=== PATIENT | male | born 1975 | race Caucasian/White ===

== ENCOUNTER 2016-10-23 09:11 | Emergency (ER) | payer MEDICAID, OTHER ==
[~2016-10-23] VITALS: Ht 167.6 cm; Wt 70.0 kg
[2016-10-23 09:14] VITALS: BP 143/85; PULSE 70; RESP 20; TEMP 98.1; O2SAT 100
[2016-10-23] MEDS ORDERED: ALLO300T2 PO (09:21)
[2016-10-23] MEDS ORDERED: SODIUM CHLOR 0.9% 1000 ML INJ 1,000 ML IV SCH (09:28)
[2016-10-23 09:30] VITALS: RESP 18; O2SAT 99
[2016-10-23] MEDS ORDERED: ONDANSETRON HCL 4 MG/2 ML VIAL IVP ONE (09:30)
[2016-10-23] MEDS ORDERED: SODIUM CHLORIDE 0.9% FLUSH 5 ML FLUSH IVF PRN (09:30)
[2016-10-23] MEDS ORDERED: MORPHINE SULFATE 4 MG/ML INJ IV PUSH ONE ×2 (09:30→12:15)
--- NOTE | 2016-10-23 09:36 | PD ---
HPI Chief Complaint: Abdominal Pain Time Seen by Provider: 09:23 Travel History International Travel<30 days: No Contact w/Intl Traveler<30days: No Traveled to known affect area: No History of Present Illness HPI Patient is a 41-year-old male with history of diverticulosis, presents to emergency room with complaints of abdominal pain. Patient reports that he woke up around 5 AM this morning with nausea and vomiting. Reports that he vomited multiple times and had multiple episodes of diarrhea. Patient reports increased lower abdominal pain. Patient reports that he has history of diverticulitis, reports that his symptoms today are very similar to his past episodes of diverticulitis. Patient reports that he last had a colonoscopy "a very long time ago." Reports that he does see a GI doctor, patient doesn't know the name of his GI doctor. Patient reports that he is currently working with his insurance to schedule an outpatient colonoscopy. Patient denies fevers or chills. Denies any recent travels. Denies any sick contacts. Reports nausea vomiting diarrhea with lower abdominal pain. PFSH Past Medical History Diminished Hearing: No Diverticulitis: Yes Gout: Yes Tetanus Vaccination: < 5 Years Influenza Vaccination: Yes Past Surgical History Other Surgery: Yes (CHEST TUBE RIGHT SIDE ) Social History Alcohol Use: Yes (OCASSIONALLY) Tobacco Use: Yes (1 PACK EVERY 3 DAYS) Substance Use: No Allergies-Medications (Allergen,Severity, Reaction): Coded Allergies: No Known Allergies (Unverified , 10/23/16) Reported Meds & Prescriptions Reported Meds & Active Scripts Active Medrol Dosepak (Methylprednisolone) 4 Mg Dspk 4 Mg PO DIRECTED Per Pharmacist direction Flagyl (Metronidazole) 500 Mg Tab 500 Mg PO TID 10 Days Cipro (Ciprofloxacin HCl) 500 Mg Tab 500 Mg PO BID 10 Days Reported Allopurinol 300 Mg Tab 300 Mg PO DAILY Review of Systems General / Constitutional: No: Fever Eyes: No: Visual changes HENT: No: Headaches Cardiovascular: No: Chest Pain or Discomfort Respiratory: No: Shortness of Breath Gastrointestinal: Positive: Nausea, Vomiting, Diarrhea, Abdominal Pain Genitourinary: No: Dysuria Musculoskeletal: No: Pain Skin: No Rash Neurologic: No: Weakness Psychiatric: No: Depression Endocrine: No: Polydipsia Hematologic/Lymphatic: No: Easy Bruising Physical Exam Narrative GENERAL: Patient in moderate distress SKIN: Warm and dry. HEAD: Atraumatic. Normocephalic. EYES: Pupils equal and round. No scleral icterus. No injection or drainage. ENT: No nasal bleeding or discharge. Mucous membranes pink and moist. NECK: Trachea midline. No JVD. CARDIOVASCULAR: Regular rate and rhythm. No murmur appreciated. RESPIRATORY: No accessory muscle use. Clear to auscultation. Breath sounds equal bilaterally. GASTROINTESTINAL: Abdomen soft, patient with lower abdominal pain with guarding on exam. Abdomen is not distended on evaluation. MUSCULOSKELETAL: No obvious deformities. No clubbing. No cyanosis. No edema. NEUROLOGICAL: Awake and alert. No obvious cranial nerve deficits. Motor grossly within normal limits. Normal speech. PSYCHIATRIC: Appropriate mood and affect; insight and judgment normal. Data Data Last Documented VS Vital Signs Date Time Temp Pulse Resp B/P Pulse Ox O2 Delivery O2 Flow Rate FiO2 10/23/16 12:23 17 10/23/16 11:30 68 130/78 99 Room Air 10/23/16 09:14 98.1 Orders Complete Blood Count With Diff (10/23/16 09:28) Comprehensive Metabolic Panel (10/23/16 09:28) Lipase (10/23/16 09:28) Prothrombin Time / Inr (Pt) (10/23/16:28) Act Partial Throm Time (Ptt) (10/23/16 09:28) Urinalysis - C+S If Indicated (10/23/16 09:28) Ct Abd/Pel W Iv Contrast(Rout) (10/23/16 09:28) Iv Access Insert/Monitor (10/23/16:28) Ecg Monitoring (10/23/16:28) Oximetry (10/23/16 09:28) Morphine Inj (Morphine Inj) (10/23/16 09:30) Ondansetron Inj (Zofran Inj) (10/23/16 09:30) Sodium Chlor 0.9% 1000 Ml Inj (Ns 1000 M (10/23/16 09:28) Sodium Chloride 0.9% Flush (Ns Flush) (10/23/16 09:30) Oral Contrast - Adult (10/23/16 09:33) Diatrizoate Liq ( Gastroview Liq) (10/23/16 09:37) Diatrizoate Liq ( Gastrocheko Liq) (10/23/16 09:37) Iohexol 350 Inj (Omnipaque 350 Inj) (10/23/16 11:42) Ciprofloxacin 400 Mg Premix (Cipro 400 M (10/23/16 12:15) Metronidazole 500 Mg Inj (Flagyl 500 Mg (10/23/16 12:15) Morphine Inj (Morphine Inj) (10/23/16 12:15) Labs Laboratory Tests Test 10/23/16 09:35 White Blood Count 18.5 TH/MM3 Red Blood Count 4.87 MIL/MM3 Hemoglobin 15.0 GM/DL Hematocrit 45.1 % Mean Corpuscular Volume 92.6 FL Mean Corpuscular Hemoglobin 30.9 PG Mean Corpuscular Hemoglobin 33.4 % Concent Red Cell Distribution Width 12.7 % Platelet Count 221 TH/MM3 Mean Platelet Volume 10.5 FL Neutrophils (%) (Auto) 84.9 % Lymphocytes (%) (Auto) 9.7 % Monocytes (%) (Auto) 4.7 % Eosinophils (%) (Auto) 0.3 % Basophils (%) (Auto) 0.4 % Neutrophils # (Auto) 15.7 TH/MM3 Lymphocytes # (Auto) 1.8 TH/MM3 Monocytes # (Auto) 0.9 TH/MM3 Eosinophils # (Auto) 0.1 TH/MM3 Basophils # (Auto) 0.1 TH/MM3 CBC Comment DIFF FINAL Differential Comment Prothrombin Time 11.4 SEC Prothromb Time International 1.0 RATIO Ratio Activated Partial 31.4 SEC Thromboplast Time Urine Color YELLOW Urine Turbidity CLEAR Urine pH 5.5 Urine Specific [place] 1.018 Urine Protein NEG mg/dL Urine Glucose (UA) NEG mg/dL Urine Ketones NEG mg/dL Urine Occult Blood TRACE Urine Nitrite NEG Urine Bilirubin NEG Urine Urobilinogen LESS THAN 2.0 MG/DL Urine Leukocyte Esterase NEG Urine RBC 1 /hpf Urine WBC 1 /hpf Urine Mucus FEW /lpf Microscopic Urinalysis Comment CULT NOT INDICATED Sodium Level 138 MEQ/L Potassium Level 4.6 MEQ/L Chloride Level 104 MEQ/L Carbon Dioxide Level 25.8 MEQ/L Anion Gap 8 MEQ/L Blood Urea Nitrogen 21 MG/DL Creatinine 0.94 MG/DL Estimat Glomerular Filtration 89 ML/MIN Rate Random Glucose 97 MG/DL Calcium Level 9.3 MG/DL Total Bilirubin 0.9 MG/DL Aspartate Amino Transf 14 U/L (AST/SGOT) Alanine Aminotransferase 24 U/L (ALT/SGPT) Alkaline Phosphatase 94 U/L Total Protein 8.0 GM/DL Albumin 3.8 GM/DL Lipase 70 U/L MDM Medical Decision Making Medical Screen Exam Complete: Yes Emergency Medical Condition: Yes Interpretation(s) Vital Signs Date Time Temp Pulse Resp B/P Pulse Ox O2 Delivery O2 Flow Rate FiO2 10/23/16 09:24 18 10/23/16 09:14 98.1 70 20 143/85 100 Differential Diagnosis Acute diverticulitis, UTI, abscess, pneumoperitoneum, electrolyte abnormality Narrative Course Patient is a 49-year-old male who presents to emergency room with complaints of abdominal pain. Patient reports history of diverticulitis, reports nausea vomiting diarrhea since 5 AM this morning. Patient with diffuse abdominal tenderness to lower abdomen, patient with guarding on exam. Patient was placed on site monitor, IV fluids as well as IV pain medication and IV antiemetics ordered for patient. CBC, BMP, LFTs and UA ordered for further evaluation symptoms. CAT scan of the abdomen with IV and po contrast ordered for further evaluation of acute diverticulitis Patient with acute diverticulitis, reviewed his patient. Patient comfortable going home and taking antibiotics as outpatient. Signs and symptoms of when to return to the emergency room reviewed with patient in detail. Patient also with "gout" Attack, Patient request script for steroids for tx of his gout - reports that he is having an attack now and usually takes steroids for it but reports that "I won't take it if I dont' need it" Signs and symptoms of when to return to emergency room reviewed with patient in detail. Diagnosis Primary Impression: Diverticulitis Qualified Code: K57.92 - Diverticulitis of intestine without perforation or abscess without bleeding, unspecified part of intestinal tract Additional Impression: Gout attack Patient Instructions: General Instructions, Narcotic given in the ED Departure Forms: Tests/Procedures, Work Release Enter return to work date: Oct 28, 2016 Additional Instructions: Please return to ER as needed Please follow-up with a primary care doctor as well as a GI doctor as soon as possible Please return to emergency room if your abdominal pain returns or persists Med/Other Pt SpecificInfo: Prescription(s) given Scripts Methylprednisolone Dosepak (Medrol Dosepak)4 Mg Dspk4 Mg PO DIRECTED #1 DSPK Ref 0 Per Pharmacist direction Prov:Jacquelin Gilliam DO 10/23/16 Metronidazole (Flagyl)500 Mg [id number] Mg PO TID 10 Days Ref 0 Prov:Jacquelin Gilliam DO 10/23/16 Ciprofloxacin (Cipro)500 Mg [id number] Mg PO BID 10 Days Ref 0 Prov:Jacquelin Gilliam DO 10/23/16 Disposition: 01 DISCHARGE HOME Condition: Stable Jacquelin Gilliam DO Oct 23, 2016 09:36
[2016-10-23] MEDS ORDERED: DIATRIZOATE MEGLUM/DIATRIZOATE SOD 9 ML CUP ONE ×2 (09:37)
[2016-10-23 09:59] LABS: AUTOMATED NEUTROPHIL # 15.7 TH/MM3 (1.8-7.7); BASOPHIL # 0.1 TH/MM3 (0-0.2); BASOPHIL % 0.4 % (0.0-2.0); EOSINOPHIL # 0.1 TH/MM3 (0-0.4); EOSINOPHIL % 0.3 % (0.0-4.0); HEMATOCRIT 45.1 % (39.0-51.0); HEMO FLAGS DIFF FINAL; LYMPH % 9.7 % (9.0-44.0); LYMPHOCYTE # 1.8 TH/MM3 (1.0-4.8); MEAN CELL VOLUME 92.6 FL (80.0-100.0); MEAN CORPUSCULAR HEMOGLOBIN 30.9 PG (27.0-34.0); MEAN CORPUSCULAR HGB CONC 33.4 % (32.0-36.0); MONO % 4.7 % (0.0-8.0); NEUT % 84.9 % (16.0-70.0); PLATELET COUNT 221 TH/MM3 (150-450); RED BLOOD COUNT 4.87 MIL/MM3 (4.50-5.90); RED CELL DISTRIBUTION WIDTH 12.7 % (11.6-17.2); WHITE BLOOD COUNT 18.5 TH/MM3 (4.0-11.0)
[2016-10-23 10:06] LABS: APTT (PATIENT) 31.4 SEC (24.3-30.1); BLOOD, URINE TRACE (NEG); COMMENT (UR) CULT NOT INDICATED; CULTURE IF INDICATED CULT NOT INDICATED; GLUCOSE,URINE NEG (NEG); KETONE, URINE NEG (NEG); MUCUS URINE FEW /lpf (OCC); NITRITE,URINE NEG (NEG); PH, URINE 5.5 (5.0-8.5); PROTHROMBIN TIME - PATIENT 11.4 SEC (9.8-11.6); URINE COLOR YELLOW (YELLW/STRAW)
[2016-10-23 10:18] LABS: ANION GAP 8 MEQ/L (5-15); AST (GOT) 14 U/L (15-37); BICARBONATE 25.8 MEQ/L (21.0-32.0); BLOOD UREA NITROGEN 21 MG/DL (7-18); CHLORIDE 104 MEQ/L (98-107); GLOMERULAR FILTRATION RATE 89 ML/MIN (>89); POTASSIUM 4.6 MEQ/L (3.5-5.1); SODIUM (NA) 138 MEQ/L (136-145)
[2016-10-23 10:21] LABS: ALKALINE PHOSPHATASE 94 U/L (45-117); ALT (GPT) 24 U/L (12-78); TOTAL BILIRUBIN ADULT 0.9 MG/DL (0.2-1.0)
[2016-10-23 11:30] VITALS: BP 130/78; PULSE 68; RESP 16; O2SAT 99
[2016-10-23] MEDS ORDERED: IOHEXOL 350 MG/ML 10 ML VIAL (for RAD DIAG) IV ONE (11:42)
--- NOTE | 2016-10-23 11:53 | RADRPT ---
EXAM DATE/TIME: 10/23/2016 11:38 [facility] COMPARISON: No previous studies available for comparison. INDICATIONS : Lower abdominal pain today with nausea and vomiting. IV CONTRAST: 69 cc Omnipaque 350 (iohexol) IV ORAL CONTRAST: Prescribed oral contrast ingested. RADIATION DOSE: 6.11 CTDIvol (mGy) MEDICAL HISTORY : Diverticulitis. SURGICAL HISTORY : None. ENCOUNTER: Initial ACUITY: 1 day PAIN SCALE: 6/10 LOCATION: lower quadrant TECHNIQUE: Volumetric scanning of the abdomen and pelvis was performed. Using automated exposure control and adjustment of the mA and/or kV according to patient size, radiation dose was kept as low as reasonably achievable to obtain optimal diagnostic quality images. FINDINGS: Minimal bibasilar parenchymal changes are evident. There is no pericardial effusion. The liver, spleen, pancreas and adrenal glands are unremarkable. The cecum and terminal ileum appear normal with patent normal appearing appendix. The pelvic is abnormal with extensive apparent sigmoid diverticulitis without abscess. This involves the long segment of this sigmoid. This is draped over the top of the bladder. CONCLUSION: Significant sigmoid diverticulitis without abscess. Bon Giordano MD FACR on October 23, 2016 at 11:49 Board Certified Radiologist. This report was verified electronically.
[2016-10-23] MEDS ORDERED: CIPROFLOXACIN 400 MG PREMIX 200 ML IV ONE (12:15)
[2016-10-23] MEDS ORDERED: metroNIDAZOLE 500 MG INJ 100 ML IV ONE (12:15)
[2016-10-23 12:23] VITALS: RESP 17
[2016-10-23] MEDS ORDERED: CIPR-9 PO (13:42)
[2016-10-23] MEDS ORDERED: METR-1 PO (13:42)
[2016-10-23] MEDS ORDERED: MEDR4PAK PO (13:44)
[2016-10-23 13:56] VITALS: BP 120/78; TEMP 98.1
== END 2016-10-23 14:05 | disposition home or self-care (01) ==
LOC: NEPC 09:11
DX: K57.92 Diverticulitis of intestine, part unspecified, without perforation or abscess without bleeding (principal); M10.9 Gout, unspecified; R11.2 Nausea with vomiting, unspecified; R19.7 Diarrhea, unspecified; Z72.0 Tobacco use
CPT/HCPCS: 74177; 80053; 81001; 83690; 85025; 85610; 85730; 96361; 96365; 96368; 96375; 96376; 99284; J0744; J2270; J2405; J7030; Q9963; Q9967

== ENCOUNTER 2017-07-21 15:12 | Inpatient (IN) | payer MEDICAID ==
[~2017-07-21] VITALS: Ht 165.1 cm; Wt 70.2 kg
[~2017-07-21 15:12] MED LIST: ALLO300T2 PO; CIPR-9 PO; MEDR4PAK PO; METR-1 PO
[2017-07-21 15:13] VITALS: BP 167/97; PULSE 79; RESP 16; TEMP 99; O2SAT 96
--- NOTE | 2017-07-21 17:46 | PD ---
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 Patient had been hospitalized 4 days and treated with IV Zosyn and vancomycin. Patient was going to be scheduled for surgery, but the patient did not like the surgeon there so he left AMA last evening. He is now here for reevaluation and treatment. Currently he states he is in no significant pain and denies significant fever. He has no dysuria which is the symptom that brought him to the hospital 5 days ago. Patient has a history of gout. Patient also has a history of hospitalization in April for a bowel abscess that was drained percutaneously according to him. He states she's had no trouble since that time until 5 days ago. Patient has no known drug allergies but requests no acetaminophen as it flares up his gout. PFSH Past Medical History Diminished Hearing: No Diverticulitis: Yes Gout: Yes Past Surgical History Other Surgery: Yes (CHEST TUBE RIGHT SIDE ) Social History Alcohol Use: Yes (OCASSIONALLY) Tobacco Use: Yes (1 PACK EVERY 3 DAYS) Substance Use: No Allergies-Medications (Allergen,Severity, Reaction): Coded Allergies: acetaminophen (Verified Allergy, Unknown, 07/21/17) morphine (Verified Allergy, Unknown, 07/21/17) Reported Meds & Prescriptions Reported Meds & Active Scripts Active Reported Allopurinol 300 Mg Tab 300 Mg PO DAILY Review of Systems Except as stated in HPI: all other systems reviewed are Neg General / Constitutional: No: Fever, Chills Eyes: No: Visual changes HENT: No: Headaches Cardiovascular: No: Chest Pain or Discomfort Respiratory: No: Shortness of Breath Gastrointestinal: No: Abdominal Pain Genitourinary: Positive: Dysuria Musculoskeletal: No: Pain Skin: No Rash Neurologic: No: Weakness Psychiatric: No: Depression Endocrine: No: Polydipsia Hematologic/Lymphatic: No: Easy Bruising Physical Exam Narrative GENERAL: Patient appears in no acute distress. SKIN: Warm and dry. Normal color. Normal turgor. HEAD: Atraumatic. Normocephalic. EYES: Pupils equal and round. No scleral icterus. No injection or drainage. ENT: No nasal bleeding or discharge. Mucous membranes pink and moist. Pharynx is clear. Airway is patent. NECK: Trachea midline. Supple nontender. CARDIOVASCULAR: Regular rate and rhythm. No murmurs gallops or rubs. RESPIRATORY: No accessory muscle use. Clear to auscultation. Breath sounds equal bilaterally. GASTROINTESTINAL: Abdomen soft, non-tender, nondistended. Hepatic and splenic margins not palpable. No CVA tenderness at this time. MUSCULOSKELETAL: Extremities without clubbing, cyanosis, or edema. No obvious deformities. NEUROLOGICAL: Awake and alert. No obvious cranial nerve deficits. Motor grossly within normal limits. Five out of 5 muscle strength in the arms and legs. Normal speech. PSYCHIATRIC: Appropriate mood and affect; insight and judgment normal. Data Data Last Documented VS Vital Signs Date Time Temp Pulse Resp B/P (MAP) Pulse Ox O2 Delivery O2 Flow Rate FiO2 07/21/17 15:13 99.0 79 16 167/97 (120) 96 Orders Orders Complete Blood Count With Diff (07/21/17:47) Comprehensive Metabolic Panel (07/21/17:47) Lactic Acid (07/21/17 17:47) Prothrombin Time / Inr (Pt) (07/21/17:47) Act Partial Throm Time (Ptt) (07/21/17:47) Urinalysis - C+S If Indicated (07/21/17 17:47) Ct Abd/Pel W Iv Contrast(Rout) (07/21/17 17:47) Iv Access Insert/Monitor (07/21/17:47) Ecg Monitoring (07/21/17:47) Oximetry (07/21/17:47) NPO (07/21/17:47) Sodium Chlor 0.9% 1000 Ml Inj (Ns 1000 M (07/21/17 17:47) Sodium Chloride 0.9% Flush (Ns Flush) (07/21/17 18:00) Electrocardiogram (07/21/17 17:47) Chest, Single Ap (07/21/17 17:47) Piperacil-Tazo 4.5 Gm Premix (Zosyn 4.5 (07/21/17 18:00) Vancomycin Inj (Vancomycin Inj) (07/21/17 18:00) Oral Contrast - Adult (07/21/17 17:53) Diatrizoate Liq ( Gastrocheko Liq) (07/21/17 19:19) Iohexol 350 Inj (Omnipaque 350 Inj) (07/21/17 22:39) Labs Laboratory Tests Test 07/21/17 18:00 07/21/17 20:35 White Blood Count 13.3 TH/MM3 Red Blood Count 4.77 MIL/MM3 Hemoglobin 14.8 GM/DL Hematocrit 44.4 % Mean Corpuscular Volume 93.1 FL Mean Corpuscular Hemoglobin 31.0 PG Mean Corpuscular Hemoglobin Concent 33.3 % Red Cell Distribution Width 14.4 % Platelet Count 226 TH/MM3 Mean Platelet Volume 10.4 FL Neutrophils (%) (Auto) 66.8 % Lymphocytes (%) (Auto) 25.1 % Monocytes (%) (Auto) 7.2 % Eosinophils (%) (Auto) 0.4 % Basophils (%) (Auto) 0.5 % Neutrophils # (Auto) 8.9 TH/MM3 Lymphocytes # (Auto) 3.3 TH/MM3 Monocytes # (Auto) 1.0 TH/MM3 Eosinophils # (Auto) 0.1 TH/MM3 Basophils # (Auto) 0.1 TH/MM3 CBC Comment DIFF FINAL Differential Comment Prothrombin Time 11.0 SEC Prothromb Time International Ratio 1.0 RATIO Activated Partial Thromboplast Time 29.4 SEC Blood Urea Nitrogen 8 MG/DL Creatinine 1.01 MG/DL Random Glucose 77 MG/DL Total Protein 8.5 GM/DL Albumin 3.8 GM/DL Calcium Level 9.7 MG/DL Alkaline Phosphatase 76 U/L Aspartate Amino Transf (AST/SGOT) 28 U/L Alanine Aminotransferase (ALT/SGPT) 33 U/L Total Bilirubin 0.4 MG/DL Sodium Level 140 MEQ/L Potassium Level 3.7 MEQ/L Chloride Level 103 MEQ/L Carbon Dioxide Level 30.4 MEQ/L Anion Gap 7 MEQ/L Estimat Glomerular Filtration Rate 82 ML/MIN Lactic Acid Level 0.7 mmol/L Urine Color COLORLESS Urine Turbidity CLEAR Urine pH 7.5 Urine Specific [place] 1.005 Urine Protein NEG mg/dL Urine Glucose (UA) NEG mg/dL Urine Ketones NEG mg/dL Urine Occult Blood NEG Urine Nitrite NEG Urine Bilirubin NEG Urine Urobilinogen LESS THAN 2.0 MG/DL Urine Leukocyte Esterase NEG Urine RBC LESS THAN 1 /hpf Urine WBC LESS THAN 1 /hpf Microscopic Urinalysis Comment CULT NOT INDICATED MDM Medical Decision Making Medical Screen Exam Complete: Yes Emergency Medical Condition: Yes Medical Record Reviewed: Yes Differential Diagnosis History of dysuria. History of diverticulitis. History colovesicular fistula/ abscess. Narrative Course Patient is medically stable at time of exam. Records are requested from his recent hospitalization at [facility] in [place]. Labs ordered including CBC, CMP, lactic acid, blood cultures 2, and urinalysis. CT of the abdomen and pelvis is ordered with both IV and oral contrast. IV access is obtained patient is given 1000 mg normal saline bolus as well as Zosyn 4.5 mg IV and vancomycin 1000 mg IV. EKG and chest x-ray is ordered as well. Chest x-ray is unremarkable for acute findings per radiologist. EKG shows sinus bradycardia without ST-T changes. CBC shows mild leukocytosis of 13.3. Coagulation studies are normal. Chemistries are normal except for protein of 8.5. Lactic acid is 0.[address] of the abdomen shows a 15 cm area of diverticulitis with extensive inflammatory changes. Patient discussed with and seen with Dr. Bernard at 2300 hrs. who recommends admitting the patient and have GI consult. Diagnosis Primary Impression: Diverticulitis Qualified Codes: K57.32 - Diverticulitis of large intestine without perforation or abscess without bleeding Admitting Information Admitting Physician Requests: Observation Condition: Stable Ronan Carrera Jul 21, 2017 17:46
[2017-07-21] MEDS ORDERED: SODIUM CHLOR 0.9% 1000 ML INJ 1,000 ML IV SCH (17:47)
[2017-07-21] MEDS ORDERED: PIPERACIL-TAZO 4.5 GM PREMIX 100 ML IV ONE (18:00)
[2017-07-21] MEDS ORDERED: SODIUM CHLORIDE 0.9% FLUSH 10 ML FLUSH IV FLUSH PRN (18:00)
[2017-07-21] MEDS ORDERED: VANCOMYCIN INJ 1,000 MG in SODIUM CHLOR 0.9% 250 ML INJ 250 ML IV ONE (18:00)
--- NOTE | 2017-07-21 18:34 | RADRPT ---
EXAM DATE/TIME: 07/21/2017 17:59 [facility] COMPARISON: No previous studies available for comparison. INDICATIONS : Cough. MEDICAL HISTORY : Diverticulitis. Fistulas. SURGICAL HISTORY : None. ENCOUNTER: Initial ACUITY: 1 day PAIN SCORE: 0/10 LOCATION: Bilateral chest FINDINGS: A single view of the chest demonstrates the lungs to be symmetrically aerated without evidence of mas s, infiltrate or effusion. The cardiomediastinal contours are unremarkable. Osseous structures are intact. CONCLUSION: 1. No acute cardiopulmonary disease. Scooby Schroeder MD on July 21, 2017 at 18:32 Board Certified Radiologist. This report was verified electronically.
[2017-07-21 18:41] LABS: AUTOMATED NEUTROPHIL # 8.9 TH/MM3 (1.8-7.7); BASOPHIL # 0.1 TH/MM3 (0-0.2); BASOPHIL % 0.5 % (0.0-2.0); EOSINOPHIL # 0.1 TH/MM3 (0-0.4); EOSINOPHIL % 0.4 % (0.0-4.0); HEMATOCRIT 44.4 % (39.0-51.0); HEMO FLAGS DIFF FINAL; LYMPH % 25.1 % (9.0-44.0); LYMPHOCYTE # 3.3 TH/MM3 (1.0-4.8); MEAN CELL VOLUME 93.1 FL (80.0-100.0); MEAN CORPUSCULAR HGB CONC 33.3 % (32.0-36.0); MONO % 7.2 % (0.0-8.0); NEUT % 66.8 % (16.0-70.0); PLATELET COUNT 226 TH/MM3 (150-450); RED BLOOD COUNT 4.77 MIL/MM3 (4.50-5.90); RED CELL DISTRIBUTION WIDTH 14.4 % (11.6-17.2); WHITE BLOOD COUNT 13.3 TH/MM3 (4.0-11.0)
[2017-07-21 19:03] LABS: APTT (PATIENT) 29.4 SEC (24.3-30.1)
[2017-07-21 19:10] LABS: ALT (GPT) 33 U/L (12-78)
[2017-07-21 19:12] LABS: ALKALINE PHOSPHATASE 76 U/L (45-117); TOTAL BILIRUBIN ADULT 0.4 MG/DL (0.2-1.0)
[2017-07-21 19:14] LABS: ANION GAP 7 MEQ/L (5-15); AST (GOT) 28 U/L (15-37); BICARBONATE 30.4 MEQ/L (21.0-32.0); BLOOD UREA NITROGEN 8 MG/DL (7-18); CHLORIDE 103 MEQ/L (98-107); GLOMERULAR FILTRATION RATE 82 ML/MIN (>89); POTASSIUM 3.7 MEQ/L (3.5-5.1); SODIUM (NA) 140 MEQ/L (136-145)
[2017-07-21] MEDS ORDERED: DIATRIZOATE MEGLUM/DIATRIZOATE SOD 9 ML CUP ONE (19:19)
[2017-07-21 20:51] LABS: BLOOD, URINE NEG (NEG); GLUCOSE,URINE NEG (NEG); KETONE, URINE NEG (NEG); NITRITE,URINE NEG (NEG); PH, URINE 7.5 (5.0-8.5); URINE COLOR COLORLESS (YELLW/STRAW)
[2017-07-21 21:01] LABS: COMMENT (UR) CULT NOT INDICATED; CULTURE IF INDICATED CULT NOT INDICATED
[2017-07-21] MEDS ORDERED: IOHEXOL 350 MG/ML 10 ML VIAL (for RAD DIAG) IVCONTRAST ONE (22:39)
--- NOTE | 2017-07-21 22:52 | RADRPT ---
EXAM DATE/TIME: 07/21/2017 22:23 [facility] COMPARISON: CT ABDOMEN & PELVIS W CONTRAST, October 23, 2016, 11:38. 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 IV CONTRAST: 90 cc Omnipaque 350 (iohexol) IV ORAL CONTRAST: Prescribed oral contrast ingested. RADIATION DOSE: 6.64 CTDIvol (mGy) MEDICAL HISTORY : Diverticulitis. SURGICAL HISTORY : None. ENCOUNTER: Initial ACUITY: 4 - 6 days PAIN SCALE: 1/10 LOCATION: Bilateral abdomen TECHNIQUE: Volumetric scanning of the abdomen and pelvis was performed. Using automated exposure control and ad justment of the mA and/or kV according to patient size, radiation dose was kept as low as reasonably achievable to obtain optimal diagnostic quality images. DICOM format image data is available electro nically for review and comparison. FINDINGS: There is subsegmental atelectasis in the both bases. There are multiple hypodensities within the daniel er compatible with hepatic cysts the largest measuring 7 mm in segment 7The spleen is normal in size and free of focal defects. The gallbladder and pancreas are unremarkable. No intrahepatic or extrahep atic ductal dilatation is seen. The adrenal glands and kidneys appear normal bilaterally. No hydronep hrosis or mass lesions are identified. There findings of acute diverticulitis involving the sigmoid colon without abscess. No free air is id entified. A retrocecal appendix is present. CONCLUSION: 1. Acute sigmoid diverticulitis extending over a 15 cm segment with extensive inflammatory change but no abscess Scooby Schroeder MD on July 21, 2017 at 22:47 Board Certified Radiologist. This report was verified electronically.
[2017-07-22] VITALS (10 sets, daily range): BP systolic 129–142; BP diastolic 74–92; PULSE 41–74; RESP 16–22; TEMP 96.8–98.2; O2SAT 95–100
[2017-07-22] MEDS ORDERED: SODIUM CHLORIDE 0.9% FLUSH 10 ML FLUSH IV FLUSH PRN (01:00)
[2017-07-22] MEDS ORDERED: NALOXONE HCL 0.4 MG/ML AMP IV PUSH PRN (01:00)
[2017-07-22] MEDS ORDERED: SODIUM CHLORIDE 0.9% FLUSH 10 ML FLUSH IVF PRN (01:00)
[2017-07-22] MEDS: SODIUM CHLOR 0.9% 1000 ML INJ 1,000 ML IV SCH ×3 (01:22→20:35)
[2017-07-22] MEDS: PIPERACIL-TAZO 4.5 GM PREMIX 100 ML IV SCH ×4 (01:56→20:32)
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
[2017-07-22 05:47] LABS: MAGNESIUM 2.3 MG/DL (1.5-2.5)
[2017-07-22] MEDS: SODIUM CHLORIDE 0.9% FLUSH 10 ML FLUSH IV FLUSH SCH ×2 (08:10→20:35)
[2017-07-22] MEDS ORDERED: SODIUM CHLORIDE 0.9% FLUSH 10 ML FLUSH IV FLUSH SCH (09:00)
--- NOTE | 2017-07-22 09:00 | HHI.PR ---
Subjective Remarks This is a pleasant 41 y/o Male with Diverticulitis, he was hospitalized at [facility] he signed against Medical advise when was offered surgery due to probable Diverticulitis and abscess, he came to this facility for second opinion, at this time seen in his bedroom, no pain, no nausea, or diarrhea, at this time on Zosyn and awaiting recommendations by GI specialist. no complaint but wants to start diet. Seen in the room in the presence at all times of Nurse Miss Suresh appreciated. Objective Vital Signs Date Time Temp Pulse Resp B/P (MAP) Pulse Ox O2 Delivery O2 Flow Rate FiO2 07/22/17 08:18 45 07/22/17 08:00 98.2 46 16 136/77 (96) 99 07/22/17 04:00 96.8 45 20 141/80 (100) 96 07/22/17 02:40 47 07/22/17 02:14 97.7 43 22 138/92 (107) 95 07/21/17 15:13 99.0 79 16 167/97 (120) 96 I/O 07/21/17 07/21/17 07/21/17 07/22/17 07/22/17 07/22/17 07:00 15:00 23:00 07:00 15:00 23:00 Intake Total 1350 ml 100 ml Output Total 150 ml Balance 1350 ml -50 ml Intake Oral 0 ml IV Total 1350 ml 100 ml Output Urine Total 150 ml # Bowel Movements 0 Result Diagram: 07/21/17 1800 07/21/17 1800 Imaging Last Impressions Chest X-Ray [id number]/21/[id number] Signed Impressions: Service Date/Time: Friday, July 21, 2017 17:59 - CONCLUSION: 1. No acute cardiopulmonary disease. Scooby Schroeder MD Abdomen/Pelvis CT [id number] Signed Impressions: Service Date/Time: Friday, July 21, 2017 22:23 - CONCLUSION: 1. Acute sigmoid diverticulitis extending over a 15 cm segment with extensive inflammatory change but no abscess Scooby Schroeder MD Other Results Laboratory Tests Test 07/21/17 18:00 07/21/17 20:35 07/22/17 05:14 White Blood Count 13.3 TH/MM3 Red Blood Count 4.77 MIL/MM3 Hemoglobin 14.8 GM/DL Hematocrit 44.4 % Mean Corpuscular Volume 93.1 FL Mean Corpuscular Hemoglobin 31.0 PG Mean Corpuscular Hemoglobin Concent 33.3 % Red Cell Distribution Width 14.4 % Platelet Count 226 TH/MM3 Mean Platelet Volume 10.4 FL Neutrophils (%) (Auto) 66.8 % Lymphocytes (%) (Auto) 25.1 % Monocytes (%) (Auto) 7.2 % Eosinophils (%) (Auto) 0.4 % Basophils (%) (Auto) 0.5 % Neutrophils # (Auto) 8.9 TH/MM3 Lymphocytes # (Auto) 3.3 TH/MM3 Monocytes # (Auto) 1.0 TH/MM3 Eosinophils # (Auto) 0.1 TH/MM3 Basophils # (Auto) 0.1 TH/MM3 CBC Comment DIFF FINAL Differential Comment Prothrombin Time 11.0 SEC Prothromb Time International Ratio 1.0 RATIO Activated Partial Thromboplast Time 29.4 SEC Blood Urea Nitrogen 8 MG/DL Creatinine 1.01 MG/DL Random Glucose 77 MG/DL Total Protein 8.5 GM/DL Albumin 3.8 GM/DL Calcium Level 9.7 MG/DL Alkaline Phosphatase 76 U/L Aspartate Amino Transf (AST/SGOT) 28 U/L Alanine Aminotransferase (ALT/SGPT) 33 U/L Total Bilirubin 0.4 MG/DL Sodium Level 140 MEQ/L Potassium Level 3.7 MEQ/L Chloride Level 103 MEQ/L Carbon Dioxide Level 30.4 MEQ/L Anion Gap 7 MEQ/L Estimat Glomerular Filtration Rate 82 ML/MIN Lactic Acid Level 0.7 mmol/L Urine Color COLORLESS Urine Turbidity CLEAR Urine pH 7.5 Urine Specific [place] 1.005 Urine Protein NEG mg/dL Urine Glucose (UA) NEG mg/dL Urine Ketones NEG mg/dL Urine Occult Blood NEG Urine Nitrite NEG Urine Bilirubin NEG Urine Urobilinogen LESS THAN 2.0 MG/DL Urine Leukocyte Esterase NEG Urine RBC LESS THAN 1 /hpf Urine WBC LESS THAN 1 /hpf Microscopic Urinalysis Comment CULT NOT INDICATED Phosphorus Level 3.4 MG/DL Magnesium Level 2.3 MG/DL Objective Remarks GENERAL: Well-developed patient, in no apparent distress. SKIN: No rashes, ecchymoses or lesions. Cool and dry. HEAD: Atraumatic. Normocephalic. EYES: Pupils equal round and reactive. Extraocular motions intact. ENT: Nose without bleeding, purulent drainage or septal hematoma.Airway patent. NECK: Trachea midline. No JVD or lymphadenopathy. CARDIOVASCULAR: Regular rate and rhythm without murmurs, gallops, or rubs. RESPIRATORY: Clear to auscultation. Breath sounds equal bilaterally. No wheezes , rales, or rhonchi. GASTROINTESTINAL: Abdomen soft, non-tender, nondistended. BS x 4 MUSCULOSKELETAL: Extremities without clubbing, cyanosis, or edema. No joint tenderness, effusion, or edema noted. No calf tenderness. NEUROLOGICAL: Awake and alert. Motor and sensory grossly within normal limits. Normal speech. Medications and IVs Current Medications Medications (Trade) Dose Ordered Sig/Eleazar Route Start Time Stop Time Status Last Admin Sodium Chloride 1,000 ml @ 100 mls/hr Q10H IV 07/22/17 00:46 07/22/17 01:22 (Zofran Inj) 4 mg Q6H PRN IVP 07/22/17 01:00 (Narcan Inj) 0.4 mg UNSCH PRN IV PUSH 07/22/17 01:00 (NS Flush) 2 ml BID IV FLUSH 07/22/17 09:00 (NS Flush) 2 ml UNSCH PRN IVF 07/22/17 01:00 Piperacillin Sod/ Tazobactam Sod 100 ml @ 200 mls/hr Q6H IV 07/22/17 02:00 07/22/17 08:29 A/P Assessment and Plan 1. Diverticulitis as per CT scan, he is been on Vancomycin and Zosyn at [facility] here started on Zosyn and following GI specialist recommendations evidently will need to rule out Inflammatory Bowel Disease. Because GI specialist KNURLING MACHINE OPERATOR in to see the patient will leave further Laboratory studies to her, he will need to complete Rheumatology screen. probable Endoscopy to follow may be recommended. DVT prophylaxis: SCDs Discussed Condition With Patient and nurse Demetrice, All questions answered to the best of my abilities. Discharge Planning Once cleared by specialists. Dao Patterson MD Jul 22, 2017 09:00
--- NOTE | 2017-07-22 09:54 | EKG ---
Date Performed: 07/21/2017 Time Performed: 22:23:47 PTAGE: 41 years EKG: SINUS BRADYCARDIA WITH SINUS ARRHYTHMIA MINIMAL VOLTAGE CRITERIA FOR LVH, CONSIDER NORMAL V ARIANT BORDERLINE ECG NO PREVIOUS TRACING DOCTOR: Scooby Valenzuela Interpretating Date/Time 07/22/2017 09:52:37
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
--- NOTE | 2017-07-22 15:43 | PD.CONS ---
cc: Kenny Singleton MD [facility] Service Consultation NOTE FOR SURGICAL ATTENDING, DR. KENNY SINGLETON General Surgery Consult Requested By Yenny QUINONES Reason for Consult Acute diverticulitis Primary Care Physician No Primary Care Physician History of Present Illness 41-year-old male with a past medical history of gout and diverticulitis. The patient has had a hospitalization for [facility] and [facility] from Friday of last week until this past Friday. The patient went to the hospital complaining of the gout flare in slight bladder pressure when urinating. A CT abdomen abdomen/pelvis was obtained which he reports he was told he had two accesses and two fistulas. The patient was evaluated by Dr. Le (General Surgery) and recommend surgical procedure while inpatient. The patient left that facility Friday against medical advice in search of a second option. The physicians at [facility] called in antibiotics to a local [facility] for the patient to order picker but he has not done so yet. He was tolerated a full liquid diet. Of note, the patient was also admitted for acute diverticulitis in March of this year and had CT guided drainage at that time. A General Surgery evaluation has been requested. Review of Systems Constitutional: DENIES: Fatigue, Fever, Change in appetite Endocrine: DENIES: Polydipsia, Polyuria, Polyphagia Eyes: DENIES: Diplopia Ears, nose, mouth, throat: DENIES: Hearing loss Respiratory: DENIES: Cough Cardiovascular: DENIES: Chest pain Gastrointestinal: DENIES: Abdominal pain, Constipation, Diarrhea, Nausea, Vomiting Genitourinary: DENIES: Urgency Musculoskeletal: DENIES: Joint pain Integumentary: DENIES: Abnormal pigmentation Hematologic/lymphatic: DENIES: Bruising Immunologic/allergic: DENIES: Eczema Neurologic: DENIES: Headache, Localized weakness Psychiatric: DENIES: Mood changes, Depression, Hallucinations Past Family Social History Past Medical History Gout Diverticulitis Past Surgical History CT guided drainage of diverticular abscess Reported Medications No home medications Allergies: Coded Allergies: acetaminophen (Verified Allergy, Unknown, 07/21/17) morphine (Verified Allergy, Unknown, 07/21/17) Active Ordered Medications Current Medications Medications (Trade) Dose Ordered Sig/Eleazar Route Start Time Stop Time Status Last Admin Sodium Chloride 1,000 ml @ 100 mls/hr Q10H IV 07/22/17 00:46 07/22/17 13:04 (Zofran Inj) 4 mg Q6H PRN IVP 07/22/17 01:00 (Narcan Inj) 0.4 mg UNSCH PRN IV PUSH 07/22/17 01:00 (NS Flush) 2 ml BID IV FLUSH 07/22/17 09:00 (NS Flush) 2 ml UNSCH PRN IVF 07/22/17 01:00 Piperacillin Sod/ Tazobactam Sod 100 ml @ 200 mls/hr Q6H IV 07/22/17 02:00 07/22/17 14:52 Family History Mother and Father both with history of hypertension and diabetes mellitus Social History + tobacco use--- 3 cigarettes a day +ETOH use--- daily at dinner + illicit drug--- + marijuana use; occasional Physical Exam Vital Signs Vital Signs Date Time Temp Pulse Resp B/P (MAP) Pulse Ox O2 Delivery O2 Flow Rate FiO2 07/22/17 12:00 97.5 53 16 129/74 (92) 97 07/22/17 08:18 45 07/22/17 08:00 98.2 46 16 136/77 (96) 99 07/22/17 04:00 96.8 45 20 141/80 (100) 96 07/22/17 02:40 47 07/22/17 02:14 97.7 43 22 138/92 (107) 95 07/21/17 15:13 99.0 79 16 167/97 (120) 96 Physical Exam GENERAL: Pleasant 41 year old male resting in bed in no acute distress. SKIN: Warm and dry. HEAD: Atraumatic. Normocephalic. EYES: Pupils equal and round. No scleral icterus. No injection or drainage. ENT: No nasal bleeding or discharge. Mucous membranes pink and moist. NECK: Trachea midline. CARDIOVASCULAR: Regular rate and rhythm. RESPIRATORY: No accessory muscle use. Clear to auscultation. Breath sounds equal bilaterally. GASTROINTESTINAL: Abdomen soft, non-tender, nondistended. No visible scars on abdomen. MUSCULOSKELETAL: Extremities without clubbing, cyanosis, or edema. No obvious deformities. NEUROLOGICAL: Awake and alert. No obvious cranial nerve deficits. Motor grossly within normal limits. Five out of 5 muscle strength in the arms and legs. Normal speech. PSYCHIATRIC: Appropriate mood and affect; insight and judgment normal. Laboratory Laboratory Tests Test 07/21/17 18:00 07/21/17 20:35 07/22/17 05:14 07/22/17 10:40 White Blood Count 13.3 Red Blood Count 4.77 Hemoglobin 14.8 Hematocrit 44.4 Mean Corpuscular Volume 93.1 Mean Corpuscular Hemoglobin 31.0 Mean Corpuscular Hemoglobin Concent 33.3 Red Cell Distribution Width 14.4 Platelet Count 226 Mean Platelet Volume 10.4 Neutrophils (%) (Auto) 66.8 Lymphocytes (%) (Auto) 25.1 Monocytes (%) (Auto) 7.2 Eosinophils (%) (Auto) 0.4 Basophils (%) (Auto) 0.5 Neutrophils # (Auto) 8.9 Lymphocytes # (Auto) 3.3 Monocytes # (Auto) 1.0 Eosinophils # (Auto) 0.1 Basophils # (Auto) 0.1 CBC Comment DIFF FINAL Differential Comment Prothrombin Time 11.0 Prothromb Time International Ratio 1.0 Activated Partial Thromboplast Time 29.4 Blood Urea Nitrogen 8 Creatinine 1.01 Random Glucose 77 Total Protein 8.5 Albumin 3.8 Calcium Level 9.7 Alkaline Phosphatase 76 Aspartate Amino Transf (AST/SGOT) 28 Alanine Aminotransferase (ALT/SGPT) 33 Total Bilirubin 0.4 Sodium Level 140 Potassium Level 3.7 Chloride Level 103 Carbon Dioxide Level 30.4 Anion Gap 7 Estimat Glomerular Filtration Rate 82 Lactic Acid Level 0.7 Urine Color COLORLESS Urine Turbidity CLEAR Urine pH 7.5 Urine Specific [place] 1.005 Urine Protein NEG Urine Glucose (UA) NEG Urine Ketones NEG Urine Occult Blood NEG Urine Nitrite NEG Urine Bilirubin NEG Urine Urobilinogen LESS THAN 2.0 Urine Leukocyte Esterase NEG Urine RBC LESS THAN 1 Urine WBC LESS THAN 1 Microscopic Urinalysis Comment CULT NOT INDICATED Phosphorus Level 3.4 Magnesium Level 2.3 Erythrocyte Sedimentation Rate 18 C-Reactive Protein 1.60 HIV (1&2) Antibody NEGATIVE Result Diagram: 07/21/17 1800 07/21/17 1800 Imaging Last 48 hours Impressions Chest X-Ray 07/21/171746 Signed Impressions: Service Date/Time: Friday, July 21, 2017 17:59 - CONCLUSION: 1. No acute cardiopulmonary disease. Scooby Schroeder MD Abdomen/Pelvis CT [id number]/21/171746 Signed Impressions: Service Date/Time: Friday, July 21, 2017 22:23 - CONCLUSION: 1. Acute sigmoid diverticulitis extending over a 15 cm segment with extensive inflammatory change but no abscess Scooby Schroeder MD Assessment and Plan Problem List: (1) Elevated white blood cell count ICD Codes: D72.829 - Elevated white blood cell count, unspecified Status: Acute (2) Abdominal pain, left lower quadrant ICD Codes: R10.32 - Left lower quadrant pain Status: Chronic (3) Diverticulitis ICD Codes: K57.92 - Diverticulitis of intestine, part unspecified, without perforation or abscess without bleeding Status: Chronic (4) Acute diverticulitis of intestine ICD Codes: K57.92 - Diverticulitis of intestine, part unspecified, without perforation or abscess without bleeding Status: Chronic (5) Abnormal computed tomography of abdomen and pelvis ICD Codes: R93.5 - Abnormal findings on diagnostic imaging of other abdominal regions, including retroperitoneum Status: Chronic Assessment and Plan 41 year old male with acute gout attack; CT abdomen/pelvis with acute sigmoid diverticulitis with extensive inflammatory changes without abscess. -Clear liquid -Continue IV antibiotics -Continue to monitor WBC -Await records including CT scans from [facility] -Thank you for this consult; We will continue to follow Discussed Condition With Dr. Mani QUINONES Mr. Bermeo Attending Statement CONSULTATION NOTE FOR SURGICAL ATTENDING, DR. KENNY SINGLETON I agree with above assessment and plan. The exam, history, and the medical decision-making described in the above note were completed with the assistance of the mid-level provider. I reviewed and agree with the findings presented. pt seen and examined min abd discomfort cont abx change to PO outpt colonoscopy elective resection in 6 to 8 weeks I attest that I had a [id number] encounter with the patient on the same day, and personally performed and documented my assessment and findings in the medical record. The following services were provided during this hospital visit: Chart data review, vital sign assessments/reviewing monitor data Review of consultations notes if present. Medication orders/review and/or management Ordering and/or reviewing lab tests Ordering and/or interpreting/reviewing x-rays and/or diagnostic studies Care of the patient and discussion of the patient with the care team Documentation time To help prompt me to consider important information that might be impacting today's encounter and assessment, information from prior notes written by myself or my colleagues may have been "brought forward/copy and pasted" into today's note. Problem Qualifiers (1) Diverticulitis: Qualified Codes: K57.32 - Diverticulitis of large intestine without perforation or abscess without bleeding Tressa Dacosta Jul 22, 2017 15:43 Kenny Singleton MD Jul 23, 2017 10:56
[2017-07-23] VITALS (8 sets, daily range): BP systolic 109–128; BP diastolic 68–84; PULSE 59–86; RESP 18–20; TEMP 97.3–99.8; O2SAT 94–98
[2017-07-23] MEDS: PIPERACIL-TAZO 4.5 GM PREMIX 100 ML IV SCH ×4 (01:48→20:14)
[2017-07-23] MEDS: HYDROmorphone HCL PF 1 MG/ML VIAL IV PUSH PRN ×4 (03:13→20:15)
[2017-07-23] MEDS: SODIUM CHLOR 0.9% 1000 ML INJ 1,000 ML IV SCH ×2 (06:46→18:00)
--- NOTE | 2017-07-23 08:30 | HHI.PR ---
Subjective Remarks This is a pleasant 41 y/o Male with Diverticulitis, he was hospitalized at [facility] he signed against Medical advise when was offered surgery due to probable Diverticulitis and abscess, he came to this facility for second opinion, at this time seen in his bedroom, no pain, no nausea, or diarrhea, at this time on Zosyn and awaiting recommendations by GI specialist. no complaint but wants to start diet. 07/23: Stable in his bedroom, no complaint, no nausea, vomit or diarrhea, GI and General Surgery awaiting for records from [facility], Objective Vital Signs Date Time Temp Pulse Resp B/P (MAP) Pulse Ox O2 Delivery O2 Flow Rate FiO2 07/23/17 03:43 18 07/23/17 00:48 97.8 62 18 109/68 (82) 94 07/22/17 21:59 99 21 07/22/17 20:00 97.3 72 20 142/86 (104) 99 07/22/17 19:53 74 07/22/17 16:00 97.4 41 16 134/82 (99) 100 07/22/17 12:00 97.5 53 16 129/74 (92) 97 I/O 07/22/17 07/22/17 07/22/17 07/23/17 07/23/17 07/23/17 07:00 15:00 23:00 07:00 15:00 23:00 Intake Total 100 ml 1100 ml 1420 ml 1460 ml Output Total 150 ml 850 ml Balance -50 ml 1100 ml 570 ml 1460 ml Intake Oral 0 ml 320 ml 360 ml IV Total 100 ml 1100 ml 1100 ml 1100 ml Output Urine Total 150 ml 850 ml # Voids 3 # Bowel Movements 0 1 0 Result Diagram: 07/21/17 1800 07/21/17 1800 Imaging Last Impressions Chest X-Ray 07/21/171746 Signed Impressions: Service Date/Time: Friday, July 21, 2017 17:59 - CONCLUSION: 1. No acute cardiopulmonary disease. Scooby Schroeder MD Abdomen/Pelvis CT [id number]/21/171746 Signed Impressions: Service Date/Time: Friday, July 21, 2017 22:23 - CONCLUSION: 1. Acute sigmoid diverticulitis extending over a 15 cm segment with extensive inflammatory change but no abscess Scooby Schroeder MD Procedures None Other Results Laboratory Tests Test 07/21/17 18:00 07/21/17 20:35 07/22/17 05:14 07/22/17 10:40 White Blood Count 13.3 TH/MM3 Red Blood Count 4.77 MIL/MM3 Hemoglobin 14.8 GM/DL Hematocrit 44.4 % Mean Corpuscular Volume 93.1 FL Mean Corpuscular Hemoglobin 31.0 PG Mean Corpuscular Hemoglobin Concent 33.3 % Red Cell Distribution Width 14.4 % Platelet Count 226 TH/MM3 Mean Platelet Volume 10.4 FL Neutrophils (%) (Auto) 66.8 % Lymphocytes (%) (Auto) 25.1 % Monocytes (%) (Auto) 7.2 % Eosinophils (%) (Auto) 0.4 % Basophils (%) (Auto) 0.5 % Neutrophils # (Auto) 8.9 TH/MM3 Lymphocytes # (Auto) 3.3 TH/MM3 Monocytes # (Auto) 1.0 TH/MM3 Eosinophils # (Auto) 0.1 TH/MM3 Basophils # (Auto) 0.1 TH/MM3 CBC Comment DIFF FINAL Differential Comment Prothrombin Time 11.0 SEC Prothromb Time International Ratio 1.0 RATIO Activated Partial Thromboplast Time 29.4 SEC Blood Urea Nitrogen 8 MG/DL Creatinine 1.01 MG/DL Random Glucose 77 MG/DL Total Protein 8.5 GM/DL Albumin 3.8 GM/DL Calcium Level 9.7 MG/DL Alkaline Phosphatase 76 U/L Aspartate Amino Transf (AST/SGOT) 28 U/L Alanine Aminotransferase (ALT/SGPT) 33 U/L Total Bilirubin 0.4 MG/DL Sodium Level 140 MEQ/L Potassium Level 3.7 MEQ/L Chloride Level 103 MEQ/L Carbon Dioxide Level 30.4 MEQ/L Anion Gap 7 MEQ/L Estimat Glomerular Filtration Rate 82 ML/MIN Lactic Acid Level 0.7 mmol/L Urine Color COLORLESS Urine Turbidity CLEAR Urine pH 7.5 Urine Specific [place] 1.005 Urine Protein NEG mg/dL Urine Glucose (UA) NEG mg/dL Urine Ketones NEG mg/dL Urine Occult Blood NEG Urine Nitrite NEG Urine Bilirubin NEG Urine Urobilinogen LESS THAN 2.0 MG/DL Urine Leukocyte Esterase NEG Urine RBC LESS THAN 1 /hpf Urine WBC LESS THAN 1 /hpf Microscopic Urinalysis Comment CULT NOT INDICATED Phosphorus Level 3.4 MG/DL Magnesium Level 2.3 MG/DL Erythrocyte Sedimentation Rate 18 mm/hr C-Reactive Protein 1.60 MG/DL Herpes Simplex Virus I IgG Ab Index Positive Herpes Simplex Virus II IgG Index Negative HIV (1&2) Antibody NEGATIVE Objective Remarks GENERAL: Well-developed patient, in no apparent distress. SKIN: No rashes, ecchymoses or lesions. Cool and dry. HEAD: Atraumatic. Normocephalic. EYES: Pupils equal round and reactive. Extraocular motions intact. ENT: Nose without bleeding, purulent drainage or septal hematoma.Airway patent. NECK: Trachea midline. No JVD or lymphadenopathy. CARDIOVASCULAR: Regular rate and rhythm without murmurs, gallops, or rubs. RESPIRATORY: Clear to auscultation. Breath sounds equal bilaterally. No wheezes , rales, or rhonchi. GASTROINTESTINAL: Abdomen soft, non-tender, nondistended. BS x 4 MUSCULOSKELETAL: Extremities without clubbing, cyanosis, or edema. No joint tenderness, effusion, or edema noted. No calf tenderness. NEUROLOGICAL: Awake and alert. Motor and sensory grossly within normal limits. Normal speech. Medications and IVs Current Medications Medications (Trade) Dose Ordered Sig/Eleazar Route Start Time Stop Time Status Last Admin Sodium Chloride 1,000 ml @ 100 mls/hr Q10H IV 07/22/17 00:46 07/23/17 06:46 (Zofran Inj) 4 mg Q6H PRN IVP 07/22/17 01:00 (Narcan Inj) 0.4 mg UNSCH PRN IV PUSH 07/22/17 01:00 (NS Flush) 2 ml BID IV FLUSH 07/22/17 09:00 (NS Flush) 2 ml UNSCH PRN IVF 07/22/17 01:00 Piperacillin Sod/ Tazobactam Sod 100 ml @ 200 mls/hr Q6H IV 07/22/17 02:00 07/23/17 01:48 (Dilaudid Pf Inj) 0.5 mg Q4H PRN IV PUSH 07/23/17 03:00 07/23/17 03:13 A/P Assessment and Plan 1. Diverticulitis as per CT scan, he is been on Vancomycin and Zosyn at [facility] here started on Zosyn and following GI specialist recommendations and General Surgery recommendations. DVT prophylaxis: SCDs Discussed Condition With Patient, All questions answered to the best of my abilities. Discharge Planning Once cleared by specialists. Dao Patterson MD Jul 23, 2017 08:30
[2017-07-23 08:49] LABS: AUTOMATED NEUTROPHIL # 11.5 TH/MM3 (1.8-7.7); BASOPHIL # 0.1 TH/MM3 (0-0.2); BASOPHIL % 0.3 % (0.0-2.0); EOSINOPHIL # 0.1 TH/MM3 (0-0.4); EOSINOPHIL % 0.4 % (0.0-4.0); HEMATOCRIT 41.8 % (39.0-51.0); HEMO FLAGS DIFF FINAL; LYMPHOCYTE # 2.2 TH/MM3 (1.0-4.8); MEAN CELL VOLUME 92.7 FL (80.0-100.0); MEAN CORPUSCULAR HEMOGLOBIN 30.5 PG (27.0-34.0); MEAN CORPUSCULAR HGB CONC 32.9 % (32.0-36.0); MONO % 7.4 % (0.0-8.0); NEUT % 76.9 % (16.0-70.0); PLATELET COUNT 209 TH/MM3 (150-450); RED BLOOD COUNT 4.51 MIL/MM3 (4.50-5.90); RED CELL DISTRIBUTION WIDTH 14.2 % (11.6-17.2)
[2017-07-23] MEDS: SODIUM CHLORIDE 0.9% FLUSH 10 ML FLUSH IV FLUSH SCH ×2 (08:59→20:15)
[2017-07-23 09:26] LABS: ALKALINE PHOSPHATASE 60 U/L (45-117); ALT (GPT) 23 U/L (12-78); ANION GAP 8 MEQ/L (5-15); AST (GOT) 15 U/L (15-37); BICARBONATE 27.4 MEQ/L (21.0-32.0); BLOOD UREA NITROGEN 8 MG/DL (7-18); CHLORIDE 104 MEQ/L (98-107); GLOMERULAR FILTRATION RATE 79 ML/MIN (>89); POTASSIUM 3.8 MEQ/L (3.5-5.1); SODIUM (NA) 139 MEQ/L (136-145); TOTAL BILIRUBIN ADULT 0.6 MG/DL (0.2-1.0)
[2017-07-23 14:02] LABS: AUTOMATED NEUTROPHIL # 11.2 TH/MM3 (1.8-7.7); BASOPHIL # 0.1 TH/MM3 (0-0.2); BASOPHIL % 0.5 % (0.0-2.0); EOSINOPHIL % 0.3 % (0.0-4.0); HEMATOCRIT 42.8 % (39.0-51.0); HEMO FLAGS DIFF FINAL; LYMPH % 15.4 % (9.0-44.0); LYMPHOCYTE # 2.3 TH/MM3 (1.0-4.8); MEAN CELL VOLUME 92.7 FL (80.0-100.0); MEAN CORPUSCULAR HGB CONC 33.4 % (32.0-36.0); MONO % 7.4 % (0.0-8.0); NEUT % 76.4 % (16.0-70.0); PLATELET COUNT 213 TH/MM3 (150-450); RED BLOOD COUNT 4.61 MIL/MM3 (4.50-5.90); RED CELL DISTRIBUTION WIDTH 14.4 % (11.6-17.2); WHITE BLOOD COUNT 14.7 TH/MM3 (4.0-11.0)
[2017-07-23] MEDS: ONDANSETRON HCL 4 MG/2 ML VIAL IVP PRN (14:35)
--- NOTE | 2017-07-23 14:55 | HHI.PR ---
cc: Michael Dickerson MD Subjective Subjective Notes DAILY PROGRESS NOTE FOR SURGICAL ATTENDING, DR. MICHAEL DICKERSON Wants to try something bland for breakfast No issues overnight +BM Objective Vitals/I&O Vital Signs Date Time Temp Pulse Resp B/P (MAP) Pulse Ox O2 Delivery O2 Flow Rate FiO2 07/23/17 13:51 62 07/23/17 12:00 97.7 19 123/78 (93) 97 07/22/17 21:59 21 Labs Laboratory Tests Test 07/23/17 07:51 07/23/17 13:15 White Blood Count 15.0 14.7 Red Blood Count 4.51 4.61 Hemoglobin 13.8 14.3 Hematocrit 41.8 42.8 Mean Corpuscular Volume 92.7 92.7 Mean Corpuscular Hemoglobin 30.5 31.0 Mean Corpuscular Hemoglobin Concent 32.9 33.4 Red Cell Distribution Width 14.2 14.4 Platelet Count 209 213 Mean Platelet Volume 10.1 10.5 Neutrophils (%) (Auto) 76.9 76.4 Lymphocytes (%) (Auto) 15.0 15.4 Monocytes (%) (Auto) 7.4 7.4 Eosinophils (%) (Auto) 0.4 0.3 Basophils (%) (Auto) 0.3 0.5 Neutrophils # (Auto) 11.5 11.2 Lymphocytes # (Auto) 2.2 2.3 Monocytes # (Auto) 1.1 1.1 Eosinophils # (Auto) 0.1 0.0 Basophils # (Auto) 0.1 0.1 CBC Comment DIFF FINAL DIFF FINAL Differential Comment Blood Urea Nitrogen 8 Creatinine 1.04 Random Glucose 87 Total Protein 6.8 Albumin 3.0 Calcium Level 8.7 Alkaline Phosphatase 60 Aspartate Amino Transf (AST/SGOT) 15 Alanine Aminotransferase (ALT/SGPT) 23 Total Bilirubin 0.6 Sodium Level 139 Potassium Level 3.8 Chloride Level 104 Carbon Dioxide Level 27.4 Anion Gap 8 Estimat Glomerular Filtration Rate 79 Radiology Last 48 hours Impressions Chest X-Ray 07/21/171746 Signed Impressions: Service Date/Time: Friday, July 21, 2017 17:59 - CONCLUSION: 1. No acute cardiopulmonary disease. Scooby Schroeder MD Abdomen/Pelvis CT 07/21/171746 Signed Impressions: Service Date/Time: Friday, July 21, 2017 22:23 - CONCLUSION: 1. Acute sigmoid diverticulitis extending over a 15 cm segment with extensive inflammatory change but no abscess Scooby Schroeder MD Cardiovascular: Regular Lungs: Clear Abdomen: Non-distended, Other (LLQ tenderness with palpation ) Extremities: No edema A/P Problem List: (1) Elevated white blood cell count ICD Codes: D72.829 - Elevated white blood cell count, unspecified Status: Acute (2) Abdominal pain, left lower quadrant ICD Codes: R10.32 - Left lower quadrant pain Status: Chronic (3) Diverticulitis ICD Codes: K57.92 - Diverticulitis of intestine, part unspecified, without perforation or abscess without bleeding Status: Chronic (4) Acute diverticulitis of intestine ICD Codes: K57.92 - Diverticulitis of intestine, part unspecified, without perforation or abscess without bleeding Status: Chronic (5) Abnormal computed tomography of abdomen and pelvis ICD Codes: R93.5 - Abnormal findings on diagnostic imaging of other abdominal regions, including retroperitoneum Status: Chronic Assessment and Plan 41 year old male with acute gout attack; CT abdomen/pelvis with acute sigmoid diverticulitis with extensive inflammatory changes without abscess. -Regular soft diet as tolerated -Slight increase in WBC; Continue antibiotics -Afebrile -+BM -Await records including CT scans from [facility] -Recommend outpatient colonoscopy in about 6-8 weeks Attending Statement NOTE FOR SURGICAL ATTENDING, DR. MICHAEL DICKERSON Feels ok ate to much yesterday had some LLQ pain improved now min llq discomfort I agree with above assessment and plan. The exam, history, and the medical decision-making described in the above note were completed with the assistance of the mid-level provider. I reviewed and agree with the findings presented. I attest that I had a [id number] encounter with the patient on the same day, and personally performed and documented my assessment and findings in the medical record. The following services were provided during this hospital visit: Chart data review, vital sign assessments/reviewing monitor data Review of consultations notes if present. Medication orders/review and/or management Ordering and/or reviewing lab tests Ordering and/or interpreting/reviewing x-rays and/or diagnostic studies Care of the patient and discussion of the patient with the care team Documentation time To help prompt me to consider important information that might be impacting today's encounter and assessment, information from prior notes written by myself or my colleagues may have been "brought forward/copy and pasted" into today's note. Problem Qualifiers (1) Diverticulitis: Qualified Codes: K57.32 - Diverticulitis of large intestine without perforation or abscess without bleeding Tressa Dacosta Jul 23, 2017 14:55 Michael Dickerson MD Jul 23, 2017 15:26
--- NOTE | 2017-07-23 14:58 | HHI.GIFU ---
Subjective Remarks Resting in bed. States he had a chicken sandwich yesterday and has since had more LLQ pain. No n/v. No fever. Awaiting records from [facility]. (Yenny Weems) Objective Vitals I&O Vital Signs Date Time Temp Pulse Resp B/P (MAP) Pulse Ox O2 Delivery O2 Flow Rate FiO2 07/23/17 13:51 62 07/23/17 12:00 97.7 59 19 123/78 (93) 97 07/23/17 09:43 97 07/23/17 08:00 97.3 66 19 122/84 (97) 97 07/23/17 03:43 18 07/23/17 00:48 97.8 62 18 109/68 (82) 94 07/22/17 21:59 99 21 07/22/17 20:00 97.3 72 20 142/86 (104) 99 07/22/17 19:53 74 07/22/17 16:00 97.4 41 16 134/82 (99) 100 I/O 07/22/17 07/22/17 07/22/17 07/23/17 07/23/17 07/23/17 06:59 14:59 22:59 06:59 14:59 22:59 Intake Total 100 ml 1100 ml 1420 ml 1460 ml 120 ml Output Total 150 ml 850 ml Balance -50 ml 1100 ml 570 ml 1460 ml 120 ml Intake Oral 0 ml 320 ml 360 ml 120 ml IV Total 100 ml 1100 ml 1100 ml 1100 ml Output Urine Total 150 ml 850 ml # Voids 3 # Bowel Movements 0 1 0 Laboratory Laboratory Tests Test 07/23/17 07:51 07/23/17 13:15 White Blood Count 15.0 14.7 Red Blood Count 4.51 4.61 Hemoglobin 13.8 14.3 Hematocrit 41.8 42.8 Mean Corpuscular Volume 92.7 92.7 Mean Corpuscular Hemoglobin 30.5 31.0 Mean Corpuscular Hemoglobin Concent 32.9 33.4 Red Cell Distribution Width 14.2 14.4 Platelet Count 209 213 Mean Platelet Volume 10.1 10.5 Neutrophils (%) (Auto) 76.9 76.4 Lymphocytes (%) (Auto) 15.0 15.4 Monocytes (%) (Auto) 7.4 7.4 Eosinophils (%) (Auto) 0.4 0.3 Basophils (%) (Auto) 0.3 0.5 Neutrophils # (Auto) 11.5 11.2 Lymphocytes # (Auto) 2.2 2.3 Monocytes # (Auto) 1.1 1.1 Eosinophils # (Auto) 0.1 0.0 Basophils # (Auto) 0.1 0.1 CBC Comment DIFF FINAL DIFF FINAL Differential Comment Blood Urea Nitrogen 8 Creatinine 1.04 Random Glucose 87 Total Protein 6.8 Albumin 3.0 Calcium Level 8.7 Alkaline Phosphatase 60 Aspartate Amino Transf (AST/SGOT) 15 Alanine Aminotransferase (ALT/SGPT) 23 Total Bilirubin 0.6 Sodium Level 139 Potassium Level 3.8 Chloride Level 104 Carbon Dioxide Level 27.4 Anion Gap 8 Estimat Glomerular Filtration Rate 79 Imaging Last Impressions Chest X-Ray 07/21/171746 Signed Impressions: Service Date/Time: Friday, July 21, 2017 17:59 - CONCLUSION: 1. No acute cardiopulmonary disease. Scooby Schroeder MD Abdomen/Pelvis CT 07/21/171746 Signed Impressions: Service Date/Time: Friday, July 21, 2017 22:23 - CONCLUSION: 1. Acute sigmoid diverticulitis extending over a 15 cm segment with extensive inflammatory change but no abscess Scooby Schroeder MD Physical Exam HEENT: Normocephalic; atraumatic; no jaundice. CHEST: CTA CARDIAC: RRR. ABDOMEN: Soft, nondistended, mild-mod LLQ tenderness; no hepatosplenomegaly; bowel sounds are present in all four quadrants. EXTREMITIES: No clubbing, cyanosis, or edema. SKIN: Normal; no rash; no jaundice. 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 (Yenny Weems [facility]) Assessment and Plan Plan ASSESSMENT: - Recurrent diverticulitis. 4th episode in past 3 years. Last episode April, required drainage of diverticular abscess at that time. He went to [facility] on 07/22 for left foot pain and dysuria. He reports that CT scan at that facility noted acute diverticulitis with 2 fistulas (1 to the urinary bladder and once of the stomach) and 2 abscesses. He was treated with Vanco and Zosyn and was recommended to have surgery per , but patient did not want to have surgery at that facility and therefore left AMA on Friday and came here yesterday. CT scan abdomen and pelvis (07/21/17) revealed acute sigmoid diverticulitis extending over 15 cm segment with extensive inflammatory change but no abscess. UA was negative. Last colonoscopy was 5 years ago. WBC 14.7. GS following. Awaiting records from [facility]. On Zosyn. NPO. Clear liquids. - Leukocytosis, secondary to above. Zosyn - Gout, per attending PLAN: - Clear liquids - Cont. Zosyn - Await records from [facility] - GS following. - CBC in am - Supportive care - Further recommendations to follow based on results of above - Pt seen and examined by Dr. Del Valle and myself and this note is written on his behalf (Yenny Weems) Physician Comments Seen and examined with JONI, some pain after eating soft foods yesterday. GS on case now. Advance diet slowly if tolerates switch to po antibiotics and dc home with gi fu. Colonoscopy in 04 to 06 weeks followed by elective colectomy. Will sign off. Thank you (Sami Del Valle MD) Yenny Weems Jul 23, 2017 14:57 Sami Del Valle MD Jul 23, 2017 16:27
[2017-07-24] VITALS (8 sets, daily range): BP systolic 105–146; BP diastolic 62–88; PULSE 66–86; RESP 18–20; TEMP 99–101; O2SAT 95–97
[2017-07-24] MEDS: HYDROmorphone HCL PF 1 MG/ML VIAL IV PUSH PRN ×6 (00:34→20:35)
[2017-07-24] MEDS: PIPERACIL-TAZO 4.5 GM PREMIX 100 ML IV SCH ×4 (02:30→20:35)
[2017-07-24] MEDS: SODIUM CHLOR 0.9% 1000 ML INJ 1,000 ML IV SCH ×3 (02:32→20:33)
[2017-07-24 07:27] LABS: BASOPHIL % 0.2 % (0.0-2.0); EOSINOPHIL % 0.3 % (0.0-4.0); HEMATOCRIT 40.2 % (39.0-51.0); HEMO FLAGS DIFF FINAL; LYMPH % 9.7 % (9.0-44.0); LYMPHOCYTE # 1.6 TH/MM3 (1.0-4.8); MEAN CORPUSCULAR HGB CONC 33.3 % (32.0-36.0); MONO % 9.3 % (0.0-8.0); NEUT % 80.5 % (16.0-70.0); PLATELET COUNT 190 TH/MM3 (150-450); RED BLOOD COUNT 4.32 MIL/MM3 (4.50-5.90); RED CELL DISTRIBUTION WIDTH 14.4 % (11.6-17.2); WHITE BLOOD COUNT 16.1 TH/MM3 (4.0-11.0)
--- NOTE | 2017-07-24 08:59 | HHI.PR ---
Subjective Remarks This is a pleasant 41 y/o Male with Diverticulitis, he was hospitalized at [facility] [place] he signed against Medical advise when was offered surgery due to probable Diverticulitis and abscess, he came to this facility for second opinion, at this time seen in his bedroom, no pain, no nausea, or diarrhea, at this time on Zosyn and awaiting recommendations by GI specialist. no complaint but wants to start diet. 07/23: Stable in his bedroom, no complaint, no nausea, vomit or diarrhea, GI and General Surgery awaiting for records from [facility], 07/24: Seen in his bedroom, no nausea, vomit or diarrhea, awaiting final recommendations by specialists. Objective Vital Signs Date Time Temp Pulse Resp B/P (MAP) Pulse Ox O2 Delivery O2 Flow Rate FiO2 07/24/17 04:00 100.4 86 18 105/62 (76) 95 07/24/17 00:48 99.8 73 18 113/72 (86) 96 07/24/17 00:28 99.8 73 18 113/72 (86) 96 07/23/17 20:52 99.8 72 20 128/73 (91) 96 07/23/17 20:00 99.8 72 20 128/73 (91) 96 07/23/17 20:00 86 07/23/17 16:00 98.9 69 18 120/83 (95) 98 07/23/17 13:51 62 07/23/17 12:00 97.7 59 19 123/78 (93) 97 07/23/17 09:43 97 I/O 07/23/17 07/23/17 07/23/17 07/24/17 07/24/17 07/24/17 06:59 14:59 22:59 06:59 14:59 22:59 Intake Total 1460 ml 220 ml 2627 ml 480 ml Output Total 900 ml Balance 1460 ml 220 ml 1727 ml 480 ml Intake Oral 360 ml 120 ml 1000 ml 480 ml IV Total 1100 ml 100 ml 1627 ml Output Urine Total 900 ml # Voids 3 3 # Bowel Movements 0 0 0 Result Diagram: 07/24/17 0553 07/23/17 0751 Imaging Last Impressions Chest X-Ray 07/21/17 1741 Signed Impressions: Service Date/Time: Friday, July 21, 2017 17:59 - CONCLUSION: 1. No acute cardiopulmonary disease. Scooby Schroeder MD Abdomen/Pelvis CT 07/21/17 2510 Signed Impressions: Service Date/Time: Friday, July 21, 2017 22:23 - CONCLUSION: 1. Acute sigmoid diverticulitis extending over a 15 cm segment with extensive inflammatory change but no abscess Scooby Schroeder MD Procedures None Other Results Laboratory Tests Test 07/21/17 18:00 07/21/17 20:35 07/22/17 05:14 07/22/17 10:40 Prothrombin Time 11.0 SEC Prothromb Time International Ratio 1.0 RATIO Activated Partial Thromboplast Time 29.4 SEC Lactic Acid Level 0.7 mmol/L Urine Color COLORLESS Urine Turbidity CLEAR Urine pH 7.5 Urine Specific [place] 1.005 Urine Protein NEG mg/dL Urine Glucose (UA) NEG mg/dL Urine Ketones NEG mg/dL Urine Occult Blood NEG Urine Nitrite NEG Urine Bilirubin NEG Urine Urobilinogen LESS THAN 2.0 MG/DL Urine Leukocyte Esterase NEG Urine RBC LESS THAN 1 /hpf Urine WBC LESS THAN 1 /hpf Microscopic Urinalysis Comment CULT NOT INDICATED Phosphorus Level 3.4 MG/DL Magnesium Level 2.3 MG/DL Erythrocyte Sedimentation Rate 18 mm/hr C-Reactive Protein 1.60 MG/DL Anti-Nuclear Antibody Screen NEG Rapid Plasma Reagin NON-REACTIVE Herpes Simplex Virus I IgG Ab Index Positive Herpes Simplex Virus II IgG Index Negative HIV (1&2) Antibody NEGATIVE Test 07/23/17 07:51 07/24/17 05:53 Blood Urea Nitrogen 8 MG/DL Creatinine 1.04 MG/DL Random Glucose 87 MG/DL Total Protein 6.8 GM/DL Albumin 3.0 GM/DL Calcium Level 8.7 MG/DL Alkaline Phosphatase 60 U/L Aspartate Amino Transf (AST/SGOT) 15 U/L Alanine Aminotransferase (ALT/SGPT) 23 U/L Total Bilirubin 0.6 MG/DL Sodium Level 139 MEQ/L Potassium Level 3.8 MEQ/L Chloride Level 104 MEQ/L Carbon Dioxide Level 27.4 MEQ/L Anion Gap 8 MEQ/L Estimat Glomerular Filtration Rate 79 ML/MIN White Blood Count 16.1 TH/MM3 Red Blood Count 4.32 MIL/MM3 Hemoglobin 13.4 GM/DL Hematocrit 40.2 % Mean Corpuscular Volume 93.0 FL Mean Corpuscular Hemoglobin 31.0 PG Mean Corpuscular Hemoglobin Concent 33.3 % Red Cell Distribution Width 14.4 % Platelet Count 190 TH/MM3 Mean Platelet Volume 10.6 FL Neutrophils (%) (Auto) 80.5 % Lymphocytes (%) (Auto) 9.7 % Monocytes (%) (Auto) 9.3 % Eosinophils (%) (Auto) 0.3 % Basophils (%) (Auto) 0.2 % Neutrophils # (Auto) 13.0 TH/MM3 Lymphocytes # (Auto) 1.6 TH/MM3 Monocytes # (Auto) 1.5 TH/MM3 Eosinophils # (Auto) 0.0 TH/MM3 Basophils # (Auto) 0.0 TH/MM3 CBC Comment DIFF FINAL Differential Comment Objective Remarks GENERAL: Well-developed patient, in no apparent distress. SKIN: No rashes, ecchymoses or lesions. Cool and dry. HEAD: Atraumatic. Normocephalic. EYES: Pupils equal round and reactive. Extraocular motions intact. ENT: Nose without bleeding, purulent drainage or septal hematoma.Airway patent. NECK: Trachea midline. No JVD or lymphadenopathy. CARDIOVASCULAR: Regular rate and rhythm without murmurs, gallops, or rubs. RESPIRATORY: Clear to auscultation. Breath sounds equal bilaterally. No wheezes , rales, or rhonchi. GASTROINTESTINAL: Abdomen soft, non-tender, nondistended. BS x 4 MUSCULOSKELETAL: Extremities without clubbing, cyanosis, or edema. No joint tenderness, effusion, or edema noted. No calf tenderness. NEUROLOGICAL: Awake and alert. Motor and sensory grossly within normal limits. Normal speech. Medications and IVs Current Medications Medications (Trade) Dose Ordered Sig/Eleazar Route Start Time Stop Time Status Last Admin Sodium Chloride 1,000 ml @ 100 mls/hr Q10H IV 07/22/17 00:46 07/24/17 02:32 (Zofran Inj) 4 mg Q6H PRN IVP 07/22/17 01:00 07/23/17 14:35 (Narcan Inj) 0.4 mg UNSCH PRN IV PUSH 07/22/17 01:00 (NS Flush) 2 ml BID IV FLUSH 07/22/17 09:00 (NS Flush) 2 ml UNSCH PRN IVF 07/22/17 01:00 Piperacillin Sod/ Tazobactam Sod 100 ml @ 200 mls/hr Q6H IV 07/22/17 02:00 07/24/17 02:30 (Dilaudid Pf Inj) 0.5 mg Q4H PRN IV PUSH 07/23/17 03:00 07/24/17 04:54 A/P Assessment and Plan 1. Diverticulitis as per CT scan, he is been on Vancomycin and Zosyn at [facility] here started on Zosyn and following GI specialist recommendations and General Surgery recommendations. DVT prophylaxis: SCDs Discussed Condition With Patient, All questions answered to the best of my abilities. No changes to anterior assessment Encourage activity and will start DVT prophylaxis the patient tends to stay all the time in bed. Discharge Planning Once cleared by specialists. Dao Patterson MD Jul 24, 2017 08:59
[2017-07-24] MEDS: ONDANSETRON HCL 4 MG/2 ML VIAL IVP PRN ×2 (09:14→16:18)
[2017-07-24] MEDS: SODIUM CHLORIDE 0.9% FLUSH 10 ML FLUSH IV FLUSH SCH ×2 (09:14→20:33)
[2017-07-24] MEDS: HEPARIN SODIUM - SQ 10,000 UNITS/ML VIAL SQ SCH ×2 (13:20→20:32)
--- NOTE | 2017-07-24 14:12 | HHI.PR ---
cc: Michael Dickerson MD Subjective Subjective Notes DAILY PROGRESS NOTE FOR SURGICAL ATTENDING, DR. MICHAEL DICKERSON Resting in bed Having abdominal pain after eating Reports clear liquids do no bother him Objective Vitals/I&O Vital Signs Date Time Temp Pulse Resp B/P (MAP) Pulse Ox O2 Delivery O2 Flow Rate FiO2 07/24/17 12:00 99.0 66 19 114/76 (89) 95 07/22/17 21:59 21 Labs Laboratory Tests Test 07/24/17 05:53 White Blood Count 16.1 Red Blood Count 4.32 Hemoglobin 13.4 Hematocrit 40.2 Mean Corpuscular Volume 93.0 Mean Corpuscular Hemoglobin 31.0 Mean Corpuscular Hemoglobin Concent 33.3 Red Cell Distribution Width 14.4 Platelet Count 190 Mean Platelet Volume 10.6 Neutrophils (%) (Auto) 80.5 Lymphocytes (%) (Auto) 9.7 Monocytes (%) (Auto) 9.3 Eosinophils (%) (Auto) 0.3 Basophils (%) (Auto) 0.2 Neutrophils # (Auto) 13.0 Lymphocytes # (Auto) 1.6 Monocytes # (Auto) 1.5 Eosinophils # (Auto) 0.0 Basophils # (Auto) 0.0 CBC Comment DIFF FINAL Differential Comment Radiology Last 48 hours Impressions Chest X-Ray 07/21/171746 Signed Impressions: Service Date/Time: Friday, July 21, 2017 17:59 - CONCLUSION: 1. No acute cardiopulmonary disease. Scooby Schroeder MD Abdomen/Pelvis CT [id number]/21/171746 Signed Impressions: Service Date/Time: Friday, July 21, 2017 22:23 - CONCLUSION: 1. Acute sigmoid diverticulitis extending over a 15 cm segment with extensive inflammatory change but no abscess Scooby Schroeder MD Cardiovascular: Regular Lungs: Clear Abdomen: Other (LLQ tenderness with palpation ) Extremities: No edema A/P Problem List: (1) Elevated white blood cell count ICD Codes: D72.829 - Elevated white blood cell count, unspecified Status: Acute (2) Abdominal pain, left lower quadrant ICD Codes: R10.32 - Left lower quadrant pain Status: Chronic (3) Diverticulitis ICD Codes: K57.92 - Diverticulitis of intestine, part unspecified, without perforation or abscess without bleeding Status: Chronic (4) Acute diverticulitis of intestine ICD Codes: K57.92 - Diverticulitis of intestine, part unspecified, without perforation or abscess without bleeding Status: Chronic (5) Abnormal computed tomography of abdomen and pelvis ICD Codes: R93.5 - Abnormal findings on diagnostic imaging of other abdominal regions, including retroperitoneum Status: Chronic Assessment and Plan 41 year old male with acute gout attack; CT abdomen/pelvis with acute sigmoid diverticulitis with extensive inflammatory changes without abscess. -Plan repeat CT toady due to LLQ pain, low grade fevers and increased WBC -Continue to monitor labs -Continue antibiotics -Afebrile -+BM -Await records including CT scans from [facility] -Recommend outpatient colonoscopy in about 6-8 weeks Attending Statement NOTE FOR SURGICAL ATTENDING, DR. MICHAEL DICKERSON Patient seen Still mild left lower quadrant abdominal discomfort Tolerating diet Tolerating by mouth intake for contrast study Continue antibiotic therapy I agree with above assessment and plan. The exam, history, and the medical decision-making described in the above note were completed with the assistance of the mid-level provider. I reviewed and agree with the findings presented. I attest that I had a [id number] encounter with the patient on the same day, and personally performed and documented my assessment and findings in the medical record. The following services were provided during this hospital visit: Chart data review, vital sign assessments/reviewing monitor data Review of consultations notes if present. Medication orders/review and/or management Ordering and/or reviewing lab tests Ordering and/or interpreting/reviewing x-rays and/or diagnostic studies Care of the patient and discussion of the patient with the care team Documentation time To help prompt me to consider important information that might be impacting today's encounter and assessment, information from prior notes written by myself or my colleagues may have been "brought forward/copy and pasted" into today's note. Problem Qualifiers (1) Diverticulitis: Qualified Codes: K57.32 - Diverticulitis of large intestine without perforation or abscess without bleeding Tressa Dacosta Jul 24, 2017 14:12 Michael Dickerson MD Jul 24, 2017 16:48
[2017-07-24] MEDS ORDERED: DIATRIZOATE MEGLUM/DIATRIZOATE SOD 9 ML CUP PO ONE (14:15)
[2017-07-24] MEDS ORDERED: IOHEXOL 350 MG/ML 10 ML VIAL (for RAD DIAG) IVCONTRAST ONE (18:46)
--- NOTE | 2017-07-24 19:06 | RADRPT ---
EXAM DATE/TIME: 07/24/2017 18:37 [facility] COMPARISON: No previous studies available for comparison. INDICATIONS : Abdominal pain, acute diverticulitis. IV CONTRAST: 100 cc Omnipaque 350 (iohexol) IV ORAL CONTRAST: Prescribed oral contrast ingested. RADIATION DOSE: 9.96 CTDIvol (mGy) MEDICAL HISTORY : Diverticulitis. SURGICAL HISTORY : None. ENCOUNTER: Initial ACUITY: 1 day PAIN SCALE: 7/10 LOCATION: abdomen TECHNIQUE: Volumetric scanning of the abdomen and pelvis was performed. Using automated exposure control and ad justment of the mA and/or kV according to patient size, radiation dose was kept as low as reasonably achievable to obtain optimal diagnostic quality images. DICOM format image data is available electro nically for review and comparison. FINDINGS: Comparison is July 21. There is a 15 cm length of sigmoid colon demonstrates marked mural thickenin g that could be due to diverticulitis or focal sigmoid colitis. There is an 82.7 cm abscess in the le ft lower quadrant just deep to the abdominal musculature. There is also a bilobed 3.4 cm abscess between the sigmoid colon and left superior wall of the bladde r with associated bladder wall thickening and an impression on the bladder lumen. There is extensive surrounding inflammatory change. There is contrast in the rectum without evidence for obstruction. Subsegmental atelectasis at the lung bases is increased from July 21. Small cyst posterior liver. N o acute findings in the spleen, adrenals, kidneys or pancreas. CONCLUSION: 1. Slight worsening of appearance of sigmoid segmental colitis or diverticulitis with 2.7 cm abscess present in the left lower quadrant and 3.4 cm bilobed abscess between the superior bladder wall and a djacent sigmoid colon. No bowel obstruction or free air. Kenny Faye MD on July 24, 2017 at 18:58 Board Certified Radiologist. This report was verified electronically.
[2017-07-25] VITALS (8 sets, daily range): BP systolic 111–150; BP diastolic 62–90; PULSE 55–87; RESP 18–20; TEMP 96.6–101.7; O2SAT 94–99
[2017-07-25] MEDS: HYDROmorphone HCL PF 1 MG/ML VIAL IV PUSH PRN ×6 (00:29→22:32)
[2017-07-25] MEDS ORDERED: IBUPROFEN 600 MG TAB PO SCH (00:30)
[2017-07-25] MEDS: PIPERACIL-TAZO 4.5 GM PREMIX 100 ML IV SCH ×4 (00:40→21:07)
[2017-07-25] MEDS: HEPARIN SODIUM - SQ 10,000 UNITS/ML VIAL SQ SCH ×3 (06:00→21:08)
[2017-07-25 07:41] LABS: AUTOMATED NEUTROPHIL # 11.3 TH/MM3 (1.8-7.7); BASOPHIL % 0.3 % (0.0-2.0); EOSINOPHIL % 0.3 % (0.0-4.0); HEMATOCRIT 37.6 % (39.0-51.0); HEMO FLAGS DIFF FINAL; LYMPH % 15.1 % (9.0-44.0); LYMPHOCYTE # 2.3 TH/MM3 (1.0-4.8); MEAN CELL VOLUME 92.7 FL (80.0-100.0); MEAN CORPUSCULAR HEMOGLOBIN 30.4 PG (27.0-34.0); MEAN CORPUSCULAR HGB CONC 32.7 % (32.0-36.0); NEUT % 73.3 % (16.0-70.0); PLATELET COUNT 177 TH/MM3 (150-450); RED BLOOD COUNT 4.06 MIL/MM3 (4.50-5.90); RED CELL DISTRIBUTION WIDTH 14.4 % (11.6-17.2); WHITE BLOOD COUNT 15.4 TH/MM3 (4.0-11.0)
--- NOTE | 2017-07-25 08:30 | RADRPT ---
EXAM DATE/TIME: 07/25/2017 08:20 [facility] COMPARISON: CT ABDOMEN & PELVIS W CONTRAST, July 21, 2017, 22:23. CT ABDOMEN & PELVIS W CONTRAST, July 24, 2017, 18:37. INDICATIONS : Evaluate for left lower quadrant abscess drain. IMAGING STUDIES: I reviewed a CT of the abdomen and pelvis dated July 24, 2017 and July 21, 2017. There is a 2.2 cm abscess involving anterior left lower quadrant and a 2.0 cm abscess deeper in the pelvis adjacent urinary bladder. Both contain fluid and a small volume of air. A phlegmon was located in these locati ons on the prior study which has now liquefied into an abscess. DISCUSSION: The 2 abscesses are fairly small in diameter and would not accept the cope of an abscess drain due to their small size. I certainly could aspirate these to obtain sampling for culture if clinically mary anted. I discussed the case with Dr. Del Valle. PLAN: Continued medical management and surveillance. If either abscess increases in size attempts at draina ge catheter placement can be performed at that time. TIME SPENT: <15 minutes>> Matias Jay Jr., MD on July 25, 2017 at 8:24 Board Certified Radiologist. This report was verified electronically.
--- NOTE | 2017-07-25 08:32 | HHI.PR ---
cc: Michael Singleton MD Subjective Subjective Notes DAILY PROGRESS NOTE FOR SURGICAL ATTENDING, DR. MICHAEL SINGLETON Resting in bed Feeling better today Fever overnight Objective Vitals/I&O Vital Signs Date Time Temp Pulse Resp B/P (MAP) Pulse Ox O2 Delivery O2 Flow Rate FiO2 07/25/17 06:00 16 07/25/17 04:00 96.6 58 117/62 (80) 96 07/22/17 21:59 21 Labs Laboratory Tests Test 07/25/17 05:54 White Blood Count 15.4 Red Blood Count 4.06 Hemoglobin 12.3 Hematocrit 37.6 Mean Corpuscular Volume 92.7 Mean Corpuscular Hemoglobin 30.4 Mean Corpuscular Hemoglobin Concent 32.7 Red Cell Distribution Width 14.4 Platelet Count 177 Mean Platelet Volume 10.0 Neutrophils (%) (Auto) 73.3 Lymphocytes (%) (Auto) 15.1 Monocytes (%) (Auto) 11.0 Eosinophils (%) (Auto) 0.3 Basophils (%) (Auto) 0.3 Neutrophils # (Auto) 11.3 Lymphocytes # (Auto) 2.3 Monocytes # (Auto) 1.7 Eosinophils # (Auto) 0.0 Basophils # (Auto) 0.0 CBC Comment DIFF FINAL Differential Comment Radiology Last 72 hours Impressions Abdomen/Pelvis CT 07/24/17 0000 Signed Impressions: Service Date/Time: July 18:37 - CONCLUSION: 1. Slight worsening of appearance of sigmoid segmental colitis or diverticulitis with 2.7 cm abscess present in the left lower quadrant and 3.4 cm bilobed abscess between the superior bladder wall and adjacent sigmoid colon. No bowel obstruction or free air. Michael Faye MD Last 48 hours Impressions Chest X-Ray 07/21/171746 Signed Impressions: Service Date/Time: Friday, July 21, 2017 17:59 - CONCLUSION: 1. No acute cardiopulmonary disease. Scooby Schroeder MD Abdomen/Pelvis CT [id number]/21/171746 Signed Impressions: Service Date/Time: Friday, July 21, 2017 22:23 - CONCLUSION: 1. Acute sigmoid diverticulitis extending over a 15 cm segment with extensive inflammatory change but no abscess Scooby Schroeder MD Cardiovascular: Regular Lungs: Clear Abdomen: Other (LLQ tenderness with palpation ) Extremities: No edema A/P Problem List: (1) Colonic diverticular abscess ICD Codes: K57.20 - Diverticulitis of large intestine with perforation and abscess without bleeding Status: Acute (2) Elevated white blood cell count ICD Codes: D72.829 - Elevated white blood cell count, unspecified Status: Acute (3) Abdominal pain, left lower quadrant ICD Codes: R10.32 - Left lower quadrant pain Status: Chronic (4) Diverticulitis ICD Codes: K57.92 - Diverticulitis of intestine, part unspecified, without perforation or abscess without bleeding Status: Chronic (5) Acute diverticulitis of intestine ICD Codes: K57.92 - Diverticulitis of intestine, part unspecified, without perforation or abscess without bleeding Status: Chronic (6) Abnormal computed tomography of abdomen and pelvis ICD Codes: R93.5 - Abnormal findings on diagnostic imaging of other abdominal regions, including retroperitoneum Status: Chronic Assessment and Plan 41 year old male with acute gout attack; CT abdomen/pelvis with acute sigmoid diverticulitis with extensive inflammatory changes without abscess. -Repeat CT yesterday shows abscess----too small to drain at this time -ID consulted---continue antibiotics -Continue to monitor labs -+BM -Await records including CT scans from [facility] -Hopefully will be able to treat acute infection and plan for elective resection once infection cleared up Attending Statement NOTE FOR SURGICAL ATTENDING, DR. MICHAEL SINGLETON I agree with above assessment and plan. The exam, history, and the medical decision-making described in the above note were completed with the assistance of the mid-level provider. I reviewed and agree with the findings presented. I attest that I had a [id number] encounter with the patient on the same day, and personally performed and documented my assessment and findings in the medical record. The following services were provided during this hospital visit: Chart data review, vital sign assessments/reviewing monitor data Review of consultations notes if present. Medication orders/review and/or management Ordering and/or reviewing lab tests Ordering and/or interpreting/reviewing x-rays and/or diagnostic studies Care of the patient and discussion of the patient with the care team Documentation time To help prompt me to consider important information that might be impacting today's encounter and assessment, information from prior notes written by myself or my colleagues may have been "brought forward/copy and pasted" into today's note. Problem Qualifiers (1) Diverticulitis: Qualified Codes: K57.32 - Diverticulitis of large intestine without perforation or abscess without bleeding Tressa Dacosta Jul 25, 2017 08:32 Michael Singleton MD Jul 25, 2017 14:00
[2017-07-25 08:46] LABS: BICARBONATE 24.4 MEQ/L (21.0-32.0); POTASSIUM 4.1 MEQ/L (3.5-5.1)
[2017-07-25] MEDS: SODIUM CHLOR 0.9% 1000 ML INJ 1,000 ML IV SCH ×2 (08:46→18:46)
--- NOTE | 2017-07-25 08:56 | HHI.PR ---
Subjective Remarks This is a pleasant 41 y/o Male with Diverticulitis, he was hospitalized at [facility] he signed against Medical advise when was offered surgery due to probable Diverticulitis and abscess, he came to this facility for second opinion, at this time seen in his bedroom, no pain, no nausea, or diarrhea, at this time on Zosyn and awaiting recommendations by GI specialist. no complaint but wants to start diet. 07/23: Stable in his bedroom, no complaint, no nausea, vomit or diarrhea, GI and General Surgery awaiting for records from [facility], 07/24: Seen in his bedroom, no nausea, vomit or diarrhea, awaiting final recommendations by specialists. 07/25: discussed with General Surgery HOT STAMP OPERATOR Miss Jenniffer Dacosta due to elevated White blood cell count, increased abdominal pain was recommended for new CT abdomen and Pelvis by General Surgery, new CT scan showed worsening diverticulitis and found two abscess asked for Interventional Radiology management. continue Zosyn, Seen by Interventional Radiology Doctor Matias Jay Jr. recommended to continue Medical Management and surveillance. IF either abscess increases in size attempts at drainage catheter placement can be performed at that time. No nausea, vomit or diarrhea. Objective Vital Signs Date Time Temp Pulse Resp B/P (MAP) Pulse Ox O2 Delivery O2 Flow Rate FiO2 07/25/17 06:00 16 07/25/17 04:00 96.6 58 18 117/62 (80) 96 07/25/17 00:00 100.5 76 20 125/68 (87) 98 07/24/17 20:00 101.0 86 20 146/88 (107) 97 07/24/17 17:51 96 07/24/17 16:00 100.1 74 19 138/83 (101) 96 07/24/17 12:00 99.0 66 19 114/76 (89) 95 I/O 07/24/17 07/24/17 07/24/17 07/25/17 07/25/17 07/25/17 07:00 15:00 23:00 07:00 15:00 23:00 Intake Total 480 ml 320 ml 1100 ml 1000 ml Output Total 800 ml 400 ml Balance 480 ml 320 ml 300 ml 600 ml Intake Oral 480 ml 120 ml 900 ml IV Total 200 ml 200 ml 1000 ml Output Urine Total 800 ml 400 ml # Voids 3 # Bowel Movements 0 0 Result Diagram: 07/25/17 0554 07/23/17 0751 Imaging Last Impressions Abdomen/Pelvis CT 07/24/17 0000 Signed Impressions: Service Date/Time: July 18:37 - CONCLUSION: 1. Slight worsening of appearance of sigmoid segmental colitis or diverticulitis with 2.7 cm abscess present in the left lower quadrant and 3.4 cm bilobed abscess between the superior bladder wall and adjacent sigmoid colon. No bowel obstruction or free air. Kenny Faye MD Chest X-Ray 07/21/17 1747 Signed Impressions: Service Date/Time: Friday, July 21, 2017 17:59 - CONCLUSION: 1. No acute cardiopulmonary disease. Scooby Schroeder MD Procedures None Other Results Laboratory Tests Test 07/21/17 18:00 07/21/17 20:35 07/22/17 05:14 07/22/17 10:40 Prothrombin Time 11.0 SEC Prothromb Time International Ratio 1.0 RATIO Activated Partial Thromboplast Time 29.4 SEC Lactic Acid Level 0.7 mmol/L Urine Color COLORLESS Urine Turbidity CLEAR Urine pH 7.5 Urine Specific [place] 1.005 Urine Protein NEG mg/dL Urine Glucose (UA) NEG mg/dL Urine Ketones NEG mg/dL Urine Occult Blood NEG Urine Nitrite NEG Urine Bilirubin NEG Urine Urobilinogen LESS THAN 2.0 MG/DL Urine Leukocyte Esterase NEG Urine RBC LESS THAN 1 /hpf Urine WBC LESS THAN 1 /hpf Microscopic Urinalysis Comment CULT NOT INDICATED Phosphorus Level 3.4 MG/DL Magnesium Level 2.3 MG/DL Erythrocyte Sedimentation Rate 18 mm/hr C-Reactive Protein 1.60 MG/DL Anti-Nuclear Antibody Screen NEG Rapid Plasma Reagin NON-REACTIVE Herpes Simplex Virus I IgG Ab Index Positive Herpes Simplex Virus II IgG Index Negative HIV (1&2) Antibody NEGATIVE Test 07/23/17 07:51 07/25/17 05:54 Blood Urea Nitrogen 8 MG/DL 5 MG/DL Creatinine 1.04 MG/DL 0.93 MG/DL Random Glucose 87 MG/DL 81 MG/DL Total Protein 6.8 GM/DL Albumin 3.0 GM/DL Calcium Level 8.7 MG/DL 8.3 MG/DL Alkaline Phosphatase 60 U/L Aspartate Amino Transf (AST/SGOT) 15 U/L Alanine Aminotransferase (ALT/SGPT) 23 U/L Total Bilirubin 0.6 MG/DL Sodium Level 139 MEQ/L 137 MEQ/L Potassium Level 3.8 MEQ/L 4.1 MEQ/L Chloride Level 104 MEQ/L 106 MEQ/L Carbon Dioxide Level 27.4 MEQ/L 24.4 MEQ/L White Blood Count 15.4 TH/MM3 Red Blood Count 4.06 MIL/MM3 Hemoglobin 12.3 GM/DL Hematocrit 37.6 % Mean Corpuscular Volume 92.7 FL Mean Corpuscular Hemoglobin 30.4 PG Mean Corpuscular Hemoglobin Concent 32.7 % Red Cell Distribution Width 14.4 % Platelet Count 177 TH/MM3 Mean Platelet Volume 10.0 FL Neutrophils (%) (Auto) 73.3 % Lymphocytes (%) (Auto) 15.1 % Monocytes (%) (Auto) 11.0 % Eosinophils (%) (Auto) 0.3 % Basophils (%) (Auto) 0.3 % Neutrophils # (Auto) 11.3 TH/MM3 Lymphocytes # (Auto) 2.3 TH/MM3 Monocytes # (Auto) 1.7 TH/MM3 Eosinophils # (Auto) 0.0 TH/MM3 Basophils # (Auto) 0.0 TH/MM3 CBC Comment DIFF FINAL Differential Comment Anion Gap 7 MEQ/L Estimat Glomerular Filtration Rate 90 ML/MIN Objective Remarks GENERAL: Well-developed patient, in no apparent distress. SKIN: No rashes, ecchymoses or lesions. Cool and dry. HEAD: Atraumatic. Normocephalic. EYES: Pupils equal round and reactive. Extraocular motions intact. ENT: Nose without bleeding, purulent drainage or septal hematoma.Airway patent. NECK: Trachea midline. No JVD or lymphadenopathy. CARDIOVASCULAR: Regular rate and rhythm without murmurs, gallops, or rubs. RESPIRATORY: Clear to auscultation. Breath sounds equal bilaterally. No wheezes , rales, or rhonchi. GASTROINTESTINAL: Abdomen soft, non-tender, nondistended. BS x 4 MUSCULOSKELETAL: Extremities without clubbing, cyanosis, or edema. No joint tenderness, effusion, or edema noted. No calf tenderness. NEUROLOGICAL: Awake and alert. Motor and sensory grossly within normal limits. Normal speech. Medications and IVs Current Medications Medications (Trade) Dose Ordered Sig/Eleazar Route Start Time Stop Time Status Last Admin Sodium Chloride 1,000 ml @ 100 mls/hr Q10H IV 10/10/17 00:46 07/24/17 20:33 (Zofran Inj) 4 mg Q6H PRN IVP 07/22/17 01:00 07/24/17 16:18 (Narcan Inj) 0.4 mg UNSCH PRN IV PUSH 07/22/17 01:00 (NS Flush) 2 ml BID IV FLUSH 07/22/17 09:00 07/24/17 20:33 (NS Flush) 2 ml UNSCH PRN IVF 07/22/17 01:00 Piperacillin Sod/ Tazobactam Sod 100 ml @ 200 mls/hr Q6H IV 07/22/17 02:00 07/25/17 00:40 (Dilaudid Pf Inj) 0.5 mg Q4H PRN IV PUSH 07/23/17 03:00 07/25/17 05:30 (Heparin Inj) 5,000 units Q8HR SQ 07/24/17 14:00 07/24/17 20:32 A/P Assessment and Plan 1. Diverticulitis as per CT scan, he is been on Vancomycin and Zosyn at [facility] here started on Zosyn discussed with General strategic planning specialist HOT STAMP OPERATOR, recommended a new CT abdomen and Pelvis showed Slight worsening of appearance of sigmoid segmental colitis or diverticulitis with 2.7 cm abscess present in the left lower quadrant and 3.4 cm bilobed abscess between the superior bladder wall and adjacent sigmoid Colon, no bowel obstruction or free air. continue Zosyn, as per Interventional case resolution specialist Doctor Matias Jay Jr. recommended to continue Medical Management and surveillance. IF either abscess increases in size attempts at drainage catheter placement can be performed at that time. DVT prophylaxis: SCDs Discussed Condition With Patient, All questions answered to the best of my abilities. Discussed with General Surgery HOT STAMP OPERATOR, Miss Christin Dacosta. Discharge Planning Once cleared by specialists. Dao Patterson MD Jul 25, 2017 08:56
[2017-07-25] MEDS ORDERED: VANCOMYCIN INJ 1,500 MG in SODIUM CHLORID 0.9% 500 ML INJ 500 ML IV ONE (10:00)
[2017-07-25] MEDS ORDERED: Vancomycin Consult Pharmacy 1 EA OTHER SCH (10:00)
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
[2017-07-25] MEDS: FLUCONAZOLE 400 MG PREMIX BAG 200 ML IV SCH (11:48)
--- NOTE | 2017-07-25 13:01 | HHI.PR ---
cc: Michael Dickerson MD Subjective Subjective Notes DAILY PROGRESS NOTE FOR SURGICAL ATTENDING, DR. MICHAEL DICKERSON Physical little better Still left lower quadrant discomfort Passing flatus and stool Objective Vitals/I&O Vital Signs Date Time Temp Pulse Resp B/P (MAP) Pulse Ox O2 Delivery O2 Flow Rate FiO2 07/25/17 12:00 99.4 71 20 139/79 (99) 99 07/22/17 21:59 21 Labs Laboratory Tests Test 07/25/17 05:54 White Blood Count 15.4 Red Blood Count 4.06 Hemoglobin 12.3 Hematocrit 37.6 Mean Corpuscular Volume 92.7 Mean Corpuscular Hemoglobin 30.4 Mean Corpuscular Hemoglobin Concent 32.7 Red Cell Distribution Width 14.4 Platelet Count 177 Mean Platelet Volume 10.0 Neutrophils (%) (Auto) 73.3 Lymphocytes (%) (Auto) 15.1 Monocytes (%) (Auto) 11.0 Eosinophils (%) (Auto) 0.3 Basophils (%) (Auto) 0.3 Neutrophils # (Auto) 11.3 Lymphocytes # (Auto) 2.3 Monocytes # (Auto) 1.7 Eosinophils # (Auto) 0.0 Basophils # (Auto) 0.0 CBC Comment DIFF FINAL Differential Comment Blood Urea Nitrogen 5 Creatinine 0.93 Random Glucose 81 Calcium Level 8.3 Sodium Level 137 Potassium Level 4.1 Chloride Level 106 Carbon Dioxide Level 24.4 Anion Gap 7 Estimat Glomerular Filtration Rate 90 Date/Time Source Procedure Growth Status 07/25/17 12:40 Blood Peripheral Aerobic Blood Culture Pending Received 07/25/17 12:40 Blood Peripheral Anaerobic Blood Culture Pending Received Radiology Last 48 hours Impressions Chest X-Ray 07/21/[id number] Signed Impressions: Service Date/Time: Friday, July 21, 2017 17:59 - CONCLUSION: 1. No acute cardiopulmonary disease. Scooby Schroeder MD Abdomen/Pelvis CT [id number]/21/[id number] Signed Impressions: Service Date/Time: Friday, July 21, 2017 22:23 - CONCLUSION: 1. Acute sigmoid diverticulitis extending over a 15 cm segment with extensive inflammatory change but no abscess Scooby Schroeder MD Cardiovascular: Regular Lungs: Clear Abdomen: Other (tender left lower quadrant somewhat less than yesterday) Extremities: Perfused A/P Problem List: (1) Colonic diverticular abscess ICD Codes: K57.20 - Diverticulitis of large intestine with perforation and abscess without bleeding Status: Acute (2) Elevated white blood cell count ICD Codes: D72.829 - Elevated white blood cell count, unspecified Status: Acute (3) Abdominal pain, left lower quadrant ICD Codes: R10.32 - Left lower quadrant pain Status: Chronic (4) Diverticulitis ICD Codes: K57.92 - Diverticulitis of intestine, part unspecified, without perforation or abscess without bleeding Status: Chronic (5) Acute diverticulitis of intestine ICD Codes: K57.92 - Diverticulitis of intestine, part unspecified, without perforation or abscess without bleeding Status: Chronic (6) Abnormal computed tomography of abdomen and pelvis ICD Codes: R93.5 - Abnormal findings on diagnostic imaging of other abdominal regions, including retroperitoneum Status: Chronic Assessment and Plan 41-year-old gentleman with complicated diverticular disease and abscess. He has had this chronic condition before. It is been exacerbated. Currently his pain is improved he does have a small abscess in the pelvis. Reviewed the x-rays with radiology. The abscess is too small to place a drain however if he does not improve dramatically by Friday we will have them at least aspirate the abscess for culture and sensitivity Attending Statement NOTE FOR SURGICAL ATTENDING, DR. MICHAEL DICKERSON I attest that I had a [id number] encounter with the patient on the same day, and personally performed and documented my assessment and findings in the medical record. The following services were provided during this hospital visit: Chart data review, vital sign assessments/reviewing monitor data Review of consultations notes if present. Medication orders/review and/or management Ordering and/or reviewing lab tests Ordering and/or interpreting/reviewing x-rays and/or diagnostic studies Care of the patient and discussion of the patient with the care team Documentation time To help prompt me to consider important information that might be impacting today's encounter and assessment, information from prior notes written by myself or my colleagues may have been "brought forward/copy and pasted" into today's note. Problem Qualifiers (1) Diverticulitis: Qualified Codes: K57.32 - Diverticulitis of large intestine without perforation or abscess without bleeding Michael Dickerson MD Jul 25, 2017 13:01
[2017-07-25] MEDS: VANCOMYCIN INJ 1,250 MG in SODIUM CHLOR 0.9% 250 ML INJ 250 ML IV SCH ×2 (14:48→23:57)
[2017-07-25 15:34] LABS: BLOOD, URINE SMALL (NEG); GLUCOSE,URINE NEG (NEG); KETONE, URINE 40 mg/dL (NEG); NITRITE,URINE NEG (NEG); PH, URINE 6.5 (5.0-8.5); URINE COLOR LIGHT-YELLOW (YELLW/STRAW)
[2017-07-25 15:37] LABS: COMMENT (UR) CULT NOT INDICATED; CULTURE IF INDICATED CULT NOT INDICATED
--- NOTE | 2017-07-25 15:39 | HHI.GIFU ---
Subjective Remarks Resting in bed. States he had fevers overnight. Pain in LLQ slightly worse today. (Yenny Weems) Objective Vitals I&O Vital Signs Date Time Temp Pulse Resp B/P (MAP) Pulse Ox O2 Delivery O2 Flow Rate FiO2 07/25/17 14:24 94 21 07/25/17 14:22 55 07/25/17 12:00 99.4 71 20 139/79 (99) 99 07/25/17 08:00 96.9 70 20 111/70 (84) 99 07/25/17 06:00 16 07/25/17 04:00 96.6 58 18 117/62 (80) 96 07/25/17 00:00 100.5 76 20 125/68 (87) 98 07/24/17 20:00 101.0 86 20 146/88 (107) 97 07/24/17 17:51 96 07/24/17 16:00 100.1 74 19 138/83 (101) 96 I/O 07/24/17 07/24/17 07/24/17 07/25/17 07/25/17 07/25/17 06:59 14:59 22:59 06:59 14:59 22:59 Intake Total 480 ml 320 ml 1100 ml 1000 ml 1100 ml Output Total 800 ml 400 ml 900 ml Balance 480 ml 320 ml 300 ml 600 ml 1100 ml -900 ml Intake Oral 480 ml 120 ml 900 ml 0 ml IV Total 200 ml 200 ml 1000 ml 1100 ml Output Urine Total 800 ml 400 ml 900 ml # Voids 3 3 # Bowel Movements 0 0 Laboratory Laboratory Tests Test 07/25/17 05:54 07/25/17 15:05 White Blood Count 15.4 Red Blood Count 4.06 Hemoglobin 12.3 Hematocrit 37.6 Mean Corpuscular Volume 92.7 Mean Corpuscular Hemoglobin 30.4 Mean Corpuscular Hemoglobin Concent 32.7 Red Cell Distribution Width 14.4 Platelet Count 177 Mean Platelet Volume 10.0 Neutrophils (%) (Auto) 73.3 Lymphocytes (%) (Auto) 15.1 Monocytes (%) (Auto) 11.0 Eosinophils (%) (Auto) 0.3 Basophils (%) (Auto) 0.3 Neutrophils # (Auto) 11.3 Lymphocytes # (Auto) 2.3 Monocytes # (Auto) 1.7 Eosinophils # (Auto) 0.0 Basophils # (Auto) 0.0 CBC Comment DIFF FINAL Differential Comment Blood Urea Nitrogen 5 Creatinine 0.93 Random Glucose 81 Calcium Level 8.3 Sodium Level 137 Potassium Level 4.1 Chloride Level 106 Carbon Dioxide Level 24.4 Anion Gap 7 Estimat Glomerular Filtration Rate 90 Date/Time Source Procedure Growth Status 07/25/17 12:40 Blood Peripheral Aerobic Blood Culture Pending Received 07/25/17 12:40 Blood Peripheral Anaerobic Blood Culture Pending Received Imaging Last Impressions Abdomen/Pelvis CT 07/24/17 0000 Signed Impressions: Service Date/Time: July 18:37 - CONCLUSION: 1. Slight worsening of appearance of sigmoid segmental colitis or diverticulitis with 2.7 cm abscess present in the left lower quadrant and 3.4 cm bilobed abscess between the superior bladder wall and adjacent sigmoid colon. No bowel obstruction or free air. Kenny Faye MD Chest X-Ray 07/21/17 1827 Signed Impressions: Service Date/Time: Friday, July 21, 2017 17:59 - CONCLUSION: 1. No acute cardiopulmonary disease. Scooby Schroeder MD Physical Exam HEENT: Normocephalic; atraumatic; no jaundice. CHEST: CTA CARDIAC: RRR. ABDOMEN: Soft, nondistended, mod LLQ tenderness; no hepatosplenomegaly; bowel sounds are present in all four quadrants. EXTREMITIES: No clubbing, cyanosis, or edema. SKIN: Normal; no rash; no jaundice. PHOTO MANAGER: No focal deficits; alert and oriented times three. (Yenny Weems [facility]) Assessment and Plan Plan ASSESSMENT: - Recurrent diverticulitis with abscess formation. 4th episode in past 3 years. Last episode April, required drainage of diverticular abscess at that time. He went to [facility] on 07/22 for left foot pain and dysuria. He reports that CT scan at that facility noted acute diverticulitis with 2 fistulas (1 to the urinary bladder and once of the stomach) and 2 abscesses. He was treated with Vanco and Zosyn, surgery was recommended, but he left AMA on Friday. CT scan abdomen and pelvis (07/21/17) revealed acute sigmoid diverticulitis extending over 15 cm segment with extensive inflammatory change but no abscess. UA was negative. Last colonoscopy was 5 years ago. Pt with worsening LLQ tenderness, persistent leukocytosis, and fevers. Rpt. CT Scan abdomen and pelvis (07/24/17)---> Slight worsening of appearance of sigmoid segmental colitis or diverticulitis with 2.7 cm abscess present in the left lower quadrant and 3.4 cm bilobed abscess between the superior bladder wall and adjacent sigmoid colon. No bowel obstruction or free air. IR was consulted for drainage, but felt that the abscess was too small for drainage. T. Max 101.0 last night. WBC 15.4. GS following. ID consulted, vanco/diflucan added to zosyn. NPO, d/w GS okay for clears from their standpoint.. Awaiting records from [facility]- checked still not here, bias cutting machine operator will call their medical records and try to get today before the weekend. - Leukocytosis/Fevers. BCx pending. ID following, Zosyn/Vanco/Diflucan - Gout, per attending PLAN: - Clear liquids - Abx per ID recommendations- Vanco/Zosyn/Diflucan - CBC in am - GS following. - ID following. - Supportive care - Await records from [facility]- still not arrived, d/w bias cutting machine operator , will call and see if she can obtain these today - Further recommendations to follow based on results of above - Pt seen and examined by Dr. Del Valle and myself and this note is written on his behalf (Yenny Weems) Physician Comments Reconsulted last night for ct showing abscesses. Discussed with Dr. Jay in IR , no drainage possible at this time.ID/Surgery on case. Nothing to add from gi standpoint. FU with gi upon dc. Thank you (Sami Del Valle MD) Yenny Weems Jul 25, 2017 15:39 Sami Del Valle MD Jul 25, 2017 16:00
[2017-07-25 17:54] LABS: MYELOPEROXIDASE LESS THAN 1.0 AI (<1.0); PROTEINASE-3 LESS THAN 1.0 AI (<1.0)
[2017-07-25] MEDS: ALLOPURINOL 300 MG TAB PO SCH (18:07)
[2017-07-25] MEDS: SODIUM CHLORIDE 0.9% FLUSH 10 ML FLUSH IV FLUSH SCH (21:00)
[2017-07-25] MEDS: ONDANSETRON HCL 4 MG/2 ML VIAL IVP PRN (23:57)
[2017-07-26] VITALS (8 sets, daily range): BP systolic 110–182; BP diastolic 72–88; PULSE 52–88; RESP 16–20; TEMP 96–100.5; O2SAT 93–100
[2017-07-26] MEDS: SODIUM CHLOR 0.9% 1000 ML INJ 1,000 ML IV SCH ×3 (02:30→20:17)
[2017-07-26] MEDS: HYDROmorphone HCL PF 1 MG/ML VIAL IV PUSH PRN ×3 (02:30→13:46)
[2017-07-26] MEDS: PIPERACIL-TAZO 4.5 GM PREMIX 100 ML IV SCH ×4 (02:30→20:17)
[2017-07-26] MEDS: HEPARIN SODIUM - SQ 10,000 UNITS/ML VIAL SQ SCH ×3 (06:41→20:17)
[2017-07-26 07:15] LABS: AUTOMATED NEUTROPHIL # 8.5 TH/MM3 (1.8-7.7); BASOPHIL % 0.2 % (0.0-2.0); EOSINOPHIL # 0.1 TH/MM3 (0-0.4); EOSINOPHIL % 0.5 % (0.0-4.0); HEMO FLAGS DIFF FINAL; LYMPH % 13.4 % (9.0-44.0); LYMPHOCYTE # 1.5 TH/MM3 (1.0-4.8); MEAN CELL VOLUME 92.9 FL (80.0-100.0); MEAN CORPUSCULAR HEMOGLOBIN 30.9 PG (27.0-34.0); MEAN CORPUSCULAR HGB CONC 33.3 % (32.0-36.0); MONO % 11.2 % (0.0-8.0); NEUT % 74.7 % (16.0-70.0); PLATELET COUNT 166 TH/MM3 (150-450); RED BLOOD COUNT 3.98 MIL/MM3 (4.50-5.90); RED CELL DISTRIBUTION WIDTH 14.1 % (11.6-17.2); WHITE BLOOD COUNT 11.4 TH/MM3 (4.0-11.0)
[2017-07-26] MEDS: SODIUM CHLORIDE 0.9% FLUSH 10 ML FLUSH IV FLUSH SCH ×2 (09:00→20:17)
--- NOTE | 2017-07-26 09:10 | HHI.PR ---
Subjective Remarks This is a pleasant 41 y/o Male with Diverticulitis, he was hospitalized at [facility] he signed against Medical advise when was offered surgery due to probable Diverticulitis and abscess, he came to this facility for second opinion, at this time seen in his bedroom, no pain, no nausea, or diarrhea, at this time on Zosyn and awaiting recommendations by GI specialist. no complaint but wants to start diet. 07/23: Stable in his bedroom, no complaint, no nausea, vomit or diarrhea, GI and General Surgery awaiting for records from [facility], 07/24: Seen in his bedroom, no nausea, vomit or diarrhea, awaiting final recommendations by specialists. 07/25: discussed with General Surgery REHAB SPECIALIST Miss Jenniffer Dacosta due to elevated White blood cell count, increased abdominal pain was recommended for new CT abdomen and Pelvis by General Surgery, new CT scan showed worsening diverticulitis and found two abscess asked for Interventional Radiology management. continue Zosyn, Seen by Interventional Radiology Doctor Matias Jay Jr. recommended to continue Medical Management and surveillance. IF either abscess increases in size attempts at drainage catheter placement can be performed at that time. 07/26: Discussed with patient and nurse in the room, not recommended to escalate Narcotics IV but he wants Tramadol as his pain medicine yesterday asked for Motrin and was placed due to his allergy to Tylenol and also Aspirin but able to take Motrin and Tramadol. continue Allopurinol for his Gout, he states his Left ankle is feeling pain will get Uric acid level for tomorrow am, his antibiotics were broaden by ID specialist. General Surgery awaiting for next Friday following clinically. Objective Vital Signs Date Time Temp Pulse Resp B/P (MAP) Pulse Ox O2 Delivery O2 Flow Rate FiO2 07/26/17 08:00 98.1 70 16 123/76 (92) 97 07/26/17 04:00 97.2 52 20 130/80 (97) 100 07/26/17 00:00 96.0 57 20 110/72 (85) 97 07/25/17 21:03 100.3 81 20 150/90 (110) 95 07/25/17 16:00 101.7 87 20 138/80 (99) 95 07/25/17 14:24 94 21 07/25/17 14:22 55 07/25/17 12:00 99.4 71 20 139/79 (99) 99 I/O 07/25/17 07/25/17 07/25/17 07/26/17 07/26/17 07/26/17 06:59 14:59 22:59 06:59 14:59 22:59 Intake Total 1000 ml 1100 ml 0 ml 720 ml Output Total 400 ml 1750 ml 700 ml Balance 600 ml 1100 ml -1750 ml 20 ml Intake Oral 0 ml 0 ml 720 ml IV Total 1000 ml 1100 ml Output Urine Total 400 ml 1750 ml 700 ml # Voids 3 Result Diagram: 07/26/17 0611 07/25/17 0554 Imaging Last Impressions Abdomen/Pelvis CT 07/24/17 0000 Signed Impressions: Service Date/Time: July 18:37 - CONCLUSION: 1. Slight worsening of appearance of sigmoid segmental colitis or diverticulitis with 2.7 cm abscess present in the left lower quadrant and 3.4 cm bilobed abscess between the superior bladder wall and adjacent sigmoid colon. No bowel obstruction or free air. Kenny Faye MD Chest X-Ray 07/21/17 2499 Signed Impressions: Service Date/Time: Friday, July 21, 2017 17:59 - CONCLUSION: 1. No acute cardiopulmonary disease. Scooby Schroeder MD Procedures None Other Results Laboratory Tests Test 07/21/17 18:00 07/22/17 05:14 07/22/17 10:40 07/23/17 07:51 Prothrombin Time 11.0 SEC Prothromb Time International Ratio 1.0 RATIO Activated Partial Thromboplast Time 29.4 SEC Lactic Acid Level 0.7 mmol/L Phosphorus Level 3.4 MG/DL Magnesium Level 2.3 MG/DL Erythrocyte Sedimentation Rate 18 mm/hr C-Reactive Protein 1.60 MG/DL Anti-Nuclear Antibody Screen NEG Anti-Proteinase 3 (c-ANCA) LESS THAN 1.0 AI Anti-Myeloperoxidase Ab (p-ANCA) LESS THAN 1.0 AI Rapid Plasma Reagin NON-REACTIVE Herpes Simplex Virus I IgG Ab Index Positive Herpes Simplex Virus II IgG Index Negative HIV (1&2) Antibody NEGATIVE Blood Urea Nitrogen 8 MG/DL Creatinine 1.04 MG/DL Random Glucose 87 MG/DL Total Protein 6.8 GM/DL Albumin 3.0 GM/DL Calcium Level 8.7 MG/DL Alkaline Phosphatase 60 U/L Aspartate Amino Transf (AST/SGOT) 15 U/L Alanine Aminotransferase (ALT/SGPT) 23 U/L Total Bilirubin 0.6 MG/DL Sodium Level 139 MEQ/L Potassium Level 3.8 MEQ/L Chloride Level 104 MEQ/L Carbon Dioxide Level 27.4 MEQ/L Test 07/25/17 05:54 07/25/17 15:05 07/26/17 06:11 Blood Urea Nitrogen 5 MG/DL Creatinine 0.93 MG/DL Random Glucose 81 MG/DL Calcium Level 8.3 MG/DL Sodium Level 137 MEQ/L Potassium Level 4.1 MEQ/L Chloride Level 106 MEQ/L Carbon Dioxide Level 24.4 MEQ/L Anion Gap 7 MEQ/L Estimat Glomerular Filtration Rate 90 ML/MIN Urine Color LIGHT-YELLOW Urine Turbidity CLEAR Urine pH 6.5 Urine Specific [place] 1.013 Urine Protein TRACE mg/dL Urine Glucose (UA) NEG mg/dL Urine Ketones 40 mg/dL Urine Occult Blood SMALL Urine Nitrite NEG Urine Bilirubin NEG Urine Urobilinogen LESS THAN 2.0 MG/DL Urine Leukocyte Esterase NEG Urine RBC 1 /hpf Urine WBC 1 /hpf Microscopic Urinalysis Comment CULT NOT INDICATED White Blood Count 11.4 TH/MM3 Red Blood Count 3.98 MIL/MM3 Hemoglobin 12.3 GM/DL Hematocrit 37.0 % Mean Corpuscular Volume 92.9 FL Mean Corpuscular Hemoglobin 30.9 PG Mean Corpuscular Hemoglobin Concent 33.3 % Red Cell Distribution Width 14.1 % Platelet Count 166 TH/MM3 Mean Platelet Volume 10.5 FL Neutrophils (%) (Auto) 74.7 % Lymphocytes (%) (Auto) 13.4 % Monocytes (%) (Auto) 11.2 % Eosinophils (%) (Auto) 0.5 % Basophils (%) (Auto) 0.2 % Neutrophils # (Auto) 8.5 TH/MM3 Lymphocytes # (Auto) 1.5 TH/MM3 Monocytes # (Auto) 1.3 TH/MM3 Eosinophils # (Auto) 0.1 TH/MM3 Basophils # (Auto) 0.0 TH/MM3 CBC Comment DIFF FINAL Differential Comment Objective Remarks GENERAL: Well-developed patient, in no apparent distress. SKIN: No rashes, ecchymoses or lesions. Cool and dry. HEAD: Atraumatic. Normocephalic. EYES: Pupils equal round and reactive. Extraocular motions intact. ENT: Nose without bleeding, purulent drainage or septal hematoma.Airway patent. NECK: Trachea midline. No JVD or lymphadenopathy. CARDIOVASCULAR: Regular rate and rhythm without murmurs, gallops, or rubs. RESPIRATORY: Clear to auscultation. Breath sounds equal bilaterally. No wheezes , rales, or rhonchi. GASTROINTESTINAL: Abdomen soft, non-tender, nondistended. BS x 4 MUSCULOSKELETAL: Extremities without clubbing, cyanosis, or edema. No joint tenderness, effusion, or edema noted. No calf tenderness. NEUROLOGICAL: Awake and alert. Motor and sensory grossly within normal limits. Normal speech. Medications and IVs Current Medications Medications (Trade) Dose Ordered Sig/Eleazar Route Start Time Stop Time Status Last Admin Sodium Chloride 1,000 ml @ 100 mls/hr Q10H IV 07/22/17 00:46 07/26/17 02:30 (Zofran Inj) 4 mg Q6H PRN IVP 07/22/17 01:00 07/25/17 23:57 (Narcan Inj) 0.4 mg UNSCH PRN IV PUSH 07/22/17 01:00 (NS Flush) 2 ml BID IV FLUSH 07/22/17 09:00 07/24/17 20:33 (NS Flush) 2 ml UNSCH PRN IVF 07/22/17 01:00 Piperacillin Sod/ Tazobactam Sod 100 ml @ 200 mls/hr Q6H IV 07/22/17 02:00 07/26/17 02:30 (Dilaudid Pf Inj) 0.5 mg Q4H PRN IV PUSH 07/23/17 03:00 07/26/17 06:41 (Heparin Inj) 5,000 units Q8HR SQ 07/24/17 14:00 07/26/17 06:41 Pharmacy Profile Note 0 ml @ 0 mls/hr UNSCH OTHER 07/25/17 10:00 Fluconazole/ Sodium Chloride 200 ml @ 100 mls/hr Q24H IV 07/25/17 10:00 07/25/17 11:48 Vancomycin HCl 1250 mg/Sodium Chloride 262.5 ml @ 250 mls/hr Q12H IV 07/25/17 13:00 07/25/17 23:57 Miscellaneous Information SPECIFIC LAB TO BE REY... ONCE ONCE .XX 07/27/17 00:45 07/27/17 00:46 (Advil) 200 mg Q4H PRN PO 07/25/17 17:15 (Zyloprim) 300 mg DAILY PO 07/25/17 18:00 07/25/17 18:07 A/P Assessment and Plan 1. Diverticulitis as per CT scan, he is been on Vancomycin and Zosyn at [facility] here started on Zosyn discussed with General quality systems specialist REHAB SPECIALIST, recommended a new CT abdomen and Pelvis showed Slight worsening of appearance of sigmoid segmental colitis or diverticulitis with 2.7 cm abscess present in the left lower quadrant and 3.4 cm bilobed abscess between the superior bladder wall and adjacent sigmoid Colon, no bowel obstruction or free air. continue Zosyn, as per Interventional computer technical specialist Doctor Matias Jay Jr. recommended to continue Medical Management and surveillance. IF either abscess increases in size attempts at drainage catheter placement can be performed at that time. antibiotic broaden by ID specialist added Vancomycin and Fluconazole, as per General Surgery to wait until next 07/28/17 if no improvement will get Abscess aspiration for culture and sensitivity. patient asked for Tramadol was given, Discussed about the use of Narcotics and the side effect on Bowel pathology, the patient states he understands and will help with activity. DVT prophylaxis: SCDs Discussed Condition With Patient and nurse Miss Childers present in the room. All questions answered to the best of my abilities. Discharge Planning Once cleared by specialists. Dao Patterson MD Jul 26, 2017 09:10
[2017-07-26] MEDS: ALLOPURINOL 300 MG TAB PO SCH (10:43)
[2017-07-26] MEDS: traMADol HCL 50 MG TAB PO PRN ×3 (10:43→20:19)
[2017-07-26] MEDS: FLUCONAZOLE 400 MG PREMIX BAG 200 ML IV SCH (10:44)
[2017-07-26] MEDS: ONDANSETRON HCL 4 MG/2 ML VIAL IVP PRN (13:45)
[2017-07-26] MEDS: VANCOMYCIN INJ 1,250 MG in SODIUM CHLOR 0.9% 250 ML INJ 250 ML IV SCH (13:46)
[2017-07-26] MEDS: IBUPROFEN 200 MG TAB PO PRN (16:22)
[2017-07-26] MEDS: HYDROmorphone HCL PF 2 MG/ML VIAL IV PUSH PRN ×2 (18:54→23:37)
[2017-07-27] VITALS (7 sets, daily range): BP systolic 115–136; BP diastolic 77–88; PULSE 57–80; RESP 16–20; TEMP 97–101.2; O2SAT 94–98
[2017-07-27] MEDS ORDERED: PHARMACY ORDERED LAB ONE (00:45)
--- NOTE | 2017-07-27 01:19 | HHI.PR ---
Subjective Subjective Notes late entry for 07/26/17 patient feels better, still requires IV pain meds Objective Vitals/I&O Vital Signs Date Time Temp Pulse Resp B/P (MAP) Pulse Ox O2 Delivery O2 Flow Rate FiO2 07/27/17 00:00 97.0 57 18 128/82 (97) 98 07/26/17 18:40 21 Labs Laboratory Tests Test 07/26/17 06:11 White Blood Count 11.4 Red Blood Count 3.98 Hemoglobin 12.3 Hematocrit 37.0 Mean Corpuscular Volume 92.9 Mean Corpuscular Hemoglobin 30.9 Mean Corpuscular Hemoglobin Concent 33.3 Red Cell Distribution Width 14.1 Platelet Count 166 Mean Platelet Volume 10.5 Neutrophils (%) (Auto) 74.7 Lymphocytes (%) (Auto) 13.4 Monocytes (%) (Auto) 11.2 Eosinophils (%) (Auto) 0.5 Basophils (%) (Auto) 0.2 Neutrophils # (Auto) 8.5 Lymphocytes # (Auto) 1.5 Monocytes # (Auto) 1.3 Eosinophils # (Auto) 0.1 Basophils # (Auto) 0.0 CBC Comment DIFF FINAL Differential Comment Date/Time Source Procedure Growth Status 07/25/17 12:40 Blood Peripheral Aerobic Blood Culture - Preliminary NO GROWTH IN 1 DAY Resulted 07/25/17 12:40 Blood Peripheral Anaerobic Blood Culture - Preliminary NO GROWTH IN 1 DAY Resulted Radiology Last 72 hours Impressions Abdomen/Pelvis CT 07/24/17 0000 Signed Impressions: Service Date/Time: July 18:37 - CONCLUSION: 1. Slight worsening of appearance of sigmoid segmental colitis or diverticulitis with 2.7 cm abscess present in the left lower quadrant and 3.4 cm bilobed abscess between the superior bladder wall and adjacent sigmoid colon. No bowel obstruction or free air. Kenny Faye MD Last 48 hours Impressions Chest X-Ray 07/21/17 2027 Signed Impressions: Service Date/Time: Friday, July 21, 2017 17:59 - CONCLUSION: 1. No acute cardiopulmonary disease. Scooby Schroeder MD Abdomen/Pelvis CT 07/21/17 1397 Signed Impressions: Service Date/Time: Friday, July 21, 2017 22:23 - CONCLUSION: 1. Acute sigmoid diverticulitis extending over a 15 cm segment with extensive inflammatory change but no abscess Scooby Schroeder MD Abdomen: Non-distended, Other A/P Problem List: (1) Colonic diverticular abscess ICD Codes: K57.20 - Diverticulitis of large intestine with perforation and abscess without bleeding Status: Acute (2) Elevated white blood cell count ICD Codes: D72.829 - Elevated white blood cell count, unspecified Status: Acute (3) Abdominal pain, left lower quadrant ICD Codes: R10.32 - Left lower quadrant pain Status: Chronic (4) Diverticulitis ICD Codes: K57.92 - Diverticulitis of intestine, part unspecified, without perforation or abscess without bleeding Status: Chronic (5) Acute diverticulitis of intestine ICD Codes: K57.92 - Diverticulitis of intestine, part unspecified, without perforation or abscess without bleeding Status: Chronic (6) Abnormal computed tomography of abdomen and pelvis ICD Codes: R93.5 - Abnormal findings on diagnostic imaging of other abdominal regions, including retroperitoneum Status: Chronic Assessment and Plan 41-year-old\ male with complicated diverticular disease with abscess. Currently his pain is improved but needs IV pain meds. Continue ABX/supportive care The abscess is too small to place a drain however if he does not improve dramatically by Friday we will have them at least aspirate the abscess for culture and sensitivity Problem Qualifiers (1) Diverticulitis: Qualified Codes: K57.32 - Diverticulitis of large intestine without perforation or abscess without bleeding Ronan Vasquez MD Jul 27, 2017 01:19
[2017-07-27] MEDS: VANCOMYCIN INJ 1,250 MG in SODIUM CHLOR 0.9% 250 ML INJ 250 ML IV SCH (02:32)
[2017-07-27] MEDS: traMADol HCL 50 MG TAB PO PRN ×5 (02:37→23:08)
[2017-07-27] MEDS: PIPERACIL-TAZO 4.5 GM PREMIX 100 ML IV SCH ×2 (04:48→08:18)
[2017-07-27] MEDS: HYDROmorphone HCL PF 2 MG/ML VIAL IV PUSH PRN ×4 (04:49→19:54)
[2017-07-27] MEDS: HEPARIN SODIUM - SQ 10,000 UNITS/ML VIAL SQ SCH ×3 (04:49→19:37)
[2017-07-27] MEDS: SODIUM CHLORIDE 0.9% FLUSH 10 ML FLUSH IV FLUSH SCH ×2 (08:18→19:37)
[2017-07-27] MEDS: ALLOPURINOL 300 MG TAB PO SCH (08:18)
[2017-07-27] MEDS: SODIUM CHLOR 0.9% 1000 ML INJ 1,000 ML IV SCH ×2 (09:44→19:37)
[2017-07-27] MEDS: FLUCONAZOLE 400 MG PREMIX BAG 200 ML IV SCH (09:44)
--- NOTE | 2017-07-27 10:34 | HHI.PR ---
Subjective Subjective Notes feels much better, wants food, no fevers, Objective Vitals/I&O Vital Signs Date Time Temp Pulse Resp B/P (MAP) Pulse Ox O2 Delivery O2 Flow Rate FiO2 07/27/17 08:00 97.7 70 16 117/79 (92) 96 07/26/17 18:40 21 Labs Laboratory Tests Test 07/27/17 02:26 Vancomycin Level Trough 15.3 Date/Time Source Procedure Growth Status 07/25/17 12:40 Blood Peripheral Aerobic Blood Culture - Preliminary NO GROWTH IN 1 DAY Resulted 07/25/17 12:40 Blood Peripheral Anaerobic Blood Culture - Preliminary NO GROWTH IN 1 DAY Resulted Radiology Last 72 hours Impressions Abdomen/Pelvis CT 07/24/17 0000 Signed Impressions: Service Date/Time: July 18:37 - CONCLUSION: 1. Slight worsening of appearance of sigmoid segmental colitis or diverticulitis with 2.7 cm abscess present in the left lower quadrant and 3.4 cm bilobed abscess between the superior bladder wall and adjacent sigmoid colon. No bowel obstruction or free air. Kenny Faye MD Last 48 hours Impressions Chest X-Ray [id number]/21/[id number] Signed Impressions: Service Date/Time: Friday, July 21, 2017 17:59 - CONCLUSION: 1. No acute cardiopulmonary disease. Scooby Schroeder MD Abdomen/Pelvis CT [id number]/[id number] Signed Impressions: Service Date/Time: Friday, July 21, 2017 22:23 - CONCLUSION: 1. Acute sigmoid diverticulitis extending over a 15 cm segment with extensive inflammatory change but no abscess Scooby Schroeder MD Abdomen: Non-distended, BS normal Narrative Exam minimal tenderness A/P Problem List: (1) Colonic diverticular abscess ICD Codes: K57.20 - Diverticulitis of large intestine with perforation and abscess without bleeding Status: Acute (2) Elevated white blood cell count ICD Codes: D72.829 - Elevated white blood cell count, unspecified Status: Acute (3) Abdominal pain, left lower quadrant ICD Codes: R10.32 - Left lower quadrant pain Status: Chronic (4) Diverticulitis ICD Codes: K57.92 - Diverticulitis of intestine, part unspecified, without perforation or abscess without bleeding Status: Chronic (5) Acute diverticulitis of intestine ICD Codes: K57.92 - Diverticulitis of intestine, part unspecified, without perforation or abscess without bleeding Status: Chronic (6) Abnormal computed tomography of abdomen and pelvis ICD Codes: R93.5 - Abnormal findings on diagnostic imaging of other abdominal regions, including retroperitoneum Status: Chronic Assessment and Plan recurrent diverticulitis clinically improved advance diet change to po abx Problem Qualifiers (1) Diverticulitis: Qualified Codes: K57.32 - Diverticulitis of large intestine without perforation or abscess without bleeding Justin Donato MD Jul 27, 2017 10:34
[2017-07-27] MEDS: ONDANSETRON HCL 4 MG/2 ML VIAL IVP PRN (11:09)
--- NOTE | 2017-07-27 12:20 | HHI.PR ---
Subjective Remarks Patient in nad. Says he has less cramps, still with some abdominal pain in left lower quadrant. Some nausea did not vomit. Had soft BMs. No fever or chills. Feels comfortable to advance diet Objective Vitals Vital Signs Date Time Temp Pulse Resp B/P (MAP) Pulse Ox O2 Delivery O2 Flow Rate FiO2 07/27/17 08:00 97.7 70 16 117/79 (92) 96 07/27/17 04:00 98.7 66 18 123/84 (97) 95 07/27/17 00:00 97.0 57 18 128/82 (97) 98 07/26/17 20:00 98.0 65 18 130/88 (102) 97 07/26/17 19:23 69 07/26/17 18:40 21 07/26/17 16:00 100.5 88 18 182/87 (118) 98 I/O 07/26/17 07/26/17 07/26/17 07/27/17 07/27/17 07/27/17 07:00 15:00 23:00 07:00 15:00 23:00 Intake Total 720 ml 1660 ml 2800 ml 760 ml 300 ml Output Total 700 ml 800 ml 1000 ml Balance 20 ml 1660 ml 2000 ml -240 ml 300 ml Intake Oral 720 ml 1800 ml 500 ml IV Total 1660 ml 1000 ml 260 ml 300 ml Output Urine Total 700 ml 800 ml 1000 ml # Voids 3 # Bowel Movements 1 0 Result Diagram: 07/26/17 0611 07/25/17 0554 Imaging Last Impressions Abdomen/Pelvis CT 07/24/17 0000 Signed Impressions: Service Date/Time: July 18:37 - CONCLUSION: 1. Slight worsening of appearance of sigmoid segmental colitis or diverticulitis with 2.7 cm abscess present in the left lower quadrant and 3.4 cm bilobed abscess between the superior bladder wall and adjacent sigmoid colon. No bowel obstruction or free air. Kenny Faye MD Chest X-Ray 07/21/17 3405 Signed Impressions: Service Date/Time: Friday, July 21, 2017 17:59 - CONCLUSION: 1. No acute cardiopulmonary disease. Scooby Schroeder MD Objective Remarks GENERAL: Well-developed patient, in no apparent distress. CARDIOVASCULAR: Regular rate and rhythm without murmurs, gallops, or rubs. RESPIRATORY: Clear to auscultation. Breath sounds equal bilaterally. No wheezes , rales, or rhonchi. GASTROINTESTINAL: Abdomen soft, non-tender, nondistended. BS x 4 MUSCULOSKELETAL: Extremities without clubbing, cyanosis, or edema. No joint tenderness, effusion, or edema noted. No calf tenderness. NEUROLOGICAL: Awake and alert. Motor and sensory grossly within normal limits. Normal speech. A/P Problem List: (1) Diverticulitis ICD Code: K57.92 - Diverticulitis of intestine, part unspecified, without perforation or abscess without bleeding Status: Chronic Assessment and Plan 1. Diverticulitis as per CT scan, he is been on Vancomycin and Zosyn at [facility] here started on Zosyn CT abdomen and Pelvis showed Slight worsening of appearance of sigmoid segmental colitis or diverticulitis with 2.7 cm abscess present in the left lower quadrant and 3.4 cm bilobed abscess between the superior bladder wall and adjacent sigmoid Colon, no bowel obstruction or free air. continue Zosyn As per Interventional career resource specialist Doctor Matias Jay Jr. recommended to continue Medical Management and surveillance. IF either abscess increases in size attempts at drainage catheter placement can be performed at that time. Antibiotic broaden by ID specialist added Vancomycin and Fluconazole, as per General Surgery to wait until next 07/28/17 If no improvement will get Abscess aspiration for culture and sensitivity. Patient asked for Tramadol was given. Discussed the use of Narcotics and the side effect on Bowel pathology, the patient states he understands and will help with activity. Advance diet per gen surg recommendations DVT prophylaxis: SCDs Discussed Condition With Patient, nurse. Discharge Planning pending improvement. DC once cleared by specialists. Problem Qualifiers (1) Diverticulitis: Qualified Codes: K57.32 - Diverticulitis of large intestine without perforation or abscess without bleeding Kathy Mackay MD Jul 27, 2017 12:20
[2017-07-27] MEDS: IBUPROFEN 200 MG TAB PO PRN (12:31)
[2017-07-28] VITALS (7 sets, daily range): BP systolic 111–151; BP diastolic 60–87; PULSE 66–79; RESP 16–20; TEMP 98.4–100.9; O2SAT 92–98
[2017-07-28] MEDS: IBUPROFEN 200 MG TAB PO PRN ×2 (01:02→20:10)
[2017-07-28] MEDS: HYDROmorphone HCL PF 2 MG/ML VIAL IV PUSH PRN ×4 (01:03→20:11)
[2017-07-28] MEDS: SODIUM CHLOR 0.9% 1000 ML INJ 1,000 ML IV SCH (05:38)
[2017-07-28] MEDS: HEPARIN SODIUM - SQ 10,000 UNITS/ML VIAL SQ SCH ×3 (05:38→20:11)
[2017-07-28 07:47] LABS: AUTOMATED NEUTROPHIL # 9.7 TH/MM3 (1.8-7.7); BASOPHIL % 0.3 % (0.0-2.0); EOSINOPHIL % 0.2 % (0.0-4.0); HEMO FLAGS DIFF FINAL; LYMPHOCYTE # 1.6 TH/MM3 (1.0-4.8); MEAN CELL VOLUME 92.6 FL (80.0-100.0); MEAN CORPUSCULAR HEMOGLOBIN 30.6 PG (27.0-34.0); MONO % 9.2 % (0.0-8.0); NEUT % 77.3 % (16.0-70.0); PLATELET COUNT 202 TH/MM3 (150-450); RED BLOOD COUNT 3.67 MIL/MM3 (4.50-5.90); RED CELL DISTRIBUTION WIDTH 14.5 % (11.6-17.2); WHITE BLOOD COUNT 12.5 TH/MM3 (4.0-11.0)
[2017-07-28 08:08] LABS: BICARBONATE 27.9 MEQ/L (21.0-32.0); POTASSIUM 3.3 MEQ/L (3.5-5.1)
[2017-07-28] MEDS: SODIUM CHLORIDE 0.9% FLUSH 10 ML FLUSH IV FLUSH SCH ×2 (09:00→20:12)
[2017-07-28] MEDS: traMADol HCL 50 MG TAB PO PRN ×3 (09:18→22:27)
[2017-07-28] MEDS: FLUCONAZOLE 200 MG TAB PO SCH (09:18)
[2017-07-28] MEDS: ALLOPURINOL 300 MG TAB PO SCH (09:18)
[2017-07-28] MEDS: LEVOFLOXACIN 500 MG TAB PO SCH (09:18)
[2017-07-28] MEDS ORDERED: ULTR50TA5 PO (09:22)
[2017-07-28] MEDS ORDERED: LEVA500T20 PO (09:22)
[2017-07-28] MEDS ORDERED: PROM25TA10 PO (09:22)
[2017-07-28] MEDS ORDERED: DIFL200T PO (09:22)
--- NOTE | 2017-07-28 09:23 | HHI.DS ---
Discharge Summary Admission Date Jul 22, 2017 at 00:50 Discharge Date: Jul 28, 2017 Admitting Diagnosis acute diverticulitis (1) Diverticulitis ICD Code: K57.92 - Diverticulitis of intestine, part unspecified, without perforation or abscess without bleeding Status: Chronic Procedures CT guided drainage of colonic abscess by IR on 07/28/17 Brief History - From Admission 41 y/o male with a history of diverticula and gout presented to the ED for reevaluation of an abdominal abscess. Patient left [facility] yesterday because he did not agree with the surgeon he had. He went to [facility] on Friday for bladder pressure with urination and was told he had a fistula and an abscess in his abdomen that required surgery. He was treated with vancomycin and Zosyn since Friday. He did not was surgery so he left for a second opinion. He currently denies any abdominal pain, chest pain, sob, nausea, vomiting, fever or chills. He states has had diverticulitis before and has been in severe pain before. CBC/BMP: 07/28/17 0538 07/28/17 0538 Significant Findings Laboratory Tests Test 07/25/17 15:05 07/26/17 06:11 07/27/17 02:26 07/28/17 05:38 Urine Ketones 40 mg/dL (NEG) Urine Occult Blood SMALL (NEG) White Blood Count 11.4 TH/MM3 (4.0-11.0) 12.5 TH/MM3 (4.0-11.0) Red Blood Count 3.98 MIL/MM3 (4.50-5.90) 3.67 MIL/MM3 (4.50-5.90) Hemoglobin 12.3 GM/DL (13.0-17.0) 11.2 GM/DL (13.0-17.0) Hematocrit 37.0 % (39.0-51.0) 34.0 % (39.0-51.0) Neutrophils (%) (Auto) 74.7 % (16.0-70.0) 77.3 % (16.0-70.0) Monocytes (%) (Auto) 11.2 % (0.0-8.0) 9.2 % (0.0-8.0) Neutrophils # (Auto) 8.5 TH/MM3 (1.8-7.7) 9.7 TH/MM3 (1.8-7.7) Monocytes # (Auto) 1.3 TH/MM3 (0-0.9) 1.1 TH/MM3 (0-0.9) Vancomycin Level Trough 15.3 MCG/ML (5.0-10.0) Blood Urea Nitrogen 2 MG/DL (7-18) Potassium Level 3.3 MEQ/L (3.5-5.1) Estimat Glomerular Filtration Rate 85 ML/MIN (>89) Imaging Last Impressions Needle Aspiration CT 07/28/17 0000 Signed Impressions: Service Date/Time: Friday, July 28, 2017 16:47 - CONCLUSION: Uncomplicated aspiration of left lower quadrant diverticular abscess as above. Chico Black MD Abdomen/Pelvis CT 07/24/17 0000 Signed Impressions: Service Date/Time: July 18:37 - CONCLUSION: 1. Slight worsening of appearance of sigmoid segmental colitis or diverticulitis with 2.7 cm abscess present in the left lower quadrant and 3.4 cm bilobed abscess between the superior bladder wall and adjacent sigmoid colon. No bowel obstruction or free air. Kenny Faye MD Chest X-Ray 07/21/17 416 Signed Impressions: Service Date/Time: Friday, July 21, 2017 17:59 - CONCLUSION: 1. No acute cardiopulmonary disease. Scooby Schroeder MD PE at Discharge GENERAL: Well-developed patient, in no apparent distress. CARDIOVASCULAR: Regular rate and rhythm without murmurs, gallops, or rubs. RESPIRATORY: Clear to auscultation. Breath sounds equal bilaterally. No wheezes , rales, or rhonchi. GASTROINTESTINAL: Abdomen soft, non-tender, nondistended. BS x 4 MUSCULOSKELETAL: Extremities without clubbing, cyanosis, or edema. No joint tenderness, effusion, or edema noted. No calf tenderness. NEUROLOGICAL: Awake and alert. Motor and sensory grossly within normal limits. Normal speech. Pt update on day of discharge Feels much better. Able to eat. No much pain after drainage of abscess. nO n/v/d /c. Wants to go home. Hospital Course 1. Diverticulitis with 2.7 cm abscess present in the left lower quadrant and 3.4 cm bilobed abscess between the superior bladder wall and adjacent sigmoid Colon he is been on Vancomycin and Zosyn at [facility] here started on Zosyn CT abdomen and Pelvis showed Slight worsening of appearance of sigmoid segmental colitis or diverticulitis with 2.7 cm abscess present in the left lower quadrant and 3.4 cm bilobed abscess between the superior bladder wall and adjacent sigmoid Colon, no bowel obstruction or free air. continue Zosyn As per Interventional marketing technology specialist Doctor Matias Jay Jr. recommended to continue Medical Management and surveillance. IF either abscess increases in size attempts at drainage catheter placement can be performed at that time. Antibiotic broaden by ID specialist added Vancomycin and Fluconazole, as per General Surgery to wait until next 07/28/17 Patient asked for Tramadol was given. Discussed the use of Narcotics and the side effect on Bowel pathology, the patient states he understands and will help with activity. abd still some tenderness Patient still with abd pain , plan for IR to drain and culture of abscess aspiration Consult IR for drainage and cultures of abscess Advance diet per gen surg recommendations CT guided drainage of colonic abscess by IR on 07/28/17 with significant imprpve ,ent. Cleared by surgeon for DC . Paiten tis ambulating tolerates food. To f/u as OP with gen surg will f/u cultures as OP per surgery and adjust if need abx. Patien timprpved DCd in stable condition home , to f/u as OP with PCP and consultants. DVT prophylaxis: SCDs Discussed Condition With Patient, nurse. Discharge Planning pending improvement. DC once cleared by specialists. Pt Condition on Discharge: Stable Discharge Disposition: Discharge Home Discharge Time: > 30 minutes Discharge Instructions DIET: Follow Instructions for: As Tolerated, No Restrictions Activities you can perform: Regular-No Restrictions Follow up Referrals: Gastroenterology - 2 Weeks PCP Follow-up - 2-3 Days Surgical - 1 Week with Kenny Singleton MD New Medications: Ondansetron (Zofran) 4 Mg Tab 4 MG PO Q8HR PRN for NAUSEA OR VOMITING, #30 TAB 0 Refills Oxycodone (Oxycodone) 5 Mg Cap 5 MG PO Q8H PRN for PAIN, #15 CAP 0 Refills Promethazine (Phenergan) 25 Mg Tablet 25 MG PO Q8HR PRN for NAUSEA OR VOMITING, #30 TAB 0 Refills Allopurinol (Zyloprim) 300 Mg Tab 300 MG PO DAILY for gout, #60 TAB Fluconazole (Diflucan) 200 Mg Tab 200 MG PO DAILY for infection , #7 TAB Levofloxacin (Levaquin) 500 Mg Tablet 500 MG PO DAILY for infection, #7 MG Kathy Mackay MD Jul 28, 2017 09:23
--- NOTE | 2017-07-28 09:24 | HHI.PR ---
Subjective Remarks Still with abd pain left lower quadrant. Still with nausea however no vomiting. No fever or chills, however noted low grade fever last night. Had a BM in the morning. Objective Vitals Vital Signs Date Time Temp Pulse Resp B/P (MAP) Pulse Ox O2 Delivery O2 Flow Rate FiO2 07/28/17 08:00 98.4 66 16 111/75 (87) 96 07/28/17 00:00 100.4 78 20 135/85 (102) 97 07/27/17 20:00 97.4 62 20 136/88 (104) 98 07/27/17 16:00 97.4 68 16 115/79 (91) 95 07/27/17 14:45 97.6 07/27/17 12:00 101.2 80 18 124/77 (93) 94 I/O 07/27/17 07/27/17 07/27/17 07/28/17 07/28/17 07/28/17 06:59 14:59 22:59 06:59 14:59 22:59 Intake Total 760 ml 300 ml 2273 ml 240 ml Output Total 1000 ml 1400 ml 1100 ml Balance -240 ml 300 ml 873 ml -860 ml Intake Oral 500 ml 800 ml 240 ml IV Total 260 ml 300 ml 1473 ml Output Urine Total 1000 ml 1400 ml 1100 ml # Bowel Movements 0 1 0 Result Diagram: 07/28/17 0538 07/28/17 0538 Imaging Last Impressions Abdomen/Pelvis CT 07/24/17 0000 Signed Impressions: Service Date/Time: July 18:37 - CONCLUSION: 1. Slight worsening of appearance of sigmoid segmental colitis or diverticulitis with 2.7 cm abscess present in the left lower quadrant and 3.4 cm bilobed abscess between the superior bladder wall and adjacent sigmoid colon. No bowel obstruction or free air. Kenny Faye MD Chest X-Ray 07/21/17 [id number] Signed Impressions: Service Date/Time: Friday, July 21, 2017 17:59 - CONCLUSION: 1. No acute cardiopulmonary disease. Scooby Schroeder MD Objective Remarks GENERAL: Well-developed patient, in no apparent distress. CARDIOVASCULAR: Regular rate and rhythm without murmurs, gallops, or rubs. RESPIRATORY: Clear to auscultation. Breath sounds equal bilaterally. No wheezes , rales, or rhonchi. GASTROINTESTINAL: Abdomen soft, non-tender, nondistended. BS x 4 MUSCULOSKELETAL: Extremities without clubbing, cyanosis, or edema. No joint tenderness, effusion, or edema noted. No calf tenderness. NEUROLOGICAL: Awake and alert. Motor and sensory grossly within normal limits. Normal speech. A/P Problem List: (1) Diverticulitis ICD Code: K57.92 - Diverticulitis of intestine, part unspecified, without perforation or abscess without bleeding Status: Chronic Assessment and Plan 1. Diverticulitis with 2.7 cm abscess present in the left lower quadrant and 3.4 cm bilobed abscess between the superior bladder wall and adjacent sigmoid Colon he is been on Vancomycin and Zosyn at [facility] here started on Zosyn CT abdomen and Pelvis showed Slight worsening of appearance of sigmoid segmental colitis or diverticulitis with 2.7 cm abscess present in the left lower quadrant and 3.4 cm bilobed abscess between the superior bladder wall and adjacent sigmoid Colon, no bowel obstruction or free air. continue Zosyn As per Interventional information assurance specialist Doctor Matias Jay Jr. recommended to continue Medical Management and surveillance. IF either abscess increases in size attempts at drainage catheter placement can be performed at that time. Antibiotic broaden by ID specialist added Vancomycin and Fluconazole, as per General Surgery to wait until next 07/28/17 Patient asked for Tramadol was given. Discussed the use of Narcotics and the side effect on Bowel pathology, the patient states he understands and will help with activity. abd still some tenderness Patient still with abd pain , plan for IR to drain and culture of abscess aspiration Consult IR for drainage and cultures of abscess Advance diet per gen surg recommendations DVT prophylaxis: SCDs Discussed Condition With Patient, nurse. Discharge Planning pending improvement. DC once cleared by specialists. Problem Qualifiers (1) Diverticulitis: Qualified Codes: K57.32 - Diverticulitis of large intestine without perforation or abscess without bleeding Kathy Mackay MD Jul 28, 2017 09:24
[2017-07-28] MEDS: ONDANSETRON HCL 4 MG/2 ML VIAL IVP PRN (10:36)
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
[2017-07-28] MEDS ORDERED: MIDAZOLAM HCL 2 MG/2 ML VIAL ONE (14:41)
[2017-07-28] MEDS ORDERED: LIDOCAINE HCL 1% 20 ML VIAL ONE ×2 (14:41→16:36)
--- NOTE | 2017-07-28 16:45 | HHI.PR ---
cc: Michael Singleton MD Subjective Subjective Notes PROGRESS NOTE FOR SURGICAL ATTENDING, DR. MICHAEL SINGLETON Still with abdominal pain Objective Vitals/I&O Vital Signs Date Time Temp Pulse Resp B/P (MAP) Pulse Ox O2 Delivery O2 Flow Rate FiO2 07/28/17 12:00 98.9 73 16 138/81 (100) 97 07/26/17 18:40 21 Labs Laboratory Tests Test 07/28/17 05:38 White Blood Count 12.5 Red Blood Count 3.67 Hemoglobin 11.2 Hematocrit 34.0 Mean Corpuscular Volume 92.6 Mean Corpuscular Hemoglobin 30.6 Mean Corpuscular Hemoglobin Concent 33.0 Red Cell Distribution Width 14.5 Platelet Count 202 Mean Platelet Volume 10.4 Neutrophils (%) (Auto) 77.3 Lymphocytes (%) (Auto) 13.0 Monocytes (%) (Auto) 9.2 Eosinophils (%) (Auto) 0.2 Basophils (%) (Auto) 0.3 Neutrophils # (Auto) 9.7 Lymphocytes # (Auto) 1.6 Monocytes # (Auto) 1.1 Eosinophils # (Auto) 0.0 Basophils # (Auto) 0.0 CBC Comment DIFF FINAL Differential Comment Blood Urea Nitrogen 2 Creatinine 0.98 Random Glucose 92 Calcium Level 8.9 Sodium Level 139 Potassium Level 3.3 Chloride Level 102 Carbon Dioxide Level 27.9 Anion Gap 9 Estimat Glomerular Filtration Rate 85 Date/Time Source Procedure Growth Status 07/25/17 12:40 Blood Peripheral Aerobic Blood Culture - Preliminary NO GROWTH IN 3 DAYS Resulted 07/25/17 12:40 Blood Peripheral Anaerobic Blood Culture - Preliminary NO GROWTH IN 3 DAYS Resulted Radiology Last 72 hours Impressions Abdomen/Pelvis CT 07/24/17 0000 Signed Impressions: Service Date/Time: July 18:37 - CONCLUSION: 1. Slight worsening of appearance of sigmoid segmental colitis or diverticulitis with 2.7 cm abscess present in the left lower quadrant and 3.4 cm bilobed abscess between the superior bladder wall and adjacent sigmoid colon. No bowel obstruction or free air. Michael Faye MD Last 48 hours Impressions Chest X-Ray [id number] Signed Impressions: Service Date/Time: Friday, July 21, 2017 17:59 - CONCLUSION: 1. No acute cardiopulmonary disease. Scooby Schroeder MD Abdomen/Pelvis CT [id number] Signed Impressions: Service Date/Time: Friday, July 21, 2017 22:23 - CONCLUSION: 1. Acute sigmoid diverticulitis extending over a 15 cm segment with extensive inflammatory change but no abscess Scooby Schroeder MD Cardiovascular: Regular Lungs: Clear Abdomen: Other (LLQ tenderness ) Extremities: No edema Narrative Exam mild soreness A/P Problem List: (1) Colonic diverticular abscess ICD Codes: K57.20 - Diverticulitis of large intestine with perforation and abscess without bleeding Status: Acute (2) Elevated white blood cell count ICD Codes: D72.829 - Elevated white blood cell count, unspecified Status: Acute (3) Abdominal pain, left lower quadrant ICD Codes: R10.32 - Left lower quadrant pain Status: Chronic (4) Diverticulitis ICD Codes: K57.92 - Diverticulitis of intestine, part unspecified, without perforation or abscess without bleeding Status: Chronic (5) Acute diverticulitis of intestine ICD Codes: K57.92 - Diverticulitis of intestine, part unspecified, without perforation or abscess without bleeding Status: Chronic (6) Abnormal computed tomography of abdomen and pelvis ICD Codes: R93.5 - Abnormal findings on diagnostic imaging of other abdominal regions, including retroperitoneum Status: Chronic Assessment and Plan 41 year old male with acute gout attack; CT abdomen/pelvis with acute sigmoid diverticulitis with extensive inflammatory changes without abscess. -IR to re-examine today for abscess drainage -Continue antibiotics -Continue to monitor labs -Regular diet as tolerated -Hopefully will be able to treat acute infection and plan for elective resection once infection cleared up Attending Statement PROGRESS NOTE FOR SURGICAL ATTENDING, DR. MICHAEL SINGLETON abd still some tenderness I spoke to Radiology Dr Black about drainage and cults of abscess I agree with above assessment and plan. The exam, history, and the medical decision-making described in the above note were completed with the assistance of the mid-level provider. I reviewed and agree with the findings presented. I attest that I had a [id number] encounter with the patient on the same day, and personally performed and documented my assessment and findings in the medical record. The following services were provided during this hospital visit: Chart data review, vital sign assessments/reviewing monitor data Review of consultations notes if present. Medication orders/review and/or management Ordering and/or reviewing lab tests Ordering and/or interpreting/reviewing x-rays and/or diagnostic studies Care of the patient and discussion of the patient with the care team Documentation time To help prompt me to consider important information that might be impacting today's encounter and assessment, information from prior notes written by myself or my colleagues may have been "brought forward/copy and pasted" into today's note. Problem Qualifiers (1) Diverticulitis: Qualified Codes: K57.32 - Diverticulitis of large intestine without perforation or abscess without bleeding Tressa Dacosta Jul 28, 2017 16:45 Michael Singleton MD Jul 28, 2017 17:32
--- NOTE | 2017-07-28 17:02 | PD.RAD ---
Post CT Procedure Prog Note Pre Procedure Diagnosis: (1) Colonic diverticular abscess Post Procedure Diagnosis: (1) Colonic diverticular abscess Procedure Date: Jul 28, 2017 Supervising Radiologist: Chico Black Proceduralist/Assist: rk conrad Estimated blood loss: none Anesthesia: Conscious Sedation Plan of Activity Patient to Unit: ROPU Patient Condition: Good See PACS Report for procedural detail/treatment Chico Black MD Jul 28, 2017 17:02
--- NOTE | 2017-07-28 17:09 | RADRPT ---
EXAM DATE/TIME: 07/28/2017 16:47 [facility] COMPARISON: No previous studies available for comparison. INDICATIONS : Abscess. SEDATION TIME: MEDICATION(S): 1.) 2 mg midazolam (Versed) IV 2.) 100 mcg midazolam (Versed) IV Vancomycin within 2 hrs of procedure, Ancef (or alternative) within 1 hr of procedure start. DEVICE(S): 1.) 18 gauge Aragon blunt needle Total volume of 10 cc of cloudy, green fluid was removed. MEDICAL HISTORY : None. SURGICAL HISTORY : None. ENCOUNTER: Initial ACUITY: 1 day PAIN SCORE: 0/10 LOCATION: Left abdomen PROCEDURE: PROCEDURE : CT guided aspiration of left lower quadrant abscess The risks, benefits and alternatives to the procedure were explained and verbal and written consent w as obtained. Using automated exposure control and adjustment of the mA and/or kV according to patien t size, radiation dose was kept as low as reasonably achievable to obtain optimal diagnostic quality images. The site was prepped in sterile fashion. Full sterile technique was used, including cap, ma sk, sterile gloves and gown and a large sterile sheet. Hand hygiene and 2% chlorhexidine and/or beta dine/alcohol prep was utilized per protocol for cutaneous antisepsis. The skin and subcutaneous tiss ues were infiltrated with local anesthetic solution. DICOM format image data is available electronic ally for review and comparison. Aragon needle placed within the left lower quadrant diverticular abscess CONCLUSION: Uncomplicated aspiration of left lower quadrant diverticular abscess as above. Chico Black MD on July 28, 2017 at 17:06 Board Certified Radiologist. This report was verified electronically.
[2017-07-29] VITALS: BP 120/73; PULSE 80; RESP 18; TEMP 100.1; O2SAT 94
[2017-07-29] MEDS: HYDROmorphone HCL PF 2 MG/ML VIAL IV PUSH PRN (00:56)
[2017-07-29] MEDS: HEPARIN SODIUM - SQ 10,000 UNITS/ML VIAL SQ SCH (04:21)
[2017-07-29] MEDS: traMADol HCL 50 MG TAB PO PRN (04:21)
[2017-07-29 04:44] VITALS: TEMP 98.9
[2017-07-29 08:00] VITALS: BP 126/84; PULSE 68; RESP 17; TEMP 98; O2SAT 94
[2017-07-29] MEDS: ALLOPURINOL 300 MG TAB PO SCH (08:55)
[2017-07-29] MEDS: ONDANSETRON HCL 4 MG/2 ML VIAL IVP PRN (08:58)
[2017-07-29] MEDS ORDERED: ALLO300 PO (09:06)
[2017-07-29] MEDS ORDERED: OXYC1CAP PO (09:07)
[2017-07-29] MEDS ORDERED: ZOFR4TAB PO (09:12)
[2017-07-29] MEDS: SODIUM CHLORIDE 0.9% FLUSH 10 ML FLUSH IV FLUSH SCH (10:47)
[2017-07-29] MEDS: FLUCONAZOLE 200 MG TAB PO SCH (10:48)
[2017-07-29] MEDS: LEVOFLOXACIN 500 MG TAB PO SCH (10:48)
--- NOTE | 2017-07-29 11:08 | HHI.PR ---
cc: Kenny Singleton MD Subjective Subjective Notes PROGRESS NOTE FOR SURGICAL ATTENDING, DR. KENNY SINGLETON Feels much better after aspiration of fluid Tolerating regular diet Objective Vitals/I&O Vital Signs Date Time Temp Pulse Resp B/P (MAP) Pulse Ox O2 Delivery O2 Flow Rate FiO2 07/29/17 08:00 98.0 68 17 126/84 (98 94 07/26/17 18:40 21 Labs Date/Time Source Procedure Growth Status 07/25/17 12:40 Blood Peripheral Aerobic Blood Culture - Preliminary NO GROWTH IN 4 DAYS Resulted 07/25/17 12:40 Blood Peripheral Anaerobic Blood Culture - Preliminary NO GROWTH IN 4 DAYS Resulted 07/28/17 17:00 Fluid Peritoneal Fluid Gram Stain - Final Resulted 07/28/17 17:00 Fluid Peritoneal Fluid Body Fluid Culture Pending Resulted Radiology Last 72 hours Impressions Needle Aspiration CT 07/28/17 0000 Signed Impressions: Service Date/Time: Friday, July 28, 2017 16:47 - CONCLUSION: Uncomplicated aspiration of left lower quadrant diverticular abscess as above. Chico Black MD Last 72 hours Impressions Abdomen/Pelvis CT 07/24/17 0000 Signed Impressions: Service Date/Time: July 18:37 - CONCLUSION: 1. Slight worsening of appearance of sigmoid segmental colitis or diverticulitis with 2.7 cm abscess present in the left lower quadrant and 3.4 cm bilobed abscess between the superior bladder wall and adjacent sigmoid colon. No bowel obstruction or free air. Kenny Faye MD Last 48 hours Impressions Chest X-Ray [id number]/21/[id number] Signed Impressions: Service Date/Time: Friday, July 21, 2017 17:59 - CONCLUSION: 1. No acute cardiopulmonary disease. Scooby Schroeder MD Abdomen/Pelvis CT [id number]/[id number] Signed Impressions: Service Date/Time: Friday, July 21, 2017 22:23 - CONCLUSION: 1. Acute sigmoid diverticulitis extending over a 15 cm segment with extensive inflammatory change but no abscess Scooby Schroeder MD Cardiovascular: Regular Lungs: Clear Abdomen: Non-distended, Non-tender Extremities: No edema A/P Problem List: (1) Gram-negative infection ICD Codes: A49.9 - Bacterial infection, unspecified Status: Acute (2) Colonic diverticular abscess ICD Codes: K57.20 - Diverticulitis of large intestine with perforation and abscess without bleeding Status: Acute (3) Elevated white blood cell count ICD Codes: D72.829 - Elevated white blood cell count, unspecified Status: Acute (4) Abdominal pain, left lower quadrant ICD Codes: R10.32 - Left lower quadrant pain Status: Chronic (5) Diverticulitis ICD Codes: K57.92 - Diverticulitis of intestine, part unspecified, without perforation or abscess without bleeding Status: Chronic (6) Acute diverticulitis of intestine ICD Codes: K57.92 - Diverticulitis of intestine, part unspecified, without perforation or abscess without bleeding Status: Chronic (7) Abnormal computed tomography of abdomen and pelvis ICD Codes: R93.5 - Abnormal findings on diagnostic imaging of other abdominal regions, including retroperitoneum Status: Chronic Assessment and Plan 41 year old male with acute gout attack; CT abdomen/pelvis with acute sigmoid diverticulitis with extensive inflammatory changes without abscess. -CT guided drainage of abscess yesterday -Cultures pending -Continue PO antibiotics -Regular diet -Will need GI to do colonoscopy in about 6-8 weeks -GS clear for DC -Follow up with Dr. Singleton in about 7-10 days Attending Statement PROGRESS NOTE FOR SURGICAL ATTENDING, DR. KENNY SNIGLETON much better after aspiration much less pain will need outpt colonoscopy in 4 to 6 weeks I agree with above assessment and plan. The exam, history, and the medical decision-making described in the above note were completed with the assistance of the mid-level provider. I reviewed and agree with the findings presented. I attest that I had a [id number] encounter with the patient on the same day, and personally performed and documented my assessment and findings in the medical record. The following services were provided during this hospital visit: Chart data review, vital sign assessments/reviewing monitor data Review of consultations notes if present. Medication orders/review and/or management Ordering and/or reviewing lab tests Ordering and/or interpreting/reviewing x-rays and/or diagnostic studies Care of the patient and discussion of the patient with the care team Documentation time To help prompt me to consider important information that might be impacting today's encounter and assessment, information from prior notes written by myself or my colleagues may have been "brought forward/copy and pasted" into today's note. Problem Qualifiers (1) Diverticulitis: Qualified Codes: K57.32 - Diverticulitis of large intestine without perforation or abscess without bleeding Tressa Dacosta Jul 29, 2017 11:08 Kenny Singleton MD Jul 30, 2017 07:56
== END 2017-07-29 11:38 | disposition home or self-care (01) | DRG 372 ==
LOC: NEPC 15:12 → NEDA 07-22 00:50 → N07B 07-22 01:45
PROVIDERS: ADMIT Hospitalist; ATTEND Hospitalist
PROC: 0JB83ZX Excision of Abdomen Subcutaneous Tissue and Fascia, Percutaneous Approach, Diagnostic (ICD-10-PCS; principal; 2017-07-22)
DX: K65.1 Peritoneal abscess (principal); K57.20 Diverticulitis of large intestine with perforation and abscess without bleeding; M10.9 Gout, unspecified; K52.9 Noninfective gastroenteritis and colitis, unspecified; F12.90 Cannabis use, unspecified, uncomplicated; Z88.6 Allergy status to analgesic agent
CPT/HCPCS: 10022; 71010; 74177; 77012; 80048; 80053; 80202; 81001; 83605; 83735; 84100; 85025; 85610; 85652; 85730; 86021; 86038; 86140; 86592; 86695; 86696; 86703; 87040; 87070; 87077; 87186; 87205; 93005; 96365; 96366; 96368; J1170; J1450; J1644; J2250; J2405; J2543; J3010; J3370; J7030; J7050; Q9963; Q9967

== ENCOUNTER 2017-08-04 12:01 | Inpatient (IN) | payer MEDICAID, OTHER ==
[~2017-08-04] VITALS: Ht 165.1 cm; Wt 62.3 kg
[~2017-08-04 12:01] MED LIST changes: +ALLO300 PO; -ALLO300T2 PO; -CIPR-9 PO; +DIFL200T PO; +LEVA500T33 PO; -MEDR4PAK PO; -METR-1 PO; +OXYC1CAP PO; +PROM25TA10 PO; +ZOFR4TAB PO
[2017-08-04] MEDS ORDERED: IOHEXOL 350 MG/ML 10 ML VIAL (for RAD DIAG) IVCONTRAST ONE (12:02)
[2017-08-04 12:03] VITALS: BP 122/89; PULSE 87; RESP 16; TEMP 98.6; O2SAT 97
--- NOTE | 2017-08-04 14:17 | PD ---
HPI Chief Complaint: Abdominal Pain Time Seen by Provider: 14:04 Travel History International Travel<30 days: No Contact w/Intl Traveler<30days: No Traveled to known affect area: No History of Present Illness HPI 41-year-old male presents emergency department with concern of nausea, vomiting , chills, blurry vision after having his first bowel movement this morning after being discharged from the hospital 6 days ago. 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 His symptoms started after having a bowel movement this morning. Denies fever, dysuria, hematochezia. Reports left lower quadrant abdominal "irritation." Rates pain 5/10. Pain is worse with dry heaving and trying to have a bowel movement. Has been taking tramadol for pain with good relief. 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 Does not have a primary care provider. Allergies to acetaminophen and morphine. History of diverticulitis and gout. Has no other medical complaints. No other modifying factors or associated signs and symptoms. PFSH Past Medical History Cancer: No Cardiovascular Problems: No Diminished Hearing: No Diverticulitis: Yes Endocrine: No Gout: Yes Genitourinary: No Immune Disorder: No Musculoskeletal: No Neurologic: No Psychiatric: No Reproductive: No Respiratory: No Past Surgical History Abdominal Surgery: No Cardiac Surgery: No Ear Surgery: No Endocrine Surgery: No Eye Surgery: No Genitourinary Surgery: No Gynecologic Surgery: No Oral Surgery: No Thoracic Surgery: Yes Other Surgery: Yes (CHEST TUBE RIGHT SIDE ) Social History Alcohol Use: Yes (OCASSIONALLY) Tobacco Use: Yes (1 PACK EVERY 3 DAYS) Substance Use: Yes (marijuana) Allergies-Medications (Allergen,Severity, Reaction): Coded Allergies: acetaminophen (Verified Allergy, Unknown, 08/04/17) morphine (Verified Adverse Reaction, Unknown, 08/04/17) Reported Meds & Prescriptions Reported Meds & Active Scripts Active Zofran (Ondansetron HCl) 4 Mg Tab 4 Mg PO Q8HR PRN Oxycodone (Oxycodone HCl) 5 Mg Cap 5 Mg PO Q8H PRN Zyloprim (Allopurinol) 300 Mg Tab 300 Mg PO DAILY Phenergan (Promethazine HCl) 25 Mg Tablet 25 Mg PO Q8HR PRN Diflucan (Fluconazole) 200 Mg Tab 200 Mg PO DAILY Levaquin (Levofloxacin) 500 Mg Tablet 500 Mg PO DAILY Review of Systems Except as stated in HPI: all other systems reviewed are Neg Physical Exam Narrative GENERAL: Well-nourished, well-developed male patient, in no acute distress; afebrile, nontoxic-appearing SKIN: Warm and dry. HEAD: Atraumatic. Normocephalic. EYES: Pupils equal and round. No scleral icterus. No injection or drainage. ENT: Mucosa pink and moist. Airway patent. NECK: Trachea midline. CARDIOVASCULAR: Regular rate and rhythm. No murmur appreciated. RESPIRATORY: No accessory muscle use. Clear to auscultation. Breath sounds equal bilaterally. GASTROINTESTINAL: Abdomen soft, tenderness on palpation to left lower quadrant, nondistended. Hepatic and splenic margins not palpable. Nonrigid. No guarding. MUSCULOSKELETAL: No obvious deformities. No clubbing. No cyanosis. No edema. NEUROLOGICAL: Awake and alert. Oriented 3. No obvious cranial nerve deficits. Motor grossly within normal limits. Normal speech. PSYCHIATRIC: Appropriate mood and affect; insight and judgment normal. Data Data Last Documented VS Vital Signs Date Time Temp Pulse Resp B/P (MAP) Pulse Ox O2 Delivery O2 Flow Rate FiO2 08/04/17 14:32 68 16 132/89 (103) 98 08/04/17 12:03 98.6 Orders Orders Complete Blood Count With Diff (08/04/17 14:19) Comprehensive Metabolic Panel (08/04/17 14:19) Prothrombin Time / Inr (Pt) (08/04/17 14:19) Act Partial Throm Time (Ptt) (08/04/17 14:19) Urinalysis - C+S If Indicated (08/04/17 14:19) Ct Abd/Pel W Iv Contrast(Rout) (08/04/17 14:19) Iv Access Insert/Monitor (08/04/17 14:19) Ecg Monitoring (08/04/17 14:19) Oximetry (08/04/17 14:19) Sodium Chlor 0.9% 1000 Ml Inj (Ns 1000 M (08/04/17 14:19) Sodium Chloride 0.9% Flush (Ns Flush) (08/04/17 14:30) Lipase (08/04/17 14:19) Ondansetron Inj (Zofran Inj) (08/04/17 14:30) Oral Contrast - Adult (08/04/17 14:30) Diatrizoate Liq (Md Pedraza Liq) (08/04/17 14:34) Sodium Chlor 0.9% 1000 Ml Inj (Ns 1000 M (08/04/17 16:09) Iohexol 350 Inj (Omnipaque 350 Inj) (08/04/17 12:02) Lactic Acid (08/04/17 17:04) Hydromorphone Pf Inj (Dilaudid Pf Inj) (08/04/17 17:15) Piperacil-Tazo 3.375 Gm Premix (Zosyn 3. (08/04/17 17:15) Vancomycin Inj (Vancomycin Inj) (08/04/17 17:15) Invasive Rad Dept Consult (08/04/17 ) Admit Order (Ed Use Only) (08/04/17 17:42) Labs Laboratory Tests Test 08/04/17 14:40 08/04/17 17:00 White Blood Count 18.4 TH/MM3 Red Blood Count 4.00 MIL/MM3 Hemoglobin 12.1 GM/DL Hematocrit 36.1 % Mean Corpuscular Volume 90.3 FL Mean Corpuscular Hemoglobin 30.4 PG Mean Corpuscular Hemoglobin Concent 33.7 % Red Cell Distribution Width 15.0 % Platelet Count 414 TH/MM3 Mean Platelet Volume 9.1 FL Neutrophils (%) (Auto) 81.2 % Lymphocytes (%) (Auto) 8.9 % Monocytes (%) (Auto) 9.2 % Eosinophils (%) (Auto) 0.3 % Basophils (%) (Auto) 0.4 % Neutrophils # (Auto) 14.9 TH/MM3 Lymphocytes # (Auto) 1.6 TH/MM3 Monocytes # (Auto) 1.7 TH/MM3 Eosinophils # (Auto) 0.1 TH/MM3 Basophils # (Auto) 0.1 TH/MM3 CBC Comment DIFF FINAL Differential Comment Prothrombin Time 13.3 SEC Prothromb Time International Ratio 1.2 RATIO Activated Partial Thromboplast Time 38.3 SEC Blood Urea Nitrogen 15 MG/DL Creatinine 1.43 MG/DL Random Glucose 90 MG/DL Total Protein 7.8 GM/DL Albumin 2.2 GM/DL Calcium Level 9.4 MG/DL Alkaline Phosphatase 108 U/L Aspartate Amino Transf (AST/SGOT) 17 U/L Alanine Aminotransferase (ALT/SGPT) 11 U/L Total Bilirubin 0.6 MG/DL Sodium Level 135 MEQ/L Potassium Level 3.8 MEQ/L Chloride Level 97 MEQ/L Carbon Dioxide Level 29.8 MEQ/L Anion Gap 8 MEQ/L Estimat Glomerular Filtration Rate 55 ML/MIN Lipase 40 U/L Urine Color LIGHT-YELLOW Urine Turbidity CLEAR Urine pH 6.5 Urine Specific Pooler 1.006 Urine Protein NEG mg/dL Urine Glucose (UA) NEG mg/dL Urine Ketones 10 mg/dL Urine Occult Blood TRACE Urine Nitrite NEG Urine Bilirubin NEG Urine Urobilinogen LESS THAN 2.0 MG/DL Urine Leukocyte Esterase NEG Urine RBC 1 /hpf Urine WBC 4 /hpf Urine Squamous Epithelial Cells <1 /hpf Urine Mucus FEW /lpf Microscopic Urinalysis Comment CULT NOT INDICATED MDM Medical Decision Making Medical Screen Exam Complete: Yes Emergency Medical Condition: Yes Medical Record Reviewed: Yes Differential Diagnosis Diverticulosis, abscess, colovesicular fistula, constipation, medical clearance Narrative Course 41-year-old male with history of diverticulitis and was just discharged 6 days ago from [facility]. He is afebrile and nontoxic-appearing. Denies fever. Reports nausea, vomiting, chills. I discussed the patient with Dr. Gilliam and she agrees with my plan of care. IV site established. CBC, CMP, lipase, urinalysis, CT abdomen/pelvis ordered. Zofran and normal saline bolus ordered. 1605: Leukocytosis 18.4. 1705: CT abdomen/pelvis concludes: Abdomen/Pelvis CT 08/04/17 1419 Signed Impressions: Service Date/Time: Friday, August 04, 2017 16:15 - CONCLUSION: 1. Worsening sigmoid colitis/diverticulitis with associated enlarging perisigmoid abscesses in the left lower quadrant. These include a 4.6 x 3.3 cm abscesses anterolaterally, 4.2 x 3.8 cm abscess medially abutting the left lateral wall of the bladder and new 2.7 x 1.6 cm developing abscess posteriorly near the junction of the descending and sigmoid colon. Reuben Barrios MD Lactic acid ordered. Zosyn and vancomycin ordered. Patient is complaining of increase in pain. Dilaudid and Zofran ordered. Consult entered for interventional radiology. Call placed for patient admission. 1743: I spoke with GORDO Cabrera and report was given for patient admission. Physician Communication Physician Communication GORDO Cabrera Diagnosis Primary Impression: Diverticulitis of intestine with abscess Qualified Codes: K57.80 - Diverticulitis of intestine, part unspecified, with perforation and abscess without bleeding Admitting Information Admitting Physician Requests: Admit Saritha Joe PANEL RAISER OPERATOR Aug 04, 2017 14:17
[2017-08-04] MEDS ORDERED: SODIUM CHLOR 0.9% 1000 ML INJ 1,000 ML IV SCH ×2 (14:19→16:09)
[2017-08-04] MEDS ORDERED: ONDANSETRON HCL 4 MG/2 ML VIAL IV PUSH ONE ×2 (14:30→18:00)
[2017-08-04] MEDS ORDERED: SODIUM CHLORIDE 0.9% FLUSH 10 ML FLUSH IV FLUSH PRN (14:30)
[2017-08-04 14:32] VITALS: BP 132/89; PULSE 68; RESP 16; O2SAT 98
[2017-08-04] MEDS ORDERED: DIATRIZOATE MEGLUM/DIATRIZOATE SOD 9 ML CUP ONE (14:34)
[2017-08-04 14:53] LABS: AUTOMATED NEUTROPHIL # 14.9 TH/MM3 (1.8-7.7); BASOPHIL # 0.1 TH/MM3 (0-0.2); BASOPHIL % 0.4 % (0.0-2.0); EOSINOPHIL # 0.1 TH/MM3 (0-0.4); EOSINOPHIL % 0.3 % (0.0-4.0); HEMATOCRIT 36.1 % (39.0-51.0); HEMO FLAGS DIFF FINAL; LYMPH % 8.9 % (9.0-44.0); LYMPHOCYTE # 1.6 TH/MM3 (1.0-4.8); MEAN CELL VOLUME 90.3 FL (80.0-100.0); MEAN CORPUSCULAR HEMOGLOBIN 30.4 PG (27.0-34.0); MEAN CORPUSCULAR HGB CONC 33.7 % (32.0-36.0); MONO % 9.2 % (0.0-8.0); NEUT % 81.2 % (16.0-70.0); PLATELET COUNT 414 TH/MM3 (150-450); WHITE BLOOD COUNT 18.4 TH/MM3 (4.0-11.0)
[2017-08-04 15:04] LABS: APTT (PATIENT) 38.3 SEC (24.3-30.1); INTERNATIONAL NORMALIZED RATIO 1.2 RATIO; PROTHROMBIN TIME - PATIENT 13.3 SEC (9.8-11.6)
[2017-08-04 15:06] LABS: ANION GAP 8 MEQ/L (5-15); AST (GOT) 17 U/L (15-37); BICARBONATE 29.8 MEQ/L (21.0-32.0); BLOOD UREA NITROGEN 15 MG/DL (7-18); CHLORIDE 97 MEQ/L (98-107); GLOMERULAR FILTRATION RATE 55 ML/MIN (>89); POTASSIUM 3.8 MEQ/L (3.5-5.1); SODIUM (NA) 135 MEQ/L (136-145)
[2017-08-04 15:08] LABS: ALT (GPT) 11 U/L (12-78)
[2017-08-04 15:10] LABS: ALKALINE PHOSPHATASE 108 U/L (45-117); TOTAL BILIRUBIN ADULT 0.6 MG/DL (0.2-1.0)
--- NOTE | 2017-08-04 16:36 | RADRPT ---
EXAM DATE/TIME: 08/04/2017 16:15 [place] COMPARISON: CT GUIDED ASPIRATION, July 28, 2017, 16:47. CT ABDOMEN & PELVIS W MARGOTHAS T, July 24, 2017, 18:37. INDICATIONS : Patient complains of abdominal pain. IV CONTRAST: 70 cc Omnipaque 350 (iohexol) IV ORAL CONTRAST: Partial prescribed oral contrast ingested. RADIATION DOSE: 6.67 CTDIvol (mGy) MEDICAL HISTORY : Diverticulitis. SURGICAL HISTORY : None. ENCOUNTER: Initial ACUITY: 1 day PAIN SCALE: 8/10 LOCATION: abdomen TECHNIQUE: Volumetric scanning of the abdomen and pelvis was performed. Using automated exposure control and adjustment of the mA and/or kV according to patient size, radiation dose was kept as low as reasonably achievable to obtain optimal diagnostic quality images. DICOM format image data is av ailable electronically for review and comparison. FINDINGS: LOWER LUNGS: Mild bibasilar consolidation and groundglass opacities consistent with atelectasis. LIVER: Homogeneous density without lesion. There is no dilation of the biliary tree. No calcifi ed gallstones. SPLEEN: Normal size without lesion. PANCREAS: Within normal limits. KIDNEYS: Normal in size and shape. There is no mass, stone or hydronephrosis. ADRENAL GLANDS: Within normal limits. VASCULAR: There is no aortic aneurysm. BOWEL/MESENTERY: Marked bowel wall thickening and pericolonic stranding involving the sigmoid col on. Ill-defined anterior abscess currently measuring 4.6 x 3.3 cm in comparison to 2.7 x 1.9 cm on pr ior exam. There is a second abscess or inferiorly and medially extending to the left lateral wall of the bladder which currently measures 4.2 x 3.8 cm in comparison to 2.3 x 2.5 centers on prior exam. B oth collections were previously aspirated on 07/28/2017. There is a third new ill-defined collection containing focus of air posteriorly at the junction of the descending colon and sigmoid measuring 2.7 x 1.6 cm. Remainder of the bowel appears unremarkable without evidence for obstruction. ABDOMINAL WALL: Within normal limits. RETROPERITONEUM: There is no lymphadenopathy. BLADDER: No wall thickening or mass. REPRODUCTIVE: Within normal limits. INGUINAL: There is no lymphadenopathy or hernia. MUSCULOSKELETAL: Within normal limits for patient age. CONCLUSION: 1. Worsening sigmoid colitis/diverticulitis with associated enlarging perisigmoid abscesses in the l eft lower quadrant. These include a 4.6 x 3.3 cm abscesses anterolaterally, 4.2 x 3.8 cm abscess medi ally abutting the left lateral wall of the bladder and new 2.7 x 1.6 cm developing abscess posteriorl y near the junction of the descending and sigmoid colon. Reuben Barrios MD on August 04, 2017 at 16:26 Board Certified Radiologist. This report was verified electronically.
[2017-08-04] MEDS ORDERED: PIPERACIL-TAZO 3.375 GM PREMIX 50 ML IV ONE (17:15)
[2017-08-04] MEDS ORDERED: VANCOMYCIN INJ 1,000 MG in SODIUM CHLOR 0.9% 250 ML INJ 250 ML IV ONE (17:15)
[2017-08-04] MEDS ORDERED: HYDROmorphone HCL PF 2 MG/ML VIAL IV PUSH ONE (17:15)
[2017-08-04 17:19] LABS: BLOOD, URINE TRACE (NEG); COMMENT (UR) CULT NOT INDICATED; CULTURE IF INDICATED CULT NOT INDICATED; GLUCOSE,URINE NEG (NEG); KETONE, URINE 10 mg/dL (NEG); MUCUS URINE FEW /lpf (OCC); NITRITE,URINE NEG (NEG); PH, URINE 6.5 (5.0-8.5); SQUAMOUS EPITHELIAL CELL URINE <1 /hpf (0-5); URINE COLOR LIGHT-YELLOW (YELLW/STRAW)
[2017-08-04] MEDS ORDERED: NALOXONE HCL 0.4 MG/ML AMP IV PUSH PRN (18:45)
[2017-08-04] MEDS ORDERED: BISACODYL 10 MG SUPP RECTAL PRN (18:45)
[2017-08-04] MEDS ORDERED: SENNOSIDES 8.6 MG TAB PO PRN (18:45)
[2017-08-04] MEDS ORDERED: MAGNESIUM HYDROXIDE SUSP 30 ML CUP PO PRN (18:45)
[2017-08-04] MEDS ORDERED: LACTULOSE SYRUP 20 GM/30 ML CUP PO PRN (18:45)
--- NOTE | 2017-08-04 19:53 | HHI.HP ---
HPI Service [facility] Primary Care Physician No Primary Care Physician Admission Diagnosis diverticulitis with abscesses Diagnoses: Chief Complaint: Abdominal pain, nausea and vomiting Travel History International Travel<30 Days: No Contact w/Intl Traveler <30 Da: No Traveled to Known Affected Are: No History of Present Illness 41-year-old male with a history of diverticula and gout presented to the ED with nausea, vomiting, abdominal pain, fever, and chills. Patient was just discharged on July [address]-guided drainage of an abdominal abscess. He stated since leaving the hospital he has not felt himself, he has been unable to eat, unable to have a bowel movement since , but was able to have one this morning. He states he's had constant fevers at home with chills in which he was taking ibuprofen for. He states he woke up today and after having the bowel movement he began to have blurry vision, nausea, vomiting , and abdominal pain. He states the abdominal pain is in his lower abdomen, tender to touch, intermittent 10 out of 10. He denies any red or black colored stools, no diarrhea. He states the pain medicine is helping but does not last very long, he is wondering if he can have something in between like tramadol. He does not want strong narcotics. He denies any chest pain or shortness of breath. Review of Systems Except as stated in HPI: all other systems reviewed are Neg Past Family Social History Past Medical History Gout Diverticula Past Surgical History Chest tube s/p stabbing CT guided drainage of abscess Jul 22 Reported Medications Reported Meds & Active Scripts Active No Active Prescriptions or Reported Medications Allergies: Coded Allergies: acetaminophen (Verified Allergy, Unknown, 08/04/17) morphine (Verified Adverse Reaction, Unknown, 08/04/17) Active Ordered Medications Current Medications Medications (Trade) Dose Ordered Sig/Eleazar Route Start Time Stop Time Status Last Admin (NS Flush) 2 ml UNSCH PRN IV FLUSH 08/04/17 14:30 Piperacillin Sod/ Tazobactam Sod 50 ml @ 100 mls/hr Q6H IV 08/04/17 18:45 UNV Sodium Chloride 1,000 ml @ 100 mls/hr Q10H IV 08/04/17 18:42 UNV (NS Flush) 2 ml UNSCH PRN IV FLUSH 08/04/17 18:45 UNV (NS Flush) 2 ml BID IV FLUSH 08/04/17 21:00 UNV (Zofran Inj) 4 mg Q6H PRN IVP 08/04/17 18:45 UNV (Narcan Inj) 0.4 mg UNSCH PRN IV PUSH 08/04/17 18:45 UNV (Milk Of Magnesia Liq) 30 ml Q12H PRN PO 08/04/17 18:45 UNV (Senokot) 17.2 mg Q12H PRN PO 08/04/17 18:45 UNV (Dulcolax Supp) 10 mg DAILY PRN RECTAL 08/04/17 18:45 UNV (Lactulose Liq) 30 ml DAILY PRN PO 08/04/17 18:45 UNV Family History Dad: DM Mom: pacemaker, HTN Social History Tobacco use: 1-2 PP week Alcohol use: Socially on weekends, and a drink daily with dinner Illicit drug use: Denies Physical Exam Vital Signs Vital Signs Date Time Temp Pulse Resp B/P (MAP) Pulse Ox O2 Delivery O2 Flow Rate FiO2 08/04/17 14:32 68 16 132/89 (103) 98 08/04/17 12:03 98.6 87 16 122/89 (100) 97 Physical Exam GENERAL: This is a well-nourished, well-developed patient, who is having chills SKIN: No rashes, ecchymoses or lesions. Cool and dry. HEAD: Atraumatic. Normocephalic. . EYES: Pupils equal round and reactive. ENT: Nose without bleeding, purulent drainage or septal hematoma. Airway patent. NECK: Trachea midline. No JVD CARDIOVASCULAR: Regular rate and rhythm without murmurs, gallops, or rubs. RESPIRATORY: Clear to auscultation. Breath sounds equal bilaterally. No wheezes , rales, or rhonchi. GASTROINTESTINAL: Abdomen soft, Lower abdominal tenderness, nondistended. Hypoactive BS MUSCULOSKELETAL: Extremities without clubbing, cyanosis, or edema. No joint tenderness, effusion, or edema noted. No calf tenderness. NEUROLOGICAL: Awake and alert. Motor and sensory grossly within normal limits. Normal speech. Laboratory Laboratory Tests Test 08/04/17 14:40 08/04/17 17:00 08/04/17 17:45 White Blood Count 18.4 Red Blood Count 4.00 Hemoglobin 12.1 Hematocrit 36.1 Mean Corpuscular Volume 90.3 Mean Corpuscular Hemoglobin 30.4 Mean Corpuscular Hemoglobin Concent 33.7 Red Cell Distribution Width 15.0 Platelet Count 414 Mean Platelet Volume 9.1 Neutrophils (%) (Auto) 81.2 Lymphocytes (%) (Auto) 8.9 Monocytes (%) (Auto) 9.2 Eosinophils (%) (Auto) 0.3 Basophils (%) (Auto) 0.4 Neutrophils # (Auto) 14.9 Lymphocytes # (Auto) 1.6 Monocytes # (Auto) 1.7 Eosinophils # (Auto) 0.1 Basophils # (Auto) 0.1 CBC Comment DIFF FINAL Differential Comment Prothrombin Time 13.3 Prothromb Time International Ratio 1.2 Activated Partial Thromboplast Time 38.3 Blood Urea Nitrogen 15 Creatinine 1.43 Random Glucose 90 Total Protein 7.8 Albumin 2.2 Calcium Level 9.4 Alkaline Phosphatase 108 Aspartate Amino Transf (AST/SGOT) 17 Alanine Aminotransferase (ALT/SGPT) 11 Total Bilirubin 0.6 Sodium Level 135 Potassium Level 3.8 Chloride Level 97 Carbon Dioxide Level 29.8 Anion Gap 8 Estimat Glomerular Filtration Rate 55 Lipase 40 Urine Color LIGHT-YELLOW Urine Turbidity CLEAR Urine pH 6.5 Urine Specific [place] 1.006 Urine Protein NEG Urine Glucose (UA) NEG Urine Ketones 10 Urine Occult Blood TRACE Urine Nitrite NEG Urine Bilirubin NEG Urine Urobilinogen LESS THAN 2.0 Urine Leukocyte Esterase NEG Urine RBC 1 Urine WBC 4 Urine Squamous Epithelial Cells <1 Urine Mucus FEW Microscopic Urinalysis Comment CULT NOT INDICATED Lactic Acid Level 1.0 Result Diagram: 08/04/17 1440 08/04/17 1440 Imaging Last Impressions Abdomen/Pelvis CT 08/04/17 1419 Signed Impressions: Service Date/Time: Friday, August 04, 2017 16:15 - CONCLUSION: 1. Worsening sigmoid colitis/diverticulitis with associated enlarging perisigmoid abscesses in the left lower quadrant. These include a 4.6 x 3.3 cm abscesses anterolaterally, 4.2 x 3.8 cm abscess medially abutting the left lateral wall of the bladder and new 2.7 x 1.6 cm developing abscess posteriorly near the junction of the descending and sigmoid colon. Reuben Barrios MD Caprinmanuela VTE Risk Assessment Caprini VTE Risk Assessment: No/Low Risk (score <= 1) Caprini Risk Assessment Model Point Value = 1 Point Value = 2 Point Value = 3 Point Value = 5 Age 41-60 Minor surgery BMI > 25 kg/m2 Swollen legs Varicose veins or History of unexplained or recurrent spontaneous Oral contraceptives or hormone replacement Sepsis (< 1 month) Serious lung disease, including pneumonia (< 1 month) Abnormal pulmonary function Acute myocardial infarction Congestive heart failure (< 1 month) History of inflammatory bowel disease Medical patient at bed rest Age 61-74 Arthroscopic surgery Major open surgery (> 45 min) Laparoscopic surgery (> 45 min) Malignancy Confined to bed (> 72 hours) Immobilizing plaster cast Central venous access Age >= 75 History of VTE Family history of VTE Factor V Leiden Prothrombin [id number] Lupus anticoagulant Anticardiolipin antibodies Elevated serum homocysteine Heparin-induced thrombocytopenia Other congenital or acquired thrombophilia Stroke (< 1 month) Elective arthroplasty Hip, pelvis, or leg fracture Acute spinal cord injury (< 1 month) Prophylaxis Regimen Total Risk Factor Score Risk Level Prophylaxis Regimen 0-1 Low Early ambulation 2 Moderate Order ONE of the following: *Sequential Compression Device (SCD) *Heparin 5000 units SQ BID 3-4 Higher Order ONE of the following medications: *Heparin 5000 units SQ TID *Enoxaparin/Lovenox 40 mg SQ daily (WT < 150 kg, CrCl > 30 mL/min) *Enoxaparin/Lovenox 30 mg SQ daily (WT < 150 kg, CrCl > 10-29 mL/min) *Enoxaparin/Lovenox 30 mg SQ BID (WT < 150 kg, CrCl > 30 mL/min) AND/OR *Sequential Compression Device (SCD) 5 or more Highest Order ONE of the following medications: *Heparin 5000 units SQ TID (Preferred with Epidurals) *Enoxaparin/Lovenox 40 mg SQ daily (WT < 150 kg, CrCl > 30 mL/min) *Enoxaparin/Lovenox 30 mg SQ daily (WT < 150 kg, CrCl > 10-29 mL/min) *Enoxaparin/Lovenox 30 mg SQ BID (WT < 150 kg, CrCl > 30 mL/min) AND *Sequential Compression Device (SCD) Assessment and Plan Problem List: (1) Diverticulitis of intestine with abscess ICD Code: K57.80 - Diverticulitis of intestine, part unspecified, with perforation and abscess without bleeding Status: Acute (2) Leukocytosis ICD Code: D72.829 - Elevated white blood cell count, unspecified Status: Acute (3) Acute kidney injury ICD Code: N17.9 - Acute kidney failure, unspecified Status: Acute Assessment and Plan 41-year-old male with a history of diverticula and gout presented to the ED with nausea, vomiting, abdominal pain, fever, and chills. Diverticulitis of intestinal with abscess Abdominal/pelvis CT reviewed and shows worsening sigmoid colitis/diverticulitis with associated enlarging perisigmoid abscess in the left lower quadrant. 4.6 x 3.3 centimeter abscess tha-Refugio laterally, 4.2 x 3.8 cm abscess medially abutting the left lateral wall of the bladder and new 2.7 x 1.6 cm developing abscess posteriorly near the junction of the descending and sigmoid colon. -Consult general surgery for recommendations -IV antibiotics Zosyn -Pain management with IV Dilaudid and by mouth tramadol -Nothing by mouth after midnight Leukocytosis, WBC 18.4, source abdominal abscess, lactic acid 1.0 -Continue antibiotics as above -Labs in a.m. Acute kidney injury, creatinine 1.4 baseline 0.9, suspected due to dehydration -IVF for hydration -Trend labs in a.m. DVT prophylaxis SCDs Discussed Condition With Patient Physician Certification 2 Midnight Certification Type: Admission for Inpatient Services Order for Inpatient Services The services are ordered in accordance with Medicare regulations or non- Medicare payer requirements, as applicable. In the case of services not specified as inpatient-only, they are appropriately provided as inpatient services in accordance with the 2-midnight benchmark. Estimated LOS (days): 4 days is the estimated time the patient will need to remain in the hospital, assuming treatment plan goals are met and no additional complications. Post-Hospital Plan: Home Problem Qualifiers (1) Diverticulitis of intestine with abscess: Qualified Codes: K57.80 - Diverticulitis of intestine, part unspecified, with perforation and abscess without bleeding Mariya Pathak Aug 04, 2017 19:53
[2017-08-04 20:28] VITALS: BP 168/92
[2017-08-04] MEDS ORDERED: Vancomycin Consult Pharmacy 1 EA OTHER SCH (20:30)
[2017-08-04] MEDS: SODIUM CHLORIDE 0.9% FLUSH 10 ML FLUSH IV FLUSH SCH (20:51)
[2017-08-04] MEDS: SODIUM CHLOR 0.9% 1000 ML INJ 1,000 ML IV SCH (20:51)
[2017-08-04] MEDS: HYDROmorphone HCL PF 2 MG/ML VIAL IV PRN (20:56)
[2017-08-04] MEDS: ONDANSETRON HCL 4 MG/2 ML VIAL IVP PRN (20:56)
[2017-08-04 22:17] VITALS: BP 167/85; PULSE 64; RESP 20; TEMP 98.8; O2SAT 100
[2017-08-04] MEDS: traMADol HCL 50 MG TAB PO PRN (23:03)
[2017-08-04] MEDS ORDERED: METOCLOPRAMIDE HCL 10 MG/2 ML VIAL IV PUSH ONE (23:30)
[2017-08-04] MEDS: PIPERACIL-TAZO 3.375 GM PREMIX 50 ML IV SCH (23:54)
[2017-08-05] VITALS (10 sets, daily range): BP systolic 124–162; BP diastolic 75–98; PULSE 80–97; RESP 14–20; TEMP 98–100.3; O2SAT 95–100
[2017-08-05] MEDS: HYDROmorphone HCL PF 2 MG/ML VIAL IV PRN ×6 (00:25→23:27)
[2017-08-05] MEDS: PIPERACIL-TAZO 3.375 GM PREMIX 50 ML IV SCH ×2 (05:38→11:47)
[2017-08-05] MEDS: SODIUM CHLOR 0.9% 1000 ML INJ 1,000 ML IV SCH ×2 (06:25→18:22)
[2017-08-05 08:16] LABS: AUTOMATED NEUTROPHIL # 15.1 TH/MM3 (1.8-7.7); BASOPHIL % 0.2 % (0.0-2.0); EOSINOPHIL # 0.1 TH/MM3 (0-0.4); EOSINOPHIL % 0.3 % (0.0-4.0); HEMATOCRIT 33.5 % (39.0-51.0); HEMO FLAGS DIFF FINAL; LYMPH % 9.9 % (9.0-44.0); LYMPHOCYTE # 1.9 TH/MM3 (1.0-4.8); MEAN CELL VOLUME 90.7 FL (80.0-100.0); MEAN CORPUSCULAR HEMOGLOBIN 29.8 PG (27.0-34.0); MEAN CORPUSCULAR HGB CONC 32.8 % (32.0-36.0); MONO % 9.1 % (0.0-8.0); NEUT % 80.5 % (16.0-70.0); PLATELET COUNT 416 TH/MM3 (150-450); RED BLOOD COUNT 3.69 MIL/MM3 (4.50-5.90); RED CELL DISTRIBUTION WIDTH 15.1 % (11.6-17.2); WHITE BLOOD COUNT 18.8 TH/MM3 (4.0-11.0)
[2017-08-05] MEDS: ONDANSETRON HCL 4 MG/2 ML VIAL IVP PRN (08:44)
[2017-08-05] MEDS: traMADol HCL 50 MG TAB PO PRN ×3 (08:45→20:38)
[2017-08-05] MEDS: SODIUM CHLORIDE 0.9% FLUSH 10 ML FLUSH IV FLUSH SCH ×2 (08:47→20:23)
[2017-08-05] MEDS: SODIUM CHLORIDE 0.9% FLUSH 10 ML FLUSH IV FLUSH PRN (08:47)
[2017-08-05] MEDS: DOCUSATE SODIUM 100 MG CAP PO SCH (08:47)
[2017-08-05 08:51] LABS: ANION GAP 13 MEQ/L (5-15); BICARBONATE 24.9 MEQ/L (21.0-32.0); BLOOD UREA NITROGEN 9 MG/DL (7-18); CHLORIDE 102 MEQ/L (98-107); GLOMERULAR FILTRATION RATE 72 ML/MIN (>89); POTASSIUM 4.1 MEQ/L (3.5-5.1); SODIUM (NA) 140 MEQ/L (136-145)
[2017-08-05 09:00] LABS: ALKALINE PHOSPHATASE 101 U/L (45-117); ALT (GPT) 11 U/L (12-78); AST (GOT) 12 U/L (15-37); TOTAL BILIRUBIN ADULT 0.8 MG/DL (0.2-1.0)
--- NOTE | 2017-08-05 10:40 | MB ---
cc: MICHAEL DICKERSON M.D. DATE OF CONSULTATION 08/05/2017 REASON FOR CONSULTATION Recurrent abdominal abscess. HISTORY This is a 41-year-old gentleman who was admitted to the hospital last night. He had previously been in the hospital and treated for an intra-abdominal abscess that was thought to be coming from a diverticular abscess. He had done fairly well, went home for a week and then started having more fever, chills and abdominal discomfort. Originally, he was treated in [place] for the same thing and apparently was admitted to the hospital for a severe gout problem. He was then treated here and was sent home on p.o. antibiotics, but then over the week declined. His major complaint is of some fevers and abdominal discomfort mostly in the left lower quadrant. REVIEW OF SYSTEMS She has a little bit of a change of appetite and no endocrine problems. No HEENT problems. No cardiovascular problems. Abdominal pain as above. No urinary symptoms and no air in his urine to suggest a colovesical fistula. He has some mild joint pain. He has some bruising and had some eczema on his skin. No neurologic or psychiatric problems. PAST HISTORY Significant for: 1. Diverticulosis 2. Diverticulitis in the past with gout. 3. He had a previously had a CT-guided drainage very early this year, but most recently just had an aspiration because the abscess was so small. ALLERGIES Include of MORPHINE AND TYLENOL. PHYSICAL EXAM On physical exam, he is a pleasant gentleman who is sitting in the room. He looks comfortable in no acute distress. He is somewhat frustrated with his medical condition. NECK: Supple. CHEST: Clear. HEART: Regular rate. ABDOMEN: Thin and soft with tenderness without rebound or guarding to the left lower quadrant. He has a fullness. He has decreased bowel sounds. EXTREMITIES: Moves all extremities without cyanosis or edema. LABORATORY DATA He had a white count 18.8 today. Chemistry showed a little dehydration that has been corrected overnight. Coags shows PT 13.3 and INR 1.2. Urinalysis was clear. LFTs are normal, his albumin is 1.8. IMAGING STUDIES CT abdomen shows three fluid collections, abscesses that are slightly larger than previous from a week ago. This was discussed with the radiologist who interpreted the film and feels that these can be drained percutaneously. OTHER IMPORTANT CLINICAL INFORMATION The culture from the abscess done on the on his last admission showed resistant organisms of E-coli resistance specifically to piperacillin, Levaquin, and Bactrim. ASSESSMENT/PLAN 1. A 41-year-old gentleman with recurrent abdominal abscess most likely from diverticular disease. He does not want a colostomy. I think at this point he needs percutaneous drainage. I have already discussed with the radiologist who feels that he can aspirate and drain all three of these areas. We are going to try to do that today in the morning as he is n.p.o. 2. I will get infectious disease back on board because of his culture results to manipulate the best antibiotic coverage from the aspiration that was done on the . I told him if he fails, then he may require surgery with a colostomy which he and I are trying to avoid at this point. MD HARIS Christine/JAMESON /9:30 AM /10:20 AM MTDD
--- NOTE | 2017-08-05 11:05 | HHI.PR ---
Subjective Remarks appears comfortable, with left lower wuadrant pain + nausea- states zoan does not work - has been on it + flatus states had a BM recurrent episodes 4th episode first episode was about 3 years ago latest episode prior to this was a week ago Objective Vitals Vital Signs Date Time Temp Pulse Resp B/P (MAP) Pulse Ox O2 Delivery O2 Flow Rate FiO2 08/05/17 08:47 99.6 81 18 131/75 (93) 95 08/05/17 05:54 100.3 82 20 145/85 (105) 97 08/05/17 01:28 100.3 97 18 138/78 (98) 96 08/04/17 22:17 98.8 64 20 167/85 (112) 100 08/04/17 20:28 68 18 168/92 (117) 99 08/04/17 14:32 68 16 132/89 (103) 98 08/04/17 12:03 98.6 87 16 122/89 (100) 97 I/O 08/04/17 08/04/17 08/04/17 08/05/17 08/05/17 08/05/17 07:00 15:00 23:00 07:00 15:00 23:00 Intake Total 2100 ml 50 ml Output Total 900 ml Balance 1200 ml 50 ml Intake IV Total 2100 ml 50 ml Output Urine Total 900 ml # Voids 1 # Bowel Movements 1 Result Diagram: 08/05/17 0741 08/05/17 0741 Imaging Last Impressions Abdomen/Pelvis CT 08/04/17 1419 Signed Impressions: Service Date/Time: Friday, August 04, 2017 16:15 - CONCLUSION: 1. Worsening sigmoid colitis/diverticulitis with associated enlarging perisigmoid abscesses in the left lower quadrant. These include a 4.6 x 3.3 cm abscesses anterolaterally, 4.2 x 3.8 cm abscess medially abutting the left lateral wall of the bladder and new 2.7 x 1.6 cm developing abscess posteriorly near the junction of the descending and sigmoid colon. Reuben Barrios MD Objective Remarks awake and alert, no acute distress anicteric lungs clear regular rhythm abdomen- soft, + bowel sounds, + tenderness left lower quadrant area extremities no edema neuro exam- non focal A/P Problem List: (1) Diverticulitis of intestine with abscess ICD Code: K57.80 - Diverticulitis of intestine, part unspecified, with perforation and abscess without bleeding Status: Acute (2) Leukocytosis ICD Code: D72.829 - Elevated white blood cell count, unspecified Status: Acute (3) Acute kidney injury ICD Code: N17.9 - Acute kidney failure, unspecified Status: Acute Assessment and Plan 41-year-old male with a history of diverticula and gout presented to the ED with nausea, vomiting, abdominal pain, fever, and chills. Sepsis secondary to Diverticular abscess- recurrent episode of diverticulitis Leukocytosis, WBC 18.4, source abdominal abscess, lactic acid 1.0 IR consulted for drain -IV antibiotics Zosyn -will likely need eventual surgery - -patient agreeable- timing per GS- ff along with us -Continue antibiotics as above ID service consulted Acute kidney injury, creatinine 1.4 baseline 0.9, suspected due to dehydration -IVF for hydration -Trend labs in a.m. DVT prophylaxis SCDs Discussed Condition With Patient Problem Qualifiers (1) Diverticulitis of intestine with abscess: Qualified Codes: K57.80 - Diverticulitis of intestine, part unspecified, with perforation and abscess without bleeding Juan J Navarro MD Aug 05, 2017 11:05
[2017-08-05] MEDS: METOCLOPRAMIDE HCL 10 MG/2 ML VIAL IV PUSH PRN ×2 (11:47→23:37)
[2017-08-05] MEDS ORDERED: MIDAZOLAM HCL 2 MG/2 ML VIAL ONE ×3 (13:39→15:03)
[2017-08-05] MEDS ORDERED: LIDOCAINE HCL 1% 20 ML VIAL ONE ×2 (13:51→14:55)
--- NOTE | 2017-08-05 14:36 | HHI.PR ---
Addendum to Inpatient Note Addendum Reason: Additional Documentation Additional Information Patient in IR getting IR guided drainage of abscess. RN called IR to let them know cultures needed. Culture orders entered by me. Cultures from prior admission reviewed. Noted resistance pattern. Given worsening on prior regimen and concern for ESBL will start Meropenem and Micafungin pending cultures from today. Will attempt to see pt again today or early in am. If any change in clinical condition overnight please call me through the call center. Attempted to see pt twice while on floor for other pt at 4:30 pm and again at 5 pm. Nanci Newman MD Aug 05, 2017 14:36
[2017-08-05] MEDS ORDERED: MISCELLANEOUS PHARMACY INFORMATION XX PRN (14:45)
[2017-08-05] MEDS ORDERED: ASP: Other exception documentation: ( ) PRN (14:45)
[2017-08-05] MEDS ORDERED: ASP: Path resistant to other antimicrobials, culture proven PRN (14:45)
--- NOTE | 2017-08-05 16:33 | PD.RAD ---
Post CT Procedure Prog Note Pre Procedure Diagnosis: (1) Colonic diverticular abscess Post Procedure Diagnosis: (1) Colonic diverticular abscess Procedure Date: Aug 05, 2017 Supervising Radiologist: Reuben Barrios Anesthesia: Conscious Sedation Plan of Activity Patient to Unit: [facility] Patient Condition: Good See PACS Report for procedural detail/treatment Reuben Barrios MD Aug 05, 2017 16:33
--- NOTE | 2017-08-05 16:36 | RADRPT ---
EXAM DATE/TIME: 08/05/2017 14:14 [facility] COMPARISON: No previous studies available for comparison. INDICATIONS : History of sigmoid diverticulitis/colitis with chronic abscess status post prior drainages and aspira tions. Patient presents with recurrent enlarging abscesses. Image guided drainage catheter placement has been requested. SEDATION TIME: 60 minutes MEDICATION(S): 1.) 6.5 mg midazolam (Versed) IV 2.) 325 mcg fentanyl (Sublimaze) IV DEVICE(S): 1.) ? catheter Riidr Total volume of 20 cc of cloudy, yellow fluid was removed. Fluid was sent for laboratory ordered studies. MEDICAL HISTORY : None. SURGICAL HISTORY : None. ENCOUNTER: Initial ACUITY: 1 day PAIN SCORE: 4/10 LOCATION: Abdomen PROCEDURE: 1.) Conscious sedation with continuous EKG and oximetry monitoring. PROCEDURE : 1. CT guided drainage of 3 separate left lower quadrant abscesses 2. Conscious sedation with continuous EKG and oximetry monitoring. The risks, benefits and alternatives to the procedure were explained and verbal and written consent w as obtained. Using automated exposure control and adjustment of the mA and/or kV according to patient size, radiation dose was kept as low as reasonably achievable to obtain optimal diagnostic quality i mages. The site was prepped in sterile fashion. Full sterile technique was used, including cap, ma sk, sterile gloves and gown and a large sterile sheet. Hand hygiene and 2% chlorhexidine and/or beta dine/alcohol prep was utilized per protocol for cutaneous antisepsis. The skin and subcutaneous tiss ues were infiltrated with local anesthetic solution. DICOM format image data is available electronic ally for review and comparison. CT examination was performed through the left lower quadrant. 3 separate abscess cavities were locali zed and targeted for drainage. First, the largest collection in the anterior left lower quadrant bubba cent to the abdominal wall was targeted and prescribed drain placed. Approximately 15 mL of purulent fluid was removed immediately following catheter placement and submitted for Gram stain and C&S. Next , the deeper collection adjacent to the lateral wall the bladder was targeted. Prescribed drain was p laced and approximately 22 mL of purulent fluid removed immediately following catheter placement. Fin ally, the phlegmonous collection posterior to the distal descending/sigmoid colon was targeted. Presc ribed drain was placed and approximately 3 mL of purulent fluid was removed immediately following cat heter placement. Final post procedural CT examination demonstrated excellent catheter positioning without evidence for significant residual collection. The patient tolerated the procedure well and there were no complications. Conscious sedation was per formed with the prescribed dosages and duration as above in the presence of an independent trained ra diology nurse to assist in the monitoring of the patient. EKG and oximetry remained stable throughou t the procedure. The patient tolerated the procedure well and there were no complications. The patient was sent to pos t anesthesia recovery in stable condition. CONCLUSION: 1. Uncomplicated CT-guided placement of drainage catheter in 3 separate perisigmoid abscess collectio ns, as above. Approximately 15 mL of purulent fluid was submitted for Gram stain and CS per request. Reuben Barrios MD on August 05, 2017 at 16:24 Board Certified Radiologist. This report was verified electronically.
--- NOTE | 2017-08-05 17:21 | PD.ID.CON ---
History of Present Illness Service ID Consult Requested By Dr. Singleton Reason for Consult Evaluation and Mment of Sepsis, Intra-abd abscesses secondary to diverticulitis. Primary Care Physician No Primary Care Physician Diagnoses: History of Present Illness is a 41 y/o CM with a history of diverticula with diverticulitis, Intra abdominal abscess. Patient was just discharged on July [address]-guided drainage of an abdominal abscess. He stated since leaving the hospital he has not felt himself, he has been unable to eat, unable to have a bowel movement since . He states he's had constant fevers at home with chills he was taking ibuprofen for. He states he woke up on day of admission and after having the bowel movement he began to have blurry vision, nausea, vomiting, and abdominal pain. He states the abdominal pain is in his lower abdomen, tender to touch, intermittent 10 out of 10. He denies any red or black colored stools, no diarrhea. He states the pain medicine is helping but does not last very long, he is wondering if he can have something in between like tramadol. He does not want strong narcotics. He denies any chest pain or shortness of breath. In ED patient had a CT A/P which showed 3 new abscesses. was consulted and pt underwent IR guided drainage of abscess. Call was placed to IR and cultures added by me. ID was consulted by for recurrent intra- abdominal abscesses. Pt was empirically started on Zosyn IV. Prior cultures from 07/28/17 were reviewed and E.coli is resistant to Zosyn (current med in hospital) and Levaquin (home med). Pt reports fevers, chills post discharge while on oral antibiotics at home. Pt denies night sweats Reports constipation. reports light headedness. Review of Systems ROS Limitations: Altered Mental Status (just returned from IR procedure and was drowsy.) Past Family Social History Allergies: Coded Allergies: acetaminophen (Verified Allergy, Unknown, 08/04/17) morphine (Verified Adverse Reaction, Unknown, 08/04/17) Past Medical History Gout Diverticuli with diverticulitis Diverticular abscesses. Past Surgical History Chest tube s/p stabbing CT guided drainage of abscess Jul 22 Reported Medications I attest that I reviewed, obtained or updated pts home meds and current meds for name, freq, dose and route of administration. Reported Meds & Active Scripts Active Patient reports he was on: Levaquin 500 mg po daily Flagyl 500 mg po tid on discharge after last admission this Jul 2017. Active Ordered Medications Current Medications Medications (Trade) Dose Ordered Sig/Eleazar Route Start Time Stop Time Status Last Admin Sodium Chloride 1,000 ml @ 100 mls/hr Q10H IV 08/04/17 20:00 08/05/17 06:25 (NS Flush) 2 ml UNSCH PRN IV FLUSH 08/04/17 18:45 08/05/17 08:47 (NS Flush) 2 ml BID IV FLUSH 08/04/17 21:00 08/04/17 20:51 (Narcan Inj) 0.4 mg UNSCH PRN IV PUSH 08/04/17 18:45 (Milk Of Magnesia Liq) 30 ml Q12H PRN PO 08/04/17 18:45 (Senokot) 17.2 mg Q12H PRN PO 08/04/17 18:45 (Dulcolax Supp) 10 mg DAILY PRN RECTAL 08/04/17 18:45 (Lactulose Liq) 30 ml DAILY PRN PO 08/04/17 18:45 (Ultram) 50 mg Q4H PRN PO 08/04/17 20:45 08/05/17 13:34 (Dilaudid Pf Inj) 1 mg Q3H PRN IV 08/04/17 20:45 08/05/17 10:09 (Colace) 100 mg DAILY PO 08/05/17 09:00 (Reglan Inj) 5 mg Q8H PRN IV PUSH 08/05/17 11:15 08/05/17 11:47 (ASP Crit: Path resist to other, cult proven) 1 UNSCH X1 PRN .XX 08/05/17 14:45 08/06/17 14:44 (ASP Crit: Other exception documentation) 1 UNSCH X1 PRN .XX 08/05/17 14:45 08/06/17 14:44 ([facility] [place] [facility] Information) 1 UNSCH X1 PRN XX 08/05/17 14:45 08/06/17 14:44 Meropenem 500 mg/ Sodium Chloride 100 ml @ 200 mls/hr Q8H IV 08/05/17 15:00 Micafungin Sodium 150 mg/Sodium Chloride 100 ml @ 100 mls/hr Q24H IV 08/05/17 15:00 (NS Flush) 15 ml BID .XX 08/05/17 21:00 Family History Dad: DM Mom: pacemaker, HTN Social History Tobacco use: 1-2 PP week Alcohol use: Socially on weekends, and a drink daily with dinner Illicit drug use: Ifeanyi 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 Physical Exam Vital Signs Vital Signs Date Time Temp Pulse Resp B/P (MAP) Pulse Ox O2 Delivery O2 Flow Rate FiO2 08/05/17 16:30 95 16 150/91 (110) 99 08/05/17 16:15 90 14 142/87 (105) 100 08/05/17 16:00 96 16 148/93 (111) 95 08/05/17 15:45 99.6 93 20 153/98 (116) 97 08/05/17 12:34 98.7 80 18 130/78 (95) 95 08/05/17 08:47 99.6 81 18 131/75 (93) 95 08/05/17 05:54 100.3 82 20 145/85 (105) 97 08/05/17 01:28 100.3 97 18 138/78 (98) 96 08/04/17 22:17 98.8 64 20 167/85 (112) 100 08/04/17 20:28 68 18 168/92 (117) 99 Physical Exam GENERAL: This is a well-nourished, well-developed patient, in no apparent distress. SKIN: No rashes, ecchymoses or lesions. Cool and dry. HEAD: Atraumatic. Normocephalic. No temporal or scalp tenderness. EYES: Pupils equal round and reactive. Extraocular motions intact. No scleral icterus. No injection or drainage. ENT: Nose without bleeding, purulent drainage or septal hematoma. Throat without erythema, tonsillar hypertrophy or exudate. Uvula midline. Airway patent. NECK: Trachea midline. Supple, nontender, no meningeal signs. CARDIOVASCULAR: Regular rate and rhythm without murmurs, gallops, or rubs. RESPIRATORY: Clear to auscultation. Breath sounds equal bilaterally. No wheezes , rales, or rhonchi. GASTROINTESTINAL: Abdomen soft, diffuse tenderness most in LQs. 3 drains placed by IR. MUSCULOSKELETAL: Extremities without clubbing, cyanosis, or edema. No joint tenderness, effusion, or edema noted. No calf tenderness. Negative Homans sign bilaterally. NEUROLOGICAL: Awake and alert. no obvious focal neuro deficit. Psych cooperative. IV line sites with no e.o infection. Laboratory Laboratory Tests Test 08/04/17 17:45 08/05/17 07:41 Lactic Acid Level 1.0 White Blood Count 18.8 Red Blood Count 3.69 Hemoglobin 11.0 Hematocrit 33.5 Mean Corpuscular Volume 90.7 Mean Corpuscular Hemoglobin 29.8 Mean Corpuscular Hemoglobin Concent 32.8 Red Cell Distribution Width 15.1 Platelet Count 416 Mean Platelet Volume 8.9 Neutrophils (%) (Auto) 80.5 Lymphocytes (%) (Auto) 9.9 Monocytes (%) (Auto) 9.1 Eosinophils (%) (Auto) 0.3 Basophils (%) (Auto) 0.2 Neutrophils # (Auto) 15.1 Lymphocytes # (Auto) 1.9 Monocytes # (Auto) 1.7 Eosinophils # (Auto) 0.1 Basophils # (Auto) 0.0 CBC Comment DIFF FINAL Differential Comment Blood Urea Nitrogen 9 Creatinine 1.13 Random Glucose 66 Total Protein 6.8 Albumin 1.8 Calcium Level 8.2 Alkaline Phosphatase 101 Aspartate Amino Transf (AST/SGOT) 12 Alanine Aminotransferase (ALT/SGPT) 11 Total Bilirubin 0.8 Sodium Level 140 Potassium Level 4.1 Chloride Level 102 Carbon Dioxide Level 24.9 Anion Gap 13 Estimat Glomerular Filtration Rate 72 Date/Time Source Procedure Growth Status 08/05/17 14:30 Abscess Abdomen Fungal Smear Pending Received 08/05/17 14:30 Abscess Abdomen Fungal Culture Pending Received Result Diagram: 08/05/17 0741 08/05/17 0741 Imaging Last Impressions Abscess Drainage CT 08/05/17 1329 Signed Impressions: Service Date/Time: Saturday, August 05, 2017 14:14 - CONCLUSION: 1. Uncomplicated CT-guided placement of drainage catheter in 3 separate perisigmoid abscess collections, as above. Approximately 15 mL of purulent fluid was submitted for Gram stain and C&S per request. Reuben Barrios MD Abdomen/Pelvis CT 08/04/17 1419 Signed Impressions: Service Date/Time: Friday, August 04, 2017 16:15 - CONCLUSION: 1. Worsening sigmoid colitis/diverticulitis with associated enlarging perisigmoid abscesses in the left lower quadrant. These include a 4.6 x 3.3 cm abscesses anterolaterally, 4.2 x 3.8 cm abscess medially abutting the left lateral wall of the bladder and new 2.7 x 1.6 cm developing abscess posteriorly near the junction of the descending and sigmoid colon. Reuben Barrios MD Assessment and Plan Assessment and Plan Sepsis present on admission (fever, WBC elevation, source: Intra abd abscess) Intra abdominal abscess secondary to diverticulitis. Concern for ESBL given last cultures. Acute metabolic encephalopathy: sepsis, meds. Hypoalbuminemia: ? nutritional given chronic GI issues. Acute renal failure on admission ? prerenal now resolved. recs Blood cultures x 2 stat Check CRP Reviewed CT and IR procedure. Orders for cultures entered by me. DC Zosyn IV Start Meropenem IV (ASP criteria: fevers despite IV antibiotics, based on prior cultures and delay in appropriate antibiotic concern for ESBL) Start Micafungin IV (ASP criteria: concern for fungal infection with GI source abscess) Follow cultures Follow clinically. d/w RN, Girl friend and Mother in law in room : ID plan for the day and findings so far. Nanci Newman MD Aug 05, 2017 17:21
[2017-08-05] MEDS: MICAFUNGIN INJ 150 MG in SODIUM CHLORIDE 0.9% INJ 100 ML IV SCH (17:39)
[2017-08-05] MEDS: MEROPENEM INJ 500 MG in SODIUM CHLORIDE 0.9% INJ 100 ML IV SCH ×2 (18:22→23:27)
[2017-08-05] MEDS: SODIUM CHLORIDE 0.9% FLUSH 10 ML FLUSH SCH (21:00)
[2017-08-06] VITALS: BP 143/90; PULSE 83; RESP 18; TEMP 97; O2SAT 97
[2017-08-06] MEDS: traMADol HCL 50 MG TAB PO PRN ×4 (02:37→17:31)
[2017-08-06 04:00] VITALS: BP 166/91; PULSE 84; RESP 20; TEMP 97.5; O2SAT 95
[2017-08-06] MEDS: HYDROmorphone HCL PF 2 MG/ML VIAL IV PRN ×5 (05:08→21:54)
[2017-08-06] MEDS: SODIUM CHLOR 0.9% 1000 ML INJ 1,000 ML IV SCH ×3 (05:08→22:48)
[2017-08-06] MEDS: MEROPENEM INJ 500 MG in SODIUM CHLORIDE 0.9% INJ 100 ML IV SCH ×2 (06:27→17:31)
--- NOTE | 2017-08-06 07:38 | RADRPT ---
EXAM DATE/TIME: 08/05/2017 14:14 [facility] COMPARISON: No previous studies available for comparison. INDICATIONS : History of sigmoid diverticulitis/colitis with chronic abscess status post prior drainages and aspirations. Patient presents with recurrent enlarging abscesses. Image guided drainage catheter placement has been requested. SEDATION TIME: 60 minutes MEDICATION(S): 1.) 6.5 mg midazolam (Versed) IV 2.) 325 mcg fentanyl (Sublimaze) IV DEVICE(S): 1.) Eventpig cath expel cath Total volume of 20 cc of cloudy, yellow fluid was removed. Fluid was sent for laboratory ordered studies. MEDICAL HISTORY : None. SURGICAL HISTORY : None. ENCOUNTER: Initial ACUITY: 1 day PAIN SCORE: 4/10 LOCATION: Abdomen PROCEDURE: 1.) Conscious sedation with continuous EKG and oximetry monitoring. PROCEDURE : 1. CT guided drainage of the 3 separate left lower quadrant abscesses 2. Conscious sedation with continuous EKG and oximetry monitoring. The risks, benefits and alternatives to the procedure were explained and verbal and written consent w as obtained. Using automated exposure control and adjustment of the mA and/or kV according to patient size, radiation dose was kept as low as reasonably achievable to obtain optimal diagnostic quality i mages. The site was prepped in sterile fashion. Full sterile technique was used, including cap, ma sk, sterile gloves and gown and a large sterile sheet. Hand hygiene and 2% chlorhexidine and/or beta dine/alcohol prep was utilized per protocol for cutaneous antisepsis. The skin and subcutaneous tiss ues were infiltrated with local anesthetic solution. DICOM format image data is available electronic ally for review and comparison. CT examination was performed through the left lower quadrant. 3 separate abscess cavities were locali zed and targeted for drainage. First, the largest collection in the anterior left lower quadrant adjacent to the abdominal wall was targeted and prescribed drain placed. Approximately 15 mL of purulent fluid was removed immediate ly following catheter placement and submitted for Gram stain and C&S. Next, the deeper collection adjace nt to the lateral wall the bladder was targeted. Prescribed drain was placed and approximately 22 mL of purulen t fluid removed immediately following catheter placement. Finally, the phlegmonous collection posterior to th e distal descending/sigmoid colon was targeted. Prescribed drain was placed and approximately 3 mL of purulent fluid was removed immediately following catheter placement. Final post procedural CT examination demonstrated excellent catheter positioning without evidence for significant residual collection. The patient tolerated the procedure well and there were no complications. Conscious sedation was perf ormed with the prescribed dosages and duration as above in the presence of an independent trained radiology nurse to assist in the monitoring of the patient. EKG and oximetry remained stable throughout the procedure. The patient tolerated the procedure well and there were no complications. The patient was sent to pos t anesthesia recovery in stable condition. CONCLUSION: 1. Uncomplicated CT-guided placement of drainage catheter in 3 separate perisigmoid abscess collectio ns, as above. Approximately 15 mL of purulent fluid was submitted for Gram stain and C&S per request. Reuben Barrios MD on August 06, 2017 at 7:35 Board Certified Radiologist. This report was verified electronically.
--- NOTE | 2017-08-06 07:40 | RADRPT ---
EXAM DATE/TIME: 08/05/2017 14:14 [facility] COMPARISON: CT ASSISTED ABSCESS DRAIN, August 05, 2017, 14:14. CT ASSISTED ABSCESS DRAI N, August 05, 2017, 14:14. INDICATIONS : History of sigmoid diverticulitis/colitis with chronic abscess status post prior drainages and aspirations. Patient presents with recurrent enlarging abscesses. Image guided drainage catheter placement has been requested. SEDATION TIME: 60 minutes MEDICATION(S): 1.) 6.5 mg midazolam (Versed) IV 2.) 325 mcg fentanyl (Sublimaze) IV DEVICE(S): 1.) MyBuys cath Expel Total volume of 20 cc of cloudy, yellow fluid was removed. Fluid was sent for laboratory ordered studies. MEDICAL HISTORY : None. SURGICAL HISTORY : None. ENCOUNTER: Initial ACUITY: 1 day PAIN SCORE: 4/10 LOCATION: Abdomen PROCEDURE: 1.) Conscious sedation with continuous EKG and oximetry monitoring. PROCEDURE : 1. CT guided drainage of the 3 separate left lower quadrant abscesses 2. Conscious sedation with continuous EKG and oximetry monitoring. The risks, benefits and alternatives to the procedure were explained and verbal and written consent w as obtained. Using automated exposure control and adjustment of the mA and/or kV according to patient size, radiation dose was kept as low as reasonably achievable to obtain optimal diagnostic quality i mages. The site was prepped in sterile fashion. Full sterile technique was used, including cap, ma sk, sterile gloves and gown and a large sterile sheet. Hand hygiene and 2% chlorhexidine and/or beta dine/alcohol prep was utilized per protocol for cutaneous antisepsis. The skin and subcutaneous tiss ues were infiltrated with local anesthetic solution. DICOM format image data is available electronic ally for review and comparison. CT examination was performed through the left lower quadrant. 3 separate abscess cavities were locali zed and targeted for drainage. First, the largest collection in the anterior left lower quadrant adjacent to the abdominal wall was targeted and prescribed drain placed. Approximately 15 mL of purulent fluid was removed immediate ly following catheter placement and submitted for Gram stain and C&S. Next, the deeper collection adjace nt to the lateral wall the bladder was targeted. Prescribed drain was placed and approximately 22 mL of purulen t fluid removed immediately following catheter placement. Finally, the phlegmonous collection posterior to th e distal descending/sigmoid colon was targeted. Prescribed drain was placed and approximately 3 mL of purulent fluid was removed immediately following catheter placement. Final post procedural CT examination demonstrated excellent catheter positioning without evidence for significant residual collection. The patient tolerated the procedure well and there were no complications. Conscious sedation was perf ormed with the prescribed dosages and duration as above in the presence of an independent trained radiology nurse to assist in the monitoring of the patient. EKG and oximetry remained stable throughout the procedure. The patient tolerated the procedure well and there were no complications. The patient was sent to pos t anesthesia recovery in stable condition. CONCLUSION: 1. Uncomplicated CT-guided placement of drainage catheter in 3 separate perisigmoid abscess collectio ns, as above. Approximately 15 mL of purulent fluid was submitted for Gram stain and C&S per request. Reuben Barrios MD on August 06, 2017 at 7:37 Board Certified Radiologist. This report was verified electronically.
[2017-08-06 08:41] VITALS: BP 152/93; PULSE 77; RESP 20; TEMP 99.2; O2SAT 95
--- NOTE | 2017-08-06 09:03 | HHI.PR ---
Subjective Remarks complains of localized pain on abdominal drain sites- + flatus, no nausea or vomiting Objective Vitals Vital Signs Date Time Temp Pulse Resp B/P (MAP) Pulse Ox O2 Delivery O2 Flow Rate FiO2 08/06/17 08:41 99.2 77 20 152/93 (112) 95 08/06/17 04:00 97.5 84 20 166/91 (116) 95 08/06/17 00:00 97.0 83 18 143/90 (107) 97 08/05/17 20:00 99.0 83 18 162/96 (118) 96 08/05/17 17:53 98.0 87 18 124/82 (96) 97 08/05/17 16:30 95 16 150/91 (110) 99 08/05/17 16:15 90 14 142/87 (105) 100 08/05/17 16:00 96 16 148/93 (111) 95 08/05/17 15:45 99.6 93 20 153/98 (116) 97 08/05/17 12:34 98.7 80 18 130/78 (95) 95 I/O 08/05/17 08/05/17 08/05/17 08/06/17 08/06/17 08/06/17 07:00 15:00 23:00 07:00 15:00 23:00 Intake Total 50 ml 50 ml 1100 ml 1100 ml Output Total 200 ml 48 ml 4995 ml Balance 50 ml -150 ml 1052 ml -3895 ml Intake IV Total 50 ml 50 ml 1100 ml 1100 ml Output Urine Total 200 ml 4950 ml Drainage Total 48 ml 45 ml # Voids 1 # Bowel Movements 1 Result Diagram: 08/05/17 0741 08/05/17 0741 Imaging Last Impressions Abscess Drainage CT 08/05/17 1516 Signed Impressions: Service Date/Time: Saturday, August 05, 2017 14:14 - CONCLUSION: 1. Uncomplicated CT-guided placement of drainage catheter in 3 separate perisigmoid abscess collections, as above. Approximately 15 mL of purulent fluid was submitted for Gram stain and C&S per request. Reuben Barrios MD Abdomen/Pelvis CT 08/04/17 1419 Signed Impressions: Service Date/Time: Friday, August 04, 2017 16:15 - CONCLUSION: 1. Worsening sigmoid colitis/diverticulitis with associated enlarging perisigmoid abscesses in the left lower quadrant. These include a 4.6 x 3.3 cm abscesses anterolaterally, 4.2 x 3.8 cm abscess medially abutting the left lateral wall of the bladder and new 2.7 x 1.6 cm developing abscess posteriorly near the junction of the descending and sigmoid colon. Reuben Barrios MD Objective Remarks awake and alert, no acute distress anicteric lungs clear regular rhythm abdomen- soft + BS, + [address]- lower abdominal area, no guarding, mild tenderness on drain sites extremities no edema Procedures 08/06- CT guided aspiration of abdoinal abscess with placement of 3 separate drains A/P Problem List: (1) Diverticulitis of intestine with abscess ICD Code: K57.80 - Diverticulitis of intestine, part unspecified, with perforation and abscess without bleeding Status: Acute (2) Leukocytosis ICD Code: D72.829 - Elevated white blood cell count, unspecified Status: Acute (3) Acute kidney injury ICD Code: N17.9 - Acute kidney failure, unspecified Status: Acute Assessment and Plan 41-year-old male with a history of diverticula and gout presented to the ED with nausea, vomiting, abdominal pain, fever, and chills. Sepsis secondary to Diverticular abscesses- recurrent episode of diverticulitis S/P CT guided drainage with [address]- 08/05 Leukocytosis, WBC 18.4, source abdominal abscess, lactic acid 1.0 ff cultures- negative for fungal elements - ID ff along with us - on Zosyn and Micafungin -will likely need eventual surgery - -patient agreeable- timing per GS- ff along with us repeat CBC Acute kidney injury, improving creatinine, non oliguric -IVF for hydration -repeat BMP states history of gout- c/o left knee pain- on exam- no redness or swelling, right knee no swelling on allopurinol- as OP- will restart DVT prophylaxis SCDs- early ambulation Discussed Condition With Patient Problem Qualifiers (1) Diverticulitis of intestine with abscess: Qualified Codes: K57.80 - Diverticulitis of intestine, part unspecified, with perforation and abscess without bleeding Juan J Navarro MD Aug 06, 2017 09:03
[2017-08-06] MEDS: METOCLOPRAMIDE HCL 10 MG/2 ML VIAL IV PUSH PRN ×2 (09:38→21:56)
[2017-08-06] MEDS: SODIUM CHLORIDE 0.9% FLUSH 10 ML FLUSH SCH ×2 (09:39→22:48)
[2017-08-06] MEDS: SODIUM CHLORIDE 0.9% FLUSH 10 ML FLUSH IV FLUSH SCH ×2 (09:39→21:00)
[2017-08-06] MEDS: DOCUSATE SODIUM 100 MG CAP PO SCH (09:39)
[2017-08-06 10:27] LABS: AUTOMATED NEUTROPHIL # 11.3 TH/MM3 (1.8-7.7); BASOPHIL % 0.2 % (0.0-2.0); EOSINOPHIL # 0.1 TH/MM3 (0-0.4); EOSINOPHIL % 0.5 % (0.0-4.0); HEMATOCRIT 32.5 % (39.0-51.0); HEMO FLAGS DIFF FINAL; LYMPHOCYTE # 1.9 TH/MM3 (1.0-4.8); MEAN CORPUSCULAR HEMOGLOBIN 30.4 PG (27.0-34.0); MEAN CORPUSCULAR HGB CONC 33.7 % (32.0-36.0); MONO % 9.9 % (0.0-8.0); NEUT % 76.4 % (16.0-70.0); PLATELET COUNT 373 TH/MM3 (150-450); RED BLOOD COUNT 3.61 MIL/MM3 (4.50-5.90); RED CELL DISTRIBUTION WIDTH 15.1 % (11.6-17.2); WHITE BLOOD COUNT 14.8 TH/MM3 (4.0-11.0)
[2017-08-06 10:38] LABS: BICARBONATE 30.3 MEQ/L (21.0-32.0); POTASSIUM 3.7 MEQ/L (3.5-5.1)
[2017-08-06 13:07] VITALS: BP 171/94; PULSE 76; RESP 18; TEMP 99; O2SAT 95
[2017-08-06] MEDS ORDERED: ALLO300 PO (14:13)
[2017-08-06] MEDS: ALLOPURINOL 300 MG TAB PO SCH (16:01)
[2017-08-06] MEDS: MICAFUNGIN INJ 150 MG in SODIUM CHLORIDE 0.9% INJ 100 ML IV SCH (16:02)
[2017-08-06 17:00] VITALS: BP 150/85; PULSE 77; RESP 18; TEMP 98.8; O2SAT 94
--- NOTE | 2017-08-06 19:02 | HHI.IDPN ---
Subjective Subjective Remarks is a 41 y/o CM with a history of diverticula with diverticulitis, Intra abdominal abscess. Patient was just discharged on July [address]-guided drainage of an abdominal abscess. He stated since leaving the hospital he has not felt himself, he has been unable to eat, unable to have a bowel movement since . He states he's had constant fevers at home with chills he was taking ibuprofen for. He states he woke up on day of admission and after having the bowel movement he began to have blurry vision, nausea, vomiting, and abdominal pain. He states the abdominal pain is in his lower abdomen, tender to touch, intermittent 10 out of 10. He denies any red or black colored stools, no diarrhea. He states the pain medicine is helping but does not last very long, he is wondering if he can have something in between like tramadol. He does not want strong narcotics. He denies any chest pain or shortness of breath. In ED patient had a CT A/P which showed 3 new abscesses. was consulted and pt underwent IR guided drainage of abscess. Call was placed to IR and cultures added by me. ID was consulted by for recurrent intra- abdominal abscesses. Pt was empirically started on Zosyn IV. Prior cultures from 07/28/17 were reviewed and E.coli is resistant to Zosyn (current med in hospital) and Levaquin (home med). Pt reports fevers, chills post discharge while on oral antibiotics at home. Pt denies night sweats Reports constipation. reports light headedness. Overnight events reviewed. No rash No diarrhea Complains of abd pain. IR drain was unclogged? blood clot. Antibiotics I attest I reviewed, obtained, or updated pts home meds and current meds. Meropenem IV Micafungin IV Reported Meds & Active Scripts Active Reported Zyloprim (Allopurinol) 300 Mg Tab 300 Mg PO DAILY Current Medications Medications (Trade) Dose Ordered Sig/Eleazar Route Start Time Stop Time Status Last Admin Sodium Chloride 1,000 ml @ 100 mls/hr Q10H IV 08/04/17 20:00 08/06/17 05:08 (NS Flush) 2 ml UNSCH PRN IV FLUSH 08/04/17 18:45 08/05/17 08:47 (NS Flush) 2 ml BID IV FLUSH 08/04/17 21:00 08/06/17 09:39 (Narcan Inj) 0.4 mg UNSCH PRN IV PUSH 08/04/17 18:45 (Milk Of Magnesia Liq) 30 ml Q12H PRN PO 08/04/17 18:45 (Senokot) 17.2 mg Q12H PRN PO 08/04/17 18:45 (Dulcolax Supp) 10 mg DAILY PRN RECTAL 08/04/17 18:45 (Lactulose Liq) 30 ml DAILY PRN PO 08/04/17 18:45 (Ultram) 50 mg Q4H PRN PO 08/04/17 20:45 08/06/17 17:31 (Dilaudid Pf Inj) 1 mg Q3H PRN IV 08/04/17 20:45 08/06/17 18:40 (Colace) 100 mg DAILY PO 08/05/17 09:00 08/06/17 09:39 (Reglan Inj) 5 mg Q8H PRN IV PUSH 08/05/17 11:15 08/06/17 09:38 Meropenem 500 mg/ Sodium Chloride 100 ml @ 200 mls/hr Q8H IV 08/05/17 15:00 08/06/17 17:31 Micafungin Sodium 150 mg/Sodium Chloride 100 ml @ 100 mls/hr Q24H IV 08/05/17 15:00 08/06/17 16:02 (NS Flush) 15 ml BID .XX 08/05/17 21:00 08/06/17 09:39 (Zyloprim) 300 mg DAILY PO 08/06/17 15:00 08/06/17 16:01 Lines Line sites with no e.o infection Past Medical History reviewed Allergies: Coded Allergies: acetaminophen (Verified Allergy, Unknown, 08/04/17) morphine (Verified Adverse Reaction, Unknown, 08/04/17) Objective . Vital Signs Date Time Temp Pulse Resp B/P (MAP) Pulse Ox O2 Delivery O2 Flow Rate FiO2 08/06/17 17:00 98.8 77 18 150/85 (106) 94 08/06/17 13:07 99.0 76 18 171/94 (119) 95 08/06/17 08:41 99.2 77 20 152/93 (112) 95 08/06/17 04:00 97.5 84 20 166/91 (116) 95 08/06/17 00:00 97.0 83 18 143/90 (107) 97 08/05/17 20:00 99.0 83 18 162/96 (118) 96 08/06/17 08/06/17 08/07/17 15:00 23:00 07:00 Intake Total 480 ml Output Total 200 ml 611 ml Balance -200 ml -131 ml Intake Oral 480 ml Output Urine Total 200 ml 600 ml Drainage Total 11 ml . Laboratory Tests Test 08/05/17 07:41 08/06/17 09:34 White Blood Count 18.8 TH/MM3 14.8 TH/MM3 Red Blood Count 3.69 MIL/MM3 3.61 MIL/MM3 Hemoglobin 11.0 GM/DL 11.0 GM/DL Hematocrit 33.5 % 32.5 % Mean Corpuscular Volume 90.7 FL 90.0 FL Mean Corpuscular Hemoglobin 29.8 PG 30.4 PG Mean Corpuscular Hemoglobin Concent 32.8 % 33.7 % Red Cell Distribution Width 15.1 % 15.1 % Platelet Count 416 TH/MM3 373 TH/MM3 Mean Platelet Volume 8.9 FL 9.0 FL Neutrophils (%) (Auto) 80.5 % 76.4 % Lymphocytes (%) (Auto) 9.9 % 13.0 % Monocytes (%) (Auto) 9.1 % 9.9 % Eosinophils (%) (Auto) 0.3 % 0.5 % Basophils (%) (Auto) 0.2 % 0.2 % Neutrophils # (Auto) 15.1 TH/MM3 11.3 TH/MM3 Lymphocytes # (Auto) 1.9 TH/MM3 1.9 TH/MM3 Monocytes # (Auto) 1.7 TH/MM3 1.5 TH/MM3 Eosinophils # (Auto) 0.1 TH/MM3 0.1 TH/MM3 Basophils # (Auto) 0.0 TH/MM3 0.0 TH/MM3 CBC Comment DIFF FINAL DIFF FINAL Differential Comment Laboratory Tests Test 08/05/17 07:41 08/06/17 09:34 Blood Urea Nitrogen 9 MG/DL 4 MG/DL Creatinine 1.13 MG/DL 0.77 MG/DL Random Glucose 66 MG/DL 89 MG/DL Total Protein 6.8 GM/DL Albumin 1.8 GM/DL Calcium Level 8.2 MG/DL 8.3 MG/DL Alkaline Phosphatase 101 U/L Aspartate Amino Transf (AST/SGOT) 12 U/L Alanine Aminotransferase (ALT/SGPT) 11 U/L Total Bilirubin 0.8 MG/DL Sodium Level 140 MEQ/L 135 MEQ/L Potassium Level 4.1 MEQ/L 3.7 MEQ/L Chloride Level 102 MEQ/L 98 MEQ/L Carbon Dioxide Level 24.9 MEQ/L 30.3 MEQ/L Anion Gap 13 MEQ/L 7 MEQ/L Estimat Glomerular Filtration Rate 72 ML/MIN 111 ML/MIN C-Reactive Protein 24.70 MG/DL Microbiology Date/Time Source Procedure Growth Status 08/05/17 17:30 Blood Other Aerobic Blood Culture - Preliminary NO GROWTH IN 1 DAY Resulted 08/05/17 17:30 Blood Other Anaerobic Blood Culture - Preliminary NO GROWTH IN 1 DAY Resulted 08/05/17 17:24 Blood Other Aerobic Blood Culture - Preliminary NO GROWTH IN 1 DAY Resulted 08/05/17 17:24 Blood Other Anaerobic Blood Culture - Preliminary NO GROWTH IN 1 DAY Resulted 08/05/17 14:30 Abscess Abdomen Fungal Smear - Final NO FUNGAL ELEMENTS SEEN. Resulted 08/05/17 14:30 Abscess Abdomen Fungal Culture Pending Resulted 08/05/17 14:30 Abscess Abdomen Acid Fast Stain Pending Received 08/05/17 14:30 Abscess Abdomen Mycobacterial Culture Pending Received 08/05/17 14:30 Abscess Abdomen Gram Stain - Final Resulted 08/05/17 14:30 Wound Culture - Preliminary Gram Negative Devin Resulted Imaging Last Impressions Abscess Drainage CT 08/05/17 1516 Signed Impressions: Service Date/Time: Saturday, August 05, 2017 14:14 - CONCLUSION: 1. Uncomplicated CT-guided placement of drainage catheter in 3 separate perisigmoid abscess collections, as above. Approximately 15 mL of purulent fluid was submitted for Gram stain and C&S per request. Reuben Barrios MD Abdomen/Pelvis CT 08/04/17 1419 Signed Impressions: Service Date/Time: Friday, August 04, 2017 16:15 - CONCLUSION: 1. Worsening sigmoid colitis/diverticulitis with associated enlarging perisigmoid abscesses in the left lower quadrant. These include a 4.6 x 3.3 cm abscesses anterolaterally, 4.2 x 3.8 cm abscess medially abutting the left lateral wall of the bladder and new 2.7 x 1.6 cm developing abscess posteriorly near the junction of the descending and sigmoid colon. Reuben Barrios MD Physical Exam GENERAL: This is a well-nourished, well-developed patient, in no apparent distress. SKIN: No rashes, ecchymoses or lesions. Cool and dry. HEAD: Atraumatic. Normocephalic. No temporal or scalp tenderness. EYES: Pupils equal round and reactive. Extraocular motions intact. No scleral icterus. No injection or drainage. ENT: Nose without bleeding, purulent drainage or septal hematoma. Throat without erythema, tonsillar hypertrophy or exudate. Uvula midline. Airway patent. NECK: Trachea midline. Supple, nontender, no meningeal signs. CARDIOVASCULAR: Regular rate and rhythm without murmurs, gallops, or rubs. RESPIRATORY: Clear to auscultation. Breath sounds equal bilaterally. No wheezes , rales, or rhonchi. GASTROINTESTINAL: Abdomen soft, diffuse tenderness most in LQs. 3 drains placed by IR. MUSCULOSKELETAL: Extremities without clubbing, cyanosis, or edema. No joint tenderness, effusion, or edema noted. No calf tenderness. Negative Homans sign bilaterally. NEUROLOGICAL: Awake and alert. no obvious focal neuro deficit. Psych cooperative. IV line sites with no e.o infection. Assessment & Plan Remarks Sepsis present on admission (fever, WBC elevation, source: Intra abd abscess) Intra abdominal abscess secondary to diverticulitis. Concern for ESBL given last cultures. Acute metabolic encephalopathy: sepsis, meds. Hypoalbuminemia: ? nutritional given chronic GI issues. Acute renal failure on admission ? prerenal now resolved. recs Continue Meropenem IV (ASP criteria: fevers despite IV antibiotics, based on prior cultures and delay in appropriate antibiotic concern for ESBL) Continue Micafungin IV (ASP criteria: concern for fungal infection with GI source abscess) Follow cultures Follow clinically. d/w pt compliance with antibiotics and surgical follow up is essential. He promises to be compliant. Nanci Newman MD Aug 06, 2017 19:02
--- NOTE | 2017-08-06 19:25 | HHI.PR ---
cc: Michael Dickerson MD Subjective Subjective Notes DAILY PROGRESS NOTE FOR SURGICAL ATTENDING, DR. MICHAEL DICKERSON Patient feels a little better Left lower quadrant sore from 3 drains Tolerating some by mouth Passing flatus No more fevers Objective Vitals/I&O 08/06/17 08/06/17 08/07/17 15:00 23:00 07:00 Intake Total 480 ml Output Total 200 ml 611 ml Balance -200 ml -131 ml Intake Oral 480 ml Output Urine Total 200 ml 600 ml Drainage Total 11 ml Vital Signs Date Time Temp Pulse Resp B/P (MAP) Pulse Ox O2 Delivery O2 Flow Rate FiO2 08/06/17 17:00 98.8 77 18 150/85 (106) 94 Labs Laboratory Tests Test 08/06/17 09:34 White Blood Count 14.8 Red Blood Count 3.61 Hemoglobin 11.0 Hematocrit 32.5 Mean Corpuscular Volume 90.0 Mean Corpuscular Hemoglobin 30.4 Mean Corpuscular Hemoglobin Concent 33.7 Red Cell Distribution Width 15.1 Platelet Count 373 Mean Platelet Volume 9.0 Neutrophils (%) (Auto) 76.4 Lymphocytes (%) (Auto) 13.0 Monocytes (%) (Auto) 9.9 Eosinophils (%) (Auto) 0.5 Basophils (%) (Auto) 0.2 Neutrophils # (Auto) 11.3 Lymphocytes # (Auto) 1.9 Monocytes # (Auto) 1.5 Eosinophils # (Auto) 0.1 Basophils # (Auto) 0.0 CBC Comment DIFF FINAL Differential Comment Blood Urea Nitrogen 4 Creatinine 0.77 Random Glucose 89 Calcium Level 8.3 Sodium Level 135 Potassium Level 3.7 Chloride Level 98 Carbon Dioxide Level 30.3 Anion Gap 7 Estimat Glomerular Filtration Rate 111 Date/Time Source Procedure Growth Status 08/05/17 17:30 Blood Other Aerobic Blood Culture - Preliminary NO GROWTH IN 1 DAY Resulted 08/05/17 17:30 Blood Other Anaerobic Blood Culture - Preliminary NO GROWTH IN 1 DAY Resulted 08/05/17 14:30 Abscess Abdomen Fungal Smear - Final NO FUNGAL ELEMENTS SEEN. Resulted 08/05/17 14:30 Abscess Abdomen Fungal Culture Pending Resulted Radiology Last 72 hours Impressions Abscess Drainage CT 08/05/17 1516 Signed Impressions: Service Date/Time: Saturday, August 05, 2017 14:14 - CONCLUSION: 1. Uncomplicated CT-guided placement of drainage catheter in 3 separate perisigmoid abscess collections, as above. Approximately 15 mL of purulent fluid was submitted for Gram stain and C&S per request. Reuben Barrios MD Abscess Drainage CT 08/05/17 1514 Signed Impressions: Service Date/Time: Saturday, August 05, 2017 14:14 - CONCLUSION: 1. Uncomplicated CT-guided placement of drainage catheter in 3 separate perisigmoid abscess collections, as above. Approximately 15 mL of purulent fluid was submitted for Gram stain and C&S per request. Reuben Barrios MD Abscess Drainage CT 08/05/17 1329 Signed Impressions: Service Date/Time: Saturday, August 05, 2017 14:14 - CONCLUSION: 1. Uncomplicated CT-guided placement of drainage catheter in 3 separate perisigmoid abscess collections, as above. Approximately 15 mL of purulent fluid was submitted for Gram stain and C&S per request. Reuben Barrios MD Abdomen/Pelvis CT 08/04/17 1419 Signed Impressions: Service Date/Time: Friday, August 04, 2017 16:15 - CONCLUSION: 1. Worsening sigmoid colitis/diverticulitis with associated enlarging perisigmoid abscesses in the left lower quadrant. These include a 4.6 x 3.3 cm abscesses anterolaterally, 4.2 x 3.8 cm abscess medially abutting the left lateral wall of the bladder and new 2.7 x 1.6 cm developing abscess posteriorly near the junction of the descending and sigmoid colon. Reuben Barrios MD Cardiovascular: Regular Lungs: Clear Abdomen: Other Extremities: Perfused Wound Wound : Wound Location: Abdomen Drainage: Cloudy ([address]) A/P Problem List: (1) Intra-abdominal abscess ICD Codes: K65.1 - Peritoneal abscess Status: Acute (2) Gram-negative infection ICD Codes: A49.9 - Bacterial infection, unspecified Status: Acute (3) Diverticulitis of intestine with abscess ICD Codes: K57.80 - Diverticulitis of intestine, part unspecified, with perforation and abscess without bleeding Status: Acute (4) Leukocytosis ICD Codes: D72.829 - Elevated white blood cell count, unspecified Status: Acute (5) Colonic diverticular abscess ICD Codes: K57.20 - Diverticulitis of large intestine with perforation and abscess without bleeding Status: Acute (6) Diverticulitis ICD Codes: K57.92 - Diverticulitis of intestine, part unspecified, without perforation or abscess without bleeding Status: Chronic (7) Elevated white blood cell count ICD Codes: D72.829 - Elevated white blood cell count, unspecified Status: Acute Assessment and Plan 42-year-old gentleman with 3 intra-abdominal abscesses from diverticular disease. Previous cultures noted Appreciate infectious disease input Continue IV antibiotic therapy Await cultures Hopefully we can get these abscesses to resolve and then plan sigmoid colon Resection in the future after he has a colonoscopy Attending Statement NOTE FOR SURGICAL ATTENDING, DR. MICHAEL DICKERSON I attest that I had a [id number] encounter with the patient on the same day, and personally performed and documented my assessment and findings in the medical record. The following services were provided during this hospital visit: Chart data review, vital sign assessments/reviewing monitor data Review of consultations notes if present. Medication orders/review and/or management Ordering and/or reviewing lab tests Ordering and/or interpreting/reviewing x-rays and/or diagnostic studies Care of the patient and discussion of the patient with the care team Documentation time To help prompt me to consider important information that might be impacting today's encounter and assessment, information from prior notes written by myself or my colleagues may have been "brought forward/copy and pasted" into today's note. Problem Qualifiers (1) Diverticulitis of intestine with abscess: Qualified Codes: K57.80 - Diverticulitis of intestine, part unspecified, with perforation and abscess without bleeding Michael Dickerson MD Aug 06, 2017 19:25
[2017-08-06 20:22] VITALS: BP 161/99; PULSE 74; RESP 17; TEMP 98.7; O2SAT 97
[2017-08-07] MEDS: MEROPENEM INJ 500 MG in SODIUM CHLORIDE 0.9% INJ 100 ML IV SCH ×4 (00:06→23:29)
[2017-08-07] MEDS: traMADol HCL 50 MG TAB PO PRN ×5 (00:10→19:56)
[2017-08-07 00:54] VITALS: BP 159/87; PULSE 67; RESP 17; TEMP 99.5; O2SAT 94
[2017-08-07] MEDS: HYDROmorphone HCL PF 2 MG/ML VIAL IV PRN ×8 (01:11→23:29)
[2017-08-07 05:32] VITALS: BP 127/76; PULSE 74; RESP 17; TEMP 98.4; O2SAT 96
[2017-08-07] MEDS: METOCLOPRAMIDE HCL 10 MG/2 ML VIAL IV PUSH PRN ×2 (06:16→14:22)
[2017-08-07 08:00] VITALS: BP 159/94; PULSE 71; RESP 18; TEMP 99.6; O2SAT 94
[2017-08-07] MEDS: ALLOPURINOL 300 MG TAB PO SCH (08:17)
[2017-08-07] MEDS: DOCUSATE SODIUM 100 MG CAP PO SCH (08:18)
[2017-08-07] MEDS: SODIUM CHLORIDE 0.9% FLUSH 10 ML FLUSH IV FLUSH SCH ×2 (08:18→21:00)
[2017-08-07] MEDS: SODIUM CHLORIDE 0.9% FLUSH 10 ML FLUSH SCH ×2 (08:18→21:00)
--- NOTE | 2017-08-07 08:51 | HHI.PR ---
Subjective Remarks no nausea or vomiting now complains of right knee pain with movement left knee pain complains from yesterday- resolved still "some pain" left lower quadrant- drain sites + lots of flatus states history of gout- ussually involves big toe, and knee, "moves around" Objective Vitals Vital Signs Date Time Temp Pulse Resp B/P (MAP) Pulse Ox O2 Delivery O2 Flow Rate FiO2 08/07/17 05:32 98.4 74 17 127/76 (93) 96 08/07/17 00:54 99.5 67 17 159/87 (111) 94 08/06/17 20:22 98.7 74 17 161/99 (119) 97 08/06/17 17:00 98.8 77 18 150/85 (106) 94 08/06/17 13:07 99.0 76 18 171/94 (119) 95 I/O 08/06/17 08/06/17 08/06/17 08/07/17 08/07/17 08/07/17 07:00 15:00 23:00 07:00 15:00 23:00 Intake Total 1100 ml 1480 ml 1280 ml Output Total 4995 ml 200 ml 611 ml 1570 ml 500 ml Balance -3895 ml -200 ml 869 ml -290 ml -500 ml Intake Oral 480 ml 480 ml IV Total 1100 ml 1000 ml 800 ml Output Urine Total 4950 ml 200 ml 600 ml 1550 ml 500 ml Drainage Total 45 ml 11 ml 20 ml Result Diagram: 08/06/17 0934 08/06/17 0934 Imaging Last Impressions Abscess Drainage CT 08/05/17 1516 Signed Impressions: Service Date/Time: Saturday, August 05, 2017 14:14 - CONCLUSION: 1. Uncomplicated CT-guided placement of drainage catheter in 3 separate perisigmoid abscess collections, as above. Approximately 15 mL of purulent fluid was submitted for Gram stain and C&S per request. Reuben Barrios MD Abdomen/Pelvis CT 08/04/17 1419 Signed Impressions: Service Date/Time: Friday, August 04, 2017 16:15 - CONCLUSION: 1. Worsening sigmoid colitis/diverticulitis with associated enlarging perisigmoid abscesses in the left lower quadrant. These include a 4.6 x 3.3 cm abscesses anterolaterally, 4.2 x 3.8 cm abscess medially abutting the left lateral wall of the bladder and new 2.7 x 1.6 cm developing abscess posteriorly near the junction of the descending and sigmoid colon. Reuben Barrios MD Objective Remarks awake and alert, no acute distress anicteric lungs clear regular rhythm abdomen- soft + BS, + [address]- lower abdominal area, no guarding, mild tenderness on drain sites on palpation left knee- no swelling, no erythema right knee- with large effusion, more on the lateral side of the knee, very limited range of motion, no erythema, not hot no toes involvement, no swelling no redness no calf tenderness or swelling Procedures 08/06- CT guided aspiration of abdoinal abscess with placement of 3 separate drains A/P Problem List: (1) Diverticulitis of intestine with abscess ICD Code: K57.80 - Diverticulitis of intestine, part unspecified, with perforation and abscess without bleeding Status: Acute (2) Leukocytosis ICD Code: D72.829 - Elevated white blood cell count, unspecified Status: Acute (3) Acute kidney injury ICD Code: N17.9 - Acute kidney failure, unspecified Status: Acute Assessment and Plan 41-year-old male with a history of diverticula and gout presented to the ED with nausea, vomiting, abdominal pain, fever, and chills. Sepsis secondary to Diverticular abscesses- recurrent episode of diverticulitis S/P CT guided drainage with [address]- 08/05 Leukocytosis, WBC 18.4, source abdominal abscess, lactic acid 1.0 ff cultures- negative for fungal elements - ID ff along with us - on Meropenem and Micafungin -will likely need eventual surgery - -patient agreeable- timing per GS- ff along with us repeat CBC Acute kidney injury, improving creatinine, non oliguric -IVF for hydration -repeat BMP Acute Right knee pain pain with effusion on exam - ? septic knee History of gout - pain- states history of gout- left knee pain resolved now with right knee pain get an MRI of the knee if significant- - consider arthrocentesis with fluid studies Get ESR, CRP trial of colchicine 1.2 mg po x 1 now then 0.6 mg po after 1 hour PT consult DVT prophylaxis SCDs- early ambulation Discussed Condition With Patient Problem Qualifiers (1) Diverticulitis of intestine with abscess: Qualified Codes: K57.80 - Diverticulitis of intestine, part unspecified, with perforation and abscess without bleeding Juan J Navarro MD Aug 07, 2017 08:51
[2017-08-07] MEDS ORDERED: COLCHICINE 0.6 MG TAB PO STA (08:55)
[2017-08-07] MEDS: SODIUM CHLOR 0.9% 1000 ML INJ 1,000 ML IV SCH ×3 (09:30→23:30)
[2017-08-07] MEDS ORDERED: COLCHICINE 0.6 MG TAB PO ONE (11:00)
[2017-08-07 12:00] VITALS: BP 173/97; PULSE 69; RESP 18; TEMP 99.4; O2SAT 93
[2017-08-07 14:09] LABS: AUTOMATED NEUTROPHIL # 11.9 TH/MM3 (1.8-7.7); BASOPHIL % 0.3 % (0.0-2.0); EOSINOPHIL # 0.1 TH/MM3 (0-0.4); EOSINOPHIL % 0.4 % (0.0-4.0); HEMATOCRIT 34.2 % (39.0-51.0); HEMO FLAGS DIFF FINAL; LYMPH % 10.5 % (9.0-44.0); LYMPHOCYTE # 1.5 TH/MM3 (1.0-4.8); MEAN CELL VOLUME 90.5 FL (80.0-100.0); MEAN CORPUSCULAR HEMOGLOBIN 30.2 PG (27.0-34.0); MEAN CORPUSCULAR HGB CONC 33.4 % (32.0-36.0); MONO % 7.6 % (0.0-8.0); NEUT % 81.2 % (16.0-70.0); PLATELET COUNT 403 TH/MM3 (150-450); RED BLOOD COUNT 3.79 MIL/MM3 (4.50-5.90); RED CELL DISTRIBUTION WIDTH 15.3 % (11.6-17.2); WHITE BLOOD COUNT 14.7 TH/MM3 (4.0-11.0)
[2017-08-07 14:27] LABS: BICARBONATE 29.6 MEQ/L (21.0-32.0); MAGNESIUM 1.9 MG/DL (1.5-2.5); POTASSIUM 3.7 MEQ/L (3.5-5.1); URIC ACID 3.8 MG/DL (2.6-7.2)
[2017-08-07 16:00] VITALS: BP 156/97; PULSE 78; RESP 18; TEMP 99.1; O2SAT 96
[2017-08-07] MEDS: MICAFUNGIN INJ 150 MG in SODIUM CHLORIDE 0.9% INJ 100 ML IV SCH (16:20)
--- NOTE | 2017-08-07 17:21 | HHI.PR ---
cc: Michael Dickerson MD Subjective Subjective Notes DAILY PROGRESS NOTE FOR SURGICAL ATTENDING, DR. MICHAEL DICKERSON Complaining of right knee pain from his gout Feels better they pulled one of the drains out as it was not putting out much Tolerating diet Difficult to move around because of the pain in the knee Awaiting results from MRI done earlier Objective Vitals/I&O Vital Signs Date Time Temp Pulse Resp B/P (MAP) Pulse Ox O2 Delivery O2 Flow Rate FiO2 08/07/17 16:00 99.1 78 18 156/97 (116) 96 Labs Laboratory Tests Test 08/07/17 12:45 08/07/17 12:57 White Blood Count 14.7 Red Blood Count 3.79 Hemoglobin 11.4 Hematocrit 34.2 Mean Corpuscular Volume 90.5 Mean Corpuscular Hemoglobin 30.2 Mean Corpuscular Hemoglobin Concent 33.4 Red Cell Distribution Width 15.3 Platelet Count 403 Mean Platelet Volume 9.1 Neutrophils (%) (Auto) 81.2 Lymphocytes (%) (Auto) 10.5 Monocytes (%) (Auto) 7.6 Eosinophils (%) (Auto) 0.4 Basophils (%) (Auto) 0.3 Neutrophils # (Auto) 11.9 Lymphocytes # (Auto) 1.5 Monocytes # (Auto) 1.1 Eosinophils # (Auto) 0.1 Basophils # (Auto) 0.0 CBC Comment DIFF FINAL Differential Comment Erythrocyte Sedimentation Rate 78 Blood Urea Nitrogen 4 Creatinine 0.69 Random Glucose 95 Calcium Level 8.7 Magnesium Level 1.9 Uric Acid 3.8 Sodium Level 135 Potassium Level 3.7 Chloride Level 97 Carbon Dioxide Level 29.6 Anion Gap 8 Estimat Glomerular Filtration Rate 126 C-Reactive Protein 22.00 Date/Time Source Procedure Growth Status 08/05/17 17:30 Blood Other Aerobic Blood Culture - Preliminary NO GROWTH IN 2 DAYS Resulted 08/05/17 17:30 Blood Other Anaerobic Blood Culture - Preliminary NO GROWTH IN 2 DAYS Resulted 08/05/17 14:30 Abscess Abdomen Fungal Smear - Final NO FUNGAL ELEMENTS SEEN. Resulted 08/05/17 14:30 Abscess Abdomen Fungal Culture Pending Resulted Radiology Last 72 hours Impressions Abscess Drainage CT 08/05/17 1516 Signed Impressions: Service Date/Time: Saturday, August 05, 2017 14:14 - CONCLUSION: 1. Uncomplicated CT-guided placement of drainage catheter in 3 separate perisigmoid abscess collections, as above. Approximately 15 mL of purulent fluid was submitted for Gram stain and C&S per request. Reuben Barrios MD Abscess Drainage CT 08/05/17 1514 Signed Impressions: Service Date/Time: Saturday, August 05, 2017 14:14 - CONCLUSION: 1. Uncomplicated CT-guided placement of drainage catheter in 3 separate perisigmoid abscess collections, as above. Approximately 15 mL of purulent fluid was submitted for Gram stain and C&S per request. Reuben Barrios MD Abscess Drainage CT 08/05/17 1329 Signed Impressions: Service Date/Time: Saturday, August 05, 2017 14:14 - CONCLUSION: 1. Uncomplicated CT-guided placement of drainage catheter in 3 separate perisigmoid abscess collections, as above. Approximately 15 mL of purulent fluid was submitted for Gram stain and C&S per request. Reuben Barrios MD Cardiovascular: Regular Abdomen: Non-distended, Other ([address] soft) Extremities: Perfused, Other (swollen tender right knee) A/P Problem List: (1) Intra-abdominal abscess ICD Codes: K65.1 - Peritoneal abscess Status: Acute (2) Gram-negative infection ICD Codes: A49.9 - Bacterial infection, unspecified Status: Acute (3) Diverticulitis of intestine with abscess ICD Codes: K57.80 - Diverticulitis of intestine, part unspecified, with perforation and abscess without bleeding Status: Acute (4) Leukocytosis ICD Codes: D72.829 - Elevated white blood cell count, unspecified Status: Acute (5) Colonic diverticular abscess ICD Codes: K57.20 - Diverticulitis of large intestine with perforation and abscess without bleeding Status: Acute (6) Diverticulitis ICD Codes: K57.92 - Diverticulitis of intestine, part unspecified, without perforation or abscess without bleeding Status: Chronic (7) Elevated white blood cell count ICD Codes: D72.829 - Elevated white blood cell count, unspecified Status: Acute (8) Right knee pain ICD Codes: M25.561 - Pain in right knee Assessment and Plan 42-year-old gentleman with 3 intra-abdominal abscesses from diverticular disease. Previous cultures noted Appreciate infectious disease input Continue IV antibiotic therapy Await cultures Appears to be progressive nicely unfortunately now is having problems with gout to his right knee MRI is pending Continue IV antibiotics per infectious disease Continued drainage of abscesses Attending Statement NOTE FOR SURGICAL ATTENDING, DR. MICHAEL D. JAYLA I attest that I had a [id number] encounter with the patient on the same day, and personally performed and documented my assessment and findings in the medical record. The following services were provided during this hospital visit: Chart data review, vital sign assessments/reviewing monitor data Review of consultations notes if present. Medication orders/review and/or management Ordering and/or reviewing lab tests Ordering and/or interpreting/reviewing x-rays and/or diagnostic studies Care of the patient and discussion of the patient with the care team Documentation time To help prompt me to consider important information that might be impacting today's encounter and assessment, information from prior notes written by myself or my colleagues may have been "brought forward/copy and pasted" into today's note. Problem Qualifiers (1) Diverticulitis of intestine with abscess: Qualified Codes: K57.80 - Diverticulitis of intestine, part unspecified, with perforation and abscess without bleeding Michael Dickerson MD Aug 07, 2017 17:20
--- NOTE | 2017-08-07 17:38 | RADRPT ---
EXAM DATE/TIME: 08/07/2017 14:46 [facility] COMPARISON: No previous studies available for comparison. INDICATIONS : Meniscus tear. Right knee pain. No injury. MEDICAL HISTORY : Hypertension. SURGICAL HISTORY : Two drains in abdomen for abcess drainage. ENCOUNTER: Subsequent ACUITY: 3 day PAIN SCORE: 5/10 LOCATION: Right knee. TECHNIQUE: Multiplanar, multisequence MRI examination was performed without contrast. FINDINGS: CRUCIATE LIGAMENTS: ACL and PCL are intact. MENISCI: Medial and lateral menisci are intact. COLLATERAL LIGAMENTS: MCL and LCL complexes are intact. BONE/CARTILAGE: Bone marrow signal is homogeneous. Patellar cartilage signal is within normal limits. MISCELLANEOUS: There is a large knee effusion distending the suprapatellar bursa. There is also a large Warren's cys t which measures in excess of 4.7 cm in superior/inferior extent. There is prominent fluid about the muscles of the posterior proximal calf suggesting rupture of the cyst. CONCLUSION: 1. Large knee effusion and large Warren's cyst with probable rupture of the Warren's cyst. 2. No meniscal tear seen. Matias Ohara MD on August 07, 2017 at 17:33 Board Certified Radiologist. This report was verified electronically.
[2017-08-07 20:00] VITALS: BP 166/88; PULSE 76; RESP 18; TEMP 98.4; O2SAT 96
[2017-08-08] VITALS: BP 141/93; PULSE 72; RESP 18; TEMP 99.4; O2SAT 95
[2017-08-08] MEDS: traMADol HCL 50 MG TAB PO PRN ×2 (01:03→05:40)
[2017-08-08] MEDS: HYDROmorphone HCL PF 2 MG/ML VIAL IV PRN ×2 (02:31→05:40)
[2017-08-08 04:00] VITALS: BP 146/83; PULSE 66; RESP 18; TEMP 98.1; O2SAT 94
[2017-08-08] MEDS: MEROPENEM INJ 500 MG in SODIUM CHLORIDE 0.9% INJ 100 ML IV SCH ×3 (06:32→22:18)
[2017-08-08] MEDS: DOCUSATE SODIUM 100 MG CAP PO SCH (07:53)
[2017-08-08] MEDS: ALLOPURINOL 300 MG TAB PO SCH (07:53)
[2017-08-08] MEDS: SODIUM CHLORIDE 0.9% FLUSH 10 ML FLUSH SCH ×2 (07:54→21:00)
[2017-08-08] MEDS: SODIUM CHLORIDE 0.9% FLUSH 10 ML FLUSH IV FLUSH SCH ×2 (07:54→20:26)
[2017-08-08 08:02] VITALS: BP 137/85; PULSE 73; RESP 18; TEMP 98.2; O2SAT 94
--- NOTE | 2017-08-08 08:17 | HHI.PR ---
Subjective Remarks abdominal pain much better right knee pain - improved with colchicine no relief with Tramadol but improved Oxycodone still with pain with movement I think effusion is less compared with yesterday- states improved with Colchicine Objective Vitals Vital Signs Date Time Temp Pulse Resp B/P (MAP) Pulse Ox O2 Delivery O2 Flow Rate FiO2 08/08/17 08:02 98.2 73 18 137/85 (102) 94 08/08/17 04:00 98.1 66 18 146/83 (104) 94 08/08/17 00:00 99.4 72 18 141/93 (109) 95 08/07/17 20:00 98.4 76 18 166/88 (114) 96 08/07/17 16:00 99.1 78 18 156/97 (116) 96 08/07/17 12:00 99.4 69 18 173/97 (122) 93 I/O 08/07/17 08/07/17 08/07/17 08/08/17 08/08/17 08/08/17 07:00 15:00 23:00 07:00 15:00 23:00 Intake Total 1280 ml 1000 ml 440 ml 0.5 ml Output Total 1570 ml 800 ml 8 ml Balance -290 ml 200 ml 432 ml 0.5 ml Intake Oral 480 ml 240 ml IV Total 800 ml 1000 ml 200 ml 0.5 ml Output Urine Total 1550 ml 800 ml Drainage Total 20 ml 8 ml # Voids 4 2 2 # Bowel Movements 2 Result Diagram: 08/07/17 1245 08/07/17 1257 Imaging Last Impressions Knee MRI 08/07/17 0000 Signed Impressions: Service Date/Time: July 14:46 - CONCLUSION: 1. Large knee effusion and large Warren's cyst with probable rupture of the Warren's cyst. 2. No meniscal tear seen. Matias Ohara MD Abscess Drainage CT 08/05/17 1516 Signed Impressions: Service Date/Time: Saturday, August 05, 2017 14:14 - CONCLUSION: 1. Uncomplicated CT-guided placement of drainage catheter in 3 separate perisigmoid abscess collections, as above. Approximately 15 mL of purulent fluid was submitted for Gram stain and C&S per request. Reuben Barrios MD Abdomen/Pelvis CT 08/04/17 1419 Signed Impressions: Service Date/Time: Friday, August 04, 2017 16:15 - CONCLUSION: 1. Worsening sigmoid colitis/diverticulitis with associated enlarging perisigmoid abscesses in the left lower quadrant. These include a 4.6 x 3.3 cm abscesses anterolaterally, 4.2 x 3.8 cm abscess medially abutting the left lateral wall of the bladder and new 2.7 x 1.6 cm developing abscess posteriorly near the junction of the descending and sigmoid colon. Reuben Barrios MD Objective Remarks awake and alert, no acute distress anicteric lungs clear regular rhythm abdomen- soft + BS, + [address]- lower abdominal area, no guarding,non tender on exam today left knee- no swelling, no erythema right knee- decrease effusion c/w yesterday's exam , not hot, no erythema, no toes involvement, no swelling no redness no calf tenderness or swelling Procedures 08/06- CT guided aspiration of abdoinal abscess with placement of 3 separate drains A/P Problem List: (1) Diverticulitis of intestine with abscess ICD Code: K57.80 - Diverticulitis of intestine, part unspecified, with perforation and abscess without bleeding Status: Acute (2) Leukocytosis ICD Code: D72.829 - Elevated white blood cell count, unspecified Status: Acute (3) Acute kidney injury ICD Code: N17.9 - Acute kidney failure, unspecified Status: Acute Assessment and Plan 41-year-old male with a history of diverticula and gout presented to the ED with nausea, vomiting, abdominal pain, fever, and chills. Sepsis secondary to Diverticular abscesses- recurrent episode of diverticulitis S/P CT guided drainage with [address]- 08/05 Leukocytosis, WBC 18.4, source abdominal abscess, lactic acid 1.0 ff cultures- negative for fungal elements - ID ff along with us - on Meropenem and Micafungin -will likely need eventual surgery - -patient agreeable- timing per GS- ff along with us repeat CBC Acute right knee effusion with pain - Ruptured Warren's cyst with effusion r/o ? septic knee- not hot on exam History of gout - per patient some relief with colchicine- ESR, CRP elevated Orthopedic consult for evaluation ? arthrocentesis r/o septic knee PT consult Acute kidney injury, improving creatinine, non oliguric -IVF for hydration - ff BMP DVT prophylaxis SCDs- early ambulation Discussed Condition With Patient Problem Qualifiers (1) Diverticulitis of intestine with abscess: Qualified Codes: K57.20 - Diverticulitis of large intestine with perforation and abscess without bleeding (2) Leukocytosis: Qualified Codes: D72.828 - Other elevated white blood cell count Juan J Navarro MD Aug 08, 2017 08:17
[2017-08-08] MEDS: COLCHICINE 0.6 MG TAB PO SCH ×2 (09:11→22:17)
[2017-08-08] MEDS: HYDROmorphone HCL PF 0.5 MG/0.5 ML SYRINGE IV PRN ×4 (10:44→20:14)
--- NOTE | 2017-08-08 11:48 | HHI.PR ---
cc: Michael Singleton MD Subjective Subjective Notes DAILY PROGRESS NOTE FOR SURGICAL ATTENDING, DR. MICHAEL SINGLETON Abdominal discomfort much improved Tolerating diet having bowel movements still has drains in place His major complaint now is his right knee pain that is being worked up and orthopedic is seeing later Objective Vitals/I&O Vital Signs Date Time Temp Pulse Resp B/P (MAP) Pulse Ox O2 Delivery O2 Flow Rate FiO2 08/08/17 09:54 16 08/08/17 08:02 98.2 73 137/85 (102) 94 Labs Laboratory Tests Test d Count 14.7 Red Blood Count 3.79 Hemoglobin 11.4 Hematocrit 34.2 Mean Corpuscular Volume 90.5 Mean Corpuscular Hemoglobin 30.2 Mean Corpuscular Hemoglobin Concent 33.4 Red Cell Distribution Width 15.3 Platelet Count 403 Mean Platelet Volume 9.1 Neutrophils (%) (Auto) 81.2 Lymphocytes (%) (Auto) 10.5 Monocytes (%) (Auto) 7.6 Eosinophils (%) (Auto) 0.4 Basophils (%) (Auto) 0.3 Neutrophils # (Auto) 11.9 Lymphocytes # (Auto) 1.5 Monocytes # (Auto) 1.1 Eosinophils # (Auto) 0.1 Basophils # (Auto) 0.0 CBC Comment DIFF FINAL Differential Comment Erythrocyte Sedimentation Rate 78 Blood Urea Nitrogen 4 Creatinine 0.69 Random Glucose 95 Calcium Level 8.7 Magnesium Level 1.9 Uric Acid 3.8 Sodium Level 135 Potassium Level 3.7 Chloride Level 97 Carbon Dioxide Level 29.6 Anion Gap 8 Estimat Glomerular Filtration Rate 126 C-Reactive Protein 22.00 Date/Time Source Procedure Growth Status 08/05/17 17:30 Blood Other Aerobic Blood Culture - Preliminary NO GROWTH IN 3 DAYS Resulted 08/05/17 17:30 Blood Other Anaerobic Blood Culture - Preliminary NO GROWTH IN 3 DAYS Resulted 08/05/17 14:30 Abscess Abdomen Fungal Smear - Final NO FUNGAL ELEMENTS SEEN. Resulted 08/05/17 14:30 Abscess Abdomen Fungal Culture Pending Resulted Radiology Last Impressions Knee MRI 08/07/17 0000 Signed Impressions: Service Date/Time: July 14:46 - CONCLUSION: 1. Large knee effusion and large Warren's cyst with probable rupture of the Warren's cyst. 2. No meniscal tear seen. Matias Ohara MD Abscess Drainage CT 08/05/17 1516 Signed Impressions: Service Date/Time: Saturday, August 05, 2017 14:14 - CONCLUSION: 1. Uncomplicated CT-guided placement of drainage catheter in 3 separate perisigmoid abscess collections, as above. Approximately 15 mL of purulent fluid was submitted for Gram stain and C&S per request. Reuben Barrios MD Abdomen/Pelvis CT 08/04/17 1419 Signed Impressions: Service Date/Time: Friday, August 04, 2017 16:15 - CONCLUSION: 1. Worsening sigmoid colitis/diverticulitis with associated enlarging perisigmoid abscesses in the left lower quadrant. These include a 4.6 x 3.3 cm abscesses anterolaterally, 4.2 x 3.8 cm abscess medially abutting the left lateral wall of the bladder and new 2.7 x 1.6 cm developing abscess posteriorly near the junction of the descending and sigmoid colon. Reuben Barrios MD Last 72 hours Impressions Abscess Drainage CT 08/05/17 1516 Signed Impressions: Service Date/Time: Saturday, August 05, 2017 14:14 - CONCLUSION: 1. Uncomplicated CT-guided placement of drainage catheter in 3 separate perisigmoid abscess collections, as above. Approximately 15 mL of purulent fluid was submitted for Gram stain and C&S per request. Reuben Barrios MD Abscess Drainage CT 08/05/17 1514 Signed Impressions: Service Date/Time: Saturday, August 05, 2017 14:14 - CONCLUSION: 1. Uncomplicated CT-guided placement of drainage catheter in 3 separate perisigmoid abscess collections, as above. Approximately 15 mL of purulent fluid was submitted for Gram stain and C&S per request. Reuben Barrios MD Abscess Drainage CT 08/05/17 1329 Signed Impressions: Service Date/Time: Saturday, August 05, 2017 14:14 - CONCLUSION: 1. Uncomplicated CT-guided placement of drainage catheter in 3 separate perisigmoid abscess collections, as above. Approximately 15 mL of purulent fluid was submitted for Gram stain and C&S per request. Reuben Barrios MD Cardiovascular: Regular Lungs: Clear Abdomen: Other ([address] output noted), BS normal Extremities: Other (right knee swollen tender.) Narrative Exam Patient awake alert oriented feels more comfortable except for his right knee A/P Problem List: (1) Colonic diverticular abscess ICD Codes: K57.20 - Diverticulitis of large intestine with perforation and abscess without bleeding Status: Acute (2) Intra-abdominal abscess ICD Codes: K65.1 - Peritoneal abscess Status: Acute (3) Gram-negative infection ICD Codes: A49.9 - Bacterial infection, unspecified Status: Acute (4) Diverticulitis of intestine with abscess ICD Codes: K57.80 - Diverticulitis of intestine, part unspecified, with perforation and abscess without bleeding Status: Acute (5) Leukocytosis ICD Codes: D72.829 - Elevated white blood cell count, unspecified Status: Acute (6) Diverticulitis ICD Codes: K57.92 - Diverticulitis of intestine, part unspecified, without perforation or abscess without bleeding Status: Chronic (7) Elevated white blood cell count ICD Codes: D72.829 - Elevated white blood cell count, unspecified Status: Acute (8) Right knee pain ICD Codes: M25.561 - Pain in right knee Status: Acute (9) Warren's cyst, ruptured ICD Codes: M66.0 - Rupture of popliteal cyst Status: Acute Assessment and Plan 42-year-old gentleman with 3 intra-abdominal abscesses from diverticular disease. Previous cultures noted Appreciate infectious disease input Continue IV antibiotic therapy Await cultures Appears to be progressive nicely unfortunately now is having problems with gout to his right knee MRI shows a Warren cyst on the right knee that appears to be a ruptured Continue IV antibiotics per infectious disease Continued drainage of abscesses Patient getting CT today to evaluate treatment of drainage of abscesses clinically he is much improved Attending Statement NOTE FOR SURGICAL ATTENDING, DR. MICHAEL SINGLETON I attest that I had a [id number] encounter with the patient on the same day, and personally performed and documented my assessment and findings in the medical record. The following services were provided during this hospital visit: Chart data review, vital sign assessments/reviewing monitor data Review of consultations notes if present. Medication orders/review and/or management Ordering and/or reviewing lab tests Ordering and/or interpreting/reviewing x-rays and/or diagnostic studies Care of the patient and discussion of the patient with the care team Documentation time To help prompt me to consider important information that might be impacting today's encounter and assessment, information from prior notes written by myself or my colleagues may have been "brought forward/copy and pasted" into today's note. Problem Qualifiers (1) Diverticulitis of intestine with abscess: Qualified Codes: K57.20 - Diverticulitis of large intestine with perforation and abscess without bleeding (2) Leukocytosis: Qualified Codes: D72.828 - Other elevated white blood cell count (3) Diverticulitis: Qualified Codes: K57.20 - Diverticulitis of large intestine with perforation and abscess without bleeding (4) Right knee pain: Qualified Codes: M25.561 - Pain in right knee Michael Singleton MD Aug 08, 2017 11:48
[2017-08-08 12:21] VITALS: BP 171/98; PULSE 74; RESP 18; TEMP 98; O2SAT 94
[2017-08-08] MEDS: SODIUM CHLOR 0.9% 1000 ML INJ 1,000 ML IV SCH (12:21)
--- NOTE | 2017-08-08 13:29 | RADRPT ---
EXAM DATE/TIME: 08/08/2017 11:44 [facility] COMPARISON: CT ABDOMEN & PELVIS W CONTRAST, August 04, 2017, 16:15. CT ASSISTED ABSCESS DRAIN, August 05, 2017 , 14:14. INDICATIONS : Follow up for abcess drainage. ORAL CONTRAST: No oral contrast ingested. RADIATION DOSE: 10.60 CTDIvol (mGy) MEDICAL HISTORY : Diverticulitis. Gout SURGICAL HISTORY : Abcess drainages. ENCOUNTER: Subsequent ACUITY: 3 days PAIN SCALE: 6/10 LOCATION: Bilateral pelvis TECHNIQUE: Volumetric scanning of the pelvis was performed. Using automated exposure control and adjustment of the mA and/or kV according to patient size, radiation dose was kept as low as reasonably achievable t o obtain optimal diagnostic quality images. DICOM format image data is available electronically for review and comparison. FINDINGS: BOWEL/MESENTERY: Neural thickening in the sigmoid. Pericolonic stranding. Pericolonic abscess collections, one at the junction of the descending and sigmoid colon and the other juxtaposed between the sigmoid and urinary bladder have both resolved with drainage catheters in place. There is some persistent regional peric olonic stranding. BLADDER: There is no wall thickening or mass. RETROPERITONEUM: There is no aneurysm or lymphadenopathy. REPRODUCTIVE: Within normal limits. INGUINAL: There is no lymphadenopathy. Small right inguinal hernia measures 1.8 cm in diameter and only contain s fat. MUSCULOSKELETAL: Within normal limits for patient age. CONCLUSION: 1. 2 separate pericolonic abscess collections in the region of the sigmoid have resolved the percutan eous drainage. There is still some regional stranding in the pericolonic fatty tissues, however. 2. A 1.8 cm right inguinal hernia only contains fat. Jay Delacruz MD on August 08, 2017 at 13:23 Board Certified Radiologist. This report was verified electronically.
[2017-08-08 15:05] LABS: AUTOMATED NEUTROPHIL # 10.9 TH/MM3 (1.8-7.7); BASOPHIL % 0.4 % (0.0-2.0); EOSINOPHIL % 0.3 % (0.0-4.0); HEMATOCRIT 33.6 % (39.0-51.0); HEMO FLAGS DIFF FINAL; LYMPH % 9.9 % (9.0-44.0); LYMPHOCYTE # 1.3 TH/MM3 (1.0-4.8); MEAN CELL VOLUME 89.7 FL (80.0-100.0); MEAN CORPUSCULAR HEMOGLOBIN 29.3 PG (27.0-34.0); MEAN CORPUSCULAR HGB CONC 32.7 % (32.0-36.0); NEUT % 81.4 % (16.0-70.0); PLATELET COUNT 393 TH/MM3 (150-450); RED BLOOD COUNT 3.75 MIL/MM3 (4.50-5.90); WHITE BLOOD COUNT 13.4 TH/MM3 (4.0-11.0)
[2017-08-08 15:17] LABS: POTASSIUM 4.2 MEQ/L (3.5-5.1)
--- NOTE | 2017-08-08 15:18 | HHI.IDPN ---
Subjective Subjective Remarks is a 41 y/o CM with a history of diverticula with diverticulitis, Intra abdominal abscess. Patient was just discharged on July [address]-guided drainage of an abdominal abscess. He stated since leaving the hospital he has not felt himself, he has been unable to eat, unable to have a bowel movement since . He states he's had constant fevers at home with chills he was taking ibuprofen for. He states he woke up on day of admission and after having the bowel movement he began to have blurry vision, nausea, vomiting, and abdominal pain. He states the abdominal pain is in his lower abdomen, tender to touch, intermittent 10 out of 10. He denies any red or black colored stools, no diarrhea. He states the pain medicine is helping but does not last very long, he is wondering if he can have something in between like tramadol. He does not want strong narcotics. He denies any chest pain or shortness of breath. In ED patient had a CT A/P which showed 3 new abscesses. was consulted and pt underwent IR guided drainage of abscess. Call was placed to IR and cultures added by me. ID was consulted by for recurrent intra- abdominal abscesses. Pt was empirically started on Zosyn IV. Prior cultures from 07/28/17 were reviewed and E.coli is resistant to Zosyn (current med in hospital) and Levaquin (home med). Pt reports fevers, chills post discharge while on oral antibiotics at home. Pt denies night sweats Reports constipation. reports light headedness. Overnight events reviewed. No rash No diarrhea Complains of right knee pain. MRI right knee: ruptured Bakers cyst with large effusion. Antibiotics I attest I reviewed, obtained, or updated pts home meds and current meds. Meropenem IV Micafungin IV Reported Meds & Active Scripts Active Reported Zyloprim (Allopurinol) 300 Mg Tab 300 Mg PO DAILY Current Medications Medications (Trade) Dose Ordered Sig/Eleazar Route Start Time Stop Time Status Last Admin Sodium Chloride 1,000 ml @ 100 mls/hr Q10H IV 08/04/17 20:00 08/06/17 05:08 (NS Flush) 2 ml UNSCH PRN IV FLUSH 08/04/17 18:45 08/05/17 08:47 (NS Flush) 2 ml BID IV FLUSH 08/04/17 21:00 08/06/17 09:39 (Narcan Inj) 0.4 mg UNSCH PRN IV PUSH 08/04/17 18:45 (Milk Of Magnesia Liq) 30 ml Q12H PRN PO 08/04/17 18:45 (Senokot) 17.2 mg Q12H PRN PO 08/04/17 18:45 (Dulcolax Supp) 10 mg DAILY PRN RECTAL 08/04/17 18:45 (Lactulose Liq) 30 ml DAILY PRN PO 08/04/17 18:45 (Ultram) 50 mg Q4H PRN PO 08/04/17 20:45 08/06/17 17:31 (Dilaudid Pf Inj) 1 mg Q3H PRN IV 08/04/17 20:45 08/06/17 18:40 (Colace) 100 mg DAILY PO 08/05/17 09:00 08/06/17 09:39 (Reglan Inj) 5 mg Q8H PRN IV PUSH 08/05/17 11:15 08/06/17 09:38 Meropenem 500 mg/ Sodium Chloride 100 ml @ 200 mls/hr Q8H IV 08/05/17 15:00 08/06/17 17:31 Micafungin Sodium 150 mg/Sodium Chloride 100 ml @ 100 mls/hr Q24H IV 08/05/17 15:00 08/06/17 16:02 (NS Flush) 15 ml BID .XX 08/05/17 21:00 08/06/17 09:39 (Zyloprim) 300 mg DAILY PO 08/06/17 15:00 08/06/17 16:01 Lines Line sites with no e.o infection Past Medical History reviewed Allergies: Coded Allergies: acetaminophen (Verified Allergy, Unknown, 08/04/17) morphine (Verified Adverse Reaction, Unknown, 08/04/17) Objective . Vital Signs Date Time Temp Pulse Resp B/P (MAP) Pulse Ox O2 Delivery O2 Flow Rate FiO2 08/08/17 12:49 16 08/08/17 12:21 98.0 74 18 171/98 (122) 94 08/08/17 09:54 16 08/08/17 08:02 98.2 73 18 137/85 (102) 94 08/08/17 04:00 98.1 66 18 146/83 (104) 94 08/08/17 00:00 99.4 72 18 141/93 (109) 95 08/07/17 20:00 98.4 76 18 166/88 (114) 96 08/07/17 16:00 99.1 78 18 156/97 (116) 96 08/08/17 08/08/17 08/09/17 15:00 23:00 07:00 Intake Total 360 ml Output Total 650 ml Balance -290 ml Intake Oral 360 ml Output Urine Total 650 ml . Laboratory Tests Test 08/07/17 12:45 08/08/17 13:55 White Blood Count 14.7 TH/MM3 13.4 TH/MM3 Red Blood Count 3.79 MIL/MM3 3.75 MIL/MM3 Hemoglobin 11.4 GM/DL 11.0 GM/DL Hematocrit 34.2 % 33.6 % Mean Corpuscular Volume 90.5 FL 89.7 FL Mean Corpuscular Hemoglobin 30.2 PG 29.3 PG Mean Corpuscular Hemoglobin Concent 33.4 % 32.7 % Red Cell Distribution Width 15.3 % 15.0 % Platelet Count 403 TH/MM3 393 TH/MM3 Mean Platelet Volume 9.1 FL 8.9 FL Neutrophils (%) (Auto) 81.2 % 81.4 % Lymphocytes (%) (Auto) 10.5 % 9.9 % Monocytes (%) (Auto) 7.6 % 8.0 % Eosinophils (%) (Auto) 0.4 % 0.3 % Basophils (%) (Auto) 0.3 % 0.4 % Neutrophils # (Auto) 11.9 TH/MM3 10.9 TH/MM3 Lymphocytes # (Auto) 1.5 TH/MM3 1.3 TH/MM3 Monocytes # (Auto) 1.1 TH/MM3 1.1 TH/MM3 Eosinophils # (Auto) 0.1 TH/MM3 0.0 TH/MM3 Basophils # (Auto) 0.0 TH/MM3 0.0 TH/MM3 CBC Comment DIFF FINAL DIFF FINAL Differential Comment Erythrocyte Sedimentation Rate 78 mm/hr Laboratory Tests Test 08/07/17 12:57 08/08/17 13:55 Blood Urea Nitrogen 4 MG/DL Creatinine 0.69 MG/DL Random Glucose 95 MG/DL Calcium Level 8.7 MG/DL Magnesium Level 1.9 MG/DL Uric Acid 3.8 MG/DL Sodium Level 135 MEQ/L Potassium Level 3.7 MEQ/L Chloride Level 97 MEQ/L Carbon Dioxide Level 29.6 MEQ/L Anion Gap 8 MEQ/L Estimat Glomerular Filtration Rate 126 ML/MIN C-Reactive Protein 22.00 MG/DL Microbiology Date/Time Source Procedure Growth Status 08/05/17 17:30 Blood Other Aerobic Blood Culture - Preliminary NO GROWTH IN 3 DAYS Resulted 08/05/17 17:30 Blood Other Anaerobic Blood Culture - Preliminary NO GROWTH IN 3 DAYS Resulted 08/05/17 17:24 Blood Other Aerobic Blood Culture - Preliminary NO GROWTH IN 3 DAYS Resulted 08/05/17 17:24 Blood Other Anaerobic Blood Culture - Preliminary NO GROWTH IN 3 DAYS Resulted Imaging Last Impressions Abscess Drainage CT 08/05/17 1516 Signed Impressions: Service Date/Time: Saturday, August 05, 2017 14:14 - CONCLUSION: 1. Uncomplicated CT-guided placement of drainage catheter in 3 separate perisigmoid abscess collections, as above. Approximately 15 mL of purulent fluid was submitted for Gram stain and C&S per request. Reuben Barrios MD Abdomen/Pelvis CT 08/04/17 1419 Signed Impressions: Service Date/Time: Friday, August 04, 2017 16:15 - CONCLUSION: 1. Worsening sigmoid colitis/diverticulitis with associated enlarging perisigmoid abscesses in the left lower quadrant. These include a 4.6 x 3.3 cm abscesses anterolaterally, 4.2 x 3.8 cm abscess medially abutting the left lateral wall of the bladder and new 2.7 x 1.6 cm developing abscess posteriorly near the junction of the descending and sigmoid colon. Reuben Barrios MD Physical Exam GENERAL: This is a well-nourished, well-developed patient, in no apparent distress. SKIN: No rashes, ecchymoses or lesions. Cool and dry. HEAD: Atraumatic. Normocephalic. No temporal or scalp tenderness. EYES: Pupils equal round and reactive. Extraocular motions intact. No scleral icterus. No injection or drainage. ENT: Nose without bleeding, purulent drainage or septal hematoma. Throat without erythema, tonsillar hypertrophy or exudate. Uvula midline. Airway patent. NECK: Trachea midline. Supple, nontender, no meningeal signs. CARDIOVASCULAR: Regular rate and rhythm without murmurs, gallops, or rubs. RESPIRATORY: Clear to auscultation. Breath sounds equal bilaterally. No wheezes , rales, or rhonchi. GASTROINTESTINAL: Abdomen soft, diffuse tenderness most in LQs. Drains placed by IR. MUSCULOSKELETAL: Extremities without clubbing, cyanosis, or edema. No joint tenderness, effusion, or edema noted. No calf tenderness. Negative Homans sign bilaterally. NEUROLOGICAL: Awake and alert. no obvious focal neuro deficit. Psych cooperative. IV line sites with no e.o infection. Assessment & Plan Remarks Sepsis present on admission (fever, WBC elevation, source: Intra abd abscess) Intra abdominal abscess secondary to diverticulitis. Concern for ESBL given last cultures. Acute metabolic encephalopathy: sepsis, meds. Hypoalbuminemia: ? nutritional given chronic GI issues. Acute renal failure on admission ? prerenal now resolved. recs Continue Meropenem IV (ASP criteria: fevers despite IV antibiotics, based on prior cultures and delay in appropriate antibiotic concern for ESBL) Await susceptibility of the Enterococcus to deescalate regimen. Right knee effusion from Ruptured Warren's cyst less likely to be infectious etiology. Await Ortho input. If pt goes to OR or arthrocentesis please send following Gram stain and Culture AFB stain and culture Fungal stain and culture. If goes for arthrocentesis send fluid cell studies, crystals. DC Micafungin IV (no fungal growth) Follow cultures Follow clinically. to cover for me this weekend. Nanci Newman MD Aug 08, 2017 15:18
[2017-08-08 16:26] VITALS: BP 152/90; PULSE 68; RESP 18; TEMP 99; O2SAT 93
[2017-08-08 20:42] VITALS: BP 157/92; PULSE 76; RESP 20; TEMP 99.4; O2SAT 96
[2017-08-09] VITALS (7 sets, daily range): BP systolic 92–164; BP diastolic 53–98; PULSE 72–85; RESP 16–20; TEMP 97.2–99.8; O2SAT 92–97
[2017-08-09] MEDS: HYDROmorphone HCL PF 0.5 MG/0.5 ML SYRINGE IV PRN ×5 (00:11→19:04)
[2017-08-09] MEDS: METOCLOPRAMIDE HCL 10 MG/2 ML VIAL IV PUSH PRN ×2 (00:17→13:07)
[2017-08-09] MEDS: SODIUM CHLOR 0.9% 1000 ML INJ 1,000 ML IV SCH ×3 (00:17→20:00)
[2017-08-09] MEDS: MEROPENEM INJ 500 MG in SODIUM CHLORIDE 0.9% INJ 100 ML IV SCH ×3 (06:34→22:21)
[2017-08-09] MEDS ORDERED: LIDOCAINE HCL 1% 50 ML VIAL ONE (08:06)
[2017-08-09] MEDS: SODIUM CHLORIDE 0.9% FLUSH 10 ML FLUSH SCH ×2 (08:34→22:24)
[2017-08-09] MEDS: DOCUSATE SODIUM 100 MG CAP PO SCH (08:34)
[2017-08-09] MEDS: ALLOPURINOL 300 MG TAB PO SCH (08:34)
[2017-08-09] MEDS: SODIUM CHLORIDE 0.9% FLUSH 10 ML FLUSH IV FLUSH SCH ×2 (08:34→21:00)
[2017-08-09] MEDS: COLCHICINE 0.6 MG TAB PO SCH ×2 (08:34→22:21)
--- NOTE | 2017-08-09 08:42 | PD.ORT.PN ---
Subjective Subjective Remarks Patient is admitted due to recurrent abdominal abscess. He also is a history of gout. He is continuing to improve with abdominal complaints but is now concerned about swelling and pain to right knee and some tenderness to the left ankle. He has no history of injury or trauma to the knee. No new injuries Objective Vitals Vital Signs Date Time Temp Pulse Resp B/P (MAP) Pulse Ox O2 Delivery O2 Flow Rate FiO2 08/09/17 08:23 99.8 72 20 163/93 (116) 95 08/09/17 04:31 99.5 75 20 164/95 (118) 96 08/09/17 00:17 99.5 75 20 152/98 (116) 96 08/08/17 20:42 99.4 76 20 157/92 (113) 96 08/08/17 16:42 15 08/08/17 16:26 99.0 68 18 152/90 (110) 93 08/08/17 15:55 16 08/08/17 12:21 98.0 74 18 171/98 (122) 94 I/O 08/08/17 08/08/17 08/08/17 08/09/17 08/09/17 08/09/17 07:00 15:00 23:00 07:00 15:00 23:00 Intake Total 0.5 ml 360 ml 1695 ml Output Total 650 ml 300 ml 650 ml Balance 0.5 ml -290 ml -300 ml 1045 ml Intake Oral 360 ml IV Total 0.5 ml 1695 ml Output Urine Total 650 ml 300 ml 650 ml # Voids 2 # Bowel Movements 0 1 Result Diagram: 08/08/17 1355 08/08/17 1355 Imaging Last [address] 08/08/17 0000 Signed Impressions: Service Date/Time: Tuesday, August 08, 2017 11:44 - CONCLUSION: 1. 2 separate pericolonic abscess collections in the region of the sigmoid have resolved the percutaneous drainage. There is still some regional stranding in the pericolonic fatty tissues, however. 2. A 1.8 cm right inguinal hernia only contains fat. Jay Delacruz MD Knee MRI 08/07/17 0000 Signed Impressions: Service Date/Time: July 14:46 - CONCLUSION: 1. Large knee effusion and large Warren's cyst with probable rupture of the Warren's cyst. 2. No meniscal tear seen. Matias Ohara MD Procedures Aspiration right knee: After informed consent his right knee is sterilely prepped with alcohol and ChloraPrep. 1 cc of 1% lidocaine is injected creating a wheel at the aspiration site. Using a 20-gauge spinal needle and sterile technique his right knee is aspirated initially visualizing clear fluid. Aspiration is continued and 8 cc of semi-clear fluid that is red tinged is aspirated. Patient tolerates procedure well. Bandages placed upon it and we'll continue to ice Objective Remarks Examination of the right lower extremity reveals no pain with hip range of motion. Examination of the knee reveals swelling of +2. He has tenderness to palpation surrounding the knee. He is unable to fully extend the knee. He is 5 short of full extension and is only able to flex to approximately 40. He has significant tenderness with range of motion of the knee. Distally he has intact sensation with good capillary refills active dorsiflexion plantar flexion of foot Assessment & Plan Assessment and Plan Right knee effusion with probable gout With history alone of gout conservative measures would be continued to be followed. But with accompanying abdominal abscess aspiration of the knee is necessary to rule out any infection of the knee that may be seeded through bloodstream. After informed consent 8 cc of semi-clear blood-tinged fluid is aspirated from the right knee. We will send to laboratory for by blood cell count, culture and sensitivity, and crystal studies. Aspiration does appear to be a gouty inflammation. We will follow cultures and plan accordingly. Patient was also seen and examined by Dr. Conde. Aspiration was done by myself Ice and elevate Physical therapy for passive and active range of motion of knee. Full weightbearing David Beatty Jr. Aug 09, 2017 08:42
--- NOTE | 2017-08-09 09:55 | MB ---
cc: RANJEET ZAVALA MD, TODD DATE OF CONSULTATION: 08/09/2017 REASON FOR CONSULTATION: Right knee pain and swelling. CONSULTING PHYSICIAN Dr. Zavala. HISTORY Power is a 41 year-old male who presented to the emergency room with abdominal pain and fevers and chills. He has a recent history of abdominal abscess secondary to diverticulitis. He also has history of right knee pain. Over the past few days pain is progressively worsened. He has noticed have significant swelling, previous had a history of gout. He states that the pain currently is more intense then his normal gout pain. He is having some difficulty walking. He is currently being treated for gout. He states that pain has slightly improved over the past day. He has had significant right knee pain and swelling. Pain is worse with movement. PAST MEDICAL HISTORY Gout Diverticulitis. PAST SURGICAL HISTORY: Chest tube placement. Abdominal abscess drainage. CURRENT MEDICATIONS Please see EMR completes MEDICATIONS ON ADMISSION This was for complete list of his medication were reviewed. ALLERGIES TYLENOL MORPHINE FAMILY HISTORY: Positive for diabetes in father. Cardiac arrhythmia and hypertension in his mother. SOCIAL HISTORY The patient smokes a proximally one to two packs of cigarettes a day. He drinks alcohol socially. He denies drug use. REVIEW OF SYSTEMS The patient denies headache, visual changes, neck pain, chest pain and recent weight loss. Chills and numbness and extremities. He has had recent nausea, vomiting, as well as abdominal pain. He also had significant right knee pain. He has noticed some mild left ankle pain and swelling. PHYSICAL EXAMINATION IN GENERAL: The patient is a pleasant 42-year-old male in no acute distress. He is awake and alert. He is alert and x3. Appears well-developed, well-nourished. VITAL SIGNS: Temperature 99.5, pulse 75, respirations 20, blood pressure 164/95, O2 sat 96% on room air. HEAD, EYES, EARS, NOSE, AND THROAT: Head: The patient is normocephalic. Pupils are equal. NECK: Soft, nontender. Trachea is midline. ABDOMEN: The abdomen is soft, nondistended. He does have a drain tube in place. EXTREMITIES: Examination of bilateral upper extremities shows no pain with shoulder, elbow or wrist motion. He has intact sensation in all fingers. Has good cap refill fingers. Skin is intact. Radial pulses are palpable. Examination of left leg reveals no pain with hip or knee motion. He has mild swelling around the ankle. He has mild discomfort with ankle motion. Skin is intact. Dorsalis pedis pulses palpable. Examination of right leg reveals no tenderness on his hip or ankle. Skin is intact in right foot. Dorsalis pedis pulses palpable. Examination of his knee reveals a moderate-sized knee effusion. There is mild knee warmth. Knee range of motion is from 2 to 30 degrees with mild discomfort. His knee is <<2:40>> with varus stresses. X-rays MRI of right knee reveals a large knee effusion with a Warren cyst present. IMPRESSION 1. Gout. 2. Recent abdominal abscess status post drainage. 3. Right knee pain and swelling. PLAN The treatment options were discussed with the patient at this point the patients pain in his right knee may be coming from gout. However, given his recent abdominal infection. There is a possibility that he has a secondary infection of the right knee. The options were discussed with the patient. At this point I would recommend right knee aspiration. Risk of aspiration discussed with the patient. The patient given consent for procedure. Myself or my physician bakery assistant will aspirate his right knee today and send the fluid to be evaluated for cultures, gram stain, cell count, and crystal studies. All questions were answered. A mid-level provider in my office (nurse practitioner or physician bakery assistant) may see this patient on follow-up visits and continue to implement the objectives of this plan including: Starting or adjusting medications, injections , cast application, orthotics, brace application, physical therapy, radiological studies (including x-ray, MRI, CT, ultrasound, bone scan), vascular studies, neurologic studies, specialist consultation, and proceeding with surgical management, as appropriate. MD DEVANTE Bills/chapincito /8:20 AM /9:43 AM TITUS
--- NOTE | 2017-08-09 11:12 | HHI.PR ---
Subjective Remarks still with pain right knee- limited range of motion Objective Vitals Vital Signs Date Time Temp Pulse Resp B/P (MAP) Pulse Ox O2 Delivery O2 Flow Rate FiO2 08/09/17 10:18 16 08/09/17 09:12 16 08/09/17 08:23 99.8 72 20 163/93 (116) 95 08/09/17 04:31 99.5 75 20 164/95 (118) 96 08/09/17 00:17 99.5 75 20 152/98 (116) 96 08/08/17 20:42 99.4 76 20 157/92 (113) 96 08/08/17 16:26 99.0 68 18 152/90 (110) 93 08/08/17 12:21 98.0 74 18 171/98 (122) 94 I/O 08/08/17 08/08/17 08/08/17 08/09/17 08/09/17 08/09/17 07:00 15:00 23:00 07:00 15:00 23:00 Intake Total 0.5 ml 360 ml 1695 ml Output Total 650 ml 300 ml 650 ml Balance 0.5 ml -290 ml -300 ml 1045 ml Intake Oral 360 ml IV Total 0.5 ml 1695 ml Output Urine Total 650 ml 300 ml 650 ml # Voids 2 # Bowel Movements 0 1 1 Result Diagram: 08/09/17 0858 08/08/17 1355 Imaging Last Impressions Pelvis CT 08/08/17 0000 Signed Impressions: Service Date/Time: Tuesday, August 08, 2017 11:44 - CONCLUSION: 1. 2 separate pericolonic abscess collections in the region of the sigmoid have resolved the percutaneous drainage. There is still some regional stranding in the pericolonic fatty tissues, however. 2. A 1.8 cm right inguinal hernia only contains fat. Jay Delacruz MD Knee MRI 08/07/17 0000 Signed Impressions: Service Date/Time: July 14:46 - CONCLUSION: 1. Large knee effusion and large Warren's cyst with probable rupture of the Warren's cyst. 2. No meniscal tear seen. Matias Ohara MD Abscess Drainage CT 08/05/17 1516 Signed Impressions: Service Date/Time: Saturday, August 05, 2017 14:14 - CONCLUSION: 1. Uncomplicated CT-guided placement of drainage catheter in 3 separate perisigmoid abscess collections, as above. Approximately 15 mL of purulent fluid was submitted for Gram stain and C&S per request. Reuben Barrios MD Abdomen/Pelvis CT 08/04/17 1419 Signed Impressions: Service Date/Time: Friday, August 04, 2017 16:15 - CONCLUSION: 1. Worsening sigmoid colitis/diverticulitis with associated enlarging perisigmoid abscesses in the left lower quadrant. These include a 4.6 x 3.3 cm abscesses anterolaterally, 4.2 x 3.8 cm abscess medially abutting the left lateral wall of the bladder and new 2.7 x 1.6 cm developing abscess posteriorly near the junction of the descending and sigmoid colon. Reuben Barrios MD Objective Remarks awake and alert, no acute distress anicteric lungs clear regular rhythm abdomen- soft + BS, + drain in place- lower abdominal area, no guarding,non tender left knee- no swelling, no erythema right knee- - still effusion- decrease c/w yesterday, wtill with limited range of motion, pain on weightbearing no toes involvement, no swelling no redness right calf slightly tender Procedures 08/06- CT guided aspiration of abdoinal abscess with placement of 3 separate drains 1027- aspiration right knee A/P Problem List: (1) Diverticulitis of intestine with abscess ICD Code: K57.80 - Diverticulitis of intestine, part unspecified, with perforation and abscess without bleeding Status: Acute (2) Leukocytosis ICD Code: D72.829 - Elevated white blood cell count, unspecified Status: Acute (3) Acute kidney injury ICD Code: N17.9 - Acute kidney failure, unspecified Status: Acute Assessment and Plan 41-year-old male with a history of diverticula and gout presented to the ED with nausea, vomiting, abdominal pain, fever, and chills. Sepsis secondary to Diverticular abscesses- recurrent episode of diverticulitis S/P CT guided drainage with [address]- 08/05 Leukocytosis, WBC 18.4, source abdominal abscess, lactic acid 1.0 ff cultures- negative for fungal elements. ff cultures - ID ff along with us - on Meropenem -will likely need eventual surgery - -patient agreeable- timing per GS- ff along with us repeat CBC persistent nausea- get abdominal film XRay Acute gouty attack- - fluid + crystals S/P arthrocentesis 08/08 History of gout - continue on colchicine bid. give s4 hours NSAIds dose - monitor renal functions ESR, CRP elevated ff synovial fluid studies- culture PT consult- gait Acute kidney injury, improving creatinine, non oliguric -IVF for hydration - ff BMP DVT prophylaxis SCDs- early ambulation Discussed Condition With Patient Problem Qualifiers (1) Diverticulitis of intestine with abscess: Qualified Codes: K57.20 - Diverticulitis of large intestine with perforation and abscess without bleeding (2) Leukocytosis: Qualified Codes: D72.828 - Other elevated white blood cell count Juan J Navarro MD Aug 09, 2017 11:12
[2017-08-09] MEDS ORDERED: PANTOPRAZOLE SOD 40 MG DELAYED RELEASE TAB PO SCH (11:15)
[2017-08-09] MEDS: IBUPROFEN 600 MG TAB PO SCH ×2 (11:38→20:00)
--- NOTE | 2017-08-09 13:53 | HHI.PR ---
Subjective Subjective Notes CT pelvis shows resolution of IAA pt with some NV today Objective Vitals/I&O Vital Signs Date Time Temp Pulse Resp B/P (MAP) Pulse Ox O2 Delivery O2 Flow Rate FiO2 08/09/17 13:37 85 16 92/53 (66) 92 08/09/17 12:41 98.8 Labs Laboratory Tests Test 08/08/17 13:55 08/09/17 08:31 08/09/17 08:58 White Blood Count 13.4 12.2 Red Blood Count 3.75 Hemoglobin 11.0 Hematocrit 33.6 Mean Corpuscular Volume 89.7 Mean Corpuscular Hemoglobin 29.3 Mean Corpuscular Hemoglobin Concent 32.7 Red Cell Distribution Width 15.0 Platelet Count 393 Mean Platelet Volume 8.9 Neutrophils (%) (Auto) 81.4 Lymphocytes (%) (Auto) 9.9 Monocytes (%) (Auto) 8.0 Eosinophils (%) (Auto) 0.3 Basophils (%) (Auto) 0.4 Neutrophils # (Auto) 10.9 Lymphocytes # (Auto) 1.3 Monocytes # (Auto) 1.1 Eosinophils # (Auto) 0.0 Basophils # (Auto) 0.0 CBC Comment DIFF FINAL Differential Comment Blood Urea Nitrogen 6 Creatinine 0.63 Random Glucose 83 Calcium Level 8.5 Sodium Level 134 Potassium Level 4.2 Chloride Level 97 Carbon Dioxide Level 31.0 Anion Gap 6 Estimat Glomerular Filtration Rate 140 Synovial Fluid Crystals POS - URIC ACID Date/Time Source Procedure Growth Status 08/05/17 17:30 Blood Other Aerobic Blood Culture - Preliminary NO GROWTH IN 4 DAYS Resulted 08/05/17 17:30 Blood Other Anaerobic Blood Culture - Preliminary NO GROWTH IN 4 DAYS Resulted 08/09/17 08:31 Fluid Synovial Fluid Gram Stain Pending Received 08/09/17 08:31 Fluid Synovial Fluid Body Fluid Culture Pending Received 08/05/17 14:30 Abscess Abdomen Fungal Smear - Final NO FUNGAL ELEMENTS SEEN. Resulted 08/05/17 14:30 Abscess Abdomen Fungal Culture Pending Resulted Radiology Last Impressions Knee MRI 08/07/17 0000 Signed Impressions: Service Date/Time: July 14:46 - CONCLUSION: 1. Large knee effusion and large Warren's cyst with probable rupture of the Warren's cyst. 2. No meniscal tear seen. Matias Ohara MD Abscess Drainage CT 08/05/17 1516 Signed Impressions: Service Date/Time: Saturday, August 05, 2017 14:14 - CONCLUSION: 1. Uncomplicated CT-guided placement of drainage catheter in 3 separate perisigmoid abscess collections, as above. Approximately 15 mL of purulent fluid was submitted for Gram stain and C&S per request. Reuben Barrios MD Abdomen/Pelvis CT 08/04/17 1419 Signed Impressions: Service Date/Time: Friday, August 04, 2017 16:15 - CONCLUSION: 1. Worsening sigmoid colitis/diverticulitis with associated enlarging perisigmoid abscesses in the left lower quadrant. These include a 4.6 x 3.3 cm abscesses anterolaterally, 4.2 x 3.8 cm abscess medially abutting the left lateral wall of the bladder and new 2.7 x 1.6 cm developing abscess posteriorly near the junction of the descending and sigmoid colon. Reuben Barrios MD Last 72 hours Impressions Abscess Drainage CT 08/05/17 1516 Signed Impressions: Service Date/Time: Saturday, August 05, 2017 14:14 - CONCLUSION: 1. Uncomplicated CT-guided placement of drainage catheter in 3 separate perisigmoid abscess collections, as above. Approximately 15 mL of purulent fluid was submitted for Gram stain and C&S per request. Reuben Barrios MD Abscess Drainage CT 08/05/17 1514 Signed Impressions: Service Date/Time: Saturday, August 05, 2017 14:14 - CONCLUSION: 1. Uncomplicated CT-guided placement of drainage catheter in 3 separate perisigmoid abscess collections, as above. Approximately 15 mL of purulent fluid was submitted for Gram stain and C&S per request. Reuben Barrios MD Abscess Drainage CT 08/05/17 1329 Signed Impressions: Service Date/Time: Saturday, August 05, 2017 14:14 - CONCLUSION: 1. Uncomplicated CT-guided placement of drainage catheter in 3 separate perisigmoid abscess collections, as above. Approximately 15 mL of purulent fluid was submitted for Gram stain and C&S per request. Reuben Barrios MD Abdomen: Non-distended, Non-tender Narrative Exam drain inplace A/P Problem List: (1) Colonic diverticular abscess ICD Codes: K57.20 - Diverticulitis of large intestine with perforation and abscess without bleeding Status: Acute (2) Intra-abdominal abscess ICD Codes: K65.1 - Peritoneal abscess Status: Acute (3) Gram-negative infection ICD Codes: A49.9 - Bacterial infection, unspecified Status: Acute (4) Diverticulitis of intestine with abscess ICD Codes: K57.80 - Diverticulitis of intestine, part unspecified, with perforation and abscess without bleeding Status: Acute (5) Leukocytosis ICD Codes: D72.829 - Elevated white blood cell count, unspecified Status: Acute (6) Diverticulitis ICD Codes: K57.92 - Diverticulitis of intestine, part unspecified, without perforation or abscess without bleeding Status: Chronic (7) Elevated white blood cell count ICD Codes: D72.829 - Elevated white blood cell count, unspecified Status: Acute (8) Right knee pain ICD Codes: M25.561 - Pain in right knee Status: Acute (9) Warren's cyst, ruptured ICD Codes: M66.0 - Rupture of popliteal cyst Status: Acute Assessment and Plan 42-year-old male with 3 intra-abdominal abscesses from diverticular disease. CT shows resolution Previous cultures noted Appreciate infectious disease help Continue IV antibiotic therapy NV with clears today, continue clears Appears to be progressive nicely unfortunately now is having problems with gout to his right knee MRI shows a Warren cyst on the right knee that appears to be a ruptured Problem Qualifiers (1) Diverticulitis of intestine with abscess: Qualified Codes: K57.20 - Diverticulitis of large intestine with perforation and abscess without bleeding (2) Leukocytosis: Qualified Codes: D72.828 - Other elevated white blood cell count (3) Diverticulitis: Qualified Codes: K57.20 - Diverticulitis of large intestine with perforation and abscess without bleeding (4) Right knee pain: Qualified Codes: M25.561 - Pain in right knee Ronan Vasquez MD Aug 09, 2017 13:53
--- NOTE | 2017-08-09 14:39 | RADRPT ---
EXAM DATE/TIME: 08/09/2017 14:15 [facility] COMPARISON: No previous studies available for comparison. INDICATIONS : Right leg swelling. MEDICAL HISTORY : Diverticulitis. Dentures. GOUT. Alcohol use. Substance use. Tobacco use. SURGICAL HISTORY : Chest tube. ENCOUNTER: Initial ACUITY: 1 day PAIN SCORE: 4/10 LOCATION: Right leg. TECHNIQUE: Venous ultrasound of the leg was performed from the inguinal ligament to the proximal calf. Real-joan e, color Doppler and spectral tracing, compression and augmentation techniques were used. FINDINGS: There is normal compressibility of the deep venous system from the inguinal region to the proximal ca lf. No echogenic clot is seen in the lumen of the common femoral, femoral, popliteal, and posterior tibial veins. There is a normal response of the venous system to proximal and distal augmentation an d respiration. There is a Warren's cyst in the right popliteal fossa measuring 3.8 x 1.9 x 0.9 cm. CONCLUSION: 1. No evidence of deep venous thrombosis. 2. Small to moderate-sized Warren's cyst in the popliteal fossa. David Lu MD on August 09, 2017 at 14:37 Board Certified Radiologist. This report was verified electronically.
[2017-08-09] MEDS: ONDANSETRON HCL 4 MG/2 ML VIAL IV PUSH PRN (16:07)
--- NOTE | 2017-08-09 17:46 | RADRPT ---
EXAM DATE/TIME: 08/09/2017 17:30 [facility] COMPARISON: No previous studies available for comparison. INDICATIONS : Nausea and abdominal pain. MEDICAL HISTORY : Diverticulitis. SURGICAL HISTORY : Abcess drain, small intestine. ENCOUNTER: Initial ACUITY: 1 day PAIN SCORE: 4/10 LOCATION: Left lower abdomen, site of drain insertion. FINDINGS: Supine and upright views the abdomen were performed. Gas is seen in nondistended loops of small larg e bowel. The visualized lower lungs are clear. There is a small bore drainage catheter in the left lower quadrant. Osseous structures are intact. CONCLUSION: No dilated loops of small or large bowel. The Matias Ohara MD on August 09, 2017 at 17:43 Board Certified Radiologist. This report was verified electronically.
[2017-08-10] VITALS: BP 138/89; PULSE 67; RESP 18; TEMP 98.5; O2SAT 95
[2017-08-10] MEDS: HYDROmorphone HCL PF 0.5 MG/0.5 ML SYRINGE IV PRN ×5 (01:06→22:36)
[2017-08-10] MEDS: IBUPROFEN 600 MG TAB PO SCH (03:52)
[2017-08-10] MEDS: SODIUM CHLOR 0.9% 1000 ML INJ 1,000 ML IV SCH ×2 (05:30→16:00)
[2017-08-10] MEDS: MEROPENEM INJ 500 MG in SODIUM CHLORIDE 0.9% INJ 100 ML IV SCH ×3 (05:30→22:35)
--- NOTE | 2017-08-10 07:02 | PD.ORT.PN ---
Subjective Subjective Remarks States the pain in his knee is continuing to improve. He also has increased range of motion. He has been able to ambulate back and forth to the bathroom Objective Vitals Vital Signs Date Time Temp Pulse Resp B/P (MAP) Pulse Ox O2 Delivery O2 Flow Rate FiO2 08/10/17 00:00 98.5 67 18 138/89 (105) 95 08/09/17 20:00 98.5 72 18 125/86 (99) 95 08/09/17 17:01 97.2 78 20 99/70 (80) 96 08/09/17 16:14 16 08/09/17 13:37 85 16 92/53 (66) 92 08/09/17 12:41 98.8 72 20 131/88 (102) 97 08/09/17 12:20 16 08/09/17 08:23 99.8 72 20 163/93 (116) 95 I/O 08/09/17 08/09/17 08/09/17 08/10/17 08/10/17 08/10/17 07:00 15:00 23:00 07:00 15:00 23:00 Intake Total 1695 ml Output Total 650 ml 250 ml Balance 1045 ml -250 ml IV Total 1695 ml Output Urine Total 650 ml 250 ml # Bowel Movements 1 1 Result Diagram: 08/09/17 0858 08/08/17 1355 Imaging Last [address] 08/08/17 0000 Signed Impressions: Service Date/Time: Tuesday, August 08, 2017 11:44 - CONCLUSION: 1. 2 separate pericolonic abscess collections in the region of the sigmoid have resolved the percutaneous drainage. There is still some regional stranding in the pericolonic fatty tissues, however. 2. A 1.8 cm right inguinal hernia only contains fat. Jay Delacruz MD Knee MRI 08/07/17 0000 Signed Impressions: Service Date/Time: July 14:46 - CONCLUSION: 1. Large knee effusion and large Warren's cyst with probable rupture of the Warren's cyst. 2. No meniscal tear seen. Matias Ohara MD Procedures Aspiration right knee: After informed consent his right knee is sterilely prepped with alcohol and ChloraPrep. 1 cc of 1% lidocaine is injected creating a wheel at the aspiration site. Using a 20-gauge spinal needle and sterile technique his right knee is aspirated initially visualizing clear fluid. Aspiration is continued and 8 cc of semi-clear fluid that is red tinged is aspirated. Patient tolerates procedure well. Bandages placed upon it and we'll continue to ice Objective Remarks Examination of the right lower extremity reveals no pain with hip range of motion. Examination of the knee reveals swelling of +2. He has tenderness to palpation surrounding the knee. He is able to fully extend the knee. He is able to flex to approximately 60. He has moderate tenderness with range of motion of the knee. Distally he has intact sensation with good capillary refills active dorsiflexion plantar flexion of foot Assessment & Plan Assessment and Plan Right knee effusion with gout Aspiration does show gouty arthritis with no signs of infection Ice and elevate Physical therapy for passive and active range of motion of knee. Full weightbearing We will continue to follow cultures but anticipate it to show continued negative results No further orthopedic follow-up needed David Beatty Jr. Aug 10, 2017 07:02
[2017-08-10 07:52] LABS: BICARBONATE 27.6 MEQ/L (21.0-32.0); POTASSIUM 3.9 MEQ/L (3.5-5.1)
[2017-08-10] MEDS: DOCUSATE SODIUM 100 MG CAP PO SCH (08:37)
[2017-08-10] MEDS: ONDANSETRON HCL 4 MG/2 ML VIAL IV PUSH PRN ×2 (08:38→16:32)
[2017-08-10 08:48] VITALS: BP 128/86; PULSE 82; RESP 20; TEMP 99.6; O2SAT 92
[2017-08-10] MEDS: COLCHICINE 0.6 MG TAB PO SCH ×2 (09:30→21:02)
[2017-08-10] MEDS: SODIUM CHLORIDE 0.9% FLUSH 10 ML FLUSH SCH ×2 (09:30→21:04)
[2017-08-10] MEDS: ALLOPURINOL 300 MG TAB PO SCH (09:30)
[2017-08-10] MEDS: SODIUM CHLORIDE 0.9% FLUSH 10 ML FLUSH IV FLUSH SCH ×2 (09:30→21:02)
[2017-08-10] MEDS: PANTOPRAZOLE SODIUM 40 MG VIAL IV PUSH SCH (09:30)
--- NOTE | 2017-08-10 10:26 | HHI.PR ---
Subjective Remarks tolerated po well overnight + flatus and small BM right knee still with some pain, better range of motion, swelling decreased Objective Vitals Vital Signs Date Time Temp Pulse Resp B/P (MAP) Pulse Ox O2 Delivery O2 Flow Rate FiO2 08/10/17 08:48 99.6 82 20 128/86 (100) 92 08/10/17 00:00 98.5 67 18 138/89 (105) 95 08/09/17 20:00 98.5 72 18 125/86 (99) 95 08/09/17 17:01 97.2 78 20 99/70 (80) 96 08/09/17 16:14 16 08/09/17 13:37 85 16 92/53 (66) 92 08/09/17 12:41 98.8 72 20 131/88 (102) 97 08/09/17 12:20 16 I/O 08/09/17 08/09/17 08/09/17 08/10/17 08/10/17 08/10/17 07:00 15:00 23:00 07:00 15:00 23:00 Intake Total 1695 ml 100 ml 1100 ml Output Total 650 ml 250 ml 35 ml Balance 1045 ml -250 ml 100 ml 1065 ml IV Total 1695 ml 100 ml 1100 ml Output Urine Total 650 ml 250 ml Drainage Total 35 ml # Voids 1 # Bowel Movements 1 1 Result Diagram: 08/09/17 0858 08/10/17 0632 Imaging Last Impressions Lower Extremity Ultrasound 08/09/17 0000 Signed Impressions: Service Date/Time: Wednesday, August 09, 2017 14:15 - CONCLUSION: 1. No evidence of deep venous thrombosis. 2. Small to moderate-sized Warren's cyst in the popliteal fossa. David Lu MD Abdomen X-Ray 08/09/17 0000 Signed Impressions: Service Date/Time: Wednesday, August 09, 2017 17:30 - CONCLUSION: No dilated loops of small or large bowel. The Matias Ohara MD Pelvis CT 08/08/17 0000 Signed Impressions: Service Date/Time: Tuesday, August 08, 2017 11:44 - CONCLUSION: 1. 2 separate pericolonic abscess collections in the region of the sigmoid have resolved the percutaneous drainage. There is still some regional stranding in the pericolonic fatty tissues, however. 2. A 1.8 cm right inguinal hernia only contains fat. Jay Delacruz MD Knee MRI 08/07/17 0000 Signed Impressions: Service Date/Time: July 14:46 - CONCLUSION: 1. Large knee effusion and large Warren's cyst with probable rupture of the Warren's cyst. 2. No meniscal tear seen. Matias Ohara MD Abscess Drainage CT 08/05/17 1516 Signed Impressions: Service Date/Time: Saturday, August 05, 2017 14:14 - CONCLUSION: 1. Uncomplicated CT-guided placement of drainage catheter in 3 separate perisigmoid abscess collections, as above. Approximately 15 mL of purulent fluid was submitted for Gram stain and C&S per request. Reuben Barrios MD Abdomen/Pelvis CT 08/04/17 1419 Signed Impressions: Service Date/Time: Friday, August 04, 2017 16:15 - CONCLUSION: 1. Worsening sigmoid colitis/diverticulitis with associated enlarging perisigmoid abscesses in the left lower quadrant. These include a 4.6 x 3.3 cm abscesses anterolaterally, 4.2 x 3.8 cm abscess medially abutting the left lateral wall of the bladder and new 2.7 x 1.6 cm developing abscess posteriorly near the junction of the descending and sigmoid colon. Reuben Barrios MD Objective Remarks awake and alert, no acute distress anicteric lungs clear regular rhythm abdomen- soft + BS, + drain in place- lower abdominal area, no guarding,non tender left knee- no swelling, no erythema right knee- - minimal swelling , not hot, no erythema no toes involvement, no swelling no redness no calf swelling or tenderness Procedures 08/06- CT guided aspiration of abdoinal abscess with placement of 3 separate drains 1027- aspiration right knee A/P Problem List: (1) Diverticulitis of intestine with abscess ICD Code: K57.80 - Diverticulitis of intestine, part unspecified, with perforation and abscess without bleeding Status: Acute (2) Leukocytosis ICD Code: D72.829 - Elevated white blood cell count, unspecified Status: Acute (3) Acute kidney injury ICD Code: N17.9 - Acute kidney failure, unspecified Status: Acute Assessment and Plan 41-year-old male with a history of diverticula and gout presented to the ED with nausea, vomiting, abdominal pain, fever, and chills. Sepsis secondary to Diverticular abscesses- recurrent episode of diverticulitis S/P CT guided drainage with [address]- 08/05 - WBC down, final C and S- E coli and E faecalis - ID ff along with us - on Meropenem - D/w Dr. Herrera- add Zyvox for E faecalis coverage -will likely need eventual surgery - -patient agreeable- timing per GS- ff along with us Acute gouty attack- - fluid + crystals S/P arthrocentesis 08/08 History of gout - ruptured Warren's cyst, right continue on colchicine bid. ESR, CRP elevated synovial fluid cultures negative PT daily may need DME on DC Acute kidney injury, improving creatinine, non oliguric -IVF for hydration - ff BMP Discussed Condition With Patient Problem Qualifiers (1) Diverticulitis of intestine with abscess: Qualified Codes: K57.20 - Diverticulitis of large intestine with perforation and abscess without bleeding (2) Leukocytosis: Qualified Codes: D72.828 - Other elevated white blood cell count Juan J Navarro MD Aug 10, 2017 10:26
[2017-08-10] MEDS: LINEZOLID 600 MG TAB PO SCH ×2 (12:04→21:02)
[2017-08-10 12:12] VITALS: BP 137/86; PULSE 66; RESP 20; TEMP 99.2; O2SAT 95
--- NOTE | 2017-08-10 14:06 | HHI.PR ---
cc: Kenny Singleton MD Subjective Subjective Notes DAILY PROGRESS NOTE FOR SURGICAL ATTENDING, DR. KENNY SINGLETON Patient feels better His right knee feels better after aspiration I Objective Vitals/I&O Vital Signs Date Time Temp Pulse Resp B/P (MAP) Pulse Ox O2 Delivery O2 Flow Rate FiO2 08/10/17 13:56 18 08/10/17 12:12 99.2 66 137/86 (327) 95 Labs Microbiology Date/Time Source Procedure Growth Status 08/05/17 17:30 Blood Other Aerobic Blood Culture - Final NO GROWTH IN 5 DAYS Complete 08/05/17 17:30 Blood Other Anaerobic Blood Culture - Final NO GROWTH IN 5 DAYS Complete 08/09/17 08:31 Fluid Synovial Fluid Gram Stain - Final Resulted 08/09/17 08:31 Fluid Synovial Fluid Body Fluid Culture - Preliminary NO GROWTH IN 24 HOURS. Resulted 08/05/17 14:30 Abscess Abdomen Fungal Smear - Final NO FUNGAL ELEMENTS SEEN. Resulted 08/05/17 14:30 Abscess Abdomen Fungal Culture Pending Resulted Microbiology Date/Time Source Procedure Growth Status 08/09/17 08:31 Fluid Synovial Fluid Gram Stain - Final Resulted 08/09/17 08:31 Fluid Synovial Fluid Body Fluid Culture - Preliminary NO GROWTH IN 24 HOURS. Resulted Laboratory Tests Test 08/10/17 06:32 Blood Urea Nitrogen 8 Creatinine 0.78 Random Glucose 85 Calcium Level 8.3 Sodium Level 139 Potassium Level 3.9 Chloride Level 103 Carbon Dioxide Level 27.6 Anion Gap 8 Estimat Glomerular Filtration Rate 110 Date/Time Source Procedure Growth Status 08/05/17 17:30 Blood Other Aerobic Blood Culture - Final NO GROWTH IN 5 DAYS Complete 08/05/17 17:30 Blood Other Anaerobic Blood Culture - Final NO GROWTH IN 5 DAYS Complete 08/09/17 08:31 Fluid Synovial Fluid Gram Stain - Final Resulted 08/09/17 08:31 Fluid Synovial Fluid Body Fluid Culture - Preliminary NO GROWTH IN 24 HOURS. Resulted 08/05/17 14:30 Abscess Abdomen Fungal Smear - Final NO FUNGAL ELEMENTS SEEN. Resulted 08/05/17 14:30 Abscess Abdomen Fungal Culture Pending Resulted Radiology Last 72 hours Impressions Lower Extremity Ultrasound 08/09/17 0000 Signed Impressions: Service Date/Time: Wednesday, August 09, 2017 14:15 - CONCLUSION: 1. No evidence of deep venous thrombosis. 2. Small to moderate-sized Warren's cyst in the popliteal fossa. David Lu MD Abdomen X-Ray 08/09/17 0000 Signed Impressions: Service Date/Time: Wednesday, August 09, 2017 17:30 - CONCLUSION: No dilated loops of small or large bowel. The Matias Ohara MD Pelvis CT 08/08/17 0000 Signed Impressions: Service Date/Time: Tuesday, August 08, 2017 11:44 - CONCLUSION: 1. 2 separate pericolonic abscess collections in the region of the sigmoid have resolved the percutaneous drainage. There is still some regional stranding in the pericolonic fatty tissues, however. 2. A 1.8 cm right inguinal hernia only contains fat. Jay Delacruz MD Last Impressions Knee MRI 08/07/17 0000 Signed Impressions: Service Date/Time: July 14:46 - CONCLUSION: 1. Large knee effusion and large Warren's cyst with probable rupture of the Warren's cyst. 2. No meniscal tear seen. Matias Ohara MD Abscess Drainage CT 08/05/17 1516 Signed Impressions: Service Date/Time: Saturday, August 05, 2017 14:14 - CONCLUSION: 1. Uncomplicated CT-guided placement of drainage catheter in 3 separate perisigmoid abscess collections, as above. Approximately 15 mL of purulent fluid was submitted for Gram stain and C&S per request. Reuben Barrios MD Abdomen/Pelvis CT 08/04/17 1419 Signed Impressions: Service Date/Time: Friday, August 04, 2017 16:15 - CONCLUSION: 1. Worsening sigmoid colitis/diverticulitis with associated enlarging perisigmoid abscesses in the left lower quadrant. These include a 4.6 x 3.3 cm abscesses anterolaterally, 4.2 x 3.8 cm abscess medially abutting the left lateral wall of the bladder and new 2.7 x 1.6 cm developing abscess posteriorly near the junction of the descending and sigmoid colon. Reuben Barrios MD Last 72 hours Impressions Abscess Drainage CT 08/05/17 1516 Signed Impressions: Service Date/Time: Saturday, August 05, 2017 14:14 - CONCLUSION: 1. Uncomplicated CT-guided placement of drainage catheter in 3 separate perisigmoid abscess collections, as above. Approximately 15 mL of purulent fluid was submitted for Gram stain and C&S per request. Reuben Barrios MD Abscess Drainage CT 08/05/17 1514 Signed Impressions: Service Date/Time: Saturday, August 05, 2017 14:14 - CONCLUSION: 1. Uncomplicated CT-guided placement of drainage catheter in 3 separate perisigmoid abscess collections, as above. Approximately 15 mL of purulent fluid was submitted for Gram stain and C&S per request. Reuben Barrios MD Abscess Drainage CT 08/05/17 1329 Signed Impressions: Service Date/Time: Saturday, August 05, 2017 14:14 - CONCLUSION: 1. Uncomplicated CT-guided placement of drainage catheter in 3 separate perisigmoid abscess collections, as above. Approximately 15 mL of purulent fluid was submitted for Gram stain and C&S per request. Reuben Barrios MD Cardiovascular: Regular Lungs: Clear Abdomen: Other (some discomfort and drain site) Extremities: Perfused Narrative Exam Patient awake alert oriented feels more comfortable except for his right knee A/P Problem List: (1) Colonic diverticular abscess ICD Codes: K57.20 - Diverticulitis of large intestine with perforation and abscess without bleeding Status: Acute (2) Intra-abdominal abscess ICD Codes: K65.1 - Peritoneal abscess Status: Acute (3) Gram-negative infection ICD Codes: A49.9 - Bacterial infection, unspecified Status: Acute (4) Diverticulitis of intestine with abscess ICD Codes: K57.80 - Diverticulitis of intestine, part unspecified, with perforation and abscess without bleeding Status: Acute (5) Leukocytosis ICD Codes: D72.829 - Elevated white blood cell count, unspecified Status: Acute (6) Diverticulitis ICD Codes: K57.92 - Diverticulitis of intestine, part unspecified, without perforation or abscess without bleeding Status: Chronic (7) Elevated white blood cell count ICD Codes: D72.829 - Elevated white blood cell count, unspecified Status: Acute (8) Right knee pain ICD Codes: M25.561 - Pain in right knee Status: Acute (9) Warren's cyst, ruptured ICD Codes: M66.0 - Rupture of popliteal cyst Status: Acute Assessment and Plan 42-year-old gentleman with 3 intra-abdominal abscesses from diverticular disease. now down to one Previous cultures noted Appreciate infectious disease input Continue IV antibiotic therapy Appears to be progressive nicely unfortunately now is having problems with gout to his right knee MRI shows a Warren cyst on the right knee that appears to be a ruptured Was aspirated by orthopedics Continue IV antibiotics per infectious disease Intra-abdominal abscess appeared to be responding to drainage and antibiotic therapy Continued drainage of abscesses Attending Statement NOTE FOR SURGICAL ATTENDING, DR. KENNY SINGLETON I attest that I had a [id number] encounter with the patient on the same day, and personally performed and documented my assessment and findings in the medical record. The following services were provided during this hospital visit: Chart data review, vital sign assessments/reviewing monitor data Review of consultations notes if present. Medication orders/review and/or management Ordering and/or reviewing lab tests Ordering and/or interpreting/reviewing x-rays and/or diagnostic studies Care of the patient and discussion of the patient with the care team Documentation time To help prompt me to consider important information that might be impacting today's encounter and assessment, information from prior notes written by myself or my colleagues may have been "brought forward/copy and pasted" into today's note. Problem Qualifiers (1) Diverticulitis of intestine with abscess: Qualified Codes: K57.20 - Diverticulitis of large intestine with perforation and abscess without bleeding (2) Leukocytosis: Qualified Codes: D72.828 - Other elevated white blood cell count (3) Diverticulitis: Qualified Codes: K57.20 - Diverticulitis of large intestine with perforation and abscess without bleeding (4) Right knee pain: Qualified Codes: M25.561 - Pain in right knee Kenny Singleton MD Aug 10, 2017 14:06
[2017-08-10 16:40] VITALS: BP 157/93; PULSE 58; RESP 20; TEMP 99.1; O2SAT 97
[2017-08-10 20:46] VITALS: BP 168/106; PULSE 62; RESP 20; TEMP 98.7; O2SAT 97
[2017-08-11] VITALS: BP 151/101; PULSE 58; RESP 18; TEMP 98.1; O2SAT 97
[2017-08-11] MEDS: SODIUM CHLOR 0.9% 1000 ML INJ 1,000 ML IV SCH ×3 (01:27→21:59)
[2017-08-11] MEDS: ONDANSETRON HCL 4 MG/2 ML VIAL IV PUSH PRN (03:06)
[2017-08-11 05:56] VITALS: BP 154/89; PULSE 60; RESP 18; TEMP 98.4; O2SAT 95
[2017-08-11] MEDS: MEROPENEM INJ 500 MG in SODIUM CHLORIDE 0.9% INJ 100 ML IV SCH (06:18)
[2017-08-11] MEDS: cefTRIAXone INJ 2,000 MG in SODIUM CHLORIDE 0.9% INJ 100 ML IV SCH (06:55)
[2017-08-11 08:00] VITALS: BP 153/91; PULSE 55; RESP 19; TEMP 98.4; O2SAT 91
[2017-08-11] MEDS: ALLOPURINOL 300 MG TAB PO SCH (08:17)
[2017-08-11] MEDS: LINEZOLID 600 MG TAB PO SCH ×2 (08:17→21:58)
[2017-08-11] MEDS: HYDROmorphone HCL PF 0.5 MG/0.5 ML SYRINGE IV PRN ×3 (08:17→18:15)
[2017-08-11] MEDS: COLCHICINE 0.6 MG TAB PO SCH ×2 (08:17→21:57)
[2017-08-11] MEDS: DOCUSATE SODIUM 100 MG CAP PO SCH (08:17)
[2017-08-11] MEDS: SODIUM CHLORIDE 0.9% FLUSH 10 ML FLUSH IV FLUSH SCH ×2 (08:18→21:57)
[2017-08-11] MEDS: PANTOPRAZOLE SODIUM 40 MG VIAL IV PUSH SCH (08:18)
[2017-08-11] MEDS: SODIUM CHLORIDE 0.9% FLUSH 10 ML FLUSH SCH ×2 (08:18→21:57)
--- NOTE | 2017-08-11 10:02 | HHI.PR ---
Subjective Remarks + nausea, c/o abdominal discomfort + good soft stools overnight right knee mucch better, better range of motion, decreased swelling Objective Vitals Vital Signs Date Time Temp Pulse Resp B/P (MAP) Pulse Ox O2 Delivery O2 Flow Rate FiO2 08/11/17 05:56 98.4 60 18 154/89 (110) 95 08/11/17 00:00 98.1 58 18 151/101 (118) 97 08/10/17 20:46 98.7 62 20 168/106 (126) 97 08/10/17 17:35 18 08/10/17 16:40 99.1 58 20 157/93 (114) 97 08/10/17 13:56 18 08/10/17 12:12 99.2 66 20 137/86 (103) 95 I/O 08/10/17 08/10/17 08/10/17 08/11/17 08/11/17 08/11/17 07:00 15:00 23:00 07:00 15:00 23:00 Intake Total 1100 ml 462.5 ml 281 ml 200 ml Output Total 35 ml 10 ml 5 ml Balance 1065 ml 452.5 ml 281 ml 195 ml IV Total 1100 ml 462.5 ml 281 ml 200 ml Drainage Total 35 ml 10 ml 5 ml # Voids 1 2 # Bowel Movements 2 Result Diagram: 08/09/17 0858 08/10/17 0632 Imaging Last Impressions Lower Extremity Ultrasound 08/09/17 0000 Signed Impressions: Service Date/Time: Wednesday, August 09, 2017 14:15 - CONCLUSION: 1. No evidence of deep venous thrombosis. 2. Small to moderate-sized Warren's cyst in the popliteal fossa. David Lu MD Abdomen X-Ray 08/09/17 0000 Signed Impressions: Service Date/Time: Wednesday, August 09, 2017 17:30 - CONCLUSION: No dilated loops of small or large bowel. The Matias Ohara MD Pelvis CT 08/08/17 0000 Signed Impressions: Service Date/Time: Tuesday, August 08, 2017 11:44 - CONCLUSION: 1. 2 separate pericolonic abscess collections in the region of the sigmoid have resolved the percutaneous drainage. There is still some regional stranding in the pericolonic fatty tissues, however. 2. A 1.8 cm right inguinal hernia only contains fat. Jay Delacruz MD Knee MRI 08/07/17 0000 Signed Impressions: Service Date/Time: July 14:46 - CONCLUSION: 1. Large knee effusion and large Warren's cyst with probable rupture of the Warren's cyst. 2. No meniscal tear seen. Matias Ohara MD Abscess Drainage CT 08/05/17 1516 Signed Impressions: Service Date/Time: Saturday, August 05, 2017 14:14 - CONCLUSION: 1. Uncomplicated CT-guided placement of drainage catheter in 3 separate perisigmoid abscess collections, as above. Approximately 15 mL of purulent fluid was submitted for Gram stain and C&S per request. Reuben Barrios MD Abdomen/Pelvis CT 08/04/17 1419 Signed Impressions: Service Date/Time: Friday, August 04, 2017 16:15 - CONCLUSION: 1. Worsening sigmoid colitis/diverticulitis with associated enlarging perisigmoid abscesses in the left lower quadrant. These include a 4.6 x 3.3 cm abscesses anterolaterally, 4.2 x 3.8 cm abscess medially abutting the left lateral wall of the bladder and new 2.7 x 1.6 cm developing abscess posteriorly near the junction of the descending and sigmoid colon. Reuben Barrios MD Objective Remarks awake and alert, no acute distress anicteric lungs clear regular rhythm abdomen- soft + BS, + drain in place-+ , mildly tender to palpation, drain in place- serosanguinous fluid about 10 cc left knee- no swelling, no erythema right knee- - swelling almost resolved, good range of motion, no toes involvement, no swelling no redness no calf swelling or tenderness Procedures 08/06- CT guided aspiration of abdominal abscess with placement of 3 separate drains 1027- aspiration right knee A/P Problem List: (1) Diverticulitis of intestine with abscess ICD Code: K57.80 - Diverticulitis of intestine, part unspecified, with perforation and abscess without bleeding Status: Acute (2) Leukocytosis ICD Code: D72.829 - Elevated white blood cell count, unspecified Status: Acute (3) Acute kidney injury ICD Code: N17.9 - Acute kidney failure, unspecified Status: Acute Assessment and Plan 41-year-old male with a history of diverticula and gout presented to the ED with nausea, vomiting, abdominal pain, fever, and chills. Sepsis secondary to Diverticular abscesses- recurrent episode of diverticulitis S/P CT guided drainage with [address]- 08/05 - WBC down, final C and S- E coli and E faecalis - ID ff along with us - antibiotic changed from meropenem to Ceftriaxone - on Zyvox for E faecalis coverage - on exam- with definite mass now - get a repeat CT- ff up abscess, -will likely need eventual surgery - -patient agreeable- timing per GS- ff along with us - zofran not helping - change to Reglan prn for nausea Acute gouty attack- - fluid + crystals S/P arthrocentesis 08/08 Warren's cyst, right continue on colchicine bid. ESR, CRP elevated synovial fluid cultures negative PT daily evaluate need for DME on DC Acute kidney injury, improving creatinine, non oliguric -IVF for hydration - ff BMP Discussed Condition With Patient Problem Qualifiers (1) Diverticulitis of intestine with abscess: Qualified Codes: K57.20 - Diverticulitis of large intestine with perforation and abscess without bleeding (2) Leukocytosis: Qualified Codes: D72.828 - Other elevated white blood cell count Juan J Navarro MD Aug 11, 2017 10:02
[2017-08-11] MEDS: METOCLOPRAMIDE HCL 10 MG/2 ML VIAL IV PUSH PRN ×2 (10:34→21:58)
[2017-08-11] MEDS ORDERED: DIATRIZOATE MEGLUM/DIATRIZOATE SOD 9 ML CUP PO ONE (11:00)
[2017-08-11 12:00] VITALS: BP 159/89; PULSE 53; RESP 19; TEMP 98.1; O2SAT 95
--- NOTE | 2017-08-11 13:33 | HHI.PR ---
cc: Kenny Singleton MD Subjective Subjective Notes DAILY PROGRESS NOTE FOR SURGICAL ATTENDING, DR. KENNY SINGLETON Resting in bed Continues to have episodes of nausea Frustrated with his medical condition He's worried all the bills adding up Objective Vitals/I&O Vital Signs Date Time Temp Pulse Resp B/P (MAP) Pulse Ox O2 Delivery O2 Flow Rate FiO2 08/11/17 12:00 98.1 53 19 159/89 (112) 95 Labs Date/Time Source Procedure Growth Status 08/05/17 17:30 Blood Other Aerobic Blood Culture - Final NO GROWTH IN 5 DAYS Complete 08/05/17 17:30 Blood Other Anaerobic Blood Culture - Final NO GROWTH IN 5 DAYS Complete 08/09/17 08:31 Fluid Synovial Fluid Gram Stain - Final Resulted 08/09/17 08:31 Fluid Synovial Fluid Body Fluid Culture - Preliminary NO GROWTH IN 48 HOURS. Resulted 08/05/17 14:30 Abscess Abdomen Fungal Smear - Final NO FUNGAL ELEMENTS SEEN. Resulted 08/05/17 14:30 Abscess Abdomen Fungal Culture Pending Resulted Radiology Last 72 hours Impressions Lower Extremity Ultrasound 08/09/17 0000 Signed Impressions: Service Date/Time: Wednesday, August 09, 2017 14:15 - CONCLUSION: 1. No evidence of deep venous thrombosis. 2. Small to moderate-sized Warren's cyst in the popliteal fossa. David Lu MD Abdomen X-Ray 08/09/17 0000 Signed Impressions: Service Date/Time: Wednesday, August 09, 2017 17:30 - CONCLUSION: No dilated loops of small or large bowel. The Matias Ohara MD Pelvis CT 08/08/17 0000 Signed Impressions: Service Date/Time: Tuesday, August 08, 2017 11:44 - CONCLUSION: 1. 2 separate pericolonic abscess collections in the region of the sigmoid have resolved the percutaneous drainage. There is still some regional stranding in the pericolonic fatty tissues, however. 2. A 1.8 cm right inguinal hernia only contains fat. Jay Delacruz MD Last Impressions Knee MRI 08/07/17 0000 Signed Impressions: Service Date/Time: July 14:46 - CONCLUSION: 1. Large knee effusion and large Warren's cyst with probable rupture of the Warren's cyst. 2. No meniscal tear seen. Matias Ohara MD Abscess Drainage CT 08/05/17 1516 Signed Impressions: Service Date/Time: Saturday, August 05, 2017 14:14 - CONCLUSION: 1. Uncomplicated CT-guided placement of drainage catheter in 3 separate perisigmoid abscess collections, as above. Approximately 15 mL of purulent fluid was submitted for Gram stain and C&S per request. Reuben Barrios MD Abdomen/Pelvis CT 08/04/17 1419 Signed Impressions: Service Date/Time: Friday, August 04, 2017 16:15 - CONCLUSION: 1. Worsening sigmoid colitis/diverticulitis with associated enlarging perisigmoid abscesses in the left lower quadrant. These include a 4.6 x 3.3 cm abscesses anterolaterally, 4.2 x 3.8 cm abscess medially abutting the left lateral wall of the bladder and new 2.7 x 1.6 cm developing abscess posteriorly near the junction of the descending and sigmoid colon. Reuben Barrios MD Last 72 hours Impressions Abscess Drainage CT 08/05/17 1516 Signed Impressions: Service Date/Time: Saturday, August 05, 2017 14:14 - CONCLUSION: 1. Uncomplicated CT-guided placement of drainage catheter in 3 separate perisigmoid abscess collections, as above. Approximately 15 mL of purulent fluid was submitted for Gram stain and C&S per request. Reuben Barrios MD Abscess Drainage CT 08/05/17 1514 Signed Impressions: Service Date/Time: Saturday, August 05, 2017 14:14 - CONCLUSION: 1. Uncomplicated CT-guided placement of drainage catheter in 3 separate perisigmoid abscess collections, as above. Approximately 15 mL of purulent fluid was submitted for Gram stain and C&S per request. Reuben Barrios MD Abscess Drainage CT 08/05/17 1329 Signed Impressions: Service Date/Time: Saturday, August 05, 2017 14:14 - CONCLUSION: 1. Uncomplicated CT-guided placement of drainage catheter in 3 separate perisigmoid abscess collections, as above. Approximately 15 mL of purulent fluid was submitted for Gram stain and C&S per request. Reuben Barrios MD Cardiovascular: Regular Lungs: Clear Abdomen: Other (IR placed drain in LLQ; tender around drain insertion site; abdomen soft non distended ) Extremities: No edema A/P Problem List: (1) Colonic diverticular abscess ICD Codes: K57.20 - Diverticulitis of large intestine with perforation and abscess without bleeding Status: Acute (2) Intra-abdominal abscess ICD Codes: K65.1 - Peritoneal abscess Status: Acute (3) Gram-negative infection ICD Codes: A49.9 - Bacterial infection, unspecified Status: Acute (4) Diverticulitis of intestine with abscess ICD Codes: K57.80 - Diverticulitis of intestine, part unspecified, with perforation and abscess without bleeding Status: Acute (5) Leukocytosis ICD Codes: D72.829 - Elevated white blood cell count, unspecified Status: Acute (6) Diverticulitis ICD Codes: K57.92 - Diverticulitis of intestine, part unspecified, without perforation or abscess without bleeding Status: Chronic (7) Right knee pain ICD Codes: M25.561 - Pain in right knee Status: Acute (8) Warren's cyst, ruptured ICD Codes: M66.0 - Rupture of popliteal cyst Status: Acute Assessment and Plan 42 year old male with recurrent diverticular abscesses; s/p IR drainage -Continue IR placed drain -Regular diet -Continue Zofran -Continue IV antibiotics -s/p aspiration of RIGHT knee (Orthopedics) Attending Statement NOTE FOR SURGICAL ATTENDING, DR. KENNY SINGLETON Comfortable but frustrated with his medical condition Still has a drain in place Knee pain much improved he can actually bend it now I agree with above assessment and plan. The exam, history, and the medical decision-making described in the above note were completed with the assistance of the mid-level provider. I reviewed and agree with the findings presented. I attest that I had a [id number] encounter with the patient on the same day, and personally performed and documented my assessment and findings in the medical record. The following services were provided during this hospital visit: Chart data review, vital sign assessments/reviewing monitor data Review of consultations notes if present. Medication orders/review and/or management Ordering and/or reviewing lab tests Ordering and/or interpreting/reviewing x-rays and/or diagnostic studies Care of the patient and discussion of the patient with the care team Documentation time To help prompt me to consider important information that might be impacting today's encounter and assessment, information from prior notes written by myself or my colleagues may have been "brought forward/copy and pasted" into today's note. Problem Qualifiers (1) Diverticulitis of intestine with abscess: Qualified Codes: K57.20 - Diverticulitis of large intestine with perforation and abscess without bleeding (2) Leukocytosis: Qualified Codes: D72.828 - Other elevated white blood cell count (3) Diverticulitis: Qualified Codes: K57.20 - Diverticulitis of large intestine with perforation and abscess without bleeding (4) Right knee pain: Qualified Codes: M25.561 - Pain in right knee Tressa Dacosta Aug 11, 2017 13:33 Kenny Singleton MD Aug 11, 2017 16:25
[2017-08-11 16:00] VITALS: BP 152/85; PULSE 53; RESP 16; TEMP 98.3; O2SAT 97
--- NOTE | 2017-08-11 19:27 | RADRPT ---
EXAM DATE/TIME: 08/11/2017 19:03 [facility] COMPARISON: CT ASSISTED ABSCESS DRAIN, August 05, 2017, 14:14. CT ASSISTED ABSCESS DRAIN, August 05, 2017, 14: 14. CT ABDOMEN & PELVIS W CONTRAST, August 04, 2017, 16:15. INDICATIONS : <<Patient with multiple diverticular abscesses status post multiple percutaneous drainage procedures. ORAL CONTRAST: No oral contrast ingested. RADIATION DOSE: <<12.48>> CTDIvol (mGy) MEDICAL HISTORY : Diverticulitis. Gout. SURGICAL HISTORY : None. ENCOUNTER: Initial ACUITY: 1 day PAIN SCALE: 0/10 LOCATION: Left lower quadrant TECHNIQUE: Volumetric scanning of the abdomen and pelvis was performed. Using automated exposure control and ad justment of the mA and/or kV according to patient size, radiation dose was kept as low as reasonably achievable to obtain optimal diagnostic quality images. DICOM format image data is available electro nically for review and comparison. FINDINGS: LOWER LUNGS: Atelectasis or mild scarring is noted in the lung bases. LIVER: Homogeneous density without lesion. There is no dilation of the biliary tree. No calcified gallston es. SPLEEN: Normal size without lesion. PANCREAS: Within normal limits. KIDNEYS: Normal in size and shape. There is no mass or hydronephrosis. There are multiple tiny calculi again noted in the left kidney. ADRENAL GLANDS: Within normal limits. VASCULAR: There is no aortic aneurysm. BOWEL/MESENTERY: On the prior study there were 3 separate abscess collections. A percutaneous drain has been placed in to the wire largest anterior lateral collection and there is no residual fluid now identified. The se cond collection which is located along the anterior left upper bladder has decreased in size. On the prior study this measured up to 4.2 x 3.8 cm in diameter. On the current study this measures approxim ately 2.5 x 2.7 cm and it contains a small anterior gas bubble. The third and smallest previously not ed collection was located at the junction of the descending colon and sigmoid colon. This is no longe r visualized. Inflammatory change is again noted in the left side of the pelvis. There is bowel wall thickening involving sigmoid colon with multiple diverticuli. There are no new abscesses or collectio ns. ABDOMINAL WALL: Within normal limits. RETROPERITONEUM: There is no lymphadenopathy. BLADDER: No wall thickening or mass. REPRODUCTIVE: Within normal limits. INGUINAL: There is no lymphadenopathy or hernia. MUSCULOSKELETAL: Within normal limits for patient age. CONCLUSION: 1. Interval placement of drainage catheter into the anterior lateral collection with no residual flui d. 2. The second collection along the anterior upper left side of the bladder has decreased in size with mild residual. 3. The third previously noted small abscess is no longer visualized. 4. The diverticulitis is again noted with wall thickening and inflammatory change. 5. Multiple tiny left renal calculi. David Lu MD on August 11, 2017 at 19:17 Board Certified Radiologist. This report was verified electronically.
[2017-08-11 21:04] VITALS: BP 140/81; PULSE 65; RESP 18; TEMP 98.3; O2SAT 97
[2017-08-12 01:19] VITALS: BP 122/84; PULSE 71; RESP 18; TEMP 98.1; O2SAT 96
[2017-08-12] MEDS: SODIUM CHLOR 0.9% 1000 ML INJ 1,000 ML IV SCH (03:29)
[2017-08-12] MEDS: HYDROmorphone HCL PF 0.5 MG/0.5 ML SYRINGE IV PRN ×2 (03:30→15:41)
[2017-08-12 04:00] VITALS: BP 147/81; PULSE 51; RESP 18; TEMP 98.1; O2SAT 94
[2017-08-12] MEDS: cefTRIAXone INJ 2,000 MG in SODIUM CHLORIDE 0.9% INJ 100 ML IV SCH (06:11)
[2017-08-12 07:46] VITALS: BP 155/100; PULSE 56; RESP 20; TEMP 97.6; O2SAT 97
[2017-08-12] MEDS: SODIUM CHLORIDE 0.9% FLUSH 10 ML FLUSH IV FLUSH SCH ×2 (08:21→21:19)
[2017-08-12] MEDS: METOCLOPRAMIDE HCL 10 MG/2 ML VIAL IV PUSH PRN ×2 (08:45→21:16)
[2017-08-12] MEDS: SODIUM CHLORIDE 0.9% FLUSH 10 ML FLUSH SCH ×2 (09:00→21:00)
[2017-08-12] MEDS: DOCUSATE SODIUM 100 MG CAP PO SCH (09:00)
[2017-08-12] MEDS: COLCHICINE 0.6 MG TAB PO SCH ×2 (09:34→21:18)
[2017-08-12] MEDS: ALLOPURINOL 300 MG TAB PO SCH (09:34)
[2017-08-12] MEDS: PANTOPRAZOLE SODIUM 40 MG VIAL IV PUSH SCH (09:35)
[2017-08-12] MEDS: LINEZOLID 600 MG TAB PO SCH ×2 (09:35→21:18)
--- NOTE | 2017-08-12 10:24 | HHI.PR ---
Subjective Remarks feeling better nausea improved with Reglan + flatus and BM overnight Objective Vitals Vital Signs Date Time Temp Pulse Resp B/P (MAP) Pulse Ox O2 Delivery O2 Flow Rate FiO2 08/12/17 07:46 97.6 56 20 155/100 (118) 97 08/12/17 04:00 98.1 51 18 147/81 (103) 94 08/12/17 01:19 98.1 71 18 122/84 (97) 96 08/11/17 21:04 98.3 65 18 140/81 (100) 97 08/11/17 16:00 98.3 53 16 152/85 (107) 97 08/11/17 12:00 98.1 53 19 159/89 (112) 95 I/O 08/11/17 08/11/17 08/11/17 08/12/17 08/12/17 08/12/17 07:00 15:00 23:00 07:00 15:00 23:00 Intake Total 200 ml 643 ml 773 ml Output Total 5 ml 5 ml 965 ml Balance 195 ml 643 ml -5 ml -192 ml IV Total 200 ml 643 ml 773 ml Output Urine Total 950 ml Drainage Total 5 ml 5 ml 15 ml # Voids 2 4 # Bowel Movements 2 1 Result Diagram: 08/09/17 0858 08/10/17 0632 Imaging Last Impressions Abdomen/Pelvis CT 08/11/17 1009 Signed Impressions: Service Date/Time: Friday, August 11, 2017 19:03 - CONCLUSION: 1. Interval placement of drainage catheter into the anterior lateral collection with no residual fluid. 2. The second collection along the anterior upper left side of the bladder has decreased in size with mild residual. 3. The third previously noted small abscess is no longer visualized. 4. The diverticulitis is again noted with wall thickening and inflammatory change. 5. Multiple tiny left renal calculi. David Lu MD Lower Extremity Ultrasound 08/09/17 0000 Signed Impressions: Service Date/Time: Wednesday, August 09, 2017 14:15 - CONCLUSION: 1. No evidence of deep venous thrombosis. 2. Small to moderate-sized Warren's cyst in the popliteal fossa. David Lu MD Abdomen X-Ray 08/09/17 0000 Signed Impressions: Service Date/Time: Wednesday, August 09, 2017 17:30 - CONCLUSION: No dilated loops of small or large bowel. The Matias Ohara MD Pelvis CT 08/08/17 0000 Signed Impressions: Service Date/Time: Tuesday, August 08, 2017 11:44 - CONCLUSION: 1. 2 separate pericolonic abscess collections in the region of the sigmoid have resolved the percutaneous drainage. There is still some regional stranding in the pericolonic fatty tissues, however. 2. A 1.8 cm right inguinal hernia only contains fat. Jay Delacruz MD Knee MRI 08/07/17 0000 Signed Impressions: Service Date/Time: July 14:46 - CONCLUSION: 1. Large knee effusion and large Warren's cyst with probable rupture of the Warren's cyst. 2. No meniscal tear seen. Matias Ohara MD Abscess Drainage CT 08/05/17 1516 Signed Impressions: Service Date/Time: Saturday, August 05, 2017 14:14 - CONCLUSION: 1. Uncomplicated CT-guided placement of drainage catheter in 3 separate perisigmoid abscess collections, as above. Approximately 15 mL of purulent fluid was submitted for Gram stain and C&S per request. Reuben Barrios MD Objective Remarks awake and alert, no acute distress anicteric lungs clear regular rhythm abdomen- soft + BS, + drain in place-+ , non tender, no guarding, drain in place - serosanguinous fluid - about less than 5 cc overnight left knee- no swelling, no erythema right knee- - swelling resolved, good range of motion, no toes involvement, no swelling no redness no calf swelling or tenderness Procedures 08/06- CT guided aspiration of abdominal abscess with placement of 3 separate drains 1027- aspiration right knee A/P Problem List: (1) Diverticulitis of intestine with abscess ICD Code: K57.80 - Diverticulitis of intestine, part unspecified, with perforation and abscess without bleeding Status: Acute (2) Leukocytosis ICD Code: D72.829 - Elevated white blood cell count, unspecified Status: Acute (3) Acute kidney injury ICD Code: N17.9 - Acute kidney failure, unspecified Status: Acute Assessment and Plan 41-year-old male with a history of diverticula and gout presented to the ED with nausea, vomiting, abdominal pain, fever, and chills. Sepsis secondary to Diverticular abscesses- recurrent episode of diverticulitis S/P CT guided drainage with drain- 08/05 - WBC down, final C and S- E coli and E faecalis - ID ff along with us - antibiotic changed from meropenem to Ceftriaxone -E faecalis coverage-continue on Zyvox 600 mg po bid - repeat CT shows improvement and some resolution - GS ff -will likely need eventual surgery - -patient agreeable- timing per GS- ff along with us- - IV Reglan prn for nausea Acute gouty attack- -Resolved fS/P arthrocentesis 08/08 Warren's cyst, right continue on colchicine bid. ESR, CRP elevated synovial fluid cultures negative PT daily Acute kidney injury, improving creatinine, non oliguric -Iresolved. Heplock. tolerating po well - ff BMP Discussed Condition With Patient wanting to go home- hopefully without drain - GS will repeat CT tomorrow to evaluate if to be home with drain- will ask CM for home health care visits and med assistance Problem Qualifiers (1) Diverticulitis of intestine with abscess: Qualified Codes: K57.20 - Diverticulitis of large intestine with perforation and abscess without bleeding (2) Leukocytosis: Qualified Codes: D72.828 - Other elevated white blood cell count Juan J Navarro MD Aug 12, 2017 10:24
[2017-08-12 11:12] VITALS: BP 140/96; PULSE 57; RESP 20; TEMP 97.7; O2SAT 97
[2017-08-12 12:48] LABS: AUTOMATED NEUTROPHIL # 7.9 TH/MM3 (1.8-7.7); BASOPHIL # 0.1 TH/MM3 (0-0.2); BASOPHIL % 0.7 % (0.0-2.0); EOSINOPHIL # 0.1 TH/MM3 (0-0.4); EOSINOPHIL % 0.9 % (0.0-4.0); HEMATOCRIT 35.5 % (39.0-51.0); HEMO FLAGS DIFF FINAL; MEAN CELL VOLUME 89.4 FL (80.0-100.0); MEAN CORPUSCULAR HEMOGLOBIN 29.7 PG (27.0-34.0); MEAN CORPUSCULAR HGB CONC 33.2 % (32.0-36.0); MONO % 5.8 % (0.0-8.0); NEUT % 73.6 % (16.0-70.0); PLATELET COUNT 430 TH/MM3 (150-450); RED BLOOD COUNT 3.97 MIL/MM3 (4.50-5.90); RED CELL DISTRIBUTION WIDTH 15.4 % (11.6-17.2); WHITE BLOOD COUNT 10.7 TH/MM3 (4.0-11.0)
--- NOTE | 2017-08-12 13:05 | HHI.PR ---
cc: Kenny Singleton MD Subjective Subjective Notes PROGRESS NOTE FOR SURGICAL ATTENDING, DR. KENNY SINGLETON Feeling better today than yesterday Objective Vitals/I&O Vital Signs Date Time Temp Pulse Resp B/P (MAP) Pulse Ox O2 Delivery O2 Flow Rate FiO2 08/12/17 11:12 97.7 57 20 140/96 (111) 97 Labs Laboratory Tests Test 08/12/17 11:39 White Blood Count 10.7 Red Blood Count 3.97 Hemoglobin 11.8 Hematocrit 35.5 Mean Corpuscular Volume 89.4 Mean Corpuscular Hemoglobin 29.7 Mean Corpuscular Hemoglobin Concent 33.2 Red Cell Distribution Width 15.4 Platelet Count 430 Mean Platelet Volume 9.5 Neutrophils (%) (Auto) 73.6 Lymphocytes (%) (Auto) 19.0 Monocytes (%) (Auto) 5.8 Eosinophils (%) (Auto) 0.9 Basophils (%) (Auto) 0.7 Neutrophils # (Auto) 7.9 Lymphocytes # (Auto) 2.0 Monocytes # (Auto) 0.6 Eosinophils # (Auto) 0.1 Basophils # (Auto) 0.1 CBC Comment DIFF FINAL Differential Comment Date/Time Source Procedure Growth Status 08/05/17 17:30 Blood Other Aerobic Blood Culture - Final NO GROWTH IN 5 DAYS Complete 08/05/17 17:30 Blood Other Anaerobic Blood Culture - Final NO GROWTH IN 5 DAYS Complete 08/09/17 08:31 Fluid Synovial Fluid Gram Stain - Final Complete 08/09/17 08:31 Fluid Synovial Fluid Body Fluid Culture - Final NO GROWTH IN 72 HRS.--AEROBICALLY OR ... Complete 08/05/17 14:30 Abscess Abdomen Fungal Smear - Final NO FUNGAL ELEMENTS SEEN. Resulted 08/05/17 14:30 Abscess Abdomen Fungal Culture Pending Resulted Radiology Last Impressions Abdomen/Pelvis CT 08/11/17 1009 Signed Impressions: Service Date/Time: Friday, August 11, 2017 19:03 - CONCLUSION: 1. Interval placement of drainage catheter into the anterior lateral collection with no residual fluid. 2. The second collection along the anterior upper left side of the bladder has decreased in size with mild residual. 3. The third previously noted small abscess is no longer visualized. 4. The diverticulitis is again noted with wall thickening and inflammatory change. 5. Multiple tiny left renal calculi. David Lu MD Lower Extremity Ultrasound 08/09/17 0000 Signed Impressions: Service Date/Time: Wednesday, August 09, 2017 14:15 - CONCLUSION: 1. No evidence of deep venous thrombosis. 2. Small to moderate-sized Warren's cyst in the popliteal fossa. David Lu MD Abdomen X-Ray 08/09/17 0000 Signed Impressions: Service Date/Time: Wednesday, August 09, 2017 17:30 - CONCLUSION: No dilated loops of small or large bowel. The Matias Ohara MD Pelvis CT 08/08/17 0000 Signed Impressions: Service Date/Time: Tuesday, August 08, 2017 11:44 - CONCLUSION: 1. 2 separate pericolonic abscess collections in the region of the sigmoid have resolved the percutaneous drainage. There is still some regional stranding in the pericolonic fatty tissues, however. 2. A 1.8 cm right inguinal hernia only contains fat. Jay Delacruz MD Knee MRI 08/07/17 0000 Signed Impressions: Service Date/Time: July 14:46 - CONCLUSION: 1. Large knee effusion and large Warren's cyst with probable rupture of the Warren's cyst. 2. No meniscal tear seen. Matias Ohara MD Abscess Drainage CT 08/05/17 1516 Signed Impressions: Service Date/Time: Saturday, August 05, 2017 14:14 - CONCLUSION: 1. Uncomplicated CT-guided placement of drainage catheter in 3 separate perisigmoid abscess collections, as above. Approximately 15 mL of purulent fluid was submitted for Gram stain and C&S per request. Reuben Barrios MD Last 72 hours Impressions Lower Extremity Ultrasound 08/09/17 0000 Signed Impressions: Service Date/Time: Wednesday, August 09, 2017 14:15 - CONCLUSION: 1. No evidence of deep venous thrombosis. 2. Small to moderate-sized Warren's cyst in the popliteal fossa. David Lu MD Abdomen X-Ray 08/09/17 0000 Signed Impressions: Service Date/Time: Wednesday, August 09, 2017 17:30 - CONCLUSION: No dilated loops of small or large bowel. The Matias Ohara MD Pelvis CT 08/08/17 0000 Signed Impressions: Service Date/Time: Tuesday, August 08, 2017 11:44 - CONCLUSION: 1. 2 separate pericolonic abscess collections in the region of the sigmoid have resolved the percutaneous drainage. There is still some regional stranding in the pericolonic fatty tissues, however. 2. A 1.8 cm right inguinal hernia only contains fat. Jay Delacruz MD Last Impressions Knee MRI 08/07/17 0000 Signed Impressions: Service Date/Time: July 14:46 - CONCLUSION: 1. Large knee effusion and large Warren's cyst with probable rupture of the Warren's cyst. 2. No meniscal tear seen. Matias Ohara MD Abscess Drainage CT 08/05/17 1516 Signed Impressions: Service Date/Time: Saturday, August 05, 2017 14:14 - CONCLUSION: 1. Uncomplicated CT-guided placement of drainage catheter in 3 separate perisigmoid abscess collections, as above. Approximately 15 mL of purulent fluid was submitted for Gram stain and C&S per request. Reuben Barrios MD Abdomen/Pelvis CT 08/04/17 1419 Signed Impressions: Service Date/Time: Friday, August 04, 2017 16:15 - CONCLUSION: 1. Worsening sigmoid colitis/diverticulitis with associated enlarging perisigmoid abscesses in the left lower quadrant. These include a 4.6 x 3.3 cm abscesses anterolaterally, 4.2 x 3.8 cm abscess medially abutting the left lateral wall of the bladder and new 2.7 x 1.6 cm developing abscess posteriorly near the junction of the descending and sigmoid colon. Reuben Barrios MD Last 72 hours Impressions Abscess Drainage CT 08/05/17 1516 Signed Impressions: Service Date/Time: Saturday, August 05, 2017 14:14 - CONCLUSION: 1. Uncomplicated CT-guided placement of drainage catheter in 3 separate perisigmoid abscess collections, as above. Approximately 15 mL of purulent fluid was submitted for Gram stain and C&S per request. Reuben Barrios MD Abscess Drainage CT 08/05/17 1514 Signed Impressions: Service Date/Time: Saturday, August 05, 2017 14:14 - CONCLUSION: 1. Uncomplicated CT-guided placement of drainage catheter in 3 separate perisigmoid abscess collections, as above. Approximately 15 mL of purulent fluid was submitted for Gram stain and C&S per request. Reuben Barrios MD Abscess Drainage CT 08/05/17 1329 Signed Impressions: Service Date/Time: Saturday, August 05, 2017 14:14 - CONCLUSION: 1. Uncomplicated CT-guided placement of drainage catheter in 3 separate perisigmoid abscess collections, as above. Approximately 15 mL of purulent fluid was submitted for Gram stain and C&S per request. Reuben Barrios MD Cardiovascular: Regular Lungs: Clear Abdomen: Other (soft; minimal tenderness around drain site) Extremities: No edema A/P Problem List: (1) Colonic diverticular abscess ICD Codes: K57.20 - Diverticulitis of large intestine with perforation and abscess without bleeding Status: Acute (2) Intra-abdominal abscess ICD Codes: K65.1 - Peritoneal abscess Status: Acute (3) Gram-negative infection ICD Codes: A49.9 - Bacterial infection, unspecified Status: Acute (4) Diverticulitis of intestine with abscess ICD Codes: K57.80 - Diverticulitis of intestine, part unspecified, with perforation and abscess without bleeding Status: Acute (5) Leukocytosis ICD Codes: D72.829 - Elevated white blood cell count, unspecified Status: Acute (6) Diverticulitis ICD Codes: K57.92 - Diverticulitis of intestine, part unspecified, without perforation or abscess without bleeding Status: Chronic (7) Right knee pain ICD Codes: M25.561 - Pain in right knee Status: Acute (8) Warren's cyst, ruptured ICD Codes: M66.0 - Rupture of popliteal cyst Status: Acute Assessment and Plan 42 year old male with recurrent diverticular abscesses; s/p IR drainage -Continue IR placed drain -WBC continues to trend down -Afebrile -Nausea resolved -Regular diet -Antibiotics per ID -s/p aspiration of RIGHT knee (Orthopedics) Attending Statement PROGRESS NOTE FOR SURGICAL ATTENDING, DR. KENNY SINGLETON Pt improved spoke with ID about abx possible soon on PO ABx therapy fu in office with drain I agree with above assessment and plan. The exam, history, and the medical decision-making described in the above note were completed with the assistance of the mid-level provider. I reviewed and agree with the findings presented. I attest that I had a [id number] encounter with the patient on the same day, and personally performed and documented my assessment and findings in the medical record. The following services were provided during this hospital visit: Chart data review, vital sign assessments/reviewing monitor data Review of consultations notes if present. Medication orders/review and/or management Ordering and/or reviewing lab tests Ordering and/or interpreting/reviewing x-rays and/or diagnostic studies Care of the patient and discussion of the patient with the care team Documentation time To help prompt me to consider important information that might be impacting today's encounter and assessment, information from prior notes written by myself or my colleagues may have been "brought forward/copy and pasted" into today's note. Problem Qualifiers (1) Diverticulitis of intestine with abscess: Qualified Codes: K57.20 - Diverticulitis of large intestine with perforation and abscess without bleeding (2) Leukocytosis: Qualified Codes: D72.828 - Other elevated white blood cell count (3) Diverticulitis: Qualified Codes: K57.20 - Diverticulitis of large intestine with perforation and abscess without bleeding (4) Right knee pain: Qualified Codes: M25.561 - Pain in right knee Tressa Dacosta Aug 12, 2017 13:05 Kenny Singleton MD Aug 12, 2017 17:45
[2017-08-12] MEDS ORDERED: CEFP200T PO ×2 (13:09→17:19)
[2017-08-12] MEDS ORDERED: AMPI500C8 PO (13:11)
[2017-08-12 13:16] LABS: BICARBONATE 29.1 MEQ/L (21.0-32.0); POTASSIUM 4.3 MEQ/L (3.5-5.1)
[2017-08-12] MEDS ORDERED: COLC1TAB15 PO (14:40)
[2017-08-12 16:03] VITALS: BP 151/97; PULSE 63; RESP 20; TEMP 98.3; O2SAT 97
[2017-08-12] MEDS ORDERED: AMOXICILLIN (TRIHYDRATE) 500 MG CAP PO SCH (18:00)
--- NOTE | 2017-08-12 18:40 | HHI.IDPN ---
Subjective Subjective Remarks is a 41 y/o CM with a history of diverticula with diverticulitis, Intra abdominal abscess. Patient was just discharged on July [address]-guided drainage of an abdominal abscess. He stated since leaving the hospital he has not felt himself, he has been unable to eat, unable to have a bowel movement since . He states he's had constant fevers at home with chills he was taking ibuprofen for. He states he woke up on day of admission and after having the bowel movement he began to have blurry vision, nausea, vomiting, and abdominal pain. He states the abdominal pain is in his lower abdomen, tender to touch, intermittent 10 out of 10. He denies any red or black colored stools, no diarrhea. He states the pain medicine is helping but does not last very long, he is wondering if he can have something in between like tramadol. He does not want strong narcotics. He denies any chest pain or shortness of breath. In ED patient had a CT A/P which showed 3 new abscesses. was consulted and pt underwent IR guided drainage of abscess. Call was placed to IR and cultures added by me. ID was consulted by for recurrent intra- abdominal abscesses. Pt was empirically started on Zosyn IV. Prior cultures from 07/28/17 were reviewed and E.coli is resistant to Zosyn (current med in hospital) and Levaquin (home med). Delayed entry pt seen at 3 pm today. Overnight events reviewed. No rash No diarrhea Complains of right knee pain. s/p aspiration no growth. ? gout flare. Right quadrant lower with drain in place, minimal output. Antibiotics I attest I reviewed, obtained, or updated pts home meds and current meds. Meropenem IV Micafungin IV Reported Meds & Active Scripts Active Reported Zyloprim (Allopurinol) 300 Mg Tab 300 Mg PO DAILY Current Medications Medications (Trade) Dose Ordered Sig/Eleazar Route Start Time Stop Time Status Last Admin Sodium Chloride 1,000 ml @ 100 mls/hr Q10H IV 08/04/17 20:00 08/06/17 05:08 (NS Flush) 2 ml UNSCH PRN IV FLUSH 08/04/17 18:45 08/05/17 08:47 (NS Flush) 2 ml BID IV FLUSH 08/04/17 21:00 08/06/17 09:39 (Narcan Inj) 0.4 mg UNSCH PRN IV PUSH 08/04/17 18:45 (Milk Of Magnesia Liq) 30 ml Q12H PRN PO 08/04/17 18:45 (Senokot) 17.2 mg Q12H PRN PO 08/04/17 18:45 (Dulcolax Supp) 10 mg DAILY PRN RECTAL 08/04/17 18:45 (Lactulose Liq) 30 ml DAILY PRN PO 08/04/17 18:45 (Ultram) 50 mg Q4H PRN PO 08/04/17 20:45 08/06/17 17:31 (Dilaudid Pf Inj) 1 mg Q3H PRN IV 08/04/17 20:45 08/06/17 18:40 (Colace) 100 mg DAILY PO 08/05/17 09:00 08/06/17 09:39 (Reglan Inj) 5 mg Q8H PRN IV PUSH 08/05/17 11:15 08/06/17 09:38 Meropenem 500 mg/ Sodium Chloride 100 ml @ 200 mls/hr Q8H IV 08/05/17 15:00 08/06/17 17:31 Micafungin Sodium 150 mg/Sodium Chloride 100 ml @ 100 mls/hr Q24H IV 08/05/17 15:00 08/06/17 16:02 (NS Flush) 15 ml BID .XX 08/05/17 21:00 08/06/17 09:39 (Zyloprim) 300 mg DAILY PO 08/06/17 15:00 08/06/17 16:01 Lines Line sites with no e.o infection Past Medical History reviewed Allergies: Coded Allergies: acetaminophen (Verified Allergy, Unknown, 08/04/17) morphine (Verified Adverse Reaction, Unknown, 08/04/17) Objective . Vital Signs Date Time Temp Pulse Resp B/P (MAP) Pulse Ox O2 Delivery O2 Flow Rate FiO2 08/12/17 16:03 98.3 63 20 151/97 (115) 97 08/12/17 11:12 97.7 57 20 140/96 (111) 97 08/12/17 07:46 97.6 56 20 155/100 (118) 97 08/12/17 04:00 98.1 51 18 147/81 (103) 94 08/12/17 01:19 98.1 71 18 122/84 (97) 96 08/11/17 21:04 98.3 65 18 140/81 (100) 97 08/12/17 08/12/17 08/13/17 15:00 23:00 07:00 Intake Total 600 ml 1016 ml Output Total 13 ml Balance 600 ml 1003 ml Intake Oral 600 ml IV Total 1016 ml Drainage Total 13 ml # Voids 4 # Bowel Movements 2 . Laboratory Tests Test 08/12/17 11:39 White Blood Count 10.7 TH/MM3 Red Blood Count 3.97 MIL/MM3 Hemoglobin 11.8 GM/DL Hematocrit 35.5 % Mean Corpuscular Volume 89.4 FL Mean Corpuscular Hemoglobin 29.7 PG Mean Corpuscular Hemoglobin Concent 33.2 % Red Cell Distribution Width 15.4 % Platelet Count 430 TH/MM3 Mean Platelet Volume 9.5 FL Neutrophils (%) (Auto) 73.6 % Lymphocytes (%) (Auto) 19.0 % Monocytes (%) (Auto) 5.8 % Eosinophils (%) (Auto) 0.9 % Basophils (%) (Auto) 0.7 % Neutrophils # (Auto) 7.9 TH/MM3 Lymphocytes # (Auto) 2.0 TH/MM3 Monocytes # (Auto) 0.6 TH/MM3 Eosinophils # (Auto) 0.1 TH/MM3 Basophils # (Auto) 0.1 TH/MM3 CBC Comment DIFF FINAL Differential Comment Laboratory Tests Test 08/12/17 11:39 Blood Urea Nitrogen 6 MG/DL Creatinine 0.85 MG/DL Random Glucose 109 MG/DL Calcium Level 8.9 MG/DL Sodium Level 137 MEQ/L Potassium Level 4.3 MEQ/L Chloride Level 102 MEQ/L Carbon Dioxide Level 29.1 MEQ/L Anion Gap 6 MEQ/L Estimat Glomerular Filtration Rate 99 ML/MIN Imaging Last Impressions Abscess Drainage CT 08/05/17 1516 Signed Impressions: Service Date/Time: Saturday, August 05, 2017 14:14 - CONCLUSION: 1. Uncomplicated CT-guided placement of drainage catheter in 3 separate perisigmoid abscess collections, as above. Approximately 15 mL of purulent fluid was submitted for Gram stain and C&S per request. Reuben Barrios MD Abdomen/Pelvis CT 08/04/17 1419 Signed Impressions: Service Date/Time: Friday, August 04, 2017 16:15 - CONCLUSION: 1. Worsening sigmoid colitis/diverticulitis with associated enlarging perisigmoid abscesses in the left lower quadrant. These include a 4.6 x 3.3 cm abscesses anterolaterally, 4.2 x 3.8 cm abscess medially abutting the left lateral wall of the bladder and new 2.7 x 1.6 cm developing abscess posteriorly near the junction of the descending and sigmoid colon. Reuben Barrios MD Physical Exam GENERAL: This is a well-nourished, well-developed patient, in no apparent distress. SKIN: No rashes, ecchymoses or lesions. Cool and dry. HEAD: Atraumatic. Normocephalic. No temporal or scalp tenderness. EYES: Pupils equal round and reactive. Extraocular motions intact. No scleral icterus. No injection or drainage. ENT: Nose without bleeding, purulent drainage or septal hematoma. Throat without erythema, tonsillar hypertrophy or exudate. Uvula midline. Airway patent. NECK: Trachea midline. Supple, nontender, no meningeal signs. CARDIOVASCULAR: Regular rate and rhythm without murmurs, gallops, or rubs. RESPIRATORY: Clear to auscultation. Breath sounds equal bilaterally. No wheezes , rales, or rhonchi. GASTROINTESTINAL: Abdomen soft, diffuse tenderness most in LQs. Drains placed by IR. MUSCULOSKELETAL: Extremities without clubbing, cyanosis, or edema. No joint tenderness, effusion, or edema noted. No calf tenderness. Negative Homans sign bilaterally. NEUROLOGICAL: Awake and alert. no obvious focal neuro deficit. Psych cooperative. IV line sites with no e.o infection. Assessment & Plan Remarks Sepsis present on admission (fever, WBC elevation, source: Intra abd abscess) Intra abdominal abscess secondary to diverticulitis. Concern for ESBL given last cultures. Acute metabolic encephalopathy: sepsis, meds. Hypoalbuminemia: ? nutritional given chronic GI issues. Acute renal failure on admission ? prerenal now resolved. recs Continue Ceftriaxone IV Continue Zyvox in hospital When ready for discharge: scripts for Vantin(Cefpodoxime) and Ampicillin in chart for 20 days. Follow up with . Case d.w today. Follow cultures Follow clinically. d/w . Will sign off please call back if any change in clinical condition or questions. Nacni Newman MD Aug 12, 2017 18:40
[2017-08-12 20:00] VITALS: BP 146/93; PULSE 58; RESP 18; TEMP 98.4; O2SAT 97
[2017-08-13] VITALS: BP 125/83; PULSE 66; RESP 18; TEMP 98.3; O2SAT 97
[2017-08-13] MEDS: HYDROmorphone HCL PF 0.5 MG/0.5 ML SYRINGE IV PRN ×2 (00:26→16:21)
[2017-08-13 04:00] VITALS: BP 150/91; PULSE 50; RESP 18; TEMP 97.8; O2SAT 94
[2017-08-13] MEDS: cefTRIAXone INJ 2,000 MG in SODIUM CHLORIDE 0.9% INJ 100 ML IV SCH (06:01)
[2017-08-13] MEDS: COLCHICINE 0.6 MG TAB PO SCH ×2 (08:39→21:58)
[2017-08-13] MEDS: ALLOPURINOL 300 MG TAB PO SCH (08:39)
[2017-08-13] MEDS: LINEZOLID 600 MG TAB PO SCH ×2 (08:39→21:58)
[2017-08-13] MEDS: DOCUSATE SODIUM 100 MG CAP PO SCH (08:39)
[2017-08-13] MEDS: SODIUM CHLORIDE 0.9% FLUSH 10 ML FLUSH IV FLUSH SCH ×2 (08:41→21:58)
[2017-08-13] MEDS: METOCLOPRAMIDE HCL 10 MG/2 ML VIAL IV PUSH PRN (08:46)
[2017-08-13 08:50] VITALS: BP 156/97; PULSE 50; RESP 16; TEMP 97; O2SAT 96
[2017-08-13] MEDS: SODIUM CHLORIDE 0.9% FLUSH 10 ML FLUSH SCH ×2 (09:00→21:58)
[2017-08-13 09:57] LABS: BICARBONATE 27.8 MEQ/L (21.0-32.0); POTASSIUM 4.1 MEQ/L (3.5-5.1)
--- NOTE | 2017-08-13 12:35 | RADRPT ---
EXAM DATE/TIME: 08/13/2017 09:54 [facility] COMPARISON: CT ABDOMEN & PELVIS W/O CONTRAST, August 11, 2017, 19:03. INDICATIONS : Re-evaluate drain. ORAL CONTRAST: No oral contrast ingested. RADIATION DOSE: 6.64 CTDIvol (mGy) MEDICAL HISTORY : Diverticulitis. Gout. SURGICAL HISTORY : Absccess drains. ENCOUNTER: Subsequent ACUITY: 3 days PAIN SCALE: 3/10 LOCATION: Left lower quadrant TECHNIQUE: Volumetric scanning of the abdomen and pelvis was performed. Using automated exposure control and ad justment of the mA and/or kV according to patient size, radiation dose was kept as low as reasonably achievable to obtain optimal diagnostic quality images. DICOM format image data is available electro nically for review and comparison. FINDINGS: There is subsegmental atelectasis in the both bases. The liver and spleen are normal in size and no focal defects are identified. The gallbladder and pancreas are unremarkable. No intrahepatic or e xtrahepatic ductal dilatation is seen. The adrenal glands are unremarkable. Tiny nonobstructing bilat eral renal stones are present. There continues to be findings of diverticulitis with inflammatory change involving the sigmoid colon but no evidence of residual abscess. Drain remains in place in the left lower quadrant. It continues to be small amount of gas within the soft tissues adjacent to the bladder on the left similar to the prior study. CONCLUSION: 1. Inflammatory changes of diverticulitis but no evidence of residual abscess. Scooby Schroeder MD on August 13, 2017 at 12:30 Board Certified Radiologist. This report was verified electronically.
--- NOTE | 2017-08-13 13:06 | HHI.PR ---
Subjective Remarks Seen earlier today. In bed with some nausea but no vomiting. Says only Reglan helps with nausea. No diarrhea or constipation. He has no fevers and no chills. Abdominal pain is controlled by medications. Awaiting to go for CT abdomen Objective Vitals Vital Signs Date Time Temp Pulse Resp B/P (MAP) Pulse Ox O2 Delivery O2 Flow Rate FiO2 08/13/17 08:50 97.0 50 16 156/97 (116) 96 08/13/17 06:43 18 08/13/17 04:00 97.8 50 18 150/91 (110) 94 08/13/17 00:59 18 08/13/17 00:00 98.3 66 18 125/83 (97) 97 08/12/17 20:00 98.4 58 18 146/93 (110) 97 08/12/17 16:03 98.3 63 20 151/97 (115) 97 I/O 08/12/17 08/12/17 08/12/17 08/13/17 08/13/17 08/13/17 07:00 15:00 23:00 07:00 15:00 23:00 Intake Total 773 ml 600 ml 1016 ml Output Total 965 ml 13 ml 20 ml Balance -192 ml 600 ml 1003 ml -20 ml Intake Oral 600 ml IV Total 773 ml 1016 ml Output Urine Total 950 ml Drainage Total 15 ml 13 ml 20 ml # Voids 4 4 3 2 # Bowel Movements 1 2 Result Diagram: 08/12/17 1139 08/13/17 0820 Imaging Last Impressions Abdomen/Pelvis CT 08/13/17 0000 Signed Impressions: Service Date/Time: Sunday, August 13, 2017 09:54 - CONCLUSION: 1. Inflammatory changes of diverticulitis but no evidence of residual abscess. Scooby Schroeder MD Lower Extremity Ultrasound 08/09/17 0000 Signed Impressions: Service Date/Time: Wednesday, August 09, 2017 14:15 - CONCLUSION: 1. No evidence of deep venous thrombosis. 2. Small to moderate-sized Warren's cyst in the popliteal fossa. David Lu MD Abdomen X-Ray 08/09/17 0000 Signed Impressions: Service Date/Time: Wednesday, August 09, 2017 17:30 - CONCLUSION: No dilated loops of small or large bowel. The Matias Ohara MD Pelvis CT 08/08/17 0000 Signed Impressions: Service Date/Time: Tuesday, August 08, 2017 11:44 - CONCLUSION: 1. 2 separate pericolonic abscess collections in the region of the sigmoid have resolved the percutaneous drainage. There is still some regional stranding in the pericolonic fatty tissues, however. 2. A 1.8 cm right inguinal hernia only contains fat. Jay Delacruz MD Knee MRI 08/07/17 0000 Signed Impressions: Service Date/Time: July 14:46 - CONCLUSION: 1. Large knee effusion and large Warren's cyst with probable rupture of the Warren's cyst. 2. No meniscal tear seen. Matias Ohara MD Abscess Drainage CT 08/05/17 1516 Signed Impressions: Service Date/Time: Saturday, August 05, 2017 14:14 - CONCLUSION: 1. Uncomplicated CT-guided placement of drainage catheter in 3 separate perisigmoid abscess collections, as above. Approximately 15 mL of purulent fluid was submitted for Gram stain and C&S per request. Reuben Barrios MD Objective Remarks GENERAL: Awake and alert, no acute distress CARDIOVASCULAR: Regular rate and rhythm. RESPIRATORY: No accessory muscle use. Clear to auscultation. Breath sounds equal bilaterally. GASTROINTESTINAL: Abdomen soft, non-tender, nondistended.+ drain in place, minimal serosanguineous fluid MUSCULOSKELETAL: Extremities without clubbing, cyanosis, or edema. No obvious deformities. Right knee swelling resolved, good range of motion, NEUROLOGICAL: Awake and alert. No obvious cranial nerve deficits. Motor grossly within normal limits. Five out of 5 muscle strength in the arms and legs. Normal speech. PSYCHIATRIC: Appropriate mood and affect; insight and judgment normal. Procedures 08/06- CT guided aspiration of abdominal abscess with placement of 3 separate drains 1027- aspiration right knee A/P Problem List: (1) Diverticulitis of intestine with abscess ICD Code: K57.80 - Diverticulitis of intestine, part unspecified, with perforation and abscess without bleeding Status: Acute (2) Leukocytosis ICD Code: D72.829 - Elevated white blood cell count, unspecified Status: Acute (3) Acute kidney injury ICD Code: N17.9 - Acute kidney failure, unspecified Status: Acute Assessment and Plan 41-year-old male with a history of diverticula and gout presented to the ED with nausea, vomiting, abdominal pain, fever, and chills. Sepsis secondary to Diverticular abscesses- recurrent episode of diverticulitis S/P CT guided drainage with drain- 08/05 - WBC down, final C and S- E coli and E faecalis - ID ff along with us - antibiotic changed from meropenem to Ceftriaxone -E faecalis coverage-continue on Zyvox 600 mg po bid - repeat CT shows improvement and some resolution - GS ff -will likely need eventual surgery - -patient agreeable- timing per GS- ff along with us- - IV Reglan prn for nausea Acute gouty attack- -Resolved fS/P arthrocentesis 08/08 Warren's cyst, right continue on colchicine bid. ESR, CRP elevated synovial fluid cultures negative PT daily Acute kidney injury, improving creatinine, non oliguric -Iresolved. Heplock. tolerating po well - ff BMP Discussed Condition With Patient wanting to go home- hopefully without drain - CT reviewed today no evidence of abscess, gen surg will eval patient poss will DC drain today. If to be home with drain- will ask CM for home health care visits and med assistance Discharge Planning Discharge when improved and cleared by surgery Problem Qualifiers (1) Diverticulitis of intestine with abscess: Qualified Codes: K57.20 - Diverticulitis of large intestine with perforation and abscess without bleeding (2) Leukocytosis: Qualified Codes: D72.828 - Other elevated white blood cell count Kathy Mackay MD Aug 13, 2017 13:06
[2017-08-13 13:27] VITALS: BP 127/78; PULSE 79; RESP 18; TEMP 97.6; O2SAT 97
[2017-08-13 17:11] VITALS: BP 141/98; PULSE 62; RESP 18; TEMP 97.9; O2SAT 98
[2017-08-13 20:00] VITALS: BP 144/94; PULSE 52; RESP 18; TEMP 97.5; O2SAT 99
[2017-08-14] VITALS: BP 151/95; PULSE 63; RESP 18; TEMP 97.8; O2SAT 98
[2017-08-14] MEDS: HYDROmorphone HCL PF 0.5 MG/0.5 ML SYRINGE IV PRN ×3 (01:00→21:24)
[2017-08-14 04:30] VITALS: BP 140/91; PULSE 62; RESP 16; TEMP 97.5; O2SAT 97
[2017-08-14] MEDS: METOCLOPRAMIDE HCL 10 MG/2 ML VIAL IV PUSH PRN ×2 (05:24→21:32)
[2017-08-14] MEDS: cefTRIAXone INJ 2,000 MG in SODIUM CHLORIDE 0.9% INJ 100 ML IV SCH (05:39)
[2017-08-14 08:11] VITALS: BP 147/82; PULSE 59; RESP 20; TEMP 97.4; O2SAT 96
[2017-08-14] MEDS: COLCHICINE 0.6 MG TAB PO SCH ×2 (09:03→21:05)
[2017-08-14] MEDS: ALLOPURINOL 300 MG TAB PO SCH (09:03)
[2017-08-14] MEDS: LINEZOLID 600 MG TAB PO SCH ×2 (09:03→21:05)
[2017-08-14] MEDS: SODIUM CHLORIDE 0.9% FLUSH 10 ML FLUSH IV FLUSH SCH ×2 (09:03→21:06)
[2017-08-14] MEDS: DOCUSATE SODIUM 100 MG CAP PO SCH (09:03)
[2017-08-14] MEDS ORDERED: IOHEXOL 350 MG/ML 50 ML BTL (for RAD DIAG) OTHER ONE (10:45)
[2017-08-14 11:40] VITALS: BP 140/106; PULSE 66; RESP 20; TEMP 97.5; O2SAT 99
[2017-08-14] MEDS: SODIUM CHLORIDE 0.9% FLUSH 10 ML FLUSH IV FLUSH PRN (11:45)
[2017-08-14] MEDS: SODIUM CHLORIDE 0.9% FLUSH 10 ML FLUSH SCH ×2 (11:47→21:00)
--- NOTE | 2017-08-14 11:50 | RADRPT ---
EXAM DATE/TIME: 08/14/2017 10:28 [place] COMPARISON: No previous studies available for comparison. INDICATIONS: Patient presents with left side drainage catheter in need of evaulation. MEDICAL HISTORY : Gout Diverticula SURGIAL HISTORY : Chest Tube s/p stabbing CT guided drainage of abcess Oct 10 ENCOUNTER: Initial ACUITY: 2 weeks PAIN SCORE: 0/10 0.9minutes 7 CONTRAST: 5ccOmnipaque (iohexol) 350 PROCEDURE : 1. sinogram through existing catheter The risks, benefits and alternatives to the procedure were explained and verbal and written consent w as obtained. The site was prepped in sterile fashion. Full sterile technique was used, including ca p, mask, sterile gloves and gown and a large sterile sheet. Hand hygiene and 2% chlorhexidine and/or betadine/alcohol prep was utilized per protocol for cutaneous antisepsis. Contrast was injected through the existing catheter in the left pelvis. This demonstrates a very smal l residual abscess cavity with a fistula to the sigmoid colon. CONCLUSION: 1. 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 Plan: Changed drainage from suction to gravity drainage bag and will continue drainage. Reuben Barrios MD on August 14, 2017 at 11:29 Board Certified Radiologist. This report was verified electronically.
--- NOTE | 2017-08-14 15:33 | HHI.PR ---
Subjective Remarks Follow-up visit diverticulitis of intestine with abscesses, acute kidney injury. Patient seen and examined today. Patient is laying in bed. Denies any discomfort. Denies any nausea, vomiting, diarrhea. Patient states that he will keep the drain for now as per IR recommendations but does not know how to take care of the drain. Patient states he has not been explained with her to flush the drain and how to drain the bag. Denies shortness of breath or dyspnea. Denies fevers, chills. Objective Vitals Vital Signs Date Time Temp Pulse Resp B/P (MAP) Pulse Ox O2 Delivery O2 Flow Rate FiO2 08/14/17 11:40 97.5 66 20 140/106 (117) 99 08/14/17 08:11 97.4 59 20 147/82 (103) 96 08/14/17 04:30 97.5 62 16 140/91 (107) 97 08/14/17 00:00 97.8 63 18 151/95 (113) 98 08/13/17 20:00 97.5 52 18 144/94 (111) 99 08/13/17 17:11 97.9 62 18 141/98 (112) 98 I/O 08/13/17 08/13/17 08/13/17 08/14/17 08/14/17 08/14/17 07:00 15:00 23:00 07:00 15:00 23:00 Intake Total 960 ml 675 ml 282 ml Output Total 20 ml 655 ml Balance -20 ml 305 ml 675 ml 282 ml Intake Oral 960 ml 675 ml IV Total 282 ml Output Urine Total 650 ml Drainage Total 20 ml 5 ml # Voids 2 1 # Bowel Movements 0 Result Diagram: 08/12/17 1139 08/13/17 0820 Imaging Last Impressions Catheter Patency X-Ray 08/14/17 0000 Signed Impressions: Service Date/Time: August 10:28 - CONCLUSION: 1. 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 Plan: Changed drainage from suction to gravity drainage bag and will continue drainage. Reuben Barrios MD Abdomen/Pelvis CT 08/13/17 0000 Signed Impressions: Service Date/Time: Sunday, August 13, 2017 09:54 - CONCLUSION: 1. Inflammatory changes of diverticulitis but no evidence of residual abscess. Scooby Schroeder MD Lower Extremity Ultrasound 08/09/17 0000 Signed Impressions: Service Date/Time: Wednesday, August 09, 2017 14:15 - CONCLUSION: 1. No evidence of deep venous thrombosis. 2. Small to moderate-sized Warren's cyst in the popliteal fossa. David Lu MD Abdomen X-Ray 08/09/17 0000 Signed Impressions: Service Date/Time: Wednesday, August 09, 2017 17:30 - CONCLUSION: No dilated loops of small or large bowel. The Matias Ohara MD Pelvis CT 08/08/17 0000 Signed Impressions: Service Date/Time: Tuesday, August 08, 2017 11:44 - CONCLUSION: 1. 2 separate pericolonic abscess collections in the region of the sigmoid have resolved the percutaneous drainage. There is still some regional stranding in the pericolonic fatty tissues, however. 2. A 1.8 cm right inguinal hernia only contains fat. Jay Delacruz MD Knee MRI 08/07/17 0000 Signed Impressions: Service Date/Time: July 14:46 - CONCLUSION: 1. Large knee effusion and large Warren's cyst with probable rupture of the Warren's cyst. 2. No meniscal tear seen. Matias Ohara MD Abscess Drainage CT 08/05/17 1516 Signed Impressions: Service Date/Time: Saturday, August 05, 2017 14:14 - CONCLUSION: 1. Uncomplicated CT-guided placement of drainage catheter in 3 separate perisigmoid abscess collections, as above. Approximately 15 mL of purulent fluid was submitted for Gram stain and C&S per request. Reuben Barrios MD Objective Remarks GENERAL: This is a well-nourished, well-developed patient, in no apparent distress. SKIN: Warm and dry. HEENT: Normocephalic. Pupils equal round and reactive. Nose without bleeding. Airway patent. NECK: Trachea midline. No JVD. Supple. CARDIOVASCULAR: Regular rate and rhythm without murmurs, gallops, or rubs. RESPIRATORY: Clear to auscultation. Breath sounds equal bilaterally. No wheezes , rales, or rhonchi. GASTROINTESTINAL: Abdomen soft, non-tender, nondistended. Bowel Sounds normoactive x4. Pigtail drain left lower quadrant draining small amount clear yellow. MUSCULOSKELETAL: Extremities without clubbing, cyanosis, or edema. NEUROLOGICAL: Awake and alert. Oriented to time, place, person. No focal neuro deficit. Moves all extremities. Normal speech. Procedures 08/06- CT guided aspiration of abdominal abscess with placement of 3 separate drains 1027- aspiration right knee A/P Problem List: (1) Diverticulitis of intestine with abscess ICD Code: K57.80 - Diverticulitis of intestine, part unspecified, with perforation and abscess without bleeding Status: Acute (2) Leukocytosis ICD Code: D72.829 - Elevated white blood cell count, unspecified Status: Acute (3) Acute kidney injury ICD Code: N17.9 - Acute kidney failure, unspecified Status: Acute Assessment and Plan 41-year-old male with a history of diverticula and gout presented to the ED with nausea, vomiting, abdominal pain, fever, and chills. Sepsis secondary to Diverticular abscesses- recurrent episode of diverticulitis S/P CT guided drainage with drain- 08/05 - WBC down, final C and S- E coli and E faecalis - ID ff along with us - antibiotic changed from meropenem to Ceftriaxone - E faecalis coverage-continue on Zyvox 600 mg po bid - repeat CT shows improvement and some resolution - GS ff - will likely need eventual surgery - -patient agreeable- timing per GS- ff along with us- - IV Reglan prn for nausea - IR drainage evaluation, continue with drain for now as they have seen fistula developing. Patient will go home with a drain in no follow-up Dr. Singleton as an outpatient. - Teaching will be done on how to drain the bag as well as how to care for the drain. - Patient will continue with Zyvox and we'll switch over from ceftriaxone to Cefodoxime PO as per ID Acute gouty attack- -Resolved S/P arthrocentesis 08/08 Warren's cyst, right - ESR, CRP elevated - synovial fluid cultures negative - Placed on colchicine twice a day. Will do colchicine when necessary when patient goes home. Restart his allopurinol - PT daily Acute kidney injury, improving creatinine, non oliguric - Tolerating po well - Encourage by mouth fluids - Resolved DVT prop ambulatory Discharge Planning Plan to DC home tomorrow with antibiotics per ID. Patient will follow-up with Dr. Singleton as an outpatient and will be discharged with the drain. Problem Qualifiers (1) Diverticulitis of intestine with abscess: Qualified Codes: K57.20 - Diverticulitis of large intestine with perforation and abscess without bleeding (2) Leukocytosis: Qualified Codes: D72.828 - Other elevated white blood cell count Sherlyn Mcneil [facility] Aug 14, 2017 15:33
[2017-08-14 15:52] VITALS: BP 135/96; PULSE 78; RESP 20; TEMP 97.8; O2SAT 100
--- NOTE | 2017-08-14 16:32 | HHI.PR ---
cc: Kenny Singleton MD Subjective Subjective Notes DAILY PROGRESS NOTE FOR SURGICAL ATTENDING, DR. KENNY SINGLETON Resting in bed Went down to IR and drain studied---no has fistula Objective Vitals/I&O Vital Signs Date Time Temp Pulse Resp B/P (MAP) Pulse Ox O2 Delivery O2 Flow Rate FiO2 08/14/17 15:52 97.8 78 20 135/96 (109) 100 Labs Laboratory Tests Test 08/04/17 14:40 08/04/17 17:00 08/04/17 17:45 08/05/17 07:41 Prothrombin Time 13.3 SEC Prothromb Time International Ratio 1.2 RATIO Activated Partial Thromboplast Time 38.3 SEC Lipase 40 U/L Urine Color LIGHT-YELLOW Urine Turbidity CLEAR Urine pH 6.5 Urine Specific [place] 1.006 Urine Protein NEG mg/dL Urine Glucose (UA) NEG mg/dL Urine Ketones 10 mg/dL Urine Occult Blood TRACE Urine Nitrite NEG Urine Bilirubin NEG Urine Urobilinogen LESS THAN 2.0 MG/DL Urine Leukocyte Esterase NEG Urine RBC 1 /hpf Urine WBC 4 /hpf Urine Squamous Epithelial Cells <1 /hpf Urine Mucus FEW /lpf Microscopic Urinalysis Comment CULT NOT INDICATED Lactic Acid Level 1.0 mmol/L Blood Urea Nitrogen 9 MG/DL Creatinine 1.13 MG/DL Random Glucose 66 MG/DL Total Protein 6.8 GM/DL Albumin 1.8 GM/DL Calcium Level 8.2 MG/DL Alkaline Phosphatase 101 U/L Aspartate Amino Transf (AST/SGOT) 12 U/L Alanine Aminotransferase (ALT/SGPT) 11 U/L Total Bilirubin 0.8 MG/DL Sodium Level 140 MEQ/L Potassium Level 4.1 MEQ/L Chloride Level 102 MEQ/L Carbon Dioxide Level 24.9 MEQ/L Test 08/07/17 12:45 08/07/17 12:57 08/09/17 08:31 08/12/17 11:39 Erythrocyte Sedimentation Rate 78 mm/hr Blood Urea Nitrogen 4 MG/DL Creatinine 0.69 MG/DL Random Glucose 95 MG/DL Calcium Level 8.7 MG/DL Magnesium Level 1.9 MG/DL Uric Acid 3.8 MG/DL Sodium Level 135 MEQ/L Potassium Level 3.7 MEQ/L Chloride Level 97 MEQ/L Carbon Dioxide Level 29.6 MEQ/L C-Reactive Protein 22.00 MG/DL Synovial Fluid Crystals POS - URIC ACID White Blood Count 10.7 TH/MM3 Red Blood Count 3.97 MIL/MM3 Hemoglobin 11.8 GM/DL Hematocrit 35.5 % Mean Corpuscular Volume 89.4 FL Mean Corpuscular Hemoglobin 29.7 PG Mean Corpuscular Hemoglobin Concent 33.2 % Red Cell Distribution Width 15.4 % Platelet Count 430 TH/MM3 Mean Platelet Volume 9.5 FL Neutrophils (%) (Auto) 73.6 % Lymphocytes (%) (Auto) 19.0 % Monocytes (%) (Auto) 5.8 % Eosinophils (%) (Auto) 0.9 % Basophils (%) (Auto) 0.7 % Neutrophils # (Auto) 7.9 TH/MM3 Lymphocytes # (Auto) 2.0 TH/MM3 Monocytes # (Auto) 0.6 TH/MM3 Eosinophils # (Auto) 0.1 TH/MM3 Basophils # (Auto) 0.1 TH/MM3 CBC Comment DIFF FINAL Differential Comment Test 08/13/17 08:20 Blood Urea Nitrogen 7 MG/DL Creatinine 0.90 MG/DL Random Glucose 87 MG/DL Calcium Level 9.1 MG/DL Sodium Level 138 MEQ/L Potassium Level 4.1 MEQ/L Chloride Level 102 MEQ/L Carbon Dioxide Level 27.8 MEQ/L Anion Gap 8 MEQ/L Estimat Glomerular Filtration Rate 93 ML/MIN Radiology Last 72 hours Impressions Catheter Patency X-Ray 08/14/17 0000 Signed Impressions: Service Date/Time: August 10:28 - CONCLUSION: 1. 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 Plan: Changed drainage from suction to gravity drainage bag and will continue drainage. Reuben Barrios MD Abdomen/Pelvis CT 08/13/17 0000 Signed Impressions: Service Date/Time: Sunday, August 13, 2017 09:54 - CONCLUSION: 1. Inflammatory changes of diverticulitis but no evidence of residual abscess. Scooby Schroeder MD Cardiovascular: Regular Lungs: Clear Abdomen: Other (LLQ drain in place; non tender ) Extremities: No edema A/P Problem List: (1) Colonic fistula ICD Codes: K63.2 - Fistula of intestine Status: Acute (2) Colonic diverticular abscess ICD Codes: K57.20 - Diverticulitis of large intestine with perforation and abscess without bleeding Status: Acute (3) Intra-abdominal abscess ICD Codes: K65.1 - Peritoneal abscess Status: Acute (4) Gram-negative infection ICD Codes: A49.9 - Bacterial infection, unspecified Status: Acute (5) Diverticulitis of intestine with abscess ICD Codes: K57.80 - Diverticulitis of intestine, part unspecified, with perforation and abscess without bleeding Status: Acute (6) Leukocytosis ICD Codes: D72.829 - Elevated white blood cell count, unspecified Status: Acute (7) Diverticulitis ICD Codes: K57.92 - Diverticulitis of intestine, part unspecified, without perforation or abscess without bleeding Status: Chronic (8) Right knee pain ICD Codes: M25.561 - Pain in right knee Status: Acute (9) Warren's cyst, ruptured ICD Codes: M66.0 - Rupture of popliteal cyst Status: Acute Assessment and Plan 42 year old male with recurrent diverticular abscesses; s/p IR drainage -Continue IR placed drain ---now with fistula -GI consult--- eval for colonoscopy -WBC normal -Afebrile -Regular diet -Antibiotics per ID -s/p aspiration of RIGHT knee (Orthopedics) Attending Statement Discussed radiologic findings with the radiologist to perform the exam Patient has a fistula between the colon and the abscess cavity This was discussed with the patient At this point I think we need to pursue sigmoid colon Resection during this admission We will keep him on antibiotic therapy We will reconsult GI to perform colonoscopy to make sure there is no other pathology in the rest of the colon NOTE FOR SURGICAL ATTENDING, DR. KENNY SINGLETON I agree with above assessment and plan. The exam, history, and the medical decision-making described in the above note were completed with the assistance of the mid-level provider. I reviewed and agree with the findings presented. I attest that I had a [id number] encounter with the patient on the same day, and personally performed and documented my assessment and findings in the medical record. The following services were provided during this hospital visit: Chart data review, vital sign assessments/reviewing monitor data Review of consultations notes if present. Medication orders/review and/or management Ordering and/or reviewing lab tests Ordering and/or interpreting/reviewing x-rays and/or diagnostic studies Care of the patient and discussion of the patient with the care team Documentation time To help prompt me to consider important information that might be impacting today's encounter and assessment, information from prior notes written by myself or my colleagues may have been "brought forward/copy and pasted" into today's note. Problem Qualifiers (1) Diverticulitis of intestine with abscess: Qualified Codes: K57.20 - Diverticulitis of large intestine with perforation and abscess without bleeding (2) Leukocytosis: Qualified Codes: D72.828 - Other elevated white blood cell count (3) Diverticulitis: Qualified Codes: K57.20 - Diverticulitis of large intestine with perforation and abscess without bleeding (4) Right knee pain: Qualified Codes: M25.561 - Pain in right knee Tressa Dacosta Aug 14, 2017 16:32 Kenny Singleton MD Aug 14, 2017 17:05
--- NOTE | 2017-08-14 16:53 | PD.CONS ---
HPI History of Present Illness This is a 42 year old with recurrent diverticulitis. He reports that he has had 4 episodes of diverticulitis in the past 3 years. His last episode was in April and he had abscess formation which required drainage at that time. He presented to [facility] physician chris Haro on July 22 for evaluation of left foot pain related to gout and dysuria. He states that he had mild abdominal discomfort at that time and a CT scan of the abdomen and pelvis noted acute diverticulitis with 2 fistulas (1 to the urinary bladder and once of the stomach) and 2 abscesses. He was treated with Vanco and Zosyn and evaluated by general surgery (he does not recall the surgeon's name) and reports that he was told he needed emergent surgery. However, he reports that he did not want to have surgery at that facility and therefore left AMA on Friday and came to this facility on 07/22/17. He was evaluated by CT scan and found to have 2.7 cm abscess in the left lower quadrant and a 3.4 bilobed abscess between the superior bladder wall and adjacent sigmoid colon. IR evaluated him and recommended medical management with consideration of drainage catheter if either abscess increased in size. The patient continued to have pain and therefore underwent drainage of colonic abscess by IR on 07/28. He was then discharged on Levaquin/Diflucan on 07/28. The patient reports that he continued to have intermittent fevers and abdominal pain. He returned to the ER on 08/04/17 with persistent symptoms. Currently has drain LLQ pelvis with scant amount of drainage in tubing. General surgery is following and the plan is for possible surgery next week and they are requesting further evaluation with colonoscopy prior to scheduling surgery. Rpt. CT Scan abdomen and pelvis ( 08/13/17)--> inflammatory changes of diverticulitis but no evidence of residual abscess. (Yenny Weems) PFSH Past Medical History Gout Recurrent diverticulitis with abscess formation PTX Past Surgical History Chest tube s/p stabbing CT guided drainage of abscess Jul 22 Colonoscopy (Yenny Weems) Coded Allergies: acetaminophen (Verified Allergy, Unknown, 08/04/17) morphine (Verified Adverse Reaction, Unknown, 08/04/17) Medications Allergies Coded Allergies Type Severity Reaction Last Updated Verified acetaminophen Allergy Unknown 08/04/17 Yes morphine Adverse Reaction Unknown 08/04/17 Yes Active Scripts Medications Dose Route/Sig Max Daily Dose Days Date Category Zyloprim (Allopurinol) 300 Mg Tab 300 Mg PO DAILY 08/06/17 Reported Family History Father had diabetes Mother has hypertension Social History Tobacco use: 1-2 PP week Alcohol use: Socially on weekends, and a drink daily with dinner Illicit drug use: Denies (Yenny Weems) Review of Systems Constitutional: COMPLAINS OF: Diaphoretic episodes, Fatigue, Fever, Chills Respiratory: DENIES: Cough Cardiovascular: DENIES: Chest pain Gastrointestinal: COMPLAINS OF: Abdominal pain, Diarrhea, DENIES: Black stools , Bloody stools, Constipation, Nausea, Vomiting, Swelling of Abdomen Neurologic: DENIES: Headache Psychiatric: DENIES: Confusion (Yenny Weems) GI Exam Vitals I&O Vital Signs Date Time Temp Pulse Resp B/P (MAP) Pulse Ox O2 Delivery O2 Flow Rate FiO2 08/14/17 15:52 97.8 78 20 135/96 (109) 100 08/14/17 11:40 97.5 66 20 140/106 (117) 99 08/14/17 08:11 97.4 59 20 147/82 (103) 96 08/14/17 04:30 97.5 62 16 140/91 (107) 97 08/14/17 00:00 97.8 63 18 151/95 (113) 98 08/13/17 20:00 97.5 52 18 144/94 (111) 99 08/13/17 17:11 97.9 62 18 141/98 (112) 98 I/O 08/13/17 08/13/17 08/13/17 08/14/17 08/14/17 08/14/17 07:00 15:00 23:00 07:00 15:00 23:00 Intake Total 960 ml 675 ml 642 ml Output Total 20 ml 655 ml Balance -20 ml 305 ml 675 ml 642 ml Intake Oral 960 ml 675 ml 360 ml IV Total 282 ml Output Urine Total 650 ml Drainage Total 20 ml 5 ml # Voids 2 1 4 # Bowel Movements 0 1 Imaging Last Impressions Catheter Patency X-Ray 08/14/17 0000 Signed Impressions: Service Date/Time: August 10:28 - CONCLUSION: 1. 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 Plan: Changed drainage from suction to gravity drainage bag and will continue drainage. Reuben Barrios MD Abdomen/Pelvis CT 08/13/17 0000 Signed Impressions: Service Date/Time: Sunday, August 13, 2017 09:54 - CONCLUSION: 1. Inflammatory changes of diverticulitis but no evidence of residual abscess. Scooby Schroeder MD Lower Extremity Ultrasound 08/09/17 0000 Signed Impressions: Service Date/Time: Wednesday, August 09, 2017 14:15 - CONCLUSION: 1. No evidence of deep venous thrombosis. 2. Small to moderate-sized Warren's cyst in the popliteal fossa. David Lu MD Abdomen X-Ray 08/09/17 0000 Signed Impressions: Service Date/Time: Wednesday, August 09, 2017 17:30 - CONCLUSION: No dilated loops of small or large bowel. The Matias Ohara MD Pelvis CT 08/08/17 0000 Signed Impressions: Service Date/Time: Tuesday, August 08, 2017 11:44 - CONCLUSION: 1. 2 separate pericolonic abscess collections in the region of the sigmoid have resolved the percutaneous drainage. There is still some regional stranding in the pericolonic fatty tissues, however. 2. A 1.8 cm right inguinal hernia only contains fat. Jay Delacruz MD Knee MRI 08/07/17 0000 Signed Impressions: Service Date/Time: July 14:46 - CONCLUSION: 1. Large knee effusion and large Warren's cyst with probable rupture of the Warren's cyst. 2. No meniscal tear seen. Matias Ohara MD Abscess Drainage CT 08/05/17 1516 Signed Impressions: Service Date/Time: Saturday, August 05, 2017 14:14 - CONCLUSION: 1. Uncomplicated CT-guided placement of drainage catheter in 3 separate perisigmoid abscess collections, as above. Approximately 15 mL of purulent fluid was submitted for Gram stain and C&S per request. Reuben Barrios MD Laboratory Date/Time Source Procedure Growth Status 08/05/17 17:30 Blood Other Aerobic Blood Culture - Final NO GROWTH IN 5 DAYS Complete 08/05/17 17:30 Blood Other Anaerobic Blood Culture - Final NO GROWTH IN 5 DAYS Complete 08/09/17 08:31 Fluid Synovial Fluid Gram Stain - Final Complete 08/09/17 08:31 Fluid Synovial Fluid Body Fluid Culture - Final NO GROWTH IN 72 HRS.--AEROBICALLY OR ... Complete 08/05/17 14:30 Abscess Abdomen Fungal Smear - Final NO FUNGAL ELEMENTS SEEN. Resulted 08/05/17 14:30 Abscess Abdomen Fungal Culture - Preliminary NO GROWTH IN 1 WEEK Resulted Physical Examination HEENT: Normocephalic; atraumatic; no jaundice. CHEST: CTA CARDIAC: RRR ABDOMEN: Soft, nondistended, mild LLQ tenderness; no hepatosplenomegaly; bowel sounds are present in all four quadrants. Pelvic drain (accordian) left, scant amount yellow drainage in tubing EXTREMITIES: No clubbing, cyanosis, or edema. SKIN: Normal; no rash; no jaundice. MEDICAL WRITER: No focal deficits; alert and oriented times three. (Yenny Weems) Assessment and Plan Plan ASSESSMENT: - Recurrent diverticulitis with abscess/fistula formation. Pt left AMA from [facility] last month. He was hospitalized at this facility from 07/22- . During that time, he had drainage of abscess by IR. His condition improved and he was discharged with Levaquin/Diflucan on 07/28. He reports that he continued to have fevers, abdominal pain and returned to the hospital on 08/04. He has an accordian drain to his LLQ- scant amount of yellow drainage in tubing. Rpt. CT Scan abdomen and pelvis (08/13/17)--> inflammatory changes of diverticulitis but no evidence of residual abscess. Clinically, he only has mild abdominal tenderness in the LLQ- very mild. WBC 10.7 (improved). Ceftriaxone, Zyvox. GS following, plan is for possible surgery next week, GS requesting colonoscopy prior to surgery. Will plan for colonoscopy in am. D/W patient procedure, risks ( including increased risk of perforation), benefits. He would like to proceed. PLAN: - Plan for colonoscopy in am - Obtain consents - Clear liquids - NPO after MN - Golytely prep - Cont. Abx - GS following, plan for surgery early next week - Supportive care - Further recommendations to follow based on results of above - Pt seen and examined by Dr. Guo and myself and this note is written on his behalf (Yenny Weems) Physician Comments Seen and examined, plan for Colonoscopy in AM despite the fair of perforation in a sitting of acute cholecystitis. (Elaine Guo MD) Yenny Weems Aug 14, 2017 16:53 Elaine Guo MD Aug 14, 2017 21:36
[2017-08-14] MEDS ORDERED: PEG (High)/E-LYTE SOLN 4000 ML BTL PO ONE (18:00)
[2017-08-14] MEDS ORDERED: COLC1TAB15 PO (18:01)
[2017-08-14 20:00] VITALS: BP 147/80; PULSE 67; RESP 18; TEMP 97.7; O2SAT 97
[2017-08-15 00:30] VITALS: BP 147/99; PULSE 62; RESP 17; TEMP 98.4; O2SAT 98
[2017-08-15 05:30] VITALS: BP 135/80; PULSE 65; RESP 17; TEMP 97.3; O2SAT 98
[2017-08-15] MEDS: cefTRIAXone INJ 2,000 MG in SODIUM CHLORIDE 0.9% INJ 100 ML IV SCH (05:52)
[2017-08-15] MEDS: HYDROmorphone HCL PF 0.5 MG/0.5 ML SYRINGE IV PRN ×3 (06:02→15:19)
[2017-08-15] MEDS: LINEZOLID 600 MG TAB PO SCH (07:48)
[2017-08-15] MEDS: COLCHICINE 0.6 MG TAB PO SCH ×2 (07:48→22:53)
[2017-08-15] MEDS: ALLOPURINOL 300 MG TAB PO SCH (07:48)
[2017-08-15] MEDS: DOCUSATE SODIUM 100 MG CAP PO SCH (07:48)
[2017-08-15] MEDS: SODIUM CHLORIDE 0.9% FLUSH 10 ML FLUSH SCH ×2 (07:49→21:00)
[2017-08-15] MEDS: SODIUM CHLORIDE 0.9% FLUSH 10 ML FLUSH IV FLUSH SCH ×2 (07:49→22:57)
[2017-08-15 07:56] VITALS: BP 125/79; PULSE 54; RESP 18; TEMP 97.6; O2SAT 95
--- NOTE | 2017-08-15 09:49 | GIPROC ---
[facility] [address] [facility]. [facility], [address] COLONOSCOPY PROCEDURE REPORT EXAM DATE: 08/15/2017 PATIENT NAME: Power Bermeo MR #: [id number] BIRTHDATE: 1975 ENDOSCOPIST: Elaine Guo MD ORDER #: [id number] HIMS MANAGER: Mikael Michaud and Kriss Leos STATUS: inpatient INDICATIONS: The patient is a 42 yr old male here for a colonoscopy due to an abnormal CT PROCEDURE PERFORMED: Colonoscopy, diagnostic MEDICATIONS: None and Per Anesthesia. PREP QUALITY: fair PREP TYPE:GoLytely ESTIMATED BLOOD LOSS: None CONSENT: The patient understands the risks and benefits of the procedure and understands that these risks include, but are not limited to: sedation, allergic reaction, infection, perforation and/or bleeding. Alternative means of evaluation and treatment include, among others: physical exam, x-rays, and/or surgical intervention. The patient elects to proceed with this endoscopic procedure. medical equipment was checked for proper function. Hand hygiene and appropriate measures for infection prevention was taken. After the risks, benefits and alternatives of the procedure were thoroughly explained, Informed consent was verified, confirmed and timeout was successfully executed by the treatment team. A digital exam revealed no abnormalities of the rectum The Pentax [id number] endoscope was introduced through the anus and advanced to the cecum, which was identified by both the appendix and ileocecal valve. The instrument was then slowly withdrawn as the colon was fully examined. COLON FINDINGS: Diverticulum was found in the sigmoid colon. The opening appeared congested. The opening was small. Retroflexed views revealed no abnormalities The scope was then completely withdrawn from the patient and the procedure terminated. PROCEDURE WITHDRAWAL TIME:8minutes ADVERSE EVENTS: There were no complications. IMPRESSIONS: 1. Diverticulum in the sigmoid colon, few small scattered with mild peridiverticular erythema, otherwise normal colon to the cecum. 2. Retroflexed views revealed no abnormalities RECOMMENDATIONS: High fiber diet RECALL: Return 10 years Colonoscopy Elaine Guo MD eSigned: Elaine Guo MD 08/15/2017 9:48 AM cc: PATIENT NAME: Power Bermeo MR#: [id number]
[2017-08-15 09:50] VITALS: BP 117/69; PULSE 69; RESP 16; TEMP 97; O2SAT 97
[2017-08-15] MEDS: METOCLOPRAMIDE HCL 10 MG/2 ML VIAL IV PUSH PRN (10:44)
[2017-08-15 12:00] VITALS: BP 140/90; PULSE 57; RESP 18; TEMP 98; O2SAT 90
[2017-08-15] MEDS ORDERED: PROPOFOL 200 MG/20 ML AMP IV ONE (12:00)
[2017-08-15] MEDS: SODIUM CHLORIDE 0.9% FLUSH 10 ML FLUSH IV FLUSH PRN (15:19)
--- NOTE | 2017-08-15 15:30 | HHI.PR ---
Subjective Remarks Follow-up visit diverticulitis of intestine with abscesses, acute kidney injury. Patient seen and examined today. Patient is laying in bed. Patient states he just had colonoscopy and was told that the results were good. States that they are planning to do surgery on him next week and he is happy that they' re going to proceed with the surgery so he doesn't have to go home with a bag. Denies any discomfort. Denies any nausea, vomiting, diarrhea. Denies shortness of breath or dyspnea. Denies fevers, chills. Objective Vitals Vital Signs Date Time Temp Pulse Resp B/P (MAP) Pulse Ox O2 Delivery O2 Flow Rate FiO2 08/15/17 12:00 98.0 57 18 140/90 (107) 90 08/15/17 09:50 97.0 69 16 117/69 (85) 97 08/15/17 09:50 97.0 69 16 117/69 (85) 97 Room Air 08/15/17 09:50 97.0 69 16 117/69 (85) 97 08/15/17 07:56 97.6 54 18 125/79 (94) 95 08/15/17 05:30 97.3 65 17 135/80 (98) 98 08/15/17 00:30 98.4 62 17 147/99 (115) 98 08/14/17 20:00 97.7 67 18 147/80 (102) 97 08/14/17 15:52 97.8 78 20 135/96 (109) 100 I/O 08/14/17 08/14/17 08/14/17 08/15/17 08/15/17 08/15/17 07:00 15:00 23:00 07:00 15:00 23:00 Intake Total 675 ml 642 ml 1000 ml 1700 ml 200 ml Output Total 425 ml Balance 675 ml 642 ml 575 ml 1700 ml 200 ml Intake Oral 675 ml 360 ml 1000 ml 1600 ml IV Total 282 ml 100 ml Other 200 ml Output Urine Total 425 ml # Voids 1 4 2 10 # Bowel Movements 0 1 0 17 Result Diagram: 08/12/17 1139 08/13/17 0820 Imaging Last Impressions Catheter Patency X-Ray 08/14/17 0000 Signed Impressions: Service Date/Time: August 10:28 - CONCLUSION: 1. 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 Plan: Changed drainage from suction to gravity drainage bag and will continue drainage. Reuben Barrios MD Abdomen/Pelvis CT 08/13/17 0000 Signed Impressions: Service Date/Time: Sunday, August 13, 2017 09:54 - CONCLUSION: 1. Inflammatory changes of diverticulitis but no evidence of residual abscess. Scooby Schroeder MD Lower Extremity Ultrasound 08/09/17 0000 Signed Impressions: Service Date/Time: Wednesday, August 09, 2017 14:15 - CONCLUSION: 1. No evidence of deep venous thrombosis. 2. Small to moderate-sized Warren's cyst in the popliteal fossa. David Lu MD Abdomen X-Ray 08/09/17 0000 Signed Impressions: Service Date/Time: Wednesday, August 09, 2017 17:30 - CONCLUSION: No dilated loops of small or large bowel. The Matias Ohara MD Pelvis CT 08/08/17 0000 Signed Impressions: Service Date/Time: Tuesday, August 08, 2017 11:44 - CONCLUSION: 1. 2 separate pericolonic abscess collections in the region of the sigmoid have resolved the percutaneous drainage. There is still some regional stranding in the pericolonic fatty tissues, however. 2. A 1.8 cm right inguinal hernia only contains fat. Jay Delacruz MD Knee MRI 08/07/17 0000 Signed Impressions: Service Date/Time: July 14:46 - CONCLUSION: 1. Large knee effusion and large Warren's cyst with probable rupture of the Warren's cyst. 2. No meniscal tear seen. Matias Ohara MD Abscess Drainage CT 08/05/17 1516 Signed Impressions: Service Date/Time: Saturday, August 05, 2017 14:14 - CONCLUSION: 1. Uncomplicated CT-guided placement of drainage catheter in 3 separate perisigmoid abscess collections, as above. Approximately 15 mL of purulent fluid was submitted for Gram stain and C&S per request. Reuben Barrios MD Objective Remarks GENERAL: This is a well-nourished, well-developed patient, in no apparent distress. SKIN: Warm and dry. HEENT: Normocephalic. Pupils equal round and reactive. Nose without bleeding. Airway patent. NECK: Trachea midline. No JVD. Supple. CARDIOVASCULAR: Regular rate and rhythm without murmurs, gallops, or rubs. RESPIRATORY: Clear to auscultation. Breath sounds equal bilaterally. No wheezes , rales, or rhonchi. GASTROINTESTINAL: Abdomen soft, non-tender, nondistended. Bowel Sounds normoactive x4. Pigtail drain left lower quadrant draining small amount clear yellow. MUSCULOSKELETAL: Extremities without clubbing, cyanosis, or edema. NEUROLOGICAL: Awake and alert. Oriented to time, place, person. No focal neuro deficit. Moves all extremities. Normal speech. Procedures 08/06- CT guided aspiration of abdominal abscess with placement of 3 separate drains 1027- aspiration right knee A/P Problem List: (1) Diverticulitis of intestine with abscess ICD Code: K57.80 - Diverticulitis of intestine, part unspecified, with perforation and abscess without bleeding Status: Acute (2) Leukocytosis ICD Code: D72.829 - Elevated white blood cell count, unspecified Status: Acute (3) Acute kidney injury ICD Code: N17.9 - Acute kidney failure, unspecified Status: Acute Assessment and Plan 41-year-old male with a history of diverticula and gout presented to the ED with nausea, vomiting, abdominal pain, fever, and chills. Sepsis secondary to Diverticular abscesses- recurrent episode of diverticulitis S/P CT guided drainage with drain- 08/05 - WBC down, final C and S- E coli and E faecalis - ID ff along with us - antibiotic changed from meropenem to Ceftriaxone - E faecalis coverage-continue on Zyvox 600 mg po bid - Repeat CT shows improvement and some resolution - IV Reglan prn for nausea - IR drainage evaluation, continue with drain for now as they have seen fistula developing. - Seen and followed by general surgery were and they have decided that the patient would need sigmoidectomy and we'll proceed with surgery possibly next week. - Patient will continue to be on antibiotics as recommended by surgery until sigmoidectomy is done. Continue ceftriaxone every 24 hours, Zyvox every 12 hours. Acute gouty attack- -Resolved S/P arthrocentesis 08/08 Warren's cyst, right - ESR, CRP elevated - synovial fluid cultures negative - Onn colchicine twice a day. (Colchicine when necessary when patient goes home). On allopurinol - PT daily Acute kidney injury, improving creatinine, non oliguric - Tolerating po well - Encourage by mouth fluids - Resolved DVT prop ambulatory Discussed with patient, family, nursing, Dr. Banuelos Discharge Planning Plan for surgical intervention sigmoidectomy on Friday. Problem Qualifiers (1) Diverticulitis of intestine with abscess: Qualified Codes: K57.20 - Diverticulitis of large intestine with perforation and abscess without bleeding (2) Leukocytosis: Qualified Codes: D72.828 - Other elevated white blood cell count Sherlyn Mcneil [facility] Aug 15, 2017 15:30
--- NOTE | 2017-08-15 16:31 | HHI.PR ---
cc: Kenny Singleton MD Subjective Subjective Notes DAILY PROGRESS NOTE FOR SURGICAL ATTENDING, DR. KENNY SINGLETON Resting in bed Anxious to have surgery Mother at bedside Objective Vitals/I&O Vital Signs Date Time Temp Pulse Resp B/P (MAP) Pulse Ox O2 Delivery O2 Flow Rate FiO2 08/15/17 12:00 98.0 57 18 140/90 (107) 90 08/15/17 09:50 Room Air Labs Date/Time Source Procedure Growth Status 08/05/17 17:30 Blood Other Aerobic Blood Culture - Final NO GROWTH IN 5 DAYS Complete 08/05/17 17:30 Blood Other Anaerobic Blood Culture - Final NO GROWTH IN 5 DAYS Complete 08/09/17 08:31 Fluid Synovial Fluid Gram Stain - Final Complete 08/09/17 08:31 Fluid Synovial Fluid Body Fluid Culture - Final NO GROWTH IN 72 HRS.--AEROBICALLY OR ... Complete 08/05/17 14:30 Abscess Abdomen Fungal Smear - Final NO FUNGAL ELEMENTS SEEN. Resulted 08/05/17 14:30 Abscess Abdomen Fungal Culture - Preliminary NO GROWTH IN 1 WEEK Resulted Radiology Last 72 hours Impressions Catheter Patency X-Ray 08/14/17 0000 Signed Impressions: Service Date/Time: August 10:28 - CONCLUSION: 1. 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 Plan: Changed drainage from suction to gravity drainage bag and will continue drainage. Reuben Barrios MD Abdomen/Pelvis CT 08/13/17 0000 Signed Impressions: Service Date/Time: Sunday, August 13, 2017 09:54 - CONCLUSION: 1. Inflammatory changes of diverticulitis but no evidence of residual abscess. 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 - Fistula of intestine Status: Acute (2) Colonic diverticular abscess ICD Codes: K57.20 - Diverticulitis of large intestine with perforation and abscess without bleeding Status: Acute (3) Intra-abdominal abscess ICD Codes: K65.1 - Peritoneal abscess Status: Acute (4) Gram-negative infection ICD Codes: A49.9 - Bacterial infection, unspecified Status: Acute (5) Diverticulitis of intestine with abscess ICD Codes: K57.80 - Diverticulitis of intestine, part unspecified, with perforation and abscess without bleeding Status: Acute (6) Leukocytosis ICD Codes: D72.829 - Elevated white blood cell count, unspecified Status: Acute (7) Diverticulitis ICD Codes: K57.92 - Diverticulitis of intestine, part unspecified, without perforation or abscess without bleeding Status: Chronic (8) Right knee pain ICD Codes: M25.561 - Pain in right knee Status: Acute (9) Warren's cyst, ruptured ICD Codes: M66.0 - Rupture of popliteal cyst Status: Acute Assessment and Plan 42 year old male with recurrent diverticular abscesses; s/p IR drainage -Continue IR placed drain ---now with fistula -S/p colonoscopy -Will plan for lap assisted sigmoid resection possible open procedure with Dr. Singleton for Friday AM -Regular diet today and Friday -Clear liquids and bowel prep to start Friday -Antibiotics per ID Attending Statement Had colonoscopy IMPRESSIONS: 1. Diverticulum in the sigmoid colon, few small scattered with mild peridiverticular erythema, otherwise normal colon to the cecum. 2. Retroflexed views revealed no abnormalities Since he has his fistula into his abdominal cavity at the abscess cavity will proceed with plan sigmoid resection next week. I told him he may end up with a colostomy depending on the severity of his inflammation NOTE FOR SURGICAL ATTENDING, DR. KENNY SINGLETON I agree with above assessment and plan. The exam, history, and the medical decision-making described in the above note were completed with the assistance of the mid-level provider. I reviewed and agree with the findings presented. I attest that I had a [id number] encounter with the patient on the same day, and personally performed and documented my assessment and findings in the medical record. The following services were provided during this hospital visit: Chart data review, vital sign assessments/reviewing monitor data Review of consultations notes if present. Medication orders/review and/or management Ordering and/or reviewing lab tests Ordering and/or interpreting/reviewing x-rays and/or diagnostic studies Care of the patient and discussion of the patient with the care team Documentation time To help prompt me to consider important information that might be impacting today's encounter and assessment, information from prior notes written by myself or my colleagues may have been "brought forward/copy and pasted" into today's note. Problem Qualifiers (1) Diverticulitis of intestine with abscess: Qualified Codes: K57.20 - Diverticulitis of large intestine with perforation and abscess without bleeding (2) Leukocytosis: Qualified Codes: D72.828 - Other elevated white blood cell count (3) Diverticulitis: Qualified Codes: K57.20 - Diverticulitis of large intestine with perforation and abscess without bleeding (4) Right knee pain: Qualified Codes: M25.561 - Pain in right knee Tressa Dacosta Aug 15, 2017 16:31 Kenny Singleton MD Aug 15, 2017 17:23
[2017-08-15] MEDS: LINEZOLID 600 MG PREMIX 300 ML IV SCH (18:36)
[2017-08-16 00:22] VITALS: BP 125/88; PULSE 78; RESP 20; TEMP 98.6; O2SAT 95
[2017-08-16] MEDS: METOCLOPRAMIDE HCL 10 MG/2 ML VIAL IV PUSH PRN ×2 (02:07→13:57)
[2017-08-16] MEDS: cefTRIAXone INJ 2,000 MG in SODIUM CHLORIDE 0.9% INJ 100 ML IV SCH (07:03)
[2017-08-16 08:00] VITALS: BP 131/91; PULSE 69; RESP 20; TEMP 97.9; O2SAT 96
[2017-08-16] MEDS ORDERED: MAGNESIUM CITRATE SOLN 300 ML BTL PO ONE (08:00)
[2017-08-16] MEDS: LINEZOLID 600 MG PREMIX 300 ML IV SCH ×2 (08:44→17:08)
[2017-08-16] MEDS: ALLOPURINOL 300 MG TAB PO SCH (08:45)
[2017-08-16] MEDS: SODIUM CHLORIDE 0.9% FLUSH 10 ML FLUSH IV FLUSH SCH ×2 (08:45→21:00)
[2017-08-16] MEDS: DOCUSATE SODIUM 100 MG CAP PO SCH (08:45)
[2017-08-16] MEDS: COLCHICINE 0.6 MG TAB PO SCH ×2 (08:45→21:14)
[2017-08-16] MEDS: SODIUM CHLORIDE 0.9% FLUSH 10 ML FLUSH SCH ×2 (09:00→21:00)
--- NOTE | 2017-08-16 09:36 | HHI.PR ---
Subjective Remarks Patient seen and examined this am. Vitals are stable and he is afebrile. Reports some pain at drain site. Denies CP or difficulty breathing. Objective Vital Signs Date Time Temp Pulse Resp B/P (MAP) Pulse Ox O2 Delivery O2 Flow Rate FiO2 08/16/17 00:22 98.6 78 20 125/88 (100) 95 08/15/17 12:00 98.0 57 18 140/90 (107) 90 08/15/17 09:50 97.0 69 16 117/69 (85) 97 08/15/17 09:50 97.0 69 16 117/69 (85) 97 Room Air 08/15/17 09:50 97.0 69 16 117/69 (85) 97 I/O 08/15/17 08/15/17 08/15/17 08/16/17 08/16/17 08/16/17 07:00 15:00 23:00 07:00 15:00 23:00 Intake Total 1700 ml 200 ml Balance 1700 ml 200 ml Intake Oral 1600 ml IV Total 100 ml Other 200 ml # Voids 10 1 # Bowel Movements 17 Result Diagram: 08/12/17 1139 08/13/17 0820 Imaging Last Impressions Catheter Patency X-Ray 08/14/17 0000 Signed Impressions: Service Date/Time: August 10:28 - CONCLUSION: 1. 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 Plan: Changed drainage from suction to gravity drainage bag and will continue drainage. Reuben Barrios MD Abdomen/Pelvis CT 08/13/17 0000 Signed Impressions: Service Date/Time: Sunday, August 13, 2017 09:54 - CONCLUSION: 1. Inflammatory changes of diverticulitis but no evidence of residual abscess. Scooby Schroeder MD Lower Extremity Ultrasound 08/09/17 0000 Signed Impressions: Service Date/Time: Wednesday, August 09, 2017 14:15 - CONCLUSION: 1. No evidence of deep venous thrombosis. 2. Small to moderate-sized Warren's cyst in the popliteal fossa. David Lu MD Abdomen X-Ray 08/09/17 0000 Signed Impressions: Service Date/Time: Wednesday, August 09, 2017 17:30 - CONCLUSION: No dilated loops of small or large bowel. The Matias Ohara MD Pelvis CT 08/08/17 0000 Signed Impressions: Service Date/Time: Tuesday, August 08, 2017 11:44 - CONCLUSION: 1. 2 separate pericolonic abscess collections in the region of the sigmoid have resolved the percutaneous drainage. There is still some regional stranding in the pericolonic fatty tissues, however. 2. A 1.8 cm right inguinal hernia only contains fat. Jay Delacruz MD Knee MRI 08/07/17 0000 Signed Impressions: Service Date/Time: July 14:46 - CONCLUSION: 1. Large knee effusion and large Warren's cyst with probable rupture of the Warren's cyst. 2. No meniscal tear seen. Matias Ohara MD Abscess Drainage CT 08/05/17 1516 Signed Impressions: Service Date/Time: Saturday, August 05, 2017 14:14 - CONCLUSION: 1. Uncomplicated CT-guided placement of drainage catheter in 3 separate perisigmoid abscess collections, as above. Approximately 15 mL of purulent fluid was submitted for Gram stain and C&S per request. Reuben Barrios MD Objective Remarks GENERAL: lay in bed, well appearing SKIN: Warm and dry. HEAD: Normocephalic. EYES: No scleral icterus. No injection or drainage. NECK: Supple, trachea midline. No JVD or lymphadenopathy. CARDIOVASCULAR: Regular rate and rhythm without murmurs, gallops, or rubs. RESPIRATORY: Breath sounds equal bilaterally. No accessory muscle use. GASTROINTESTINAL: Abdomen soft, minimal tenderness LLQ, drain in place. . MUSCULOSKELETAL: No cyanosis, or edema. No calf tenderness. 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 Sepsis secondary to Diverticular abscesses- recurrent episode of diverticulitis S/P CT guided drainage with drain- 08/05. See imaging above - Leukocytosis improving. Blood cultures negative 5 days. Abscess culture on 08/05 significant for Escherichia coli and enterococcus. - Status post colonoscopy on 07/15 which showed diverticulum in the sigmoid colon, a few small scattered with mild. Diet particular erythema, otherwise normal colon to the cecum. - Per general surgery due to fistula into abdominal cavity with abscess plan to proceed with sigmoid resection next week. He is aware that he may end up with a colostomy. - IR drainage evaluation, continue with drain for now as they have seen fistula developing. - Patient will continue to be on antibiotics as recommended by surgery and infectious disease until sigmoidectomy is done. Continue ceftriaxone 2g daily ( 08/11- ), Zyvox 600 mg every 12 hr (08/15- ). ID has signed up a wall be available if there is any change in clinical condition. Plan is that when the patient is ready for discharge he will go home on ampicillin and cefoidixime for 20 days. Scripts are in chart Acute gouty attack- -Resolved S/P arthrocentesis 08/08. Allopurinol 300 mg PO. Warren's cyst, right Acute kidney injury, improving creatinine, non oliguric - Tolerating po well - Encourage by mouth fluids - Resolved DVT prop ambulatory Discharge Planning Plan for surgical intervention sigmoidectomy on Friday. DC plan pending clinical improvement. Problem Qualifiers (1) Diverticulitis: Qualified Codes: K57.20 - Diverticulitis of large intestine with perforation and abscess without bleeding (2) Diverticulitis of intestine with abscess: Qualified Codes: K57.20 - Diverticulitis of large intestine with perforation and abscess without bleeding Miya Pantoja MD Aug 16, 2017 09:36
[2017-08-16 13:05] VITALS: BP 141/84; PULSE 61; RESP 20; TEMP 98; O2SAT 98
--- NOTE | 2017-08-16 18:02 | HHI.PR ---
cc: Michael Singleton MD Subjective Subjective Notes DAILY PROGRESS NOTE FOR SURGICAL ATTENDING, DR. MICHAEL SINGLETON I will be ready for surgery on Friday Objective Vitals/I&O Vital Signs Date Time Temp Pulse Resp B/P (MAP) Pulse Ox O2 Delivery O2 Flow Rate FiO2 08/16/17 13:05 98.0 61 20 141/84 (609) 98 08/15/17 09:50 Room Air Labs Date/Time Source Procedure Growth Status 08/05/17 17:30 Blood Other Aerobic Blood Culture - Final NO GROWTH IN 5 DAYS Complete 08/05/17 17:30 Blood Other Anaerobic Blood Culture - Final NO GROWTH IN 5 DAYS Complete 08/09/17 08:31 Fluid Synovial Fluid Gram Stain - Final Complete 08/09/17 08:31 Fluid Synovial Fluid Body Fluid Culture - Final NO GROWTH IN 72 HRS.--AEROBICALLY OR ... Complete 08/05/17 14:30 Abscess Abdomen Fungal Smear - Final NO FUNGAL ELEMENTS SEEN. Resulted 08/05/17 14:30 Abscess Abdomen Fungal Culture - Preliminary NO GROWTH IN 1 WEEK Resulted Radiology Last 72 hours Impressions Catheter Patency X-Ray 08/14/17 0000 Signed Impressions: Service Date/Time: August 10:28 - CONCLUSION: 1. 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 Plan: Changed drainage from suction to gravity drainage bag and will continue drainage. Reuben Barrios MD Abdomen/Pelvis CT 08/13/17 0000 Signed Impressions: Service Date/Time: Sunday, August 13, 2017 09:54 - CONCLUSION: 1. Inflammatory changes of diverticulitis but no evidence of residual abscess. Scooby Schroeder MD Cardiovascular: Regular Lungs: Clear Abdomen: Other (drain in place), Post-op tenderness, BS normal Extremities: No edema, Perfused A/P Problem List: (1) Colonic fistula ICD Codes: K63.2 - Fistula of intestine Status: Acute (2) Colonic diverticular abscess ICD Codes: K57.20 - Diverticulitis of large intestine with perforation and abscess without bleeding Status: Acute (3) Intra-abdominal abscess ICD Codes: K65.1 - Peritoneal abscess Status: Acute (4) Gram-negative infection ICD Codes: A49.9 - Bacterial infection, unspecified Status: Acute (5) Diverticulitis of intestine with abscess ICD Codes: K57.80 - Diverticulitis of intestine, part unspecified, with perforation and abscess without bleeding Status: Acute (6) Leukocytosis ICD Codes: D72.829 - Elevated white blood cell count, unspecified Status: Acute (7) Diverticulitis ICD Codes: K57.92 - Diverticulitis of intestine, part unspecified, without perforation or abscess without bleeding Status: Chronic (8) Right knee pain ICD Codes: M25.561 - Pain in right knee Status: Acute (9) Warren's cyst, ruptured ICD Codes: M66.0 - Rupture of popliteal cyst Status: Acute Assessment and Plan 42 year old male with recurrent diverticular abscesses; s/p IR drainage -Continue IR placed drain ---now with fistula -S/p colonoscopy -Will plan for lap assisted sigmoid resection possible open procedure with Dr. Singleton for Friday AM - -Clear liquids and bowel prep to start Friday -Antibiotics per ID Attending Statement NOTE FOR SURGICAL ATTENDING, DR. MICHAEL SINGLETON I attest that I had a [id number] encounter with the patient on the same day, and personally performed and documented my assessment and findings in the medical record. The following services were provided during this hospital visit: Chart data review, vital sign assessments/reviewing monitor data Review of consultations notes if present. Medication orders/review and/or management Ordering and/or reviewing lab tests Ordering and/or interpreting/reviewing x-rays and/or diagnostic studies Care of the patient and discussion of the patient with the care team Documentation time To help prompt me to consider important information that might be impacting today's encounter and assessment, information from prior notes written by myself or my colleagues may have been "brought forward/copy and pasted" into today's note. Problem Qualifiers (1) Diverticulitis of intestine with abscess: Qualified Codes: K57.20 - Diverticulitis of large intestine with perforation and abscess without bleeding (2) Leukocytosis: Qualified Codes: D72.828 - Other elevated white blood cell count (3) Diverticulitis: Qualified Codes: K57.20 - Diverticulitis of large intestine with perforation and abscess without bleeding (4) Right knee pain: Qualified Codes: M25.561 - Pain in right knee Michael Singleton MD Aug 16, 2017 18:02
[2017-08-16 18:29] VITALS: BP 132/87; PULSE 67; RESP 20; TEMP 97.6; O2SAT 97
[2017-08-16 20:00] VITALS: BP 113/77; PULSE 71; RESP 18; TEMP 98.5; O2SAT 95
[2017-08-16] MEDS: HYDROmorphone HCL PF 0.5 MG/0.5 ML SYRINGE IV PRN (21:15)
[2017-08-17] VITALS: BP 126/83; PULSE 60; RESP 18; TEMP 97.9; O2SAT 98
[2017-08-17] MEDS: HYDROmorphone HCL PF 0.5 MG/0.5 ML SYRINGE IV PRN ×5 (01:38→20:38)
[2017-08-17] MEDS: METOCLOPRAMIDE HCL 10 MG/2 ML VIAL IV PUSH PRN ×2 (01:39→10:56)
[2017-08-17 04:00] VITALS: BP 129/66; PULSE 52; RESP 18; TEMP 97.5; O2SAT 98
[2017-08-17] MEDS: LINEZOLID 600 MG PREMIX 300 ML IV SCH ×2 (06:00→17:58)
[2017-08-17] MEDS: COLCHICINE 0.6 MG TAB PO SCH ×2 (08:19→21:00)
[2017-08-17] MEDS: cefTRIAXone INJ 2,000 MG in SODIUM CHLORIDE 0.9% INJ 100 ML IV SCH (08:19)
[2017-08-17] MEDS: ALLOPURINOL 300 MG TAB PO SCH (08:19)
[2017-08-17] MEDS: SODIUM CHLORIDE 0.9% FLUSH 10 ML FLUSH SCH ×2 (09:00→21:00)
[2017-08-17] MEDS: DOCUSATE SODIUM 100 MG CAP PO SCH (09:00)
[2017-08-17] MEDS: SODIUM CHLORIDE 0.9% FLUSH 10 ML FLUSH IV FLUSH SCH ×2 (09:00→21:00)
[2017-08-17 09:20] VITALS: BP 127/81; PULSE 55; RESP 20; TEMP 97.6; O2SAT 97
--- NOTE | 2017-08-17 10:03 | HHI.PR ---
Subjective Remarks Patient seen and examined this am. Vitals are stable and he is afebrile. Anxious about surgery tomorrow. Worried he may have to get colostomy. Drinking bowel prep. Objective Vital Signs Date Time Temp Pulse Resp B/P (MAP) Pulse Ox O2 Delivery O2 Flow Rate FiO2 08/17/17 09:20 97.6 55 20 127/81 (96) 97 08/17/17 04:00 97.5 52 18 129/66 (87) 98 08/17/17 00:00 97.9 60 18 126/83 (97) 98 08/16/17 20:00 98.5 71 18 113/77 (89) 95 08/16/17 18:29 97.6 67 20 132/87 (102) 97 08/16/17 13:05 98.0 61 20 141/84 (103) 98 Result Diagram: 08/13/17 0820 Imaging Last Impressions Catheter Patency X-Ray 08/14/17 0000 Signed Impressions: Service Date/Time: August 10:28 - CONCLUSION: 1. 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 Plan: Changed drainage from suction to gravity drainage bag and will continue drainage. Reuben Barrios MD Abdomen/Pelvis CT 08/13/17 0000 Signed Impressions: Service Date/Time: Sunday, August 13, 2017 09:54 - CONCLUSION: 1. Inflammatory changes of diverticulitis but no evidence of residual abscess. Scooby Schroeder MD Lower Extremity Ultrasound 08/09/17 0000 Signed Impressions: Service Date/Time: Wednesday, August 09, 2017 14:15 - CONCLUSION: 1. No evidence of deep venous thrombosis. 2. Small to moderate-sized Warren's cyst in the popliteal fossa. David Lu MD Abdomen X-Ray 08/09/17 0000 Signed Impressions: Service Date/Time: Wednesday, August 09, 2017 17:30 - CONCLUSION: No dilated loops of small or large bowel. The Matias Ohara MD Pelvis CT 08/08/17 0000 Signed Impressions: Service Date/Time: Tuesday, August 08, 2017 11:44 - CONCLUSION: 1. 2 separate pericolonic abscess collections in the region of the sigmoid have resolved the percutaneous drainage. There is still some regional stranding in the pericolonic fatty tissues, however. 2. A 1.8 cm right inguinal hernia only contains fat. Jay Delacruz MD Knee MRI 08/07/17 0000 Signed Impressions: Service Date/Time: July 14:46 - CONCLUSION: 1. Large knee effusion and large Warren's cyst with probable rupture of the Warren's cyst. 2. No meniscal tear seen. Matias Ohara MD Abscess Drainage CT 08/05/17 1516 Signed Impressions: Service Date/Time: Saturday, August 05, 2017 14:14 - CONCLUSION: 1. Uncomplicated CT-guided placement of drainage catheter in 3 separate perisigmoid abscess collections, as above. Approximately 15 mL of purulent fluid was submitted for Gram stain and C&S per request. Reuben Barrios MD Objective Remarks GENERAL: lay in bed, well appearing SKIN: Warm and dry. HEAD: Normocephalic. EYES: No scleral icterus. No injection or drainage. NECK: Supple, trachea midline. No JVD or lymphadenopathy. CARDIOVASCULAR: Regular rate and rhythm without murmurs, gallops, or rubs. RESPIRATORY: Breath sounds equal bilaterally. No accessory muscle use. GASTROINTESTINAL: Abdomen soft, minimal tenderness LLQ, drain in place, drainage noted. MUSCULOSKELETAL: No cyanosis, or edema. No calf tenderness. 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 This is a patient with recurrent diverticular abscesses, he is status post drainage by IR. The patient is status post colonoscopy. The plan is for lap-assisted sigmoid resection and possible open procedure with Dr. Singleton on Friday morning. Sepsis secondary to Diverticular abscesses- recurrent episode of diverticulitis S/P CT guided drainage with drain- 08/05. See imaging above - Leukocytosis improving. Blood cultures negative 5 days. Abscess culture on 08/05 significant for Escherichia coli and enterococcus. - Status post colonoscopy on 07/15 which showed diverticulum in the sigmoid colon, a few small scattered with mild. Diet particular erythema, otherwise normal colon to the cecum. - Per general surgery due to fistula into abdominal cavity with abscess plan to proceed with sigmoid resection next week. He is aware that he may end up with a colostomy. - IR drainage evaluation, continue with drain for now as they have seen fistula developing. - Patient will continue to be on antibiotics as recommended by surgery and infectious disease until sigmoidectomy is done. Continue ceftriaxone 2g daily ( 08/11- ), Zyvox 600 mg every 12 hr (08/15- ). ID has signed up a wall be available if there is any change in clinical condition. Plan is that when the patient is ready for discharge he will go home on ampicillin and cefoidixime for 20 days. Scripts are in chart Acute gouty attack- -Resolved S/P arthrocentesis 08/08. Allopurinol 300 mg PO. Warren's cyst, right Acute kidney injury, improving creatinine, non oliguric - Resolved DVT patient ambulatory Discharge Planning Plan for surgical intervention sigmoidectomy on Friday. DC plan pending clinical improvement. Problem Qualifiers (1) Diverticulitis: Qualified Codes: K57.20 - Diverticulitis of large intestine with perforation and abscess without bleeding (2) Diverticulitis of intestine with abscess: Qualified Codes: K57.20 - Diverticulitis of large intestine with perforation and abscess without bleeding Miya Pantoja MD Aug 17, 2017 10:03
[2017-08-17 12:32] VITALS: BP 116/85; PULSE 75; RESP 20; TEMP 97.3; O2SAT 97
[2017-08-17 16:00] VITALS: BP 116/87; PULSE 87; RESP 20; TEMP 97.5; O2SAT 98
[2017-08-17 20:00] VITALS: BP 132/61; PULSE 65; RESP 18; TEMP 98.2; O2SAT 98
[2017-08-17] MEDS ORDERED: MAGNESIUM CITRATE SOLN 300 ML BTL PO ONE (22:15)
[2017-08-18] VITALS: BP 137/65; PULSE 67; RESP 18; TEMP 98; O2SAT 98
[2017-08-18] MEDS: HYDROmorphone HCL PF 0.5 MG/0.5 ML SYRINGE IV PRN ×3 (00:48→08:49)
[2017-08-18 04:00] VITALS: BP 117/83; PULSE 74; RESP 18; TEMP 97.6; O2SAT 97
[2017-08-18] MEDS: LINEZOLID 600 MG PREMIX 300 ML IV SCH ×2 (05:51→17:32)
[2017-08-18] MEDS: cefTRIAXone INJ 2,000 MG in SODIUM CHLORIDE 0.9% INJ 100 ML IV SCH (06:00)
[2017-08-18] MEDS ORDERED: BUPIVACAINE/EPINEPHRINE 0.25% 50 ML VIAL ONE (07:28)
[2017-08-18] MEDS ORDERED: LACTATED RINGER'S 1000 ML IV PRN (08:15)
[2017-08-18] MEDS ORDERED: SODIUM CHLORID 0.9% 500 ML IV PRN (08:15)
[2017-08-18 08:17] VITALS: BP 116/81; PULSE 64; RESP 17; TEMP 97.3; O2SAT 99
[2017-08-18] MEDS: SODIUM CHLORIDE 0.9% FLUSH 10 ML FLUSH IV FLUSH SCH ×2 (08:49→21:00)
[2017-08-18 08:51] LABS: AUTOMATED NEUTROPHIL # 4.9 TH/MM3 (1.8-7.7); BASOPHIL # 0.1 TH/MM3 (0-0.2); BASOPHIL % 1.1 % (0.0-2.0); EOSINOPHIL # 0.1 TH/MM3 (0-0.4); EOSINOPHIL % 0.7 % (0.0-4.0); HEMATOCRIT 38.6 % (39.0-51.0); HEMO FLAGS DIFF FINAL; LYMPH % 38.5 % (9.0-44.0); LYMPHOCYTE # 3.6 TH/MM3 (1.0-4.8); MEAN CELL VOLUME 88.9 FL (80.0-100.0); MEAN CORPUSCULAR HEMOGLOBIN 29.9 PG (27.0-34.0); MEAN CORPUSCULAR HGB CONC 33.6 % (32.0-36.0); MONO % 7.4 % (0.0-8.0); NEUT % 52.3 % (16.0-70.0); PLATELET COUNT 355 TH/MM3 (150-450); RED BLOOD COUNT 4.34 MIL/MM3 (4.50-5.90); RED CELL DISTRIBUTION WIDTH 15.2 % (11.6-17.2); WHITE BLOOD COUNT 9.4 TH/MM3 (4.0-11.0)
[2017-08-18] MEDS: DOCUSATE SODIUM 100 MG CAP PO SCH (09:00)
[2017-08-18] MEDS: ALLOPURINOL 300 MG TAB PO SCH (09:00)
[2017-08-18] MEDS: COLCHICINE 0.6 MG TAB PO SCH ×2 (09:00→21:00)
[2017-08-18] MEDS: SODIUM CHLORIDE 0.9% FLUSH 10 ML FLUSH SCH ×2 (09:00→21:00)
[2017-08-18] MEDS ORDERED: ACETAMINOPHEN 1000 MG/100 ML 100 ML IV ONE (09:11)
[2017-08-18 09:43] LABS: BICARBONATE 26.4 MEQ/L (21.0-32.0); POTASSIUM 4.3 MEQ/L (3.5-5.1)
[2017-08-18] MEDS ORDERED: MIDAZOLAM HCL 2 MG/2 ML VIAL IV ONE (12:00)
[2017-08-18] MEDS ORDERED: ESMOLOL HCL 100 MG/10 ML VIAL IV ONE (12:00)
[2017-08-18] MEDS ORDERED: LIDOCAINE HCL 1% PF 5 ML AMPULE OTHER ONE (12:00)
[2017-08-18] MEDS ORDERED: PROPOFOL 200 MG/20 ML AMP IV ONE (12:00)
[2017-08-18] MEDS ORDERED: ONDANSETRON HCL 4 MG/2 ML VIAL IV PUSH ONE (12:00)
[2017-08-18] MEDS ORDERED: METOPROLOL TARTRATE 5 MG/5 ML VIAL IV PUSH ONE (12:00)
[2017-08-18] MEDS ORDERED: NEOSTIGMINE 3 MG/3 ML SYR IV ONE (12:00)
[2017-08-18] MEDS ORDERED: GLYCOPYRROLATE 1 MG/5 ML SYRINGE IV PUSH ONE (12:00)
[2017-08-18] MEDS ORDERED: PHENYLEPH/NS 1000 MCG/10 ML SYR IV ONE (12:00)
[2017-08-18] MEDS ORDERED: DEXAMETHASONE SOD PHOS 4 MG/ML VIAL IV ONE (12:00)
[2017-08-18] MEDS ORDERED: ROCURONIUM INJ 50 MG/5 ML SYRINGE IV PUSH ONE (12:00)
[2017-08-18] MEDS ORDERED: POTASSIUM CHLOR 40 MEQ PREMIX 100 ML IV PRN (13:00)
[2017-08-18] MEDS ORDERED: Post-op Orders (for Pharmacy) MISC XX ONE (13:00)
[2017-08-18] MEDS ORDERED: POTASSIUM CHLOR 20 MEQ PREMIX 100 ML IV PRN (13:00)
[2017-08-18] MEDS ORDERED: HYDROmorphone HCL PF 2 MG/ML VIAL ONE (13:16)
[2017-08-18] MEDS ORDERED: DO NOT ADM ANY ANTICOAGULANT DRUGS PRN (13:19)
[2017-08-18] MEDS ORDERED: *HYDROmorphone PF 1 MG VIAL PERIprocedural Use ONLY ONE ×3 (13:29→14:52)
[2017-08-18] MEDS: PCA - TOTAL MG DILAUDID DELIVERED PER SHIFT OTHER SCH ×2 (14:00→21:58)
[2017-08-18] MEDS: HYDROmorphone HCL PCA 6 MG/30 ML IV SCH ×2 (14:49→19:47)
--- NOTE | 2017-08-18 15:23 | HHI.PR ---
Subjective Remarks The pt was seen following surgery. He said the pain was bad. He said the pain pump was helping a little. Family was at the bedside. Their questions were answered. Discussed with case management. Objective Vitals Vital Signs Date Time Temp Pulse Resp B/P (MAP) Pulse Ox O2 Delivery O2 Flow Rate FiO2 08/18/17 14:49 16 08/18/17 08:17 97.3 64 17 116/81 (93) 99 08/18/17 04:00 97.6 74 18 117/83 (94) 97 08/18/17 00:00 98.0 67 18 137/65 (89) 98 08/17/17 20:00 98.2 65 18 132/61 (84) 98 08/17/17 16:00 97.5 87 20 116/87 (97) 98 I/O 08/17/17 08/17/17 08/17/17 08/18/17 08/18/17 08/18/17 07:00 15:00 23:00 07:00 15:00 23:00 Intake Total 2200 ml Output Total 625 ml Balance 1575 ml Other 2200 ml Output Urine Total 425 ml Estimated Blood Loss 200 ml # Voids 3 Result Diagram: 08/18/17 0822 08/18/17 0822 Imaging Last Impressions Catheter Patency X-Ray 08/14/17 0000 Signed Impressions: Service Date/Time: August 10:28 - CONCLUSION: 1. 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 Plan: Changed drainage from suction to gravity drainage bag and will continue drainage. Reuben Barrios MD Abdomen/Pelvis CT 08/13/17 0000 Signed Impressions: Service Date/Time: Sunday, August 13, 2017 09:54 - CONCLUSION: 1. Inflammatory changes of diverticulitis but no evidence of residual abscess. Scooby Schroeder MD Lower Extremity Ultrasound 08/09/17 0000 Signed Impressions: Service Date/Time: Wednesday, August 09, 2017 14:15 - CONCLUSION: 1. No evidence of deep venous thrombosis. 2. Small to moderate-sized Warren's cyst in the popliteal fossa. David Lu MD Abdomen X-Ray 08/09/17 0000 Signed Impressions: Service Date/Time: Wednesday, August 09, 2017 17:30 - CONCLUSION: No dilated loops of small or large bowel. The Matias Ohara MD Pelvis CT 08/08/17 0000 Signed Impressions: Service Date/Time: Tuesday, August 08, 2017 11:44 - CONCLUSION: 1. 2 separate pericolonic abscess collections in the region of the sigmoid have resolved the percutaneous drainage. There is still some regional stranding in the pericolonic fatty tissues, however. 2. A 1.8 cm right inguinal hernia only contains fat. Jay Delacruz MD Knee MRI 08/07/17 0000 Signed Impressions: Service Date/Time: July 14:46 - CONCLUSION: 1. Large knee effusion and large Warren's cyst with probable rupture of the Warren's cyst. 2. No meniscal tear seen. Matias Ohara MD Abscess Drainage CT 08/05/17 1516 Signed Impressions: Service Date/Time: Saturday, August 05, 2017 14:14 - CONCLUSION: 1. Uncomplicated CT-guided placement of drainage catheter in 3 separate perisigmoid abscess collections, as above. Approximately 15 mL of purulent fluid was submitted for Gram stain and C&S per request. Reuben Barrios MD Objective Remarks GENERAL: Resting. SKIN: Warm and dry. Pale. HEAD: Normocephalic. EYES: No scleral icterus. No injection or drainage. NECK: Supple, trachea midline. No JVD or lymphadenopathy. CARDIOVASCULAR: Regular rate and rhythm without murmurs, gallops, or rubs. RESPIRATORY: Breath sounds equal bilaterally. No accessory muscle use. GASTROINTESTINAL: Abdomen bandaged. Tender. MUSCULOSKELETAL: No cyanosis, or edema. NEURO: No gross deficits. PSYCH: Calm. Procedures 08/06- CT guided aspiration of abdominal abscess with placement of 3 separate drains 1027- aspiration right knee Medications and IVs Current Medications Medications (Trade) Dose Ordered Sig/Eleazar Route Start Time Stop Time Status Last Admin (NS Flush) 2 ml UNSCH PRN IV FLUSH 08/04/17 18:45 08/15/17 15:19 (NS Flush) 2 ml BID IV FLUSH 08/04/17 21:00 08/18/17 08:49 (Narcan Inj) 0.4 mg UNSCH PRN IV PUSH 08/04/17 18:45 (NS Flush) 15 ml BID .XX 10/24/17 21:00 08/14/17 11:47 (Zyloprim) 300 mg DAILY PO 08/06/17 15:00 08/17/17 08:19 (Colchicine) 0.6 mg BID PO 08/08/17 09:00 08/17/17 21:00 (Roxicodone) 5 mg Q6H PRN PO 08/08/17 08:30 08/17/17 08:19 (Reglan Inj) 10 mg Q8H PRN IV PUSH 08/11/17 10:15 08/17/17 10:56 Ceftriaxone Sodium 2000 mg/ Sodium Chloride 100 ml @ 200 mls/hr Q24H IV 08/13/17 06:00 08/17/17 08:19 Linezolid 300 ml @ 300 mls/hr Q12H IV 08/15/17 18:00 08/18/17 05:51 Lactated Ringer's 1,000 ml @ 30 mls/hr Q24H PRN IV 08/18/17 08:15 08/21/17 08:14 Sodium Chloride 500 ml @ 30 mls/hr [id number] PRN IV 08/18/17 08:15 08/21/17 08:14 Potassium Chloride 100 ml @ 50 mls/hr UNSCH PRN IV 08/18/17 13:00 Potassium Chloride 100 ml @ 25 mls/hr UNSCH PRN IV 08/18/17 13:00 (Dilaudid FROZEN YOG[employer]T [employer]KER Inj) 6 mg UNSCH IV 08/18/17 13:00 08/18/17 14:49 FROZEN YOGURT MAKER Dosage Infused (Pha) 1 Q8HR OTHER 08/18/17 14:00 Miscellaneous Information ALL NURSING DEPARTME... UNSCH PRN .XX 08/18/17 13:19 08/19/17 13:18 Sodium Chloride 1,000 ml @ 50 mls/hr Q20H IV 08/18/17 16:00 UNV A/P Problem List: (1) Diverticulitis of intestine with abscess ICD Code: K57.80 - Diverticulitis of intestine, part unspecified, with perforation and abscess without bleeding Status: Acute (2) Leukocytosis ICD Code: D72.829 - Elevated white blood cell count, unspecified Status: Acute (3) Acute kidney injury ICD Code: N17.9 - Acute kidney failure, unspecified Status: Acute Assessment and Plan 41-year-old male with a history of diverticula and gout presented to the ED with nausea, vomiting, abdominal pain, fever, and chills. This is a patient with recurrent diverticular abscesses, he is status post drainage by IR. The patient is status post colonoscopy. Sepsis secondary to Diverticular abscesses- recurrent episode of diverticulitis S/P CT guided drainage with drain- 08/05. See imaging above - Leukocytosis improving. Blood cultures negative 5 days. Abscess culture on 08/05 significant for Escherichia coli and enterococcus. - Status post colonoscopy on 08/15 which showed diverticulum in the sigmoid colon, a few small scattered with mild peridiverticular erythema, otherwise normal colon to the cecum. - Per general surgery due to fistula into abdominal cavity with abscess plan to proceed with sigmoid resection. - IR drainage evaluation, continue with drain for now as they have seen fistula developing. - S/p lap-assisted sigmoid resection with Dr. Singleton 08/18. - continue ceftriaxone 2g daily (08/11- ), Zyvox 600 mg every 12 hr (08/15- ) . Plan is that when the patient is ready for discharge he will go home on ampicillin and cefoidixime for 20 days. Scripts are in chart. Acute gouty attack- -Resolved S/P arthrocentesis 08/08. Allopurinol 300 mg PO. Warren's cyst, right Acute kidney injury, improving creatinine, non oliguric - Resolved DVT patient ambulatory Discharge Planning Awaiting surgical clearance Problem Qualifiers (1) Diverticulitis of intestine with abscess: Qualified Codes: K57.20 - Diverticulitis of large intestine with perforation and abscess without bleeding (2) Leukocytosis: Qualified Codes: D72.828 - Other elevated white blood cell count David Fragoso DO Aug 18, 2017 15:23
[2017-08-18 16:30] VITALS: BP 142/86; PULSE 84; RESP 18; TEMP 97.2; O2SAT 100
[2017-08-18] MEDS: SODIUM CHLOR 0.9% 1000 ML INJ 1,000 ML IV SCH (17:33)
[2017-08-18] MEDS: diphenhydrAMINE HCL 50 MG/ML VIAL IV PUSH PRN (18:15)
[2017-08-18 20:30] VITALS: BP 156/105; PULSE 92; RESP 17; TEMP 97.3; O2SAT 97
--- NOTE | 2017-08-18 23:21 | MP ---
cc: DAVID HERNANDEZ M.D. MICHAEL SINGLETON M.D. DATE OF SURGERY: 08/18/2017 PREOPERATIVE DIAGNOSIS: Diverticulitis with small abdominal diverticular abscess with fistula. POSTOPERATIVE DIAGNOSIS 1. Diverticulitis with small abdominal diverticular abscess with fistula. 2. Fairly extensive inflammatory response in the sigmoid colon. 3. Abnormal-appearing appendix. 4. Adhesions. PROCEDURE 1. Laparoscopic lysis of adhesions. 2. Laparoscopic takedown of splenic flexure. 3. Sigmoid resection open. 4. Appendectomy. 5. Rigid sigmoidoscopy performed by Dr. Hernandez. ANESTHESIA General SURGEON Dr. Singleton HOUSECLEANER SURGEON Dr. David Hernandez INDICATIONS A pleasant 42 year-old gentleman who has had problems with diverticular disease for sometime. He had an abscess that was drained at another institution and then it recurred. He came into the hospital here and had multidrug resistant organism in his abscess. This was subsequently drained and attempted to be treated after the abscess was drained, however, it was found that he had a fistula between the abscess and the colon. Once we got the inflammatory response under control cleared his colon, plans were made for sigmoid resection. Intraoperatively he had a dense adhesion and old inflammatory response to the sigmoid colon prevented this from been done laparoscopic. His appendix was abnormal as well and we took that down. It was retrocecal and elongated, and it looked like it had been chronically inflamed. DESCRIPTION OF PROCEDURE The patient was taken to the operating room, placed in supine position, after endotracheal anesthesia his abdomen was prepped with Betadine after he was placed in the stirrups. Time-out was done. He has been given his antibiotics. They were on schedule. We first made an incision above the umbilicus. The camera was introduced. There was a fair amount of inflammatory response, old, chronic in the left lower quadrant. We placed two working ports, one above the port site in the midline and another one in the right lower quadrant. Adhesions were taken down with the harmonic scalpel and down the pelvis. We are able to dissect the splenic flexure down laparoscopically to free the completely normal transverse colon and descending colon up to the sigmoid colon. There was very adherent to the anterior abdominal wall. With the intention to dissect this out laparoscopically, it was difficult to determine the tissue planes and for this reason we converted to open by making a midline incision from the pubis to above the umbilicus. The abdomen was entered. The sigmoid is very attached to the anterior abdominal wall and this is taken down with the harmonic scalpel and the sharp curved Metzenbaum scissors. The small abscess can be seen in the abdominal wall which is drained and opened, just something that looked like a sterile abscess. It was probably about 2 or 3 cm in size. We then get below the inflammatory response in the sigmoid. We are able to take the FREDDY stapling device and separate the colon. The mesentery is taken down with the harmonic scalpel all the way up to normal-appearing colon and the distal descending colon. FREDDY stapler device was then used to amputate this. The left colic vessel was ligated with a silk stitch. The specimen was passed off the field, marking it at the distal end with a silk suture. It is noted that we identified the ureter and its course without injury. We then further mobilized the splenic flexure, allowing the descending colon to lay in the pelvis. We feel that a TA stapling device can be utilized. Dr. Hernandez examined the rectal stump with the rigid sigmoidoscope and got up to about 20 cm, where we can see the staple line. I then placed an anvil for a 29 EEA using the pursestring device to secure it in place. The device was then fired in a typical fashion by Dr. Hernandez placing the EEA from below. We then fill the pelvis up with saline and Dr. Hernandez inflates air into the rectum and there was no leak circumferentially around the stapled anastomosis. There is two good donuts that come out of the EEA stapling device was well. We then irrigate copiously, the mesenteric defect is then obliterated with silk popoff sutures. It is noted that we identified the ureter and its course without injury. We examined the spleen. It appears normal after taking the splenic flexure down. The abscess cavity around the abdominal wall just to the left in the pelvis is opened and irrigated copiously. During the examination, we see the appendix. It is retrocecal and very elongated and appears to be chronically scarred in from previous inflammation For this reason, it is taken down with the harmonic scalpel. The appendiceal artery is ligated with the harmonic scalpel and we tie off the base of the appendix with a silk suture. It is amputated and passed off the field. After this was done we then placed in a MICHEAL drain through one of the port sites in the right lower quadrant and draped this over the anastomosis and the into the abscess cavity in the left lower pelvis to drain this intra-abdominal abscess. We then irrigate copiously. The omentum is then placed over the anastomosis and no other gross abnormalities seen. The sponge and needle counts were correct. We then closed the midline with a #1 PDS looped. Skin is cleaned and the skin is reapproximated with the skin stapler device. The patient tolerated the procedure well. No immediate postop complications. Estimated blood loss is 100 cc. MD HARIS Christine/LLOYD /1:20 PM /11:07 PM MTDTracy
[2017-08-19] VITALS (7 sets, daily range): BP systolic 124–138; BP diastolic 86–103; PULSE 86–102; RESP 17–18; TEMP 97.5–98.2; O2SAT 95–98
[2017-08-19] MEDS: HYDROmorphone HCL PCA 6 MG/30 ML IV SCH ×4 (00:48→18:54)
[2017-08-19] MEDS: LINEZOLID 600 MG PREMIX 300 ML IV SCH ×2 (05:37→17:21)
[2017-08-19] MEDS: cefTRIAXone INJ 2,000 MG in SODIUM CHLORIDE 0.9% INJ 100 ML IV SCH (05:38)
[2017-08-19] MEDS: PCA - TOTAL MG DILAUDID DELIVERED PER SHIFT OTHER SCH ×3 (05:50→21:25)
[2017-08-19] MEDS: diphenhydrAMINE HCL 50 MG/ML VIAL IV PUSH PRN ×3 (07:13→21:40)
[2017-08-19 07:25] LABS: HEMATOCRIT 33.4 % (39.0-51.0); MEAN CELL VOLUME 87.9 FL (80.0-100.0); MEAN CORPUSCULAR HEMOGLOBIN 29.6 PG (27.0-34.0); MEAN CORPUSCULAR HGB CONC 33.7 % (32.0-36.0); PLATELET COUNT 301 TH/MM3 (150-450); RED CELL DISTRIBUTION WIDTH 15.1 % (11.6-17.2); REVIEW FLAG FINAL; WHITE BLOOD COUNT 16.1 TH/MM3 (4.0-11.0)
[2017-08-19 07:59] LABS: BICARBONATE 27.3 MEQ/L (21.0-32.0); MAGNESIUM 2.1 MG/DL (1.5-2.5); POTASSIUM 4.6 MEQ/L (3.5-5.1)
[2017-08-19] MEDS: ALLOPURINOL 300 MG TAB PO SCH (08:05)
[2017-08-19] MEDS: COLCHICINE 0.6 MG TAB PO SCH ×2 (08:05→21:18)
[2017-08-19] MEDS: SODIUM CHLORIDE 0.9% FLUSH 10 ML FLUSH IV FLUSH SCH ×2 (08:08→21:00)
[2017-08-19] MEDS: SODIUM CHLORIDE 0.9% FLUSH 10 ML FLUSH SCH ×2 (08:08→21:00)
[2017-08-19] MEDS: CYCLOBENZAPRINE HCL 10 MG TAB PO PRN ×2 (11:54→21:29)
[2017-08-19] MEDS: SODIUM CHLOR 0.9% 1000 ML INJ 1,000 ML IV SCH (12:12)
--- NOTE | 2017-08-19 12:54 | HHI.PR ---
cc: Kenny Singleton MD Subjective Subjective Notes DAILY PROGRESS NOTE FOR SURGICAL ATTENDING, DR. KENNY SINGLETON Resting in bed Painful Objective Vitals/I&O Vital Signs Date Time Temp Pulse Resp B/P (MAP) Pulse Ox O2 Delivery O2 Flow Rate FiO2 08/19/17 12:12 16 08/19/17 12:03 97.9 98 134/101 (112) 96 08/19/17 03:06 Room Air 08/18/17 15:30 2.00 Labs Laboratory Tests Test 08/19/17 06:34 White Blood Count 16.1 Red Blood Count 3.80 Hemoglobin 11.2 Hematocrit 33.4 Mean Corpuscular Volume 87.9 Mean Corpuscular Hemoglobin 29.6 Mean Corpuscular Hemoglobin Concent 33.7 Red Cell Distribution Width 15.1 Platelet Count 301 Mean Platelet Volume 10.0 Blood Urea Nitrogen 11 Creatinine 0.87 Random Glucose 151 Calcium Level 8.5 Magnesium Level 2.1 Sodium Level 134 Potassium Level 4.6 Chloride Level 99 Carbon Dioxide Level 27.3 Anion Gap 8 Estimat Glomerular Filtration Rate 97 Date/Time Source Procedure Growth Status 08/05/17 17:30 Blood Other Aerobic Blood Culture - Final NO GROWTH IN 5 DAYS Complete 08/05/17 17:30 Blood Other Anaerobic Blood Culture - Final NO GROWTH IN 5 DAYS Complete 08/09/17 08:31 Fluid Synovial Fluid Gram Stain - Final Complete 08/09/17 08:31 Fluid Synovial Fluid Body Fluid Culture - Final NO GROWTH IN 72 HRS.--AEROBICALLY OR ... Complete 08/05/17 14:30 Abscess Abdomen Fungal Smear - Final NO FUNGAL ELEMENTS SEEN. Resulted 08/05/17 14:30 Abscess Abdomen Fungal Culture - Preliminary NO GROWTH IN 1 WEEK Resulted Radiology Last 72 hours Impressions Catheter Patency X-Ray 08/14/17 0000 Signed Impressions: Service Date/Time: August 10:28 - CONCLUSION: 1. 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 Plan: Changed drainage from suction to gravity drainage bag and will continue drainage. Reuben Barrios MD Abdomen/Pelvis CT 08/13/17 0000 Signed Impressions: Service Date/Time: Sunday, August 13, 2017 09:54 - CONCLUSION: 1. Inflammatory changes of diverticulitis but no evidence of residual abscess. Scooby Schroeder MD Cardiovascular: Regular Lungs: Clear Abdomen: Other (midline incision with c/d/i dressing in place; MICHEAL with dark serosanguineous drainage; abdomen soft but tender ) Extremities: No edema A/P Problem List: (1) Postop check ICD Codes: Z09 - Encounter for follow-up examination after completed treatment for conditions other than malignant neoplasm (2) History of open sigmoidectomy ICD Codes: Z98.890 - Other specified postprocedural states; Z90.49 - Acquired absence of other specified parts of digestive tract (3) Colonic diverticular abscess ICD Codes: K57.20 - Diverticulitis of large intestine with perforation and abscess without bleeding Status: Acute (4) Intra-abdominal abscess ICD Codes: K65.1 - Peritoneal abscess Status: Acute (5) Leukocytosis ICD Codes: D72.829 - Elevated white blood cell count, unspecified Status: Acute (6) Right knee pain ICD Codes: M25.561 - Pain in right knee Status: Acute (7) Warren's cyst, ruptured ICD Codes: M66.0 - Rupture of popliteal cyst Status: Acute Assessment and Plan 42 year old male with recurrent diverticular abscesses; s/p IR drainage; POD1 laparoscopic BOOM; laparoscopic takedown of splenic flexure; open sigmoid resection with primary anastomosis; appendectomy -Okay for a few ice chips -MAINTENANCE SHOP TECHNICIAN for pain medication; added Flexeril for muscle spasms -OOB and mobilize -IS -Add Diflucan Attending Statement NOTE FOR SURGICAL ATTENDING, DR. KENNY SINGLETON Patient recovering from surgery Mild discomfort Using MAINTENANCE SHOP TECHNICIAN pump Bandage intact I agree with above assessment and plan. The exam, history, and the medical decision-making described in the above note were completed with the assistance of the mid-level provider. I reviewed and agree with the findings presented. I attest that I had a [id number] encounter with the patient on the same day, and personally performed and documented my assessment and findings in the medical record. The following services were provided during this hospital visit: Chart data review, vital sign assessments/reviewing monitor data Review of consultations notes if present. Medication orders/review and/or management Ordering and/or reviewing lab tests Ordering and/or interpreting/reviewing x-rays and/or diagnostic studies Care of the patient and discussion of the patient with the care team Documentation time To help prompt me to consider important information that might be impacting today's encounter and assessment, information from prior notes written by myself or my colleagues may have been "brought forward/copy and pasted" into today's note. Problem Qualifiers (1) Leukocytosis: Qualified Codes: D72.828 - Other elevated white blood cell count (2) Right knee pain: Qualified Codes: M25.561 - Pain in right knee Tressa Dacosta Aug 19, 2017 12:54 Kenny Singleton MD Aug 20, 2017 10:16
[2017-08-19] MEDS: FLUCONAZOLE 400 MG PREMIX BAG 200 ML IV SCH (13:30)
--- NOTE | 2017-08-19 16:23 | HHI.PR ---
Subjective Remarks The patient said that the pain pump was taking the edge off. He said the muscle relaxer was helping. He said that he is looking forward to having more than ice chips. No other acute complaints. Discussed with nursing. Objective Vitals Vital Signs Date Time Temp Pulse Resp B/P (MAP) Pulse Ox O2 Delivery O2 Flow Rate FiO2 08/19/17 16:04 97.6 86 18 138/103 (115) 95 08/19/17 12:40 16 08/19/17 12:12 16 08/19/17 12:10 16 08/19/17 12:03 97.9 98 17 134/101 (112) 96 08/19/17 08:23 97.5 102 18 137/96 (110) 98 08/19/17 07:13 Nasal Cannula 2.00 08/19/17 06:26 18 08/19/17 05:50 18 08/19/17 03:27 96 08/19/17 03:06 97.5 95 18 133/87 (102) 95 08/19/17 03:06 95 Room Air 08/19/17 01:11 98 Room Air 08/19/17 00:48 18 08/19/17 00:30 97.5 101 17 129/89 (102) 97 08/18/17 21:58 95 Room Air 08/18/17 21:58 18 08/18/17 20:30 97.3 92 17 156/105 (122) 97 08/18/17 16:30 97.2 84 18 142/86 (104) 100 I/O 08/18/17 08/18/17 08/18/17 08/19/17 08/19/17 08/19/17 07:00 15:00 23:00 07:00 15:00 23:00 Intake Total 2200 ml 640 ml 400 ml Output Total 625 ml 30 ml 1450 ml 50 ml Balance 1575 ml 610 ml -1450 ml 350 ml IV Total 640 ml 400 ml Other 2200 ml Output Urine Total 425 ml 1450 ml Drainage Total 30 ml 50 ml Estimated Blood Loss 200 ml # Voids 3 Result Diagram: 08/19/17 0634 08/19/17 0634 Imaging Last Impressions Catheter Patency X-Ray 08/14/17 0000 Signed Impressions: Service Date/Time: August 10:28 - CONCLUSION: 1. 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 Plan: Changed drainage from suction to gravity drainage bag and will continue drainage. Reuben Barrios MD Abdomen/Pelvis CT 08/13/17 0000 Signed Impressions: Service Date/Time: Sunday, August 13, 2017 09:54 - CONCLUSION: 1. Inflammatory changes of diverticulitis but no evidence of residual abscess. Scooby Schroeder MD Lower Extremity Ultrasound 08/09/17 0000 Signed Impressions: Service Date/Time: Wednesday, August 09, 2017 14:15 - CONCLUSION: 1. No evidence of deep venous thrombosis. 2. Small to moderate-sized Warren's cyst in the popliteal fossa. David Lu MD Abdomen X-Ray 08/09/17 0000 Signed Impressions: Service Date/Time: Wednesday, August 09, 2017 17:30 - CONCLUSION: No dilated loops of small or large bowel. The Matias Ohara MD Pelvis CT 08/08/17 0000 Signed Impressions: Service Date/Time: Tuesday, August 08, 2017 11:44 - CONCLUSION: 1. 2 separate pericolonic abscess collections in the region of the sigmoid have resolved the percutaneous drainage. There is still some regional stranding in the pericolonic fatty tissues, however. 2. A 1.8 cm right inguinal hernia only contains fat. Jay Delacruz MD Knee MRI 08/07/17 0000 Signed Impressions: Service Date/Time: July 14:46 - CONCLUSION: 1. Large knee effusion and large Warren's cyst with probable rupture of the Warren's cyst. 2. No meniscal tear seen. Matias Ohara MD Abscess Drainage CT 08/05/17 1516 Signed Impressions: Service Date/Time: Saturday, August 05, 2017 14:14 - CONCLUSION: 1. Uncomplicated CT-guided placement of drainage catheter in 3 separate perisigmoid abscess collections, as above. Approximately 15 mL of purulent fluid was submitted for Gram stain and C&S per request. Reuben Barrios MD Objective Remarks GENERAL: Resting. SKIN: Warm and dry. Pale. HEAD: Normocephalic. EYES: No scleral icterus. No injection or drainage. NECK: Supple, trachea midline. No JVD or lymphadenopathy. CARDIOVASCULAR: Regular rate and rhythm without murmurs, gallops, or rubs. RESPIRATORY: Breath sounds equal bilaterally. No accessory muscle use. GASTROINTESTINAL: Abdomen bandaged. Tender. MUSCULOSKELETAL: No cyanosis, or edema. NEURO: No gross deficits. PSYCH: Mood and affect appropriate. Procedures 08/06- CT guided aspiration of abdominal abscess with placement of 3 separate drains 1027- aspiration right knee Medications and IVs Current Medications Medications (Trade) Dose Ordered Sig/Eleazar Route Start Time Stop Time Status Last Admin (NS Flush) 2 ml UNSCH PRN IV FLUSH 08/04/17 18:45 08/15/17 15:19 (NS Flush) 2 ml BID IV FLUSH 08/04/17 21:00 08/18/17 21:00 (Narcan Inj) 0.4 mg UNSCH PRN IV PUSH 08/04/17 18:45 (NS Flush) 15 ml BID .XX 08/05/17 21:00 08/14/17 11:47 (Zyloprim) 300 mg DAILY PO 08/06/17 15:00 08/19/17 08:05 (Colchicine) 0.6 mg BID PO 08/08/17 09:00 08/19/17 08:05 (Roxicodone) 5 mg Q6H PRN PO 08/08/17 08:30 08/17/17 08:19 (Reglan Inj) 10 mg Q8H PRN IV PUSH 08/11/17 10:15 08/17/17 10:56 Ceftriaxone Sodium 2000 mg/ Sodium Chloride 100 ml @ 200 mls/hr Q24H IV 08/13/17 06:00 08/19/17 05:38 Linezolid 300 ml @ 300 mls/hr Q12H IV 08/15/17 18:00 08/19/17 05:37 Lactated Ringer's 1,000 ml @ 30 mls/hr Q24H PRN IV 08/18/17 08:15 08/21/17 08:14 Sodium Chloride 500 ml @ 30 mls/hr [id number] PRN IV 08/18/17 08:15 08/21/17 08:14 Potassium Chloride 100 ml @ 50 mls/hr UNSCH PRN IV 08/18/17 13:00 Potassium Chloride 100 ml @ 25 mls/hr UNSCH PRN IV 08/18/17 13:00 (Dilaudid BROOM MAN Inj) 6 mg UNSCH IV 08/18/17 13:00 08/19/17 12:10 BROOM MAN Dosage Infused (Pha) 1 Q8HR OTHER 08/18/17 14:00 08/19/17 12:12 Sodium Chloride 1,000 ml @ 50 mls/hr Q20H IV 08/18/17 16:30 08/19/17 12:12 (Benadryl Inj) 25 mg Q6H PRN IV PUSH 08/18/17 17:45 08/19/17 13:39 (Flexeril) 10 mg Q8H PRN PO 08/19/17 11:30 08/19/17 11:54 Fluconazole/ Sodium Chloride 200 ml @ 100 mls/hr Q24H IV 08/19/17 13:00 08/19/17 13:30 (Vasotec Inj) 1.25 mg Q6H PRN IV PUSH 08/19/17 16:15 A/P Problem List: (1) Diverticulitis of intestine with abscess ICD Code: K57.80 - Diverticulitis of intestine, part unspecified, with perforation and abscess without bleeding Status: Acute (2) Leukocytosis ICD Code: D72.829 - Elevated white blood cell count, unspecified Status: Acute (3) Acute kidney injury ICD Code: N17.9 - Acute kidney failure, unspecified Status: Acute Assessment and Plan 41-year-old male with a history of diverticula and gout presented to the ED with nausea, vomiting, abdominal pain, fever, and chills. This is a patient with recurrent diverticular abscesses, he is status post drainage by IR. The patient is status post colonoscopy. Sepsis secondary to Diverticular abscesses- recurrent episode of diverticulitis S/P CT guided drainage with drain- 08/05. See imaging above - Leukocytosis improving. Blood cultures negative 5 days. Abscess culture on 08/05 significant for Escherichia coli and enterococcus. - Status post colonoscopy on 08/15 which showed diverticulum in the sigmoid colon, a few small scattered with mild peridiverticular erythema, otherwise normal colon to the cecum. - Per general surgery due to fistula into abdominal cavity with abscess plan to proceed with sigmoid resection. - IR drainage evaluation, continue with drain for now as they have seen fistula developing. - S/p lap-assisted sigmoid resection with Dr. Singleton 08/18. - continue ceftriaxone 2g daily (08/11- ), Zyvox 600 mg every 12 hr (08/15- ) . Plan is that when the patient is ready for discharge he will go home on ampicillin and cefoidixime for 20 days. ID has been reconsulted for antibiotics after surgery. - continue BROOM MAN with muscle relaxers as needed. Acute gouty attack- -Resolved S/P arthrocentesis 08/08. Allopurinol 300 mg PO. Warren's cyst, right Acute kidney injury, improving creatinine, non oliguric - Resolved DVT patient ambulatory Discharge Planning Awaiting surgical clearance Problem Qualifiers (1) Diverticulitis of intestine with abscess: Qualified Codes: K57.20 - Diverticulitis of large intestine with perforation and abscess without bleeding (2) Leukocytosis: Qualified Codes: D72.828 - Other elevated white blood cell count David Fragoso DO Aug 19, 2017 16:23
[2017-08-19] MEDS: ENALAPRILAT 1.25 MG/ML VIAL IV PUSH PRN (16:37)
[2017-08-19] MEDS: METOCLOPRAMIDE HCL 10 MG/2 ML VIAL IV PUSH PRN (18:46)
[2017-08-19] MEDS ORDERED: RISPERDAL CONSTA IM SCH (21:00)
[2017-08-20 01:26] VITALS: BP 144/97; PULSE 94; RESP 18; TEMP 98.2; O2SAT 95
[2017-08-20] MEDS: METOCLOPRAMIDE HCL 10 MG/2 ML VIAL IV PUSH PRN ×3 (02:52→18:25)
[2017-08-20] MEDS: HYDROmorphone HCL PCA 6 MG/30 ML IV SCH (04:30)
[2017-08-20] MEDS: LINEZOLID 600 MG PREMIX 300 ML IV SCH (04:30)
[2017-08-20] MEDS: cefTRIAXone INJ 2,000 MG in SODIUM CHLORIDE 0.9% INJ 100 ML IV SCH (04:31)
[2017-08-20] MEDS: PCA - TOTAL MG DILAUDID DELIVERED PER SHIFT OTHER SCH ×3 (05:40→22:00)
[2017-08-20 07:19] LABS: AUTOMATED NEUTROPHIL # 9.8 TH/MM3 (1.8-7.7); BASOPHIL # 0.1 TH/MM3 (0-0.2); BASOPHIL % 0.6 % (0.0-2.0); EOSINOPHIL % 0.4 % (0.0-4.0); HEMATOCRIT 29.9 % (39.0-51.0); HEMO FLAGS DIFF FINAL; LYMPHOCYTE # 2.4 TH/MM3 (1.0-4.8); MEAN CELL VOLUME 88.7 FL (80.0-100.0); MEAN CORPUSCULAR HEMOGLOBIN 29.5 PG (27.0-34.0); MEAN CORPUSCULAR HGB CONC 33.3 % (32.0-36.0); PLATELET COUNT 231 TH/MM3 (150-450); RED BLOOD COUNT 3.37 MIL/MM3 (4.50-5.90); RED CELL DISTRIBUTION WIDTH 15.9 % (11.6-17.2); WHITE BLOOD COUNT 13.3 TH/MM3 (4.0-11.0)
[2017-08-20 07:22] VITALS: BP 143/98; PULSE 96; RESP 18; TEMP 98.3; O2SAT 94
[2017-08-20] MEDS: COLCHICINE 0.6 MG TAB PO SCH (08:18)
[2017-08-20] MEDS: ALLOPURINOL 300 MG TAB PO SCH (08:18)
[2017-08-20] MEDS: SODIUM CHLORIDE 0.9% FLUSH 10 ML FLUSH SCH ×2 (08:20→20:48)
[2017-08-20] MEDS: SODIUM CHLORIDE 0.9% FLUSH 10 ML FLUSH IV FLUSH SCH ×2 (08:20→20:48)
[2017-08-20 08:23] VITALS: BP 149/97; PULSE 92; RESP 18; TEMP 97.5; O2SAT 96
[2017-08-20] MEDS ORDERED: ONDANSETRON HCL 4 MG/2 ML VIAL IV PUSH ONE (10:00)
[2017-08-20] MEDS: SODIUM CHLOR 0.9% 1000 ML INJ 1,000 ML IV SCH (10:24)
--- NOTE | 2017-08-20 11:23 | HHI.PR ---
Subjective Subjective Notes DAILY PROGRESS NOTE FOR SURGICAL ATTENDING, DR. KENNY SINGLETON Nausea overnight; 1 episode of emesis this AM May have been gout medicine Objective Vitals/I&O Vital Signs Date Time Temp Pulse Resp B/P (MAP) Pulse Ox O2 Delivery O2 Flow Rate FiO2 08/20/17 08:23 97.5 92 18 149/97 (114) 96 08/19/17 21:56 Room Air 08/19/17 07:13 2.00 Labs Laboratory Tests Test 08/20/17 06:22 White Blood Count 13.3 Red Blood Count 3.37 Hemoglobin 9.9 Hematocrit 29.9 Mean Corpuscular Volume 88.7 Mean Corpuscular Hemoglobin 29.5 Mean Corpuscular Hemoglobin Concent 33.3 Red Cell Distribution Width 15.9 Platelet Count 231 Mean Platelet Volume 9.8 Neutrophils (%) (Auto) 74.0 Lymphocytes (%) (Auto) 18.0 Monocytes (%) (Auto) 7.0 Eosinophils (%) (Auto) 0.4 Basophils (%) (Auto) 0.6 Neutrophils # (Auto) 9.8 Lymphocytes # (Auto) 2.4 Monocytes # (Auto) 0.9 Eosinophils # (Auto) 0.0 Basophils # (Auto) 0.1 CBC Comment DIFF FINAL Differential Comment Date/Time Source Procedure Growth Status 08/05/17 17:30 Blood Other Aerobic Blood Culture - Final NO GROWTH IN 5 DAYS Complete 08/05/17 17:30 Blood Other Anaerobic Blood Culture - Final NO GROWTH IN 5 DAYS Complete 08/09/17 08:31 Fluid Synovial Fluid Gram Stain - Final Complete 08/09/17 08:31 Fluid Synovial Fluid Body Fluid Culture - Final NO GROWTH IN 72 HRS.--AEROBICALLY OR ... Complete 08/05/17 14:30 Abscess Abdomen Fungal Smear - Final NO FUNGAL ELEMENTS SEEN. Resulted 08/05/17 14:30 Abscess Abdomen Fungal Culture - Preliminary NO GROWTH IN 2 WEEKS Resulted Radiology Last 72 hours Impressions Catheter Patency X-Ray 08/14/17 0000 Signed Impressions: Service Date/Time: August 10:28 - CONCLUSION: 1. 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 Plan: Changed drainage from suction to gravity drainage bag and will continue drainage. Reuben Barrios MD Abdomen/Pelvis CT 08/13/17 0000 Signed Impressions: Service Date/Time: Sunday, August 13, 2017 09:54 - CONCLUSION: 1. Inflammatory changes of diverticulitis but no evidence of residual abscess. Scooby Schroeder MD Cardiovascular: Regular Lungs: Clear Abdomen: Other (midline incision with alissa; roberto removed; MICHEAL with serosanguineous fluid; abdomen tender to palpation) Extremities: No edema Wound Wound : Wound Location: Abdomen Appearance: Clean & Dry Drainage: Clear Dressing: Dry A/P Problem List: (1) Postop check ICD Codes: Z09 - Encounter for follow-up examination after completed treatment for conditions other than malignant neoplasm (2) History of open sigmoidectomy ICD Codes: Z98.890 - Other specified postprocedural states; Z90.49 - Acquired absence of other specified parts of digestive tract (3) Colonic diverticular abscess ICD Codes: K57.20 - Diverticulitis of large intestine with perforation and abscess without bleeding Status: Acute (4) Intra-abdominal abscess ICD Codes: K65.1 - Peritoneal abscess Status: Acute (5) Leukocytosis ICD Codes: D72.829 - Elevated white blood cell count, unspecified Status: Acute (6) Right knee pain ICD Codes: M25.561 - Pain in right knee Status: Acute (7) Warren's cyst, ruptured ICD Codes: M66.0 - Rupture of popliteal cyst Status: Acute Assessment and Plan 42 year old male with recurrent diverticular abscesses; s/p IR drainage; POD2 laparoscopic BOOM; laparoscopic takedown of splenic flexure; open sigmoid resection with primary anastomosis; appendectomy -Okay for a few ice chips as tolerated once nausea improves -Hold all nonessential by mouth medications -IT APPLICATIONS DEVELOPER for pain medication; Flexeril for muscle spasms -OOB and mobilize -IS -ID consultation for antibiotic regimen Attending Statement NOTE FOR SURGICAL ATTENDING, DR. KENNY SINGLETON I agree with above assessment and plan. The exam, history, and the medical decision-making described in the above note were completed with the assistance of the mid-level provider. I reviewed and agree with the findings presented. I attest that I had a [id number] encounter with the patient on the same day, and personally performed and documented my assessment and findings in the medical record. The following services were provided during this hospital visit: Chart data review, vital sign assessments/reviewing monitor data Review of consultations notes if present. Medication orders/review and/or management Ordering and/or reviewing lab tests Ordering and/or interpreting/reviewing x-rays and/or diagnostic studies Care of the patient and discussion of the patient with the care team Documentation time To help prompt me to consider important information that might be impacting today's encounter and assessment, information from prior notes written by myself or my colleagues may have been "brought forward/copy and pasted" into today's note. Problem Qualifiers (1) Leukocytosis: Qualified Codes: D72.828 - Other elevated white blood cell count (2) Right knee pain: Qualified Codes: M25.561 - Pain in right knee Tressa Dacosta Aug 20, 2017 11:23 Kenny Singleton MD Aug 20, 2017 11:59
--- NOTE | 2017-08-20 12:03 | HHI.PR ---
Subjective Remarks The patient was nauseous. He said his pain was still severe. He is still only on ice chips. Family was at bedside and their questions were answered. Discussed with nursing. Objective Vitals Vital Signs Date Time Temp Pulse Resp B/P (MAP) Pulse Ox O2 Delivery O2 Flow Rate FiO2 08/20/17 08:23 97.5 92 18 149/97 (114) 96 08/20/17 07:22 98.3 96 18 143/98 (113) 94 08/20/17 05:40 18 08/20/17 04:30 18 08/20/17 01:26 98.2 94 18 144/97 (113) 95 08/19/17 21:56 Room Air 08/19/17 21:25 18 08/19/17 20:00 98.2 94 18 124/86 (99) 95 08/19/17 19:18 16 08/19/17 18:54 16 08/19/17 16:04 97.6 86 18 138/103 (115) 95 08/19/17 12:12 16 08/19/17 12:10 16 08/19/17 12:03 97.9 98 17 134/101 (112) 96 I/O 08/19/17 08/19/17 08/19/17 08/20/17 08/20/17 08/20/17 07:00 15:00 23:00 07:00 15:00 23:00 Intake Total 400 ml 944 ml 556 ml Output Total 1450 ml 50 ml 1140 ml 425 ml Balance -1450 ml 350 ml 944 ml -1140 ml 131 ml IV Total 400 ml 944 ml 556 ml Output Urine Total 1450 ml 1100 ml 425 ml Drainage Total 50 ml 40 ml Result Diagram: 08/20/17 0622 08/19/17 0634 Imaging Last Impressions Catheter Patency X-Ray 08/14/17 0000 Signed Impressions: Service Date/Time: August 10:28 - CONCLUSION: 1. 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 Plan: Changed drainage from suction to gravity drainage bag and will continue drainage. Reuben Barrios MD Abdomen/Pelvis CT 08/13/17 0000 Signed Impressions: Service Date/Time: Sunday, August 13, 2017 09:54 - CONCLUSION: 1. Inflammatory changes of diverticulitis but no evidence of residual abscess. Scooby Schroeder MD Lower Extremity Ultrasound 08/09/17 0000 Signed Impressions: Service Date/Time: Wednesday, August 09, 2017 14:15 - CONCLUSION: 1. No evidence of deep venous thrombosis. 2. Small to moderate-sized Warren's cyst in the popliteal fossa. David Lu MD Abdomen X-Ray 08/09/17 0000 Signed Impressions: Service Date/Time: Wednesday, August 09, 2017 17:30 - CONCLUSION: No dilated loops of small or large bowel. The Matias Ohara MD Pelvis CT 08/08/17 Signed Impressions: Service Date/Time: Tuesday, August 08, 2017 11:44 - CONCLUSION: 1. 2 separate pericolonic abscess collections in the region of the sigmoid have resolved the percutaneous drainage. There is still some regional stranding in the pericolonic fatty tissues, however. 2. A 1.8 cm right inguinal hernia only contains fat. Jay Delacruz MD Knee MRI 08/07/17 Signed Impressions: Service Date/Time: July 14:46 - CONCLUSION: 1. Large knee effusion and large Warren's cyst with probable rupture of the Warren's cyst. 2. No meniscal tear seen. Matias Ohara MD Abscess Drainage CT 08/05/17 1516 Signed Impressions: Service Date/Time: Saturday, August 05, 2017 14:14 - CONCLUSION: 1. Uncomplicated CT-guided placement of drainage catheter in 3 separate perisigmoid abscess collections, as above. Approximately 15 mL of purulent fluid was submitted for Gram stain and C&S per request. Reuben Barrios MD Objective Remarks GENERAL: Resting. SKIN: Warm and dry. Pale. HEAD: Normocephalic. EYES: No scleral icterus. No injection or drainage. NECK: Supple, trachea midline. No JVD or lymphadenopathy. CARDIOVASCULAR: Regular rate and rhythm without murmurs, gallops, or rubs. RESPIRATORY: Breath sounds equal bilaterally. No accessory muscle use. GASTROINTESTINAL: Abdomen bandaged. Tender. MUSCULOSKELETAL: No cyanosis, or edema. NEURO: No gross deficits. PSYCH: Mood and affect appropriate. Procedures 08/06- CT guided aspiration of abdominal abscess with placement of 3 separate drains 1027- aspiration right knee Medications and IVs Current Medications Medications (Trade) Dose Ordered Sig/Eleazar Route Start Time Stop Time Status Last Admin (NS Flush) 2 ml UNSCH PRN IV FLUSH 08/04/17 18:45 08/15/17 15:19 (NS Flush) 2 ml BID IV FLUSH 08/04/17 21:00 08/18/17 21:00 (Narcan Inj) 0.4 mg UNSCH PRN IV PUSH 08/04/17 18:45 (NS Flush) 15 ml BID .XX 08/05/17 21:00 08/14/17 11:47 (Zyloprim) 300 mg DAILY PO 08/06/17 15:00 Future Hold 08/20/17 08:18 (Colchicine) 0.6 mg BID PO 08/08/17 09:00 Future Hold 08/20/17 08:18 (Roxicodone) 5 mg Q6H PRN PO 08/08/17 08:30 Future Hold 08/17/17 08:19 (Reglan Inj) 10 mg Q8H PRN IV PUSH 08/11/17 10:15 08/20/17 10:25 Ceftriaxone Sodium 2000 mg/ Sodium Chloride 100 ml @ 200 mls/hr Q24H IV 08/13/17 06:00 08/20/17 04:31 Linezolid 300 ml @ 300 mls/hr Q12H IV 08/15/17 18:00 08/20/17 04:30 Sodium Chloride 500 ml @ 30 mls/hr [id number] PRN IV 08/18/17 08:15 08/21/17 08:14 Potassium Chloride 100 ml @ 50 mls/hr UNSCH PRN IV 08/18/17 13:00 Potassium Chloride 100 ml @ 25 mls/hr UNSCH PRN IV 08/18/17 13:00 (Dilaudid COMMERCIAL CARPENTER Inj) 6 mg UNSCH IV 08/18/17 13:00 08/20/17 04:30 COMMERCIAL CARPENTER Dosage Infused (Pha) 1 Q8HR OTHER 08/18/17 14:00 08/20/17 05:40 Sodium Chloride 1,000 ml @ 50 mls/hr Q20H IV 08/18/17 16:30 08/20/17 10:24 (Benadryl Inj) 25 mg Q6H PRN IV PUSH 08/18/17 17:45 08/19/17 21:40 (Flexeril) 10 mg Q8H PRN PO 08/19/17 11:30 08/19/17 21:29 Fluconazole/ Sodium Chloride 200 ml @ 100 mls/hr Q24H IV 08/19/17 13:00 08/19/17 13:30 (Vasotec Inj) 1.25 mg Q6H PRN IV PUSH 08/19/17 16:15 08/19/17 16:37 Dextrose/Sodium Chloride 1,000 ml @ 75 mls/hr [id number] IV 08/20/17 11:00 08/21/17 13:39 A/P Problem List: (1) Diverticulitis of intestine with abscess ICD Code: K57.80 - Diverticulitis of intestine, part unspecified, with perforation and abscess without bleeding Status: Acute (2) Leukocytosis ICD Code: D72.829 - Elevated white blood cell count, unspecified Status: Acute (3) Acute kidney injury ICD Code: N17.9 - Acute kidney failure, unspecified Status: Acute Assessment and Plan 41-year-old male with a history of diverticula and gout presented to the ED with nausea, vomiting, abdominal pain, fever, and chills. This is a patient with recurrent diverticular abscesses, he is status post drainage by IR. The patient is status post colonoscopy. Sepsis secondary to Diverticular abscesses- recurrent episode of diverticulitis S/P CT guided drainage with drain- 08/05. See imaging above - Leukocytosis improving. Blood cultures negative 5 days. Abscess culture on 08/05 significant for Escherichia coli and enterococcus. - Status post colonoscopy on 08/15 which showed diverticulum in the sigmoid colon, a few small scattered with mild peridiverticular erythema, otherwise normal colon to the cecum. - Per general surgery due to fistula into abdominal cavity with abscess plan to proceed with sigmoid resection. - IR drainage evaluation, continue with drain for now as they have seen fistula developing. - S/p lap-assisted sigmoid resection with Dr. Singleton 08/18. - continue ceftriaxone 2g daily (08/11- ), Zyvox 600 mg every 12 hr (08/15- ) . Plan is that when the patient is ready for discharge he will go home on ampicillin and cefoidixime for 20 days. ID has been reconsulted for antibiotics after surgery. - continue COMMERCIAL CARPENTER with muscle relaxers as needed. - increase antiemetic regimen as the pt is still quite nauseous. Acute gouty attack- -Resolved S/P arthrocentesis 08/08. Allopurinol 300 mg PO. Warren's cyst, right Acute kidney injury, improving creatinine, non oliguric - Resolved DVT patient ambulatory Discharge Planning Awaiting surgical clearance Problem Qualifiers (1) Diverticulitis of intestine with abscess: Qualified Codes: K57.20 - Diverticulitis of large intestine with perforation and abscess without bleeding (2) Leukocytosis: Qualified Codes: D72.828 - Other elevated white blood cell count David Fragoso DO Aug 20, 2017 12:03
[2017-08-20 12:08] VITALS: BP 140/99; PULSE 93; RESP 18; TEMP 98.6; O2SAT 96
[2017-08-20] MEDS: FLUCONAZOLE 400 MG PREMIX BAG 200 ML IV SCH (12:38)
[2017-08-20] MEDS: DEXT 5%-NACL 0.9% 1000 ML INJ 1,000 ML IV SCH (12:38)
--- NOTE | 2017-08-20 13:23 | HHI.IDPN ---
Subjective Subjective Remarks is a 41 y/o CM with a history of diverticula with diverticulitis, Intra abdominal abscess. Patient was just discharged on July [address]-guided drainage of an abdominal abscess. He stated since leaving the hospital he has not felt himself, he has been unable to eat, unable to have a bowel movement since . He states he's had constant fevers at home with chills he was taking ibuprofen for. He states he woke up on day of admission and after having the bowel movement he began to have blurry vision, nausea, vomiting, and abdominal pain. He states the abdominal pain is in his lower abdomen, tender to touch, intermittent 10 out of 10. He denies any red or black colored stools, no diarrhea. He states the pain medicine is helping but does not last very long, he is wondering if he can have something in between like tramadol. He does not want strong narcotics. He denies any chest pain or shortness of breath. In ED patient had a CT A/P which showed 3 new abscesses. was consulted and pt underwent IR guided drainage of abscess. Call was placed to IR and cultures added by me. ID was consulted by for recurrent intra- abdominal abscesses. Pt was empirically started on Zosyn IV. Prior cultures from 07/28/17 were reviewed and E.coli is resistant to Zosyn (current med in hospital) and Levaquin (home med). Reconsulted by surgery for adjusting antibiotics postoperatively and intraop findings of ongoing inflammation. Cultures pending. Overnight events reviewed. No rash No diarrhea Unable to talk much to me as very nauseous. Appears uncomfortable secondary to retching. Antibiotics Zyvox IV changed to Unasyn IV for E.faecalis. Diflucan IV Ceftriaxone IV Reported Meds & Active Scripts Active Reported Zyloprim (Allopurinol) 300 Mg Tab 300 Mg PO DAILY Current Medications Medications (Trade) Dose Ordered Sig/Eleazar Route Start Time Stop Time Status Last Admin Sodium Chloride 1,000 ml @ 100 mls/hr Q10H IV 08/04/17 20:00 08/06/17 05:08 (NS Flush) 2 ml UNSCH PRN IV FLUSH 08/04/17 18:45 08/05/17 08:47 (NS Flush) 2 ml BID IV FLUSH 08/04/17 21:00 08/06/17 09:39 (Narcan Inj) 0.4 mg UNSCH PRN IV PUSH 08/04/17 18:45 (Milk Of Magnesia Liq) 30 ml Q12H PRN PO 08/04/17 18:45 (Senokot) 17.2 mg Q12H PRN PO 08/04/17 18:45 (Dulcolax Supp) 10 mg DAILY PRN RECTAL 08/04/17 18:45 (Lactulose Liq) 30 ml DAILY PRN PO 08/04/17 18:45 (Ultram) 50 mg Q4H PRN PO 08/04/17 20:45 08/06/17 17:31 (Dilaudid Pf Inj) 1 mg Q3H PRN IV 08/04/17 20:45 08/06/17 18:40 (Colace) 100 mg DAILY PO 08/05/17 09:00 08/06/17 09:39 (Reglan Inj) 5 mg Q8H PRN IV PUSH 08/05/17 11:15 08/06/17 09:38 Meropenem 500 mg/ Sodium Chloride 100 ml @ 200 mls/hr Q8H IV 08/05/17 15:00 08/06/17 17:31 Micafungin Sodium 150 mg/Sodium Chloride 100 ml @ 100 mls/hr Q24H IV 08/05/17 15:00 08/06/17 16:02 (NS Flush) 15 ml BID .XX 08/05/17 21:00 08/06/17 09:39 (Zyloprim) 300 mg DAILY PO 08/06/17 15:00 08/06/17 16:01 Lines Line sites with no e.o infection Past Medical History reviewed Allergies: Coded Allergies: acetaminophen (Verified Allergy, Unknown, 08/04/17) morphine (Verified Adverse Reaction, Unknown, 08/04/17) Objective . Vital Signs Date Time Temp Pulse Resp B/P (MAP) Pulse Ox O2 Delivery O2 Flow Rate FiO2 08/20/17 12:08 98.6 93 18 140/99 (113) 96 08/20/17 08:23 97.5 92 18 149/97 (114) 96 08/20/17 07:22 98.3 96 18 143/98 (113) 94 08/20/17 05:40 18 08/20/17 04:30 18 08/20/17 01:26 98.2 94 18 144/97 (113) 95 08/19/17 21:56 Room Air 08/19/17 21:25 18 08/19/17 20:00 98.2 94 18 124/86 (99) 95 08/19/17 19:18 16 08/19/17 18:54 16 08/19/17 16:04 97.6 86 18 138/103 (115) 95 08/20/17 08/20/17 08/21/17 15:00 23:00 07:00 Intake Total 556 ml Output Total 775 ml Balance -219 ml IV Total 556 ml Output Urine Total 775 ml . Laboratory Tests Test 08/19/17 06:34 08/20/17 06:22 White Blood Count 16.1 TH/MM3 13.3 TH/MM3 Red Blood Count 3.80 MIL/MM3 3.37 MIL/MM3 Hemoglobin 11.2 GM/DL 9.9 GM/DL Hematocrit 33.4 % 29.9 % Mean Corpuscular Volume 87.9 FL 88.7 FL Mean Corpuscular Hemoglobin 29.6 PG 29.5 PG Mean Corpuscular Hemoglobin Concent 33.7 % 33.3 % Red Cell Distribution Width 15.1 % 15.9 % Platelet Count 301 TH/MM3 231 TH/MM3 Mean Platelet Volume 10.0 FL 9.8 FL Neutrophils (%) (Auto) 74.0 % Lymphocytes (%) (Auto) 18.0 % Monocytes (%) (Auto) 7.0 % Eosinophils (%) (Auto) 0.4 % Basophils (%) (Auto) 0.6 % Neutrophils # (Auto) 9.8 TH/MM3 Lymphocytes # (Auto) 2.4 TH/MM3 Monocytes # (Auto) 0.9 TH/MM3 Eosinophils # (Auto) 0.0 TH/MM3 Basophils # (Auto) 0.1 TH/MM3 CBC Comment DIFF FINAL Differential Comment Laboratory Tests Test 08/19/17 06:34 Blood Urea Nitrogen 11 MG/DL Creatinine 0.87 MG/DL Random Glucose 151 MG/DL Calcium Level 8.5 MG/DL Magnesium Level 2.1 MG/DL Sodium Level 134 MEQ/L Potassium Level 4.6 MEQ/L Chloride Level 99 MEQ/L Carbon Dioxide Level 27.3 MEQ/L Anion Gap 8 MEQ/L Estimat Glomerular Filtration Rate 97 ML/MIN Imaging Last Impressions Abscess Drainage CT 08/05/17 1516 Signed Impressions: Service Date/Time: Saturday, August 05, 2017 14:14 - CONCLUSION: 1. Uncomplicated CT-guided placement of drainage catheter in 3 separate perisigmoid abscess collections, as above. Approximately 15 mL of purulent fluid was submitted for Gram stain and C&S per request. Reuben Barrios MD Abdomen/Pelvis CT 08/04/17 1419 Signed Impressions: Service Date/Time: Friday, August 04, 2017 16:15 - CONCLUSION: 1. Worsening sigmoid colitis/diverticulitis with associated enlarging perisigmoid abscesses in the left lower quadrant. These include a 4.6 x 3.3 cm abscesses anterolaterally, 4.2 x 3.8 cm abscess medially abutting the left lateral wall of the bladder and new 2.7 x 1.6 cm developing abscess posteriorly near the junction of the descending and sigmoid colon. Reuben Barrios MD Physical Exam GENERAL: This is a well-nourished, well-developed patient, in no apparent distress. SKIN: No rashes, ecchymoses or lesions. Cool and dry. HEAD: Atraumatic. Normocephalic. No temporal or scalp tenderness. EYES: Pupils equal round and reactive. Extraocular motions intact. No scleral icterus. No injection or drainage. ENT: Nose without bleeding, purulent drainage or septal hematoma. Throat without erythema, tonsillar hypertrophy or exudate. Uvula midline. Airway patent. NECK: Trachea midline. Supple, nontender, no meningeal signs. CARDIOVASCULAR: Regular rate and rhythm without murmurs, gallops, or rubs. RESPIRATORY: Clear to auscultation. Breath sounds equal bilaterally. No wheezes , rales, or rhonchi. GASTROINTESTINAL: Abdomen soft, diffuse tenderness most in LQs. Drain. MUSCULOSKELETAL: Extremities without clubbing, cyanosis, or edema. No joint tenderness, effusion, or edema noted. No calf tenderness. Negative Homans sign bilaterally. NEUROLOGICAL: Awake and alert. no obvious focal neuro deficit. Psych cooperative. IV line sites with no e.o infection. Assessment & Plan Remarks Sepsis present on admission (fever, WBC elevation, source: Intra abd abscess) Intra abdominal abscess secondary to diverticulitis. Concern for ESBL given last cultures. Acute metabolic encephalopathy: sepsis, meds. Hypoalbuminemia: ? nutritional given chronic GI issues. Acute renal failure on admission ? prerenal now resolved. recs Continue Ceftriaxone IV (for E. coli resistant to Unasyn/PCN) Start Unasyn IV (for E.faecalis and anaerobic coverage) Continue Diflucan IV (cannot tolerate oral at this point due to persistent N/V and post op status) Asked RN to notify surgeon of persistent N/V. DC Zyvox Follow cultures Follow clinically. d/w DANDRE Bustillos with surgery. Nanci Newman MD Aug 20, 2017 13:23
[2017-08-20] MEDS: PROCHLORPERAZINE INJ 10 MG/2 ML VIAL IV PUSH PRN ×2 (14:43→23:45)
[2017-08-20 16:26] VITALS: BP 151/108; PULSE 101; RESP 17; TEMP 98.9; O2SAT 97
[2017-08-20] MEDS: ENALAPRILAT 1.25 MG/ML VIAL IV PUSH PRN (16:41)
[2017-08-20] MEDS: AMPICILLIN-SULBACTAM INJ 1,500 MG in SODIUM CHLORIDE 0.9% INJ 100 ML IV SCH ×2 (17:35→20:47)
[2017-08-20 20:37] VITALS: BP 150/94; PULSE 77; RESP 16; TEMP 98.3; O2SAT 94
[2017-08-21] MEDS: DEXT 5%-NACL 0.9% 1000 ML INJ 1,000 ML IV SCH (00:20)
[2017-08-21 00:43] VITALS: BP 137/98; PULSE 70; RESP 18; TEMP 97.9; O2SAT 94
[2017-08-21] MEDS: AMPICILLIN-SULBACTAM INJ 1,500 MG in SODIUM CHLORIDE 0.9% INJ 100 ML IV SCH ×4 (03:53→20:45)
[2017-08-21 04:00] VITALS: BP 157/96; PULSE 70; RESP 16; TEMP 97.9; O2SAT 99
[2017-08-21] MEDS: SODIUM CHLOR 0.9% 1000 ML INJ 1,000 ML IV SCH (04:06)
[2017-08-21] MEDS: METOCLOPRAMIDE HCL 10 MG/2 ML VIAL IV PUSH PRN ×3 (04:06→20:45)
[2017-08-21] MEDS: cefTRIAXone INJ 2,000 MG in SODIUM CHLORIDE 0.9% INJ 100 ML IV SCH (05:42)
[2017-08-21] MEDS: PCA - TOTAL MG DILAUDID DELIVERED PER SHIFT OTHER SCH ×3 (05:42→20:46)
[2017-08-21] MEDS: SODIUM CHLORIDE 0.9% FLUSH 10 ML FLUSH IV FLUSH SCH ×2 (07:51→20:45)
[2017-08-21] MEDS: SODIUM CHLORIDE 0.9% FLUSH 10 ML FLUSH SCH ×2 (07:51→20:45)
[2017-08-21 08:16] VITALS: BP 160/92; PULSE 58; RESP 20; TEMP 97.8; O2SAT 96
[2017-08-21 10:25] LABS: HEMATOCRIT 28.7 % (39.0-51.0); MEAN CELL VOLUME 88.9 FL (80.0-100.0); MEAN CORPUSCULAR HEMOGLOBIN 30.2 PG (27.0-34.0); PLATELET COUNT 220 TH/MM3 (150-450); RED BLOOD COUNT 3.23 MIL/MM3 (4.50-5.90); RED CELL DISTRIBUTION WIDTH 15.5 % (11.6-17.2); REVIEW FLAG FINAL; WHITE BLOOD COUNT 10.2 TH/MM3 (4.0-11.0)
[2017-08-21 10:50] LABS: BICARBONATE 26.1 MEQ/L (21.0-32.0); INDIRECT BILIRUBIN 0.3 MG/DL (0.0-0.8); POTASSIUM 3.5 MEQ/L (3.5-5.1); TOTAL BILIRUBIN ADULT 0.5 MG/DL (0.2-1.0)
[2017-08-21 12:11] VITALS: BP 159/97; PULSE 60; RESP 20; TEMP 98.6; O2SAT 98
[2017-08-21] MEDS: FLUCONAZOLE 400 MG PREMIX BAG 200 ML IV SCH (12:13)
--- NOTE | 2017-08-21 12:39 | HHI.PR ---
Subjective Remarks The patient said he felt much better as of 5 AM. He says he was up in the chair earlier today. He said that surgery said he could advance his diet starting tomorrow. No acute concerns at this time. Discussed with nursing. Objective Vitals Vital Signs Date Time Temp Pulse Resp B/P (MAP) Pulse Ox O2 Delivery O2 Flow Rate FiO2 08/21/17 12:11 98.6 60 20 159/97 (117) 98 08/21/17 08:16 97.8 58 20 160/92 (114) 96 08/21/17 05:42 18 08/21/17 04:00 97.9 70 16 157/96 (116) 99 08/21/17 00:43 97.9 70 18 137/98 (111) 94 08/20/17 22:00 18 08/20/17 20:37 98.3 77 16 150/94 (112) 94 08/20/17 16:26 98.9 101 17 151/108 (122) 97 08/20/17 14:47 16 I/O 08/20/17 08/20/17 08/20/17 08/21/17 08/21/17 08/21/17 07:00 15:00 23:00 07:00 15:00 23:00 Intake Total 400 ml 1102 ml 474 ml 200 ml 100 ml Output Total 1140 ml 1175 ml 595 ml 500 ml 30 ml Balance -740 ml -73 ml -121 ml -300 ml 70 ml IV Total 400 ml 1102 ml 474 ml 200 ml 100 ml Output Urine Total 1100 ml 1175 ml 575 ml 500 ml Drainage Total 40 ml 20 ml 30 ml # Voids 1 # Bowel Movements 0 Result Diagram: 08/21/17 0830 08/21/17 0830 Imaging Last Impressions Catheter Patency X-Ray 08/14/17 0000 Signed Impressions: Service Date/Time: August 10:28 - CONCLUSION: 1. 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 Plan: Changed drainage from suction to gravity drainage bag and will continue drainage. Reuben Barrios MD Abdomen/Pelvis CT 08/13/17 0000 Signed Impressions: Service Date/Time: Sunday, August 13, 2017 09:54 - CONCLUSION: 1. Inflammatory changes of diverticulitis but no evidence of residual abscess. Scooby Schroeder MD Lower Extremity Ultrasound 08/09/17 0000 Signed Impressions: Service Date/Time: Wednesday, August 09, 2017 14:15 - CONCLUSION: 1. No evidence of deep venous thrombosis. 2. Small to moderate-sized Warren's cyst in the popliteal fossa. David Lu MD Abdomen X-Ray 08/09/17 0000 Signed Impressions: Service Date/Time: Wednesday, August 09, 2017 17:30 - CONCLUSION: No dilated loops of small or large bowel. The Matias Ohara MD Pelvis CT 08/08/17 0000 Signed Impressions: Service Date/Time: Tuesday, August 08, 2017 11:44 - CONCLUSION: 1. 2 separate pericolonic abscess collections in the region of the sigmoid have resolved the percutaneous drainage. There is still some regional stranding in the pericolonic fatty tissues, however. 2. A 1.8 cm right inguinal hernia only contains fat. Jay Delacruz MD Knee MRI 08/07/17 0000 Signed Impressions: Service Date/Time: July 14:46 - CONCLUSION: 1. Large knee effusion and large Warren's cyst with probable rupture of the Warren's cyst. 2. No meniscal tear seen. Matias Ohara MD Abscess Drainage CT 08/05/17 1516 Signed Impressions: Service Date/Time: Saturday, August 05, 2017 14:14 - CONCLUSION: 1. Uncomplicated CT-guided placement of drainage catheter in 3 separate perisigmoid abscess collections, as above. Approximately 15 mL of purulent fluid was submitted for Gram stain and C&S per request. Reuben Barrios MD Objective Remarks GENERAL: Resting. SKIN: Warm and dry. Pale. HEAD: Normocephalic. EYES: No scleral icterus. No injection or drainage. NECK: Supple, trachea midline. No JVD or lymphadenopathy. CARDIOVASCULAR: Regular rate and rhythm without murmurs, gallops, or rubs. RESPIRATORY: Breath sounds equal bilaterally. No accessory muscle use. GASTROINTESTINAL: Abdomen bandaged. Tender. MUSCULOSKELETAL: No cyanosis, or edema. NEURO: No gross deficits. PSYCH: Mood and affect appropriate. Procedures 08/06- CT guided aspiration of abdominal abscess with placement of 3 separate drains 1027- aspiration right knee Medications and IVs Current Medications Medications (Trade) Dose Ordered Sig/Eleazar Route Start Time Stop Time Status Last Admin (NS Flush) 2 ml UNSCH PRN IV FLUSH 08/04/17 18:45 08/15/17 15:19 (NS Flush) 2 ml BID IV FLUSH 08/04/17 21:00 08/20/17 20:48 (Narcan Inj) 0.4 mg UNSCH PRN IV PUSH 08/04/17 18:45 (NS Flush) 15 ml BID .XX 08/05/17 21:00 08/14/17 11:47 (Zyloprim) 300 mg DAILY PO 08/06/17 15:00 Future Hold 08/20/17 08:18 (Colchicine) 0.6 mg BID PO 08/08/17 09:00 Future Hold 08/20/17 08:18 (Roxicodone) 5 mg Q6H PRN PO 08/08/17 08:30 Future Hold 08/17/17 08:19 (Reglan Inj) 10 mg Q8H PRN IV PUSH 08/11/17 10:15 08/21/17 12:13 Ceftriaxone Sodium 2000 mg/ Sodium Chloride 100 ml @ 200 mls/hr Q24H IV 08/13/17 06:00 08/21/17 05:42 Potassium Chloride 100 ml @ 50 mls/hr UNSCH PRN IV 08/18/17 13:00 Potassium Chloride 100 ml @ 25 mls/hr UNSCH PRN IV 08/18/17 13:00 (Dilaudid PARENT COACH Inj) 6 mg UNSCH IV 08/18/17 13:00 08/20/17 04:30 PARENT COACH Dosage Infused (Pha) 1 Q8HR OTHER 08/18/17 14:00 08/21/17 05:42 Sodium Chloride 1,000 ml @ 50 mls/hr Q20H IV 08/18/17 16:30 08/20/17 10:24 (Benadryl Inj) 25 mg Q6H PRN IV PUSH 08/18/17 17:45 08/19/17 21:40 (Flexeril) 10 mg Q8H PRN PO 08/19/17 11:30 08/19/17 21:29 Fluconazole/ Sodium Chloride 200 ml @ 100 mls/hr Q24H IV 08/19/17 13:00 08/21/17 12:13 (Vasotec Inj) 1.25 mg Q6H PRN IV PUSH 08/19/17 16:15 08/20/17 16:41 Dextrose/Sodium Chloride 1,000 ml @ 75 mls/hr [id number] IV 08/20/17 11:00 08/21/17 13:39 08/21/17 00:20 Ampicillin Sodium/ Sulbactam Sodium 1500 mg/Sodium Chloride 100 ml @ 200 mls/hr Q6H IV 08/20/17 16:00 08/21/17 09:20 (Compazine Inj) 5 mg Q8H PRN IV PUSH 08/20/17 13:45 08/20/17 23:45 A/P Problem List: (1) Diverticulitis of intestine with abscess ICD Code: K57.80 - Diverticulitis of intestine, part unspecified, with perforation and abscess without bleeding Status: Acute (2) Leukocytosis ICD Code: D72.829 - Elevated white blood cell count, unspecified Status: Acute (3) Acute kidney injury ICD Code: N17.9 - Acute kidney failure, unspecified Status: Acute Assessment and Plan 41-year-old male with a history of diverticula and gout presented to the ED with nausea, vomiting, abdominal pain, fever, and chills. This is a patient with recurrent diverticular abscesses, he is status post drainage by IR. The patient is status post colonoscopy. Sepsis secondary to Diverticular abscesses- recurrent episode of diverticulitis S/P CT guided drainage with drain- 08/05. See imaging above - Leukocytosis improving. Blood cultures negative 5 days. Abscess culture on 08/05 significant for Escherichia coli and enterococcus. - Status post colonoscopy on 08/15 which showed diverticulum in the sigmoid colon, a few small scattered with mild peridiverticular erythema, otherwise normal colon to the cecum. - Per general surgery due to fistula into abdominal cavity with abscess plan to proceed with sigmoid resection. - IR drainage evaluation, continue with drain for now as they have seen fistula developing. - S/p lap-assisted sigmoid resection with Dr. Singleton 08/18. - continue ceftriaxone 2g daily (08/11- ), Zyvox 600 mg every 12 hr (08/15- ) . Plan is that when the patient is ready for discharge he will go home on ampicillin and cefoidixime for 20 days. ID has been reconsulted for antibiotics after surgery. - continue PARENT COACH with muscle relaxers as needed. - increase antiemetic regimen as the pt is still quite nauseous. Improved 08/21. Acute gouty attack- -Resolved S/P arthrocentesis 08/08. Allopurinol 300 mg PO on hold s/t nausea. Warren's cyst, right Acute kidney injury, improving creatinine, non oliguric - Resolved DVT patient ambulatory Discharge Planning Awaiting surgical clearance Problem Qualifiers (1) Diverticulitis of intestine with abscess: Qualified Codes: K57.20 - Diverticulitis of large intestine with perforation and abscess without bleeding (2) Leukocytosis: Qualified Codes: D72.828 - Other elevated white blood cell count David Fragoso DO Aug 21, 2017 12:39
[2017-08-21] MEDS: POTASSIUM CHLORIDE INJ 10 MEQ in DEXT 5%-NACL 0.9% 1000 ML INJ 1,000 ML IV SCH ×2 (13:35→22:48)
--- NOTE | 2017-08-21 16:16 | HHI.PR ---
Subjective Subjective Notes DAILY PROGRESS NOTE FOR SURGICAL ATTENDING, DR. KENNY SINGLETON Feeling much better today Resolution of nausea Objective Vitals/I&O Vital Signs Date Time Temp Pulse Resp B/P (MAP) Pulse Ox O2 Delivery O2 Flow Rate FiO2 08/21/17 13:41 12 08/21/17 12:11 98.6 60 159/97 (117) 98 08/19/17 21:56 Room Air 08/19/17 07:13 2.00 Labs Laboratory Tests Test 08/21/17 08:30 White Blood Count 10.2 Red Blood Count 3.23 Hemoglobin 9.8 Hematocrit 28.7 Mean Corpuscular Volume 88.9 Mean Corpuscular Hemoglobin 30.2 Mean Corpuscular Hemoglobin Concent 34.0 Red Cell Distribution Width 15.5 Platelet Count 220 Mean Platelet Volume 10.0 Blood Urea Nitrogen 6 Creatinine 0.70 Random Glucose 100 Total Protein 6.8 Albumin 2.3 Calcium Level 8.8 Magnesium Level 2.0 Alkaline Phosphatase 94 Aspartate Amino Transf (AST/SGOT) 21 Alanine Aminotransferase (ALT/SGPT) 25 Total Bilirubin 0.5 Direct Bilirubin 0.2 Sodium Level 137 Potassium Level 3.5 Chloride Level 101 Carbon Dioxide Level 26.1 Anion Gap 10 Estimat Glomerular Filtration Rate 124 Indirect Bilirubin 0.3 Lipase 50 Date/Time Source Procedure Growth Status 08/05/17 17:30 Blood Other Aerobic Blood Culture - Final NO GROWTH IN 5 DAYS Complete 08/05/17 17:30 Blood Other Anaerobic Blood Culture - Final NO GROWTH IN 5 DAYS Complete 08/09/17 08:31 Fluid Synovial Fluid Gram Stain - Final Complete 08/09/17 08:31 Fluid Synovial Fluid Body Fluid Culture - Final NO GROWTH IN 72 HRS.--AEROBICALLY OR ... Complete 08/05/17 14:30 Abscess Abdomen Fungal Smear - Final NO FUNGAL ELEMENTS SEEN. Resulted 08/05/17 14:30 Abscess Abdomen Fungal Culture - Preliminary NO GROWTH IN 2 WEEKS Resulted Radiology Last 72 hours Impressions Catheter Patency X-Ray 08/14/17 0000 Signed Impressions: Service Date/Time: August 10:28 - CONCLUSION: 1. 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 Plan: Changed drainage from suction to gravity drainage bag and will continue drainage. Reuben Barrios MD Abdomen/Pelvis CT 08/13/17 0000 Signed Impressions: Service Date/Time: Sunday, August 13, 2017 09:54 - CONCLUSION: 1. Inflammatory changes of diverticulitis but no evidence of residual abscess. Scooby Schroeder MD Cardiovascular: Regular Lungs: Clear Abdomen: Other (midline incision with alissa; MICHEAL with SS drainage; abdomen soft but tender ) Extremities: No edema Wound Wound : Wound Location: Abdomen Appearance: Clean & Dry Drainage: Clear Dressing: Dry A/P Problem List: (1) Postop check ICD Codes: Z09 - Encounter for follow-up examination after completed treatment for conditions other than malignant neoplasm (2) History of open sigmoidectomy ICD Codes: Z98.890 - Other specified postprocedural states; Z90.49 - Acquired absence of other specified parts of digestive tract (3) Colonic diverticular abscess ICD Codes: K57.20 - Diverticulitis of large intestine with perforation and abscess without bleeding Status: Acute (4) Intra-abdominal abscess ICD Codes: K65.1 - Peritoneal abscess Status: Acute (5) Leukocytosis ICD Codes: D72.829 - Elevated white blood cell count, unspecified Status: Acute (6) Right knee pain ICD Codes: M25.561 - Pain in right knee Status: Acute (7) Warren's cyst, ruptured ICD Codes: M66.0 - Rupture of popliteal cyst Status: Acute Assessment and Plan 42 year old male with recurrent diverticular abscesses; s/p IR drainage; POD3 laparoscopic BOOM; laparoscopic takedown of splenic flexure; open sigmoid resection with primary anastomosis; appendectomy -Okay for a few ice chips as tolerated; will advance diet once bowel function resumes -Hold all nonessential by mouth medications -[employer] for pain medication; Flexeril for muscle spasms -OOB and mobilize -IS -ID consultation for antibiotic regimen; WBC 10.8 today Attending Statement Continues to improve on a daily basis from his surgery Better pain control NOTE FOR SURGICAL ATTENDING, DR. KENNY SINGLETON I agree with above assessment and plan. The exam, history, and the medical decision-making described in the above note were completed with the assistance of the mid-level provider. I reviewed and agree with the findings presented. I attest that I had a [id number] encounter with the patient on the same day, and personally performed and documented my assessment and findings in the medical record. The following services were provided during this hospital visit: Chart data review, vital sign assessments/reviewing monitor data Review of consultations notes if present. Medication orders/review and/or management Ordering and/or reviewing lab tests Ordering and/or interpreting/reviewing x-rays and/or diagnostic studies Care of the patient and discussion of the patient with the care team Documentation time To help prompt me to consider important information that might be impacting today's encounter and assessment, information from prior notes written by myself or my colleagues may have been "brought forward/copy and pasted" into today's note. Problem Qualifiers (1) Leukocytosis: Qualified Codes: D72.828 - Other elevated white blood cell count (2) Right knee pain: Qualified Codes: M25.561 - Pain in right knee Tressa Dacosta Aug 21, 2017 16:16 Kenny Singleton MD Aug 21, 2017 17:21
[2017-08-21 16:30] VITALS: BP 143/88; PULSE 53; RESP 20; TEMP 99.1; O2SAT 98
[2017-08-21 20:55] VITALS: BP 173/89; PULSE 53; RESP 16; TEMP 98.9; O2SAT 97
[2017-08-21] MEDS: HYDROmorphone HCL PCA 6 MG/30 ML IV SCH (21:20)
[2017-08-22] MEDS: SODIUM CHLOR 0.9% 1000 ML INJ 1,000 ML IV SCH ×2 (00:30→09:24)
[2017-08-22 01:18] VITALS: BP 158/95; PULSE 107; RESP 16; TEMP 98.5; O2SAT 96
[2017-08-22] MEDS: POTASSIUM CHLORIDE INJ 10 MEQ in DEXT 5%-NACL 0.9% 1000 ML INJ 1,000 ML IV SCH (02:58)
[2017-08-22] MEDS: AMPICILLIN-SULBACTAM INJ 1,500 MG in SODIUM CHLORIDE 0.9% INJ 100 ML IV SCH ×4 (05:03→21:03)
[2017-08-22] MEDS: cefTRIAXone INJ 2,000 MG in SODIUM CHLORIDE 0.9% INJ 100 ML IV SCH (05:09)
[2017-08-22] MEDS: PCA - TOTAL MG DILAUDID DELIVERED PER SHIFT OTHER SCH ×3 (06:00→21:04)
[2017-08-22] MEDS: SODIUM CHLORIDE 0.9% FLUSH 10 ML FLUSH SCH ×2 (07:15→21:00)
[2017-08-22] MEDS: SODIUM CHLORIDE 0.9% FLUSH 10 ML FLUSH IV FLUSH SCH ×2 (07:15→21:00)
--- NOTE | 2017-08-22 07:58 | PD.ORT.PN ---
Subjective Subjective Remarks Minimal pain with knee motion. Objective Vitals Vital Signs Date Time Temp Pulse Resp B/P (MAP) Pulse Ox O2 Delivery O2 Flow Rate FiO2 08/22/17 06:00 18 08/22/17 01:18 98.5 107 16 158/95 (116) 96 08/21/17 21:20 18 08/21/17 20:55 98.9 53 16 173/89 (117) 97 08/21/17 20:46 18 08/21/17 16:30 99.1 53 20 143/88 (106) 98 08/21/17 13:41 12 08/21/17 12:11 98.6 60 20 159/97 (117) 98 08/21/17 08:16 97.8 58 20 160/92 (114) 96 I/O 08/21/17 08/21/17 08/21/17 08/22/17 08/22/17 08/22/17 07:00 15:00 23:00 07:00 15:00 23:00 Intake Total 200 ml 800 ml 391 ml Output Total 500 ml 280 ml 250 ml 1000 ml Balance -300 ml 520 ml 141 ml -1000 ml IV Total 200 ml 800 ml 391 ml Output Urine Total 500 ml 250 ml 225 ml 1000 ml Drainage Total 30 ml 25 ml # Bowel Movements 0 0 Result Diagram: 08/21/17 0830 08/21/17 0830 Imaging Last [address] 08/08/17 0000 Signed Impressions: Service Date/Time: Tuesday, August 08, 2017 11:44 - CONCLUSION: 1. 2 separate pericolonic abscess collections in the region of the sigmoid have resolved the percutaneous drainage. There is still some regional stranding in the pericolonic fatty tissues, however. 2. A 1.8 cm right inguinal hernia only contains fat. Jay Delacruz MD Knee MRI 08/07/17 0000 Signed Impressions: Service Date/Time: July 14:46 - CONCLUSION: 1. Large knee effusion and large Warren's cyst with probable rupture of the Warren's cyst. 2. No meniscal tear seen. Matias Ohara MD Procedures Aspiration right knee: After informed consent his right knee is sterilely prepped with alcohol and ChloraPrep. 1 cc of 1% lidocaine is injected creating a wheel at the aspiration site. Using a 20-gauge spinal needle and sterile technique his right knee is aspirated initially visualizing clear fluid. Aspiration is continued and 8 cc of semi-clear fluid that is red tinged is aspirated. Patient tolerates procedure well. Bandages placed upon it and we'll continue to ice Objective Remarks Examination of the right lower extremity reveals no pain with hip range of motion. Examination of the knee reveals minimal swelling.. He is able to fully extend the knee. Knee range of motion is from 0 to 120 actively without any discomfort to range of motion. Distally he has intact sensation with good capillary refills active dorsiflexion plantar flexion of foot Assessment & Plan Assessment and Plan Right knee effusion with gout Aspiration does show gouty arthritis with no signs of infection Ice and elevate Physical therapy for passive and active range of motion of knee. Full weightbearing Cultures are negative for infection Orthopedic signing off. Any new issues or complaints have orthopedics reconsulted No further orthopedic follow-up needed David Beatty Jr. Aug 22, 2017 07:58
[2017-08-22 10:24] VITALS: BP 149/93; PULSE 57; RESP 19; TEMP 98.2; O2SAT 97
--- NOTE | 2017-08-22 11:26 | HHI.PR ---
Subjective Remarks The patient was feeling a lot better this morning. He said he has been passing gas, which is the first time he has done that since surgery. Breathing comfortably. No acute complaints. Discussed with family at the bedside. Objective Vitals Vital Signs Date Time Temp Pulse Resp B/P (MAP) Pulse Ox O2 Delivery O2 Flow Rate FiO2 08/22/17 10:24 98.2 57 19 149/93 (111) 97 08/22/17 06:00 18 08/22/17 01:18 98.5 107 16 158/95 (116) 96 08/21/17 21:20 18 08/21/17 20:55 98.9 53 16 173/89 (117) 97 08/21/17 20:46 18 08/21/17 16:30 99.1 53 20 143/88 (106) 98 08/21/17 13:41 12 08/21/17 12:11 98.6 60 20 159/97 (117) 98 I/O 08/21/17 08/21/17 08/21/17 08/22/17 08/22/17 08/22/17 06:59 14:59 22:59 06:59 14:59 22:59 Intake Total 200 ml 800 ml 391 ml 100 ml Output Total 500 ml 280 ml 250 ml 1000 ml Balance -300 ml 520 ml 141 ml -1000 ml 100 ml IV Total 200 ml 800 ml 391 ml 100 ml Output Urine Total 500 ml 250 ml 225 ml 1000 ml Drainage Total 30 ml 25 ml # Bowel Movements 0 0 Result Diagram: 08/21/17 0830 08/21/17 0830 Imaging Last Impressions Catheter Patency X-Ray 08/14/17 0000 Signed Impressions: Service Date/Time: August 10:28 - CONCLUSION: 1. 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 Plan: Changed drainage from suction to gravity drainage bag and will continue drainage. Reuben Barrios MD Abdomen/Pelvis CT 08/13/17 0000 Signed Impressions: Service Date/Time: Sunday, August 13, 2017 09:54 - CONCLUSION: 1. Inflammatory changes of diverticulitis but no evidence of residual abscess. Scooby Schroeder MD Lower Extremity Ultrasound 08/09/17 0000 Signed Impressions: Service Date/Time: Wednesday, August 09, 2017 14:15 - CONCLUSION: 1. No evidence of deep venous thrombosis. 2. Small to moderate-sized Warren's cyst in the popliteal fossa. David Lu MD Abdomen X-Ray 08/09/17 0000 Signed Impressions: Service Date/Time: Wednesday, August 09, 2017 17:30 - CONCLUSION: No dilated loops of small or large bowel. The Matias Ohara MD Pelvis CT 08/08/17 0000 Signed Impressions: Service Date/Time: Tuesday, August 08, 2017 11:44 - CONCLUSION: 1. 2 separate pericolonic abscess collections in the region of the sigmoid have resolved the percutaneous drainage. There is still some regional stranding in the pericolonic fatty tissues, however. 2. A 1.8 cm right inguinal hernia only contains fat. Jay Delacruz MD Knee MRI 08/07/17 0000 Signed Impressions: Service Date/Time: July 14:46 - CONCLUSION: 1. Large knee effusion and large Warren's cyst with probable rupture of the Warren's cyst. 2. No meniscal tear seen. Matias Ohara MD Abscess Drainage CT 08/05/17 1516 Signed Impressions: Service Date/Time: Saturday, August 05, 2017 14:14 - CONCLUSION: 1. Uncomplicated CT-guided placement of drainage catheter in 3 separate perisigmoid abscess collections, as above. Approximately 15 mL of purulent fluid was submitted for Gram stain and C&S per request. Reuben Barrios MD Objective Remarks GENERAL: Resting comfortably. SKIN: Warm and dry. Pale. HEAD: Normocephalic. EYES: No scleral icterus. No injection or drainage. NECK: Supple, trachea midline. No JVD or lymphadenopathy. CARDIOVASCULAR: Regular rate and rhythm without murmurs, gallops, or rubs. RESPIRATORY: Breath sounds equal bilaterally. No accessory muscle use. GASTROINTESTINAL: Abdomen bandaged. Tender. MUSCULOSKELETAL: No cyanosis, or edema. NEURO: No gross deficits. PSYCH: Mood and affect appropriate. Procedures 08/06- CT guided aspiration of abdominal abscess with placement of 3 separate drains 1027- aspiration right knee Medications and IVs Current Medications Medications (Trade) Dose Ordered Sig/Eleazar Route Start Time Stop Time Status Last Admin (NS Flush) 2 ml UNSCH PRN IV FLUSH 08/04/17 18:45 08/15/17 15:19 (NS Flush) 2 ml BID IV FLUSH 08/04/17 21:00 08/21/17 20:45 (Narcan Inj) 0.4 mg UNSCH PRN IV PUSH 08/04/17 18:45 (NS Flush) 15 ml BID .XX 08/05/17 21:00 08/21/17 20:45 (Zyloprim) 300 mg DAILY PO 08/06/17 15:00 Future Hold 08/20/17 08:18 (Colchicine) 0.6 mg BID PO 08/08/17 09:00 Future Hold 08/20/17 08:18 (Roxicodone) 5 mg Q6H PRN PO 08/08/17 08:30 Future Hold 08/17/17 08:19 (Reglan Inj) 10 mg Q8H PRN IV PUSH 08/11/17 10:15 08/21/17 20:45 Ceftriaxone Sodium 2000 mg/ Sodium Chloride 100 ml @ 200 mls/hr Q24H IV 08/13/17 06:00 08/22/17 05:09 Potassium Chloride 100 ml @ 50 mls/hr UNSCH PRN IV 08/18/17 13:00 Potassium Chloride 100 ml @ 25 mls/hr UNSCH PRN IV 08/18/17 13:00 (Dilaudid [facility] Inj) 6 mg UNSCH IV 08/18/17 13:00 08/21/17 21:[address] [facility] Dosage Infused (Pha) 1 Q8HR OTHER 08/18/17 14:00 08/22/17 06:00 Sodium Chloride 1,000 ml @ 50 mls/hr Q20H IV 08/18/17 16:30 08/22/17 09:24 (Benadryl Inj) 25 mg Q6H PRN IV PUSH 08/18/17 17:45 08/19/17 21:40 (Flexeril) 10 mg Q8H PRN PO 08/19/17 11:30 08/19/17 21:29 Fluconazole/ Sodium Chloride 200 ml @ 100 mls/hr Q24H IV 08/19/17 13:00 08/21/17 12:13 (Vasotec Inj) 1.25 mg Q6H PRN IV PUSH 08/19/17 16:15 08/20/17 16:41 Ampicillin Sodium/ Sulbactam Sodium 1500 mg/Sodium Chloride 100 ml @ 200 mls/hr Q6H IV 08/20/17 16:00 08/22/17 09:23 (Compazine Inj) 5 mg Q8H PRN IV PUSH 08/20/17 13:45 08/20/17 23:45 A/P Problem List: (1) Diverticulitis of intestine with abscess ICD Code: K57.80 - Diverticulitis of intestine, part unspecified, with perforation and abscess without bleeding Status: Acute (2) Leukocytosis ICD Code: D72.829 - Elevated white blood cell count, unspecified Status: Acute (3) Acute kidney injury ICD Code: N17.9 - Acute kidney failure, unspecified Status: Acute Assessment and Plan 41-year-old male with a history of diverticula and gout presented to the ED with nausea, vomiting, abdominal pain, fever, and chills. This is a patient with recurrent diverticular abscesses, he is status post drainage by IR. The patient is status post colonoscopy. Sepsis secondary to Diverticular abscesses- recurrent episode of diverticulitis S/P CT guided drainage with drain- 08/05. See imaging above - Leukocytosis improving. Blood cultures negative 5 days. Abscess culture on 08/05 significant for Escherichia coli and enterococcus. - Status post colonoscopy on 08/15 which showed diverticulum in the sigmoid colon, a few small scattered with mild peridiverticular erythema, otherwise normal colon to the cecum. - Per general surgery due to fistula into abdominal cavity with abscess plan to proceed with sigmoid resection. - IR drainage evaluation, continue with drain for now as they have seen fistula developing. - S/p lap-assisted sigmoid resection with Dr. Singleton 08/18. - ID has been reconsulted for antibiotics after surgery. Currently on ceftriaxone, Unasyn and Diflucan. - continue [facility] [employer] with muscle relaxers as needed per surgery. - increase antiemetic regimen as the pt is still quite nauseous. Improved 08/22. Acute gouty attack- -Resolved S/P arthrocentesis 08/08. Allopurinol 300 mg PO on hold s/t nausea. Warren's cyst, right- orthopedic surgery signed off. Acute kidney injury, improving creatinine, non oliguric - Resolved HTN Likely s/t pain. - Vasotec as needed. - pain control. DVT patient ambulatory Discharge Planning Awaiting surgical clearance Problem Qualifiers (1) Diverticulitis of intestine with abscess: Qualified Codes: K57.20 - Diverticulitis of large intestine with perforation and abscess without bleeding (2) Leukocytosis: Qualified Codes: D72.828 - Other elevated white blood cell count David Fragoso DO Aug 22, 2017 11:26
[2017-08-22] MEDS: FLUCONAZOLE 400 MG PREMIX BAG 200 ML IV SCH (12:28)
[2017-08-22] MEDS: METOCLOPRAMIDE HCL 10 MG/2 ML VIAL IV PUSH PRN ×2 (12:34→21:06)
[2017-08-22] MEDS ORDERED: ONDANSETRON HCL 4 MG/2 ML VIAL IV PUSH PRN (13:45)
[2017-08-22 14:29] VITALS: BP 142/95; PULSE 64; RESP 18; TEMP 98.2; O2SAT 97
[2017-08-22] MEDS: LACTIC ACID (AMMONIUM LACTATE) 12% LOTION 225 GM BTL TOPICAL SCH ×2 (15:00→21:03)
--- NOTE | 2017-08-22 15:08 | HHI.PR ---
cc: Kenny Singleton MD Objective Vitals/I&O Vital Signs Date Time Temp Pulse Resp B/P (MAP) Pulse Ox O2 Delivery O2 Flow Rate FiO2 08/22/17 14:29 98.2 64 18 142/95 (111) 97 08/19/17 21:56 Room Air 08/19/17 07:13 2.00 Labs Laboratory Tests Test 08/04/17 14:40 08/04/17 17:00 08/04/17 17:45 08/07/17 12:45 Prothrombin Time 13.3 SEC Prothromb Time International Ratio 1.2 RATIO Activated Partial Thromboplast Time 38.3 SEC Urine Color LIGHT-YELLOW Urine Turbidity CLEAR Urine pH 6.5 Urine Specific [place] 1.006 Urine Protein NEG mg/dL Urine Glucose (UA) NEG mg/dL Urine Ketones 10 mg/dL Urine Occult Blood TRACE Urine Nitrite NEG Urine Bilirubin NEG Urine Urobilinogen LESS THAN 2.0 MG/DL Urine Leukocyte Esterase NEG Urine RBC 1 /hpf Urine WBC 4 /hpf Urine Squamous Epithelial Cells <1 /hpf Urine Mucus FEW /lpf Microscopic Urinalysis Comment CULT NOT INDICATED Lactic Acid Level 1.0 mmol/L Erythrocyte Sedimentation Rate 78 mm/hr Test 08/07/17 12:57 08/09/17 08:31 08/20/17 06:22 08/21/17 08:30 Blood Urea Nitrogen 4 MG/DL 6 MG/DL Creatinine 0.69 MG/DL 0.70 MG/DL Random Glucose 95 MG/DL 100 MG/DL Calcium Level 8.7 MG/DL 8.8 MG/DL Magnesium Level 1.9 MG/DL 2.0 MG/DL Uric Acid 3.8 MG/DL Sodium Level 135 MEQ/L 137 MEQ/L Potassium Level 3.7 MEQ/L 3.5 MEQ/L Chloride Level 97 MEQ/L 101 MEQ/L Carbon Dioxide Level 29.6 MEQ/L 26.1 MEQ/L C-Reactive Protein 22.00 MG/DL Synovial Fluid Crystals POS - URIC ACID Neutrophils (%) (Auto) 74.0 % Lymphocytes (%) (Auto) 18.0 % Monocytes (%) (Auto) 7.0 % Eosinophils (%) (Auto) 0.4 % Basophils (%) (Auto) 0.6 % Neutrophils # (Auto) 9.8 TH/MM3 Lymphocytes # (Auto) 2.4 TH/MM3 Monocytes # (Auto) 0.9 TH/MM3 Eosinophils # (Auto) 0.0 TH/MM3 Basophils # (Auto) 0.1 TH/MM3 CBC Comment DIFF FINAL Differential Comment White Blood Count 10.2 TH/MM3 Red Blood Count 3.23 MIL/MM3 Hemoglobin 9.8 GM/DL Hematocrit 28.7 % Mean Corpuscular Volume 88.9 FL Mean Corpuscular Hemoglobin 30.2 PG Mean Corpuscular Hemoglobin Concent 34.0 % Red Cell Distribution Width 15.5 % Platelet Count 220 TH/MM3 Mean Platelet Volume 10.0 FL Total Protein 6.8 GM/DL Albumin 2.3 GM/DL Alkaline Phosphatase 94 U/L Aspartate Amino Transf (AST/SGOT) 21 U/L Alanine Aminotransferase (ALT/SGPT) 25 U/L Total Bilirubin 0.5 MG/DL Direct Bilirubin 0.2 MG/DL Anion Gap 10 MEQ/L Estimat Glomerular Filtration Rate 124 ML/MIN Indirect Bilirubin 0.3 MG/DL Lipase 50 U/L Date/Time Source Procedure Growth Status 08/05/17 17:30 Blood Other Aerobic Blood Culture - Final NO GROWTH IN 5 DAYS Complete 08/05/17 17:30 Blood Other Anaerobic Blood Culture - Final NO GROWTH IN 5 DAYS Complete 08/09/17 08:31 Fluid Synovial Fluid Gram Stain - Final Complete 08/09/17 08:31 Fluid Synovial Fluid Body Fluid Culture - Final NO GROWTH IN 72 HRS.--AEROBICALLY OR ... Complete 08/05/17 14:30 Abscess Abdomen Fungal Smear - Final NO FUNGAL ELEMENTS SEEN. Resulted 08/05/17 14:30 Abscess Abdomen Fungal Culture - Preliminary NO GROWTH IN 2 WEEKS Resulted Radiology Last Impressions Catheter Patency X-Ray 08/14/17 0000 Signed Impressions: Service Date/Time: August 10:28 - CONCLUSION: 1. 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 Plan: Changed drainage from suction to gravity drainage bag and will continue drainage. Reuben Barrios MD Abdomen/Pelvis CT 08/13/17 0000 Signed Impressions: Service Date/Time: Sunday, August 13, 2017 09:54 - CONCLUSION: 1. Inflammatory changes of diverticulitis but no evidence of residual abscess. Scooby Schroeder MD Lower Extremity Ultrasound 08/09/17 0000 Signed Impressions: Service Date/Time: Wednesday, August 09, 2017 14:15 - CONCLUSION: 1. No evidence of deep venous thrombosis. 2. Small to moderate-sized Warren's cyst in the popliteal fossa. David Lu MD Abdomen X-Ray 08/09/17 Signed Impressions: Service Date/Time: Wednesday, August 09, 2017 17:30 - CONCLUSION: No dilated loops of small or large bowel. The Matias Ohara MD Pelvis CT 08/08/17 0000 Signed Impressions: Service Date/Time: Tuesday, August 08, 2017 11:44 - CONCLUSION: 1. 2 separate pericolonic abscess collections in the region of the sigmoid have resolved the percutaneous drainage. There is still some regional stranding in the pericolonic fatty tissues, however. 2. A 1.8 cm right inguinal hernia only contains fat. Jay Delacruz MD Knee MRI 08/07/17 0000 Signed Impressions: Service Date/Time: July 14:46 - CONCLUSION: 1. Large knee effusion and large Warren's cyst with probable rupture of the Warren's cyst. 2. No meniscal tear seen. Matias Ohara MD Abscess Drainage CT 08/05/17 1516 Signed Impressions: Service Date/Time: Saturday, August 05, 2017 14:14 - CONCLUSION: 1. Uncomplicated CT-guided placement of drainage catheter in 3 separate perisigmoid abscess collections, as above. Approximately 15 mL of purulent fluid was submitted for Gram stain and C&S per request. Reuben Barrios MD Cardiovascular: Regular Abdomen: Non-distended, Other (flatus), Post-op tenderness Extremities: No edema, Perfused Wound Wound : Wound Location: Abdomen Appearance: Clean & Dry Drainage: Clear Dressing: Dry A/P Problem List: (1) Postop check ICD Codes: Z09 - Encounter for follow-up examination after completed treatment for conditions other than malignant neoplasm (2) History of open sigmoidectomy ICD Codes: Z98.890 - Other specified postprocedural states; Z90.49 - Acquired absence of other specified parts of digestive tract (3) Colonic diverticular abscess ICD Codes: K57.20 - Diverticulitis of large intestine with perforation and abscess without bleeding Status: Acute (4) Intra-abdominal abscess ICD Codes: K65.1 - Peritoneal abscess Status: Acute (5) Leukocytosis ICD Codes: D72.829 - Elevated white blood cell count, unspecified Status: Acute (6) Right knee pain ICD Codes: M25.561 - Pain in right knee Status: Acute (7) Warren's cyst, ruptured ICD Codes: M66.0 - Rupture of popliteal cyst Status: Acute Assessment and Plan 42 year old male with post op sigmoid resection doing well passing flatus start PO cont abx Attending Statement NOTE FOR SURGICAL ATTENDING, DR. KENNY SINGLETON I attest that I had a [id number] encounter with the patient on the same day, and personally performed and documented my assessment and findings in the medical record. The following services were provided during this hospital visit: Chart data review, vital sign assessments/reviewing monitor data Review of consultations notes if present. Medication orders/review and/or management Ordering and/or reviewing lab tests Ordering and/or interpreting/reviewing x-rays and/or diagnostic studies Care of the patient and discussion of the patient with the care team Documentation time To help prompt me to consider important information that might be impacting today's encounter and assessment, information from prior notes written by myself or my colleagues may have been "brought forward/copy and pasted" into today's note. Problem Qualifiers (1) Leukocytosis: Qualified Codes: D72.828 - Other elevated white blood cell count (2) Right knee pain: Qualified Codes: M25.561 - Pain in right knee Kenny Singleton MD Aug 22, 2017 15:08
[2017-08-22 18:16] VITALS: BP 152/94; PULSE 61; RESP 18; TEMP 98.2; O2SAT 97
[2017-08-22 20:14] VITALS: BP 148/95; PULSE 62; RESP 18; TEMP 99.2; O2SAT 95
[2017-08-23 01:00] VITALS: BP 146/94; PULSE 66; RESP 18; TEMP 99.4; O2SAT 98
[2017-08-23 04:57] VITALS: BP 145/95; PULSE 65; RESP 18; TEMP 98.9; O2SAT 96
[2017-08-23] MEDS: AMPICILLIN-SULBACTAM INJ 1,500 MG in SODIUM CHLORIDE 0.9% INJ 100 ML IV SCH ×4 (05:57→22:44)
[2017-08-23] MEDS: cefTRIAXone INJ 2,000 MG in SODIUM CHLORIDE 0.9% INJ 100 ML IV SCH (06:01)
[2017-08-23] MEDS: PCA - TOTAL MG DILAUDID DELIVERED PER SHIFT OTHER SCH ×2 (06:02→12:59)
[2017-08-23 07:37] LABS: HEMATOCRIT 28.6 % (39.0-51.0); MEAN CORPUSCULAR HEMOGLOBIN 29.9 PG (27.0-34.0); MEAN CORPUSCULAR HGB CONC 34.4 % (32.0-36.0); PLATELET COUNT 209 TH/MM3 (150-450); RED BLOOD COUNT 3.28 MIL/MM3 (4.50-5.90); RED CELL DISTRIBUTION WIDTH 15.5 % (11.6-17.2); REVIEW FLAG FINAL; WHITE BLOOD COUNT 9.7 TH/MM3 (4.0-11.0)
[2017-08-23 07:53] LABS: BICARBONATE 26.7 MEQ/L (21.0-32.0); MAGNESIUM 1.7 MG/DL (1.5-2.5); POTASSIUM 3.7 MEQ/L (3.5-5.1)
[2017-08-23] MEDS: SODIUM CHLORIDE 0.9% FLUSH 10 ML FLUSH SCH ×2 (07:57→21:00)
[2017-08-23] MEDS: SODIUM CHLORIDE 0.9% FLUSH 10 ML FLUSH IV FLUSH SCH ×2 (07:57→22:45)
[2017-08-23] MEDS: LACTIC ACID (AMMONIUM LACTATE) 12% LOTION 225 GM BTL TOPICAL SCH ×2 (08:09→22:45)
[2017-08-23 08:18] VITALS: BP 151/98; PULSE 64; RESP 18; TEMP 98.6; O2SAT 96
[2017-08-23] MEDS: SODIUM CHLOR 0.9% 1000 ML INJ 1,000 ML IV SCH (09:30)
--- NOTE | 2017-08-23 10:36 | HHI.PR ---
Subjective Subjective Notes pt doing well, no fevers, +bm, tolerating clears but small quantity Objective Vitals/I&O Vital Signs Date Time Temp Pulse Resp B/P (MAP) Pulse Ox O2 Delivery O2 Flow Rate FiO2 08/23/17 08:18 98.6 64 18 151/98 (115) 96 08/19/17 21:56 Room Air 08/19/17 07:13 2.00 Labs Laboratory Tests Test 08/23/17 05:27 White Blood Count 9.7 Red Blood Count 3.28 Hemoglobin 9.8 Hematocrit 28.6 Mean Corpuscular Volume 87.0 Mean Corpuscular Hemoglobin 29.9 Mean Corpuscular Hemoglobin Concent 34.4 Red Cell Distribution Width 15.5 Platelet Count 209 Mean Platelet Volume 9.6 Blood Urea Nitrogen 6 Creatinine 0.67 Random Glucose 74 Calcium Level 8.8 Magnesium Level 1.7 Sodium Level 135 Potassium Level 3.7 Chloride Level 97 Carbon Dioxide Level 26.7 Anion Gap 11 Estimat Glomerular Filtration Rate 131 Date/Time Source Procedure Growth Status 08/05/17 17:30 Blood Other Aerobic Blood Culture - Final NO GROWTH IN 5 DAYS Complete 08/05/17 17:30 Blood Other Anaerobic Blood Culture - Final NO GROWTH IN 5 DAYS Complete 08/09/17 08:31 Fluid Synovial Fluid Gram Stain - Final Complete 08/09/17 08:31 Fluid Synovial Fluid Body Fluid Culture - Final NO GROWTH IN 72 HRS.--AEROBICALLY OR ... Complete 08/05/17 14:30 Abscess Abdomen Fungal Smear - Final NO FUNGAL ELEMENTS SEEN. Resulted 08/05/17 14:30 Abscess Abdomen Fungal Culture - Preliminary NO GROWTH IN 2 WEEKS Resulted Radiology Last Impressions Catheter Patency X-Ray 08/14/17 0000 Signed Impressions: Service Date/Time: August 10:28 - CONCLUSION: 1. 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 Plan: Changed drainage from suction to gravity drainage bag and will continue drainage. Reuben Barrios MD Abdomen/Pelvis CT 08/13/17 0000 Signed Impressions: Service Date/Time: Sunday, August 13, 2017 09:54 - CONCLUSION: 1. Inflammatory changes of diverticulitis but no evidence of residual abscess. Scooby Schroeder MD Lower Extremity Ultrasound 08/09/17 0000 Signed Impressions: Service Date/Time: Wednesday, August 09, 2017 14:15 - CONCLUSION: 1. No evidence of deep venous thrombosis. 2. Small to moderate-sized Warren's cyst in the popliteal fossa. David Lu MD Abdomen X-Ray 08/09/17 0000 Signed Impressions: Service Date/Time: Wednesday, August 09, 2017 17:30 - CONCLUSION: No dilated loops of small or large bowel. The Matias Ohara MD Pelvis CT 08/08/17 0000 Signed Impressions: Service Date/Time: Tuesday, August 08, 2017 11:44 - CONCLUSION: 1. 2 separate pericolonic abscess collections in the region of the sigmoid have resolved the percutaneous drainage. There is still some regional stranding in the pericolonic fatty tissues, however. 2. A 1.8 cm right inguinal hernia only contains fat. Jay Delacruz MD Knee MRI 08/07/17 0000 Signed Impressions: Service Date/Time: July 14:46 - CONCLUSION: 1. Large knee effusion and large Warren's cyst with probable rupture of the Warren's cyst. 2. No meniscal tear seen. Matias Ohara MD Abscess Drainage CT 08/05/17 1516 Signed Impressions: Service Date/Time: Saturday, August 05, 2017 14:14 - CONCLUSION: 1. Uncomplicated CT-guided placement of drainage catheter in 3 separate perisigmoid abscess collections, as above. Approximately 15 mL of purulent fluid was submitted for Gram stain and C&S per request. Reuben Barrios MD Abdomen: Other (incision well healing alissa c/d/i, michael serosang) A/P Problem List: (1) Postop check ICD Codes: Z09 - Encounter for follow-up examination after completed treatment for conditions other than malignant neoplasm (2) History of open sigmoidectomy ICD Codes: Z98.890 - Other specified postprocedural states; Z90.49 - Acquired absence of other specified parts of digestive tract (3) Colonic diverticular abscess ICD Codes: K57.20 - Diverticulitis of large intestine with perforation and abscess without bleeding Status: Acute (4) Intra-abdominal abscess ICD Codes: K65.1 - Peritoneal abscess Status: Acute (5) Leukocytosis ICD Codes: D72.829 - Elevated white blood cell count, unspecified Status: Acute (6) Right knee pain ICD Codes: M25.561 - Pain in right knee Status: Acute (7) Warren's cyst, ruptured ICD Codes: M66.0 - Rupture of popliteal cyst Status: Acute Assessment and Plan 42 year old male with post op sigmoid resection POD 5 Doing well doing well passing flatus, +bm keep fulls today, pt wants to go slow, start reg diet tomorrow oob cont abx Problem Qualifiers (1) Leukocytosis: Qualified Codes: D72.828 - Other elevated white blood cell count (2) Right knee pain: Qualified Codes: M25.561 - Pain in right knee Rashid Ignacio MD Aug 23, 2017 10:36
--- NOTE | 2017-08-23 11:17 | HHI.PR ---
Subjective Remarks The patient was ambulating with physical therapy. He said that he started drinking liquids and was tolerating it. He said that he had a bowel movement. He feels a lot better. Objective Vitals Vital Signs Date Time Temp Pulse Resp B/P (MAP) Pulse Ox O2 Delivery O2 Flow Rate FiO2 08/23/17 08:18 98.6 64 18 151/98 (115) 96 08/23/17 06:02 18 08/23/17 04:57 98.9 65 18 145/95 (112) 96 08/23/17 01:00 99.4 66 18 146/94 (111) 98 08/22/17 21:04 18 08/22/17 20:14 99.2 62 18 148/95 (112) 95 08/22/17 18:16 98.2 61 18 152/94 (113) 97 08/22/17 14:30 14 08/22/17 14:29 98.2 64 18 142/95 (111) 97 I/O 08/22/17 08/22/17 08/22/17 08/23/17 08/23/17 08/23/17 07:00 15:00 23:00 07:00 15:00 23:00 Intake Total 300 ml 338 ml Output Total 1000 ml 550 ml 620 ml 400 ml Balance -1000 ml -250 ml -282 ml -400 ml IV Total 300 ml 338 ml Output Urine Total 1000 ml 550 ml 600 ml 400 ml Drainage Total 20 ml # Bowel Movements 0 Result Diagram: 08/23/17 0527 08/23/17 0527 Imaging Last Impressions Catheter Patency X-Ray 08/14/17 0000 Signed Impressions: Service Date/Time: August 10:28 - CONCLUSION: 1. 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 Plan: Changed drainage from suction to gravity drainage bag and will continue drainage. Reuben Barrios MD Abdomen/Pelvis CT 08/13/17 0000 Signed Impressions: Service Date/Time: Sunday, August 13, 2017 09:54 - CONCLUSION: 1. Inflammatory changes of diverticulitis but no evidence of residual abscess. Scooby Schroeder MD Lower Extremity Ultrasound 08/09/17 0000 Signed Impressions: Service Date/Time: Wednesday, August 09, 2017 14:15 - CONCLUSION: 1. No evidence of deep venous thrombosis. 2. Small to moderate-sized Warren's cyst in the popliteal fossa. David Lu MD Abdomen X-Ray 08/09/17 0000 Signed Impressions: Service Date/Time: Wednesday, August 09, 2017 17:30 - CONCLUSION: No dilated loops of small or large bowel. The Matias Ohara MD Pelvis CT 08/08/17 0000 Signed Impressions: Service Date/Time: Tuesday, August 08, 2017 11:44 - CONCLUSION: 1. 2 separate pericolonic abscess collections in the region of the sigmoid have resolved the percutaneous drainage. There is still some regional stranding in the pericolonic fatty tissues, however. 2. A 1.8 cm right inguinal hernia only contains fat. Jay Delacruz MD Knee MRI 08/07/17 0000 Signed Impressions: Service Date/Time: July 14:46 - CONCLUSION: 1. Large knee effusion and large Warren's cyst with probable rupture of the Warren's cyst. 2. No meniscal tear seen. Matias Ohara MD Abscess Drainage CT 08/05/17 1516 Signed Impressions: Service Date/Time: Saturday, August 05, 2017 14:14 - CONCLUSION: 1. Uncomplicated CT-guided placement of drainage catheter in 3 separate perisigmoid abscess collections, as above. Approximately 15 mL of purulent fluid was submitted for Gram stain and C&S per request. Reuben Barrios MD Objective Remarks GENERAL: No distress. SKIN: Warm and dry. HEAD: Normocephalic. EYES: No scleral icterus. No injection or drainage. NECK: Supple, trachea midline. No JVD or lymphadenopathy. CARDIOVASCULAR: Regular rate and rhythm without murmurs, gallops, or rubs. RESPIRATORY: Breath sounds equal bilaterally. No accessory muscle use. GASTROINTESTINAL: Abdomen bandaged. Tender. MUSCULOSKELETAL: No cyanosis, or edema. NEURO: No gross deficits. PSYCH: Mood and affect appropriate. Procedures 08/06- CT guided aspiration of abdominal abscess with placement of 3 separate drains 1027- aspiration right knee Medications and IVs Current Medications Medications (Trade) Dose Ordered Sig/Eleazar Route Start Time Stop Time Status Last Admin (NS Flush) 2 ml UNSCH PRN IV FLUSH 08/04/17 18:45 08/15/17 15:19 (NS Flush) 2 ml BID IV FLUSH 08/04/17 21:00 08/22/17 21:00 (Narcan Inj) 0.4 mg UNSCH PRN IV PUSH 08/04/17 18:45 (NS Flush) 15 ml BID .XX 08/05/17 21:00 08/21/17 20:45 (Zyloprim) 300 mg DAILY PO 08/06/17 15:00 Future Hold 08/20/17 08:18 (Colchicine) 0.6 mg BID PO 08/08/17 09:00 Future Hold 08/20/17 08:18 (Roxicodone) 5 mg Q6H PRN PO 08/08/17 08:30 Future Hold 08/17/17 08:19 (Reglan Inj) 10 mg Q8H PRN IV PUSH 08/11/17 10:15 08/22/17 21:06 Ceftriaxone Sodium 2000 mg/ Sodium Chloride 100 ml @ 200 mls/hr Q24H IV 08/13/17 06:00 08/23/17 06:01 Potassium Chloride 100 ml @ 50 mls/hr UNSCH PRN IV 08/18/17 13:00 Potassium Chloride 100 ml @ 25 mls/hr UNSCH PRN IV 08/18/17 13:00 (Dilaudid [employer] Inj) 6 mg UNSCH IV 08/18/17 13:00 08/21/17 21:20 [employer] Dosage Infused (Pha) 1 Q8HR OTHER 08/18/17 14:00 08/23/17 06:02 Sodium Chloride 1,000 ml @ 50 mls/hr Q20H IV 08/18/17 16:30 08/23/17 09:30 (Benadryl Inj) 25 mg Q6H PRN IV PUSH 08/18/17 17:45 08/19/17 21:40 (Flexeril) 10 mg Q8H PRN PO 08/19/17 11:30 08/19/17 21:29 Fluconazole/ Sodium Chloride 200 ml @ 100 mls/hr Q24H IV 08/19/17 13:00 08/22/17 12:28 (Vasotec Inj) 1.25 mg Q6H PRN IV PUSH 08/19/17 16:15 08/20/17 16:41 Ampicillin Sodium/ Sulbactam Sodium 1500 mg/Sodium Chloride 100 ml @ 200 mls/hr Q6H IV 08/20/17 16:00 08/23/17 09:28 (Compazine Inj) 5 mg Q8H PRN IV PUSH 08/20/17 13:45 08/20/17 23:45 (Zofran Inj) 4 mg Q6HR PRN IV PUSH 08/22/17 13:45 (Lac-Hydrin 12% Lotion) 1 applic BID TOPICAL 08/22/17 15:00 08/23/17 08:09 A/P Problem List: (1) Diverticulitis of intestine with abscess ICD Code: K57.80 - Diverticulitis of intestine, part unspecified, with perforation and abscess without bleeding Status: Acute (2) Leukocytosis ICD Code: D72.829 - Elevated white blood cell count, unspecified Status: Acute (3) Acute kidney injury ICD Code: N17.9 - Acute kidney failure, unspecified Status: Acute Assessment and Plan 41-year-old male with a history of diverticula and gout presented to the ED with nausea, vomiting, abdominal pain, fever, and chills. This is a patient with recurrent diverticular abscesses, he is status post drainage by IR. The patient is status post colonoscopy. Sepsis secondary to Diverticular abscesses- recurrent episode of diverticulitis S/P CT guided drainage with drain- 08/05. See imaging above - Leukocytosis resolved. Blood cultures negative 5 days. Abscess culture on 08/05 significant for Escherichia coli and enterococcus. - Status post colonoscopy on 08/15 which showed diverticulum in the sigmoid colon, a few small scattered with mild peridiverticular erythema, otherwise normal colon to the cecum. - Per general surgery due to fistula into abdominal cavity with abscess plan to proceed with sigmoid resection. - IR drainage evaluation, continue with drain for now as they have seen fistula developing. - S/p lap-assisted sigmoid resection with Dr. Singleton 08/18. - ID has been reconsulted for antibiotics after surgery. Currently on ceftriaxone, Unasyn and Diflucan. - continue [employer] with muscle relaxers as needed per surgery. - antiemetics as needed. Acute gouty attack- -Resolved S/P arthrocentesis 08/08. Allopurinol 300 mg PO on hold s/t nausea. Warren's cyst, right- orthopedic surgery signed off. Acute kidney injury, improving creatinine, non oliguric - Resolved HTN Likely s/t pain. - Vasotec as needed. - pain control. Anemia Postoperative. - follow CBC as needed. DVT patient ambulatory Discharge Planning Awaiting surgical clearance Problem Qualifiers (1) Diverticulitis of intestine with abscess: Qualified Codes: K57.20 - Diverticulitis of large intestine with perforation and abscess without bleeding (2) Leukocytosis: Qualified Codes: D72.828 - Other elevated white blood cell count David Fragoso DO Aug 23, 2017 11:17
[2017-08-23 12:41] VITALS: BP 136/94; PULSE 85; RESP 18; TEMP 98; O2SAT 97
[2017-08-23] MEDS: FLUCONAZOLE 400 MG PREMIX BAG 200 ML IV SCH (12:56)
--- NOTE | 2017-08-23 14:30 | HHI.IDPN ---
Subjective Subjective Remarks is a 41 y/o CM with a history of diverticula with diverticulitis, Intra abdominal abscess. Patient was just discharged on July [address]-guided drainage of an abdominal abscess. He stated since leaving the hospital he has not felt himself, he has been unable to eat, unable to have a bowel movement since . He states he's had constant fevers at home with chills he was taking ibuprofen for. He states he woke up on day of admission and after having the bowel movement he began to have blurry vision, nausea, vomiting, and abdominal pain. He states the abdominal pain is in his lower abdomen, tender to touch, intermittent 10 out of 10. He denies any red or black colored stools, no diarrhea. He states the pain medicine is helping but does not last very long, he is wondering if he can have something in between like tramadol. He does not want strong narcotics. He denies any chest pain or shortness of breath. In ED patient had a CT A/P which showed 3 new abscesses. was consulted and pt underwent IR guided drainage of abscess. Call was placed to IR and cultures added by me. ID was consulted by for recurrent intra- abdominal abscesses. Pt was empirically started on Zosyn IV. Prior cultures from 07/28/17 were reviewed and E.coli is resistant to Zosyn (current med in hospital) and Levaquin (home med). Overnight events reviewed. No fevers No rash No diarrhea No nausea/vomiting. Tolerating clear liquids. Walked in room with PT/OT. Still on IV meds. Antibiotics Unasyn IV Ceftriaxone IV Lines Line sites with no e.o infection Past Medical History reviewed Allergies: Coded Allergies: acetaminophen (Verified Allergy, Unknown, 08/04/17) morphine (Verified Adverse Reaction, Unknown, 08/04/17) Objective . Vital Signs Date Time Temp Pulse Resp B/P (MAP) Pulse Ox O2 Delivery O2 Flow Rate FiO2 08/23/17 12:59 12 08/23/17 12:41 98.0 85 18 136/94 (108) 97 08/23/17 08:18 98.6 64 18 151/98 (115) 96 08/23/17 06:02 18 08/23/17 04:57 98.9 65 18 145/95 (112) 96 08/23/17 01:00 99.4 66 18 146/94 (111) 98 08/22/17 21:04 18 08/22/17 20:14 99.2 62 18 148/95 (112) 95 08/22/17 18:16 98.2 61 18 152/94 (113) 97 08/22/17 14:30 14 08/22/17 14:29 98.2 64 18 142/95 (111) 97 08/23/17 08/23/17 08/24/17 15:00 23:00 07:00 Intake Total 100 ml Output Total 400 ml Balance -300 ml IV Total 100 ml Output Urine Total 400 ml . Laboratory Tests Test 08/23/17 05:27 White Blood Count 9.7 TH/MM3 Red Blood Count 3.28 MIL/MM3 Hemoglobin 9.8 GM/DL Hematocrit 28.6 % Mean Corpuscular Volume 87.0 FL Mean Corpuscular Hemoglobin 29.9 PG Mean Corpuscular Hemoglobin Concent 34.4 % Red Cell Distribution Width 15.5 % Platelet Count 209 TH/MM3 Mean Platelet Volume 9.6 FL Laboratory Tests Test 08/23/17 05:27 Blood Urea Nitrogen 6 MG/DL Creatinine 0.67 MG/DL Random Glucose 74 MG/DL Calcium Level 8.8 MG/DL Magnesium Level 1.7 MG/DL Sodium Level 135 MEQ/L Potassium Level 3.7 MEQ/L Chloride Level 97 MEQ/L Carbon Dioxide Level 26.7 MEQ/L Anion Gap 11 MEQ/L Estimat Glomerular Filtration Rate 131 ML/MIN Imaging Last Impressions Abscess Drainage CT 08/05/17 1516 Signed Impressions: Service Date/Time: Saturday, August 05, 2017 14:14 - CONCLUSION: 1. Uncomplicated CT-guided placement of drainage catheter in 3 separate perisigmoid abscess collections, as above. Approximately 15 mL of purulent fluid was submitted for Gram stain and C&S per request. Reuben Barrios MD Abdomen/Pelvis CT 08/04/17 1419 Signed Impressions: Service Date/Time: Friday, August 04, 2017 16:15 - CONCLUSION: 1. Worsening sigmoid colitis/diverticulitis with associated enlarging perisigmoid abscesses in the left lower quadrant. These include a 4.6 x 3.3 cm abscesses anterolaterally, 4.2 x 3.8 cm abscess medially abutting the left lateral wall of the bladder and new 2.7 x 1.6 cm developing abscess posteriorly near the junction of the descending and sigmoid colon. Reuben Barrios MD Physical Exam GENERAL: This is a well-nourished, well-developed patient, in no apparent distress. SKIN: No rashes, ecchymoses or lesions. Cool and dry. HEAD: Atraumatic. Normocephalic. No temporal or scalp tenderness. EYES: Pupils equal round and reactive. Extraocular motions intact. No scleral icterus. No injection or drainage. ENT: Nose without bleeding, purulent drainage or septal hematoma. Throat without erythema, tonsillar hypertrophy or exudate. Uvula midline. Airway patent. NECK: Trachea midline. Supple, nontender, no meningeal signs. CARDIOVASCULAR: Regular rate and rhythm without murmurs, gallops, or rubs. RESPIRATORY: Clear to auscultation. Breath sounds equal bilaterally. No wheezes , rales, or rhonchi. GASTROINTESTINAL: Abdomen soft, diffuse tenderness most in LQs. Drain with sanguinous fluid. MUSCULOSKELETAL: Extremities without clubbing, cyanosis, or edema. No joint tenderness, effusion, or edema noted. No calf tenderness. Negative Homans sign bilaterally. NEUROLOGICAL: Awake and alert. no obvious focal neuro deficit. Psych cooperative. IV line sites with no e.o infection. Assessment & Plan Remarks Sepsis present on admission (fever, WBC elevation, source: Intra abd abscess) Intra abdominal abscess secondary to diverticulitis. Concern for ESBL given last cultures. Acute metabolic encephalopathy: sepsis, meds. Hypoalbuminemia: ? nutritional given chronic GI issues. Acute renal failure on admission ? prerenal now resolved. recs Continue Ceftriaxone IV (for E. coli resistant to Unasyn/PCN) Continue Unasyn IV (for E.faecalis and anaerobic coverage) Continue Diflucan IV (cannot tolerate oral at this point due to persistent N/V and post op status) Follow cultures Follow clinically. d/w pt and RN. Clinically appears improving. Will follow prn. Please call me back if any change in clinical condition or ready to transition to oral meds. Nanci Newman MD Aug 23, 2017 14:30
[2017-08-23] MEDS: METOCLOPRAMIDE HCL 10 MG/2 ML VIAL IV PUSH PRN ×2 (15:49→23:20)
[2017-08-23 16:17] VITALS: BP 155/93; PULSE 66; RESP 18; TEMP 98.9; O2SAT 99
[2017-08-23] MEDS: HYDROmorphone HCL PCA 6 MG/30 ML IV SCH (17:11)
[2017-08-23 22:08] VITALS: BP 150/98; PULSE 74; RESP 18; TEMP 99; O2SAT 99
[2017-08-23] MEDS: SODIUM CHLORIDE 0.9% FLUSH 10 ML FLUSH IV FLUSH PRN (23:20)
[2017-08-24] VITALS (7 sets, daily range): BP systolic 130–165; BP diastolic 87–103; PULSE 64–94; RESP 12–18; TEMP 97.8–98.9; O2SAT 96–99
[2017-08-24] MEDS: AMPICILLIN-SULBACTAM INJ 1,500 MG in SODIUM CHLORIDE 0.9% INJ 100 ML IV SCH ×4 (04:36→23:20)
[2017-08-24] MEDS: cefTRIAXone INJ 2,000 MG in SODIUM CHLORIDE 0.9% INJ 100 ML IV SCH ×2 (05:54→06:00)
[2017-08-24] MEDS: PCA - TOTAL MG DILAUDID DELIVERED PER SHIFT OTHER SCH ×2 (06:00→14:00)
[2017-08-24] MEDS: SODIUM CHLORIDE 0.9% FLUSH 10 ML FLUSH SCH ×2 (07:53→21:00)
[2017-08-24] MEDS: SODIUM CHLORIDE 0.9% FLUSH 10 ML FLUSH IV FLUSH SCH ×2 (07:53→21:00)
[2017-08-24] MEDS: LACTIC ACID (AMMONIUM LACTATE) 12% LOTION 225 GM BTL TOPICAL SCH ×2 (08:23→23:20)
[2017-08-24] MEDS ORDERED: MAGNESIUM CITRATE SOLN 300 ML BTL PO ONE (09:00)
[2017-08-24] MEDS: SODIUM CHLOR 0.9% 1000 ML INJ 1,000 ML IV SCH (10:57)
[2017-08-24] MEDS: FLUCONAZOLE 400 MG PREMIX BAG 200 ML IV SCH (13:18)
--- NOTE | 2017-08-24 13:52 | HHI.PR ---
Subjective Remarks The patient was resting comfortably in bed. He said that his incision site was itchy. He said he has been tolerating the full liquid diet. He has been passing gas. No acute concerns at this time. Objective Vitals Vital Signs Date Time Temp Pulse Resp B/P (MAP) Pulse Ox O2 Delivery O2 Flow Rate FiO2 08/24/17 12:57 98.6 71 16 165/93 (117) 99 08/24/17 08:51 98.1 85 16 130/90 (103) 98 08/24/17 06:00 18 08/24/17 04:50 98.8 64 18 139/94 (109) 98 08/24/17 01:41 98.9 70 18 138/87 (104) 96 08/23/17 22:08 99.0 74 18 150/98 (115) 99 08/23/17 17:11 12 08/23/17 16:17 98.9 66 18 155/93 (113) 99 I/O 08/23/17 08/23/17 08/23/17 08/24/17 08/24/17 08/24/17 07:00 15:00 23:00 07:00 15:00 23:00 Intake Total 1020 ml 100 ml Output Total 400 ml 30 ml 20 ml Balance 620 ml -30 ml -20 ml 100 ml Intake Oral 720 ml IV Total 300 ml 100 ml Output Urine Total 400 ml Drainage Total 30 ml 20 ml Result Diagram: 08/23/17 0527 08/23/17 0527 Imaging Last Impressions Catheter Patency X-Ray 08/14/17 0000 Signed Impressions: Service Date/Time: August 10:28 - CONCLUSION: 1. 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 Plan: Changed drainage from suction to gravity drainage bag and will continue drainage. Reuben Barrios MD Abdomen/Pelvis CT 08/13/17 0000 Signed Impressions: Service Date/Time: Sunday, August 13, 2017 09:54 - CONCLUSION: 1. Inflammatory changes of diverticulitis but no evidence of residual abscess. Scooby Schroeder MD Lower Extremity Ultrasound 08/09/17 0000 Signed Impressions: Service Date/Time: Wednesday, August 09, 2017 14:15 - CONCLUSION: 1. No evidence of deep venous thrombosis. 2. Small to moderate-sized Warren's cyst in the popliteal fossa. David Lu MD Abdomen X-Ray 08/09/17 0000 Signed Impressions: Service Date/Time: Wednesday, August 09, 2017 17:30 - CONCLUSION: No dilated loops of small or large bowel. The Matias Ohara MD Pelvis CT 08/08/17 0000 Signed Impressions: Service Date/Time: Tuesday, August 08, 2017 11:44 - CONCLUSION: 1. 2 separate pericolonic abscess collections in the region of the sigmoid have resolved the percutaneous drainage. There is still some regional stranding in the pericolonic fatty tissues, however. 2. A 1.8 cm right inguinal hernia only contains fat. Jay Delacruz MD Knee MRI 08/07/17 0000 Signed Impressions: Service Date/Time: July 14:46 - CONCLUSION: 1. Large knee effusion and large Warren's cyst with probable rupture of the Warren's cyst. 2. No meniscal tear seen. Matias Ohara MD Abscess Drainage CT 08/05/17 1516 Signed Impressions: Service Date/Time: Saturday, August 05, 2017 14:14 - CONCLUSION: 1. Uncomplicated CT-guided placement of drainage catheter in 3 separate perisigmoid abscess collections, as above. Approximately 15 mL of purulent fluid was submitted for Gram stain and C&S per request. Reuben Barrios MD Objective Remarks GENERAL: No distress. SKIN: Warm and dry. HEAD: Normocephalic. EYES: No scleral icterus. No injection or drainage. NECK: Supple, trachea midline. No JVD or lymphadenopathy. CARDIOVASCULAR: Regular rate and rhythm without murmurs, gallops, or rubs. RESPIRATORY: Breath sounds equal bilaterally. No accessory muscle use. GASTROINTESTINAL: Abdomen bandaged. Tender. MUSCULOSKELETAL: No cyanosis, or edema. NEURO: No gross deficits. PSYCH: Mood and affect appropriate. Procedures 08/06- CT guided aspiration of abdominal abscess with placement of 3 separate drains 1027- aspiration right knee Medications and IVs Current Medications Medications (Trade) Dose Ordered Sig/Eleazar Route Start Time Stop Time Status Last Admin (NS Flush) 2 ml UNSCH PRN IV FLUSH 08/04/17 18:45 08/23/17 23:20 (NS Flush) 2 ml BID IV FLUSH 08/04/17 21:00 08/23/17 22:45 (Narcan Inj) 0.4 mg UNSCH PRN IV PUSH 08/04/17 18:45 (NS Flush) 15 ml BID .XX 08/05/17 21:00 08/21/17 20:45 (Zyloprim) 300 mg DAILY PO 08/06/17 15:00 Future Hold 08/20/17 08:18 (Colchicine) 0.6 mg BID PO 08/08/17 09:00 Future Hold 08/20/17 08:18 (Roxicodone) 5 mg Q6H PRN PO 08/08/17 08:30 Future Hold 08/17/17 08:19 (Reglan Inj) 10 mg Q8H PRN IV PUSH 08/11/17 10:15 08/23/17 23:20 Ceftriaxone Sodium 2000 mg/ Sodium Chloride 100 ml @ 200 mls/hr Q24H IV 08/13/17 06:00 08/24/17 05:54 Potassium Chloride 100 ml @ 50 mls/hr UNSCH PRN IV 08/18/17 13:00 Potassium Chloride 100 ml @ 25 mls/hr UNSCH PRN IV 08/18/17 13:00 (Dilaudid [employer] Inj) 6 mg UNSCH IV 08/18/17 13:00 08/23/17 17:11 [employer] Dosage Infused (Pha) 1 Q8HR OTHER 08/18/17 14:00 08/24/17 06:00 Sodium Chloride 1,000 ml @ 50 mls/hr Q20H IV 08/18/17 16:30 08/24/17 10:57 (Benadryl Inj) 25 mg Q6H PRN IV PUSH 08/18/17 17:45 08/19/17 21:40 (Flexeril) 10 mg Q8H PRN PO 08/19/17 11:30 08/19/17 21:29 Fluconazole/ Sodium Chloride 200 ml @ 100 mls/hr Q24H IV 08/19/17 13:00 08/24/17 13:18 (Vasotec Inj) 1.25 mg Q6H PRN IV PUSH 08/19/17 16:15 08/20/17 16:41 Ampicillin Sodium/ Sulbactam Sodium 1500 mg/Sodium Chloride 100 ml @ 200 mls/hr Q6H IV 08/20/17 16:00 08/24/17 10:45 (Compazine Inj) 5 mg Q8H PRN IV PUSH 08/20/17 13:45 08/20/17 23:45 (Zofran Inj) 4 mg Q6HR PRN IV PUSH 08/22/17 13:45 (Lac-Hydrin 12% Lotion) 1 applic BID TOPICAL 08/22/17 15:00 08/24/17 08:23 A/P Problem List: (1) Diverticulitis of intestine with abscess ICD Code: K57.80 - Diverticulitis of intestine, part unspecified, with perforation and abscess without bleeding Status: Acute (2) Leukocytosis ICD Code: D72.829 - Elevated white blood cell count, unspecified Status: Acute (3) Acute kidney injury ICD Code: N17.9 - Acute kidney failure, unspecified Status: Acute Assessment and Plan 41-year-old male with a history of diverticula and gout presented to the ED with nausea, vomiting, abdominal pain, fever, and chills. This is a patient with recurrent diverticular abscesses, he is status post drainage by IR. The patient is status post colonoscopy. Sepsis secondary to Diverticular abscesses- recurrent episode of diverticulitis S/P CT guided drainage with drain- 08/05. See imaging above - Leukocytosis resolved. Blood cultures negative 5 days. Abscess culture on 08/05 significant for Escherichia coli and enterococcus. - Status post colonoscopy on 08/15 which showed diverticulum in the sigmoid colon, a few small scattered with mild peridiverticular erythema, otherwise normal colon to the cecum. - Per general surgery due to fistula into abdominal cavity with abscess plan to proceed with sigmoid resection. - IR drainage evaluation, continue with drain for now as they have seen fistula developing. - S/p lap-assisted sigmoid resection with Dr. Singleton 08/18. - ID has been reconsulted for antibiotics after surgery. Currently on ceftriaxone, Unasyn and Diflucan. - continue [employer] with muscle relaxers as needed per surgery. - antiemetics as needed. - Benadryl as needed for itching along incision site. Acute gouty attack- -Resolved S/P arthrocentesis 08/08. Allopurinol 300 mg PO on hold s/t nausea. Warren's cyst, right- orthopedic surgery signed off. Acute kidney injury, improving creatinine, non oliguric - Resolved HTN Likely s/t pain. Stable. - Vasotec as needed. - pain control. Anemia Postoperative. - follow CBC as needed. - check iron studies, B12 level and ferritin. DVT patient ambulatory Discharge Planning Awaiting surgical clearance Problem Qualifiers (1) Diverticulitis of intestine with abscess: Qualified Codes: K57.20 - Diverticulitis of large intestine with perforation and abscess without bleeding (2) Leukocytosis: Qualified Codes: D72.828 - Other elevated white blood cell count David Fragoso DO Aug 24, 2017 13:52
[2017-08-24] MEDS ORDERED: diphenhydrAMINE HCL 50 MG/ML VIAL IV PUSH ONE (14:00)
--- NOTE | 2017-08-24 16:05 | HHI.PR ---
Subjective Subjective Notes DAILY PROGRESS NOTE FOR SURGICAL ATTENDING, DR. KENNY SINGLETON I think am getting better Pains under control I was able to drink some fluids I had a bowel movement Objective Vitals/I&O Vital Signs Date Time Temp Pulse Resp B/P (MAP) Pulse Ox O2 Delivery O2 Flow Rate FiO2 08/24/17 14:00 14 08/24/17 12:57 98.6 71 165/93 (538) 99 Labs Date/Time Source Procedure Growth Status 08/05/17 17:30 Blood Other Aerobic Blood Culture - Final NO GROWTH IN 5 DAYS Complete 08/05/17 17:30 Blood Other Anaerobic Blood Culture - Final NO GROWTH IN 5 DAYS Complete 08/09/17 08:31 Fluid Synovial Fluid Gram Stain - Final Complete 08/09/17 08:31 Fluid Synovial Fluid Body Fluid Culture - Final NO GROWTH IN 72 HRS.--AEROBICALLY OR ... Complete 08/05/17 14:30 Abscess Abdomen Fungal Smear - Final NO FUNGAL ELEMENTS SEEN. Resulted 08/05/17 14:30 Abscess Abdomen Fungal Culture - Preliminary NO GROWTH IN 2 WEEKS Resulted Radiology Last Impressions Catheter Patency X-Ray 08/14/17 0000 Signed Impressions: Service Date/Time: August 10:28 - CONCLUSION: 1. 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 Plan: Changed drainage from suction to gravity drainage bag and will continue drainage. Reuben Barrios MD Abdomen/Pelvis CT 08/13/17 0000 Signed Impressions: Service Date/Time: Sunday, August 13, 2017 09:54 - CONCLUSION: 1. Inflammatory changes of diverticulitis but no evidence of residual abscess. Scooby Schroeder MD Lower Extremity Ultrasound 08/09/17 0000 Signed Impressions: Service Date/Time: Wednesday, August 09, 2017 14:15 - CONCLUSION: 1. No evidence of deep venous thrombosis. 2. Small to moderate-sized Warren's cyst in the popliteal fossa. David Lu MD Abdomen X-Ray 08/09/17 0000 Signed Impressions: Service Date/Time: Wednesday, August 09, 2017 17:30 - CONCLUSION: No dilated loops of small or large bowel. The Matias Ohara MD Pelvis CT 08/08/17 0000 Signed Impressions: Service Date/Time: Tuesday, August 08, 2017 11:44 - CONCLUSION: 1. 2 separate pericolonic abscess collections in the region of the sigmoid have resolved the percutaneous drainage. There is still some regional stranding in the pericolonic fatty tissues, however. 2. A 1.8 cm right inguinal hernia only contains fat. Jay Delacruz MD Knee MRI 08/07/17 0000 Signed Impressions: Service Date/Time: July 14:46 - CONCLUSION: 1. Large knee effusion and large Warren's cyst with probable rupture of the Warren's cyst. 2. No meniscal tear seen. Matias Ohara MD Abscess Drainage CT 08/05/17 1516 Signed Impressions: Service Date/Time: Saturday, August 05, 2017 14:14 - CONCLUSION: 1. Uncomplicated CT-guided placement of drainage catheter in 3 separate perisigmoid abscess collections, as above. Approximately 15 mL of purulent fluid was submitted for Gram stain and C&S per request. Reuben Barrios MD Cardiovascular: Regular Lungs: Clear Abdomen: Non-distended, Post-op tenderness Extremities: Other Wound Wound : Wound Location: Abdomen Appearance: Clean & Dry Dressing: Dry (MICHEAL in place) A/P Problem List: (1) Postop check ICD Codes: Z09 - Encounter for follow-up examination after completed treatment for conditions other than malignant neoplasm (2) History of open sigmoidectomy ICD Codes: Z98.890 - Other specified postprocedural states; Z90.49 - Acquired absence of other specified parts of digestive tract (3) Colonic diverticular abscess ICD Codes: K57.20 - Diverticulitis of large intestine with perforation and abscess without bleeding Status: Acute (4) Intra-abdominal abscess ICD Codes: K65.1 - Peritoneal abscess Status: Acute (5) Leukocytosis ICD Codes: D72.829 - Elevated white blood cell count, unspecified Status: Acute (6) Right knee pain ICD Codes: M25.561 - Pain in right knee Status: Acute (7) Warren's cyst, ruptured ICD Codes: M66.0 - Rupture of popliteal cyst Status: Acute Assessment and Plan 42 year old male with post op sigmoid resection doing well passing flatus start PO cont abx Increase diet and activities Okay to shower Attending Statement NOTE FOR SURGICAL ATTENDING, DR. KENNY SINGLETON I attest that I had a [id number] encounter with the patient on the same day, and personally performed and documented my assessment and findings in the medical record. The following services were provided during this hospital visit: Chart data review, vital sign assessments/reviewing monitor data Review of consultations notes if present. Medication orders/review and/or management Ordering and/or reviewing lab tests Ordering and/or interpreting/reviewing x-rays and/or diagnostic studies Care of the patient and discussion of the patient with the care team Documentation time To help prompt me to consider important information that might be impacting today's encounter and assessment, information from prior notes written by myself or my colleagues may have been "brought forward/copy and pasted" into today's note. Problem Qualifiers (1) Leukocytosis: Qualified Codes: D72.828 - Other elevated white blood cell count (2) Right knee pain: Qualified Codes: M25.561 - Pain in right knee Kenny Singleton MD Aug 24, 2017 16:05
[2017-08-24 21:25] LABS: FERRITIN 528 NG/ML (26-388); TRANSFERRIN IRON PROFILE 180 MG/DL (200-360)
[2017-08-25 01:24] VITALS: BP 136/84; PULSE 74; RESP 18; TEMP 98.5; O2SAT 97
[2017-08-25] MEDS: diphenhydrAMINE HCL 50 MG/ML VIAL IV PUSH PRN (01:57)
[2017-08-25] MEDS: AMPICILLIN-SULBACTAM INJ 1,500 MG in SODIUM CHLORIDE 0.9% INJ 100 ML IV SCH ×4 (03:51→21:24)
[2017-08-25] MEDS: cefTRIAXone INJ 2,000 MG in SODIUM CHLORIDE 0.9% INJ 100 ML IV SCH ×2 (05:06→06:00)
[2017-08-25 05:38] VITALS: BP 135/65; PULSE 68; RESP 18; TEMP 98.4; O2SAT 98
[2017-08-25] MEDS: PCA - TOTAL MG DILAUDID DELIVERED PER SHIFT OTHER SCH (06:00)
[2017-08-25] MEDS: SODIUM CHLOR 0.9% 1000 ML INJ 1,000 ML IV SCH (08:15)
[2017-08-25 08:58] VITALS: BP 153/93; PULSE 63; RESP 16; TEMP 98; O2SAT 98
[2017-08-25] MEDS: SODIUM CHLORIDE 0.9% FLUSH 10 ML FLUSH SCH ×2 (08:59→21:00)
[2017-08-25] MEDS: SODIUM CHLORIDE 0.9% FLUSH 10 ML FLUSH IV FLUSH SCH ×2 (08:59→21:24)
--- NOTE | 2017-08-25 09:11 | HHI.PR ---
Subjective Subjective Notes DAILY PROGRESS NOTE FOR SURGICAL ATTENDING, DR. KENNY SINGLETON Tolerating diet Having bowel movements Increasing his ambulation Objective Vitals/I&O Vital Signs Date Time Temp Pulse Resp B/P (MAP) Pulse Ox O2 Delivery O2 Flow Rate FiO2 08/25/17 08:58 98.0 63 16 153/93 (113) 98 Labs Laboratory Tests Test 08/24/17 19:37 Iron Level 29 Total Iron Binding Capacity 252 Percent Iron Saturation 11.5 Ferritin 528 Vitamin B12 Level 450 Folate 5.5 Date/Time Source Procedure Growth Status 08/05/17 17:30 Blood Other Aerobic Blood Culture - Final NO GROWTH IN 5 DAYS Complete 08/05/17 17:30 Blood Other Anaerobic Blood Culture - Final NO GROWTH IN 5 DAYS Complete 08/09/17 08:31 Fluid Synovial Fluid Gram Stain - Final Complete 08/09/17 08:31 Fluid Synovial Fluid Body Fluid Culture - Final NO GROWTH IN 72 HRS.--AEROBICALLY OR ... Complete 08/05/17 14:30 Abscess Abdomen Fungal Smear - Final NO FUNGAL ELEMENTS SEEN. Resulted 08/05/17 14:30 Abscess Abdomen Fungal Culture - Preliminary NO GROWTH IN 2 WEEKS Resulted Radiology Last Impressions Catheter Patency X-Ray 08/14/17 0000 Signed Impressions: Service Date/Time: August 10:28 - CONCLUSION: 1. 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 Plan: Changed drainage from suction to gravity drainage bag and will continue drainage. Reuben Barrios MD Abdomen/Pelvis CT 08/13/17 0000 Signed Impressions: Service Date/Time: Sunday, August 13, 2017 09:54 - CONCLUSION: 1. Inflammatory changes of diverticulitis but no evidence of residual abscess. Scooby Schroeder MD Lower Extremity Ultrasound 08/09/17 0000 Signed Impressions: Service Date/Time: Wednesday, August 09, 2017 14:15 - CONCLUSION: 1. No evidence of deep venous thrombosis. 2. Small to moderate-sized Warren's cyst in the popliteal fossa. David Lu MD Abdomen X-Ray 08/09/17 0000 Signed Impressions: Service Date/Time: Wednesday, August 09, 2017 17:30 - CONCLUSION: No dilated loops of small or large bowel. The Matias Ohara MD Pelvis CT 08/08/17 0000 Signed Impressions: Service Date/Time: Tuesday, August 08, 2017 11:44 - CONCLUSION: 1. 2 separate pericolonic abscess collections in the region of the sigmoid have resolved the percutaneous drainage. There is still some regional stranding in the pericolonic fatty tissues, however. 2. A 1.8 cm right inguinal hernia only contains fat. Jay Delacruz MD Knee MRI 08/07/17 0000 Signed Impressions: Service Date/Time: July 14:46 - CONCLUSION: 1. Large knee effusion and large Warren's cyst with probable rupture of the Warren's cyst. 2. No meniscal tear seen. Matias Ohara MD Abscess Drainage CT 08/05/17 1516 Signed Impressions: Service Date/Time: [place], August 05, 2017 14:14 - CONCLUSION: 1. Uncomplicated CT-guided placement of drainage catheter in 3 separate perisigmoid abscess collections, as above. Approximately 15 mL of purulent fluid was submitted for Gram stain and C&S per request. Reuben Barrios MD Cardiovascular: Regular Lungs: Clear Abdomen: Post-op tenderness, BS normal Extremities: Perfused Wound Wound : Wound Location: Abdomen Appearance: Clean & Dry Dressing: Dry (MICHEAL in place) A/P Problem List: (1) Postop check ICD Codes: Z09 - Encounter for follow-up examination after completed treatment for conditions other than malignant neoplasm (2) History of open sigmoidectomy ICD Codes: Z98.890 - Other specified postprocedural states; Z90.49 - Acquired absence of other specified parts of digestive tract Status: Chronic (3) Right knee pain ICD Codes: M25.561 - Pain in right knee Status: Acute (4) Warren's cyst, ruptured ICD Codes: M66.0 - Rupture of popliteal cyst Status: Acute (5) Gout ICD Codes: M10.9 - Gout, unspecified Status: Chronic Assessment and Plan 42 year old male with post op sigmoid resection doing well passing flatus Increase PO cont abx Increase diet and activities Okay to shower Attending Statement NOTE FOR SURGICAL ATTENDING, DR. KENNY SINGLETON I attest that I had a [id number] encounter with the patient on the same day, and personally performed and documented my assessment and findings in the medical record. The following services were provided during this hospital visit: Chart data review, vital sign assessments/reviewing monitor data Review of consultations notes if present. Medication orders/review and/or management Ordering and/or reviewing lab tests Ordering and/or interpreting/reviewing x-rays and/or diagnostic studies Care of the patient and discussion of the patient with the care team Documentation time To help prompt me to consider important information that might be impacting today's encounter and assessment, information from prior notes written by myself or my colleagues may have been "brought forward/copy and pasted" into today's note. Problem Qualifiers (1) Right knee pain: Qualified Codes: M25.561 - Pain in right knee (2) Gout: Kenny Singleton MD Aug 25, 2017 09:11
[2017-08-25] MEDS: LACTIC ACID (AMMONIUM LACTATE) 12% LOTION 225 GM BTL TOPICAL SCH ×2 (09:34→21:30)
[2017-08-25] MEDS ORDERED: diphenhydrAMINE HCL 50 MG CAP PO PRN (10:00)
--- NOTE | 2017-08-25 10:03 | HHI.PR ---
Subjective Remarks The patient said that he had a regular breakfast consisted of eggs and pancakes. He tolerated it well. He ambulated to the bathroom and had a bowel movement. He is currently resting comfortably in bed with no acute complaints. Objective Vitals Vital Signs Date Time Temp Pulse Resp B/P (MAP) Pulse Ox O2 Delivery O2 Flow Rate FiO2 08/25/17 08:58 98.0 63 16 153/93 (113) 98 08/25/17 06:00 18 08/25/17 05:38 98.4 68 18 135/65 (88) 98 08/25/17 01:24 98.5 74 18 136/84 (101) 97 08/24/17 20:30 98.3 79 16 141/95 (110) 97 08/24/17 16:54 97.8 80 14 132/96 (108) 97 08/24/17 15:30 98.1 94 18 134/103 (113) 97 08/24/17 14:00 14 08/24/17 12:57 98.6 71 16 165/93 (117) 99 I/O 08/24/17 08/24/17 08/24/17 08/25/17 08/25/17 08/25/17 07:00 15:00 23:00 07:00 15:00 23:00 Intake Total 300 ml 350 ml 200 ml 62 ml Output Total 20 ml 10 ml 20 ml Balance -20 ml 300 ml 340 ml 180 ml 62 ml IV Total 300 ml 350 ml 200 ml 62 ml Drainage Total 20 ml 10 ml 20 ml # Voids 3 # Bowel Movements 2 Result Diagram: 08/23/17 0527 08/23/17 0527 Imaging Last Impressions Catheter Patency X-Ray 08/14/17 0000 Signed Impressions: Service Date/Time: August 10:28 - CONCLUSION: 1. 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 Plan: Changed drainage from suction to gravity drainage bag and will continue drainage. Reuben Barrios MD Abdomen/Pelvis CT 08/13/17 0000 Signed Impressions: Service Date/Time: Sunday, August 13, 2017 09:54 - CONCLUSION: 1. Inflammatory changes of diverticulitis but no evidence of residual abscess. Scooby Schroeder MD Lower Extremity Ultrasound 08/09/17 0000 Signed Impressions: Service Date/Time: Wednesday, August 09, 2017 14:15 - CONCLUSION: 1. No evidence of deep venous thrombosis. 2. Small to moderate-sized Warren's cyst in the popliteal fossa. David Lu MD Abdomen X-Ray 08/09/17 0000 Signed Impressions: Service Date/Time: Wednesday, August 09, 2017 17:30 - CONCLUSION: No dilated loops of small or large bowel. The Matias Ohara MD Pelvis CT 08/08/17 0000 Signed Impressions: Service Date/Time: Tuesday, August 08, 2017 11:44 - CONCLUSION: 1. 2 separate pericolonic abscess collections in the region of the sigmoid have resolved the percutaneous drainage. There is still some regional stranding in the pericolonic fatty tissues, however. 2. A 1.8 cm right inguinal hernia only contains fat. Jay Delacruz MD Knee MRI 08/07/17 0000 Signed Impressions: Service Date/Time: July 14:46 - CONCLUSION: 1. Large knee effusion and large Warren's cyst with probable rupture of the Warren's cyst. 2. No meniscal tear seen. Matias Ohara MD Abscess Drainage CT 08/05/17 1516 Signed Impressions: Service Date/Time: Saturday, August 05, 2017 14:14 - CONCLUSION: 1. Uncomplicated CT-guided placement of drainage catheter in 3 separate perisigmoid abscess collections, as above. Approximately 15 mL of purulent fluid was submitted for Gram stain and C&S per request. Reuben Barrios MD Objective Remarks GENERAL: No distress. SKIN: Warm and dry. HEAD: Normocephalic. EYES: No scleral icterus. No injection or drainage. NECK: Supple, trachea midline. No JVD or lymphadenopathy. CARDIOVASCULAR: Regular rate and rhythm without murmurs, gallops, or rubs. RESPIRATORY: Breath sounds equal bilaterally. No accessory muscle use. GASTROINTESTINAL: Abdominal incision clean. Nontender to palpation. MUSCULOSKELETAL: No cyanosis, or edema. NEURO: No gross deficits. PSYCH: Mood and affect appropriate. Procedures 08/06- CT guided aspiration of abdominal abscess with placement of 3 separate drains 1027- aspiration right knee Medications and IVs Current Medications Medications (Trade) Dose Ordered Sig/Eleazar Route Start Time Stop Time Status Last Admin (NS Flush) 2 ml UNSCH PRN IV FLUSH 08/04/17 18:45 08/23/17 23:20 (NS Flush) 2 ml BID IV FLUSH 08/04/17 21:00 08/23/17 22:45 (NS Flush) 15 ml BID .XX 08/05/17 21:00 08/21/17 20:45 (Zyloprim) 300 mg DAILY PO 08/06/17 15:00 Future hold 08/20/17 08:18 (Colchicine) 0.6 mg BID PO 08/08/17 09:00 Future hold 08/20/17 08:18 (Roxicodone) 5 mg Q6H PRN PO 08/08/17 08:30 Future hold 08/17/17 08:19 Ceftriaxone Sodium 2000 mg/ Sodium Chloride 100 ml @ 200 mls/hr Q24H IV 08/13/17 06:00 08/25/17 06:00 Potassium Chloride 100 ml @ 50 mls/hr UNSCH PRN IV 08/18/17 13:00 Potassium Chloride 100 ml @ 25 mls/hr UNSCH PRN IV 08/18/17 13:00 Sodium Chloride 1,000 ml @ 0 mls/hr Q20H IV 08/18/17 16:30 08/25/17 08:15 (Benadryl Inj) 25 mg Q6H PRN IV PUSH 08/18/17 17:45 08/25/17 01:57 (Flexeril) 10 mg Q8H PRN PO 08/19/17 11:30 08/19/17 21:29 Fluconazole/ Sodium Chloride 200 ml @ 100 mls/hr Q24H IV 08/19/17 13:00 08/24/17 13:18 (Vasotec Inj) 1.25 mg Q6H PRN IV PUSH 08/19/17 16:15 08/20/17 16:41 Ampicillin Sodium/ Sulbactam Sodium 1500 mg/Sodium Chloride 100 ml @ 200 mls/hr Q6H IV 08/20/17 16:00 08/25/17 09:34 (Compazine Inj) 5 mg Q8H PRN IV PUSH 08/20/17 13:45 08/20/17 23:45 (Zofran Inj) 4 mg Q6HR PRN IV PUSH 08/22/17 13:45 (Lac-Hydrin 12% Lotion) 1 applic BID TOPICAL 08/22/17 15:00 08/25/17 09:34 A/P Problem List: (1) Diverticulitis of intestine with abscess ICD Code: K57.80 - Diverticulitis of intestine, part unspecified, with perforation and abscess without bleeding Status: Acute (2) Leukocytosis ICD Code: D72.829 - Elevated white blood cell count, unspecified Status: Acute (3) Acute kidney injury ICD Code: N17.9 - Acute kidney failure, unspecified Status: Acute Assessment and Plan 41-year-old male with a history of diverticula and gout presented to the ED with nausea, vomiting, abdominal pain, fever, and chills. This is a patient with recurrent diverticular abscesses, he is status post drainage by IR. The patient is status post colonoscopy. Sepsis secondary to Diverticular abscesses- recurrent episode of diverticulitis S/P CT guided drainage with drain- 08/05. See imaging above - Leukocytosis resolved. Blood cultures negative 5 days. Abscess culture on 08/05 significant for Escherichia coli and enterococcus. - Status post colonoscopy on 08/15 which showed diverticulum in the sigmoid colon, a few small scattered with mild peridiverticular erythema, otherwise normal colon to the cecum. - Per general surgery due to fistula into abdominal cavity with abscess plan to proceed with sigmoid resection. - IR drainage evaluation, continue with drain for now as they have seen fistula developing. - S/p lap-assisted sigmoid resection with Dr. Singleton 08/18. - ID has been reconsulted for antibiotics after surgery. Currently on ceftriaxone, Unasyn and Diflucan. - continue [employer] with muscle relaxers as needed per surgery. - antiemetics as needed. - Benadryl as needed for itching along incision site. - Regular diet started by surgery. Acute gouty attack- -Resolved S/P arthrocentesis 08/08. Allopurinol 300 mg PO on hold s/t nausea. Warren's cyst, right- orthopedic surgery signed off. Acute kidney injury, improving creatinine, non oliguric - Resolved HTN Likely s/t pain. Stable. - Vasotec as needed. - pain control. Anemia Postoperative. Iron studies noted. - follow CBC as needed. DVT patient ambulatory Discharge Planning Awaiting surgical clearance Problem Qualifiers (1) Diverticulitis of intestine with abscess: Qualified Codes: K57.20 - Diverticulitis of large intestine with perforation and abscess without bleeding (2) Leukocytosis: Qualified Codes: D72.828 - Other elevated white blood cell count David Fragoso DO Aug 25, 2017 10:03
[2017-08-25 12:21] VITALS: BP 129/95; PULSE 74; RESP 16; TEMP 98.1; O2SAT 95
[2017-08-25] MEDS: FLUCONAZOLE 400 MG PREMIX BAG 200 ML IV SCH (13:32)
--- NOTE | 2017-08-25 16:34 | HHI.PR ---
Addendum to Inpatient Note Addendum Reason: Additional Documentation Additional Information discussed with DANDRE Bustillos: continue IV antibiotics in hospital. Cefpodoxime cannot be ordered in hospital. On discharge recs: Cefpodoxime and Ampicillin: scripts in chart. Will sign off please call back if any change in clinical condition or questions. Nanci Newman MD Aug 25, 2017 16:34
[2017-08-25 16:58] VITALS: BP 155/99; PULSE 77; RESP 16; TEMP 97.9; O2SAT 99
[2017-08-25 20:00] VITALS: BP 141/89; PULSE 68; RESP 20; TEMP 98.5; O2SAT 99
[2017-08-25] MEDS: COLCHICINE 0.6 MG TAB PO SCH (21:00)
[2017-08-25] MEDS: ALLOPURINOL 300 MG TAB PO SCH (21:28)
[2017-08-26] VITALS: BP 149/91; PULSE 74; RESP 18; TEMP 98.3; O2SAT 99
[2017-08-26 04:00] VITALS: BP 132/89; PULSE 75; RESP 18; TEMP 97.7; O2SAT 98
[2017-08-26] MEDS: AMPICILLIN-SULBACTAM INJ 1,500 MG in SODIUM CHLORIDE 0.9% INJ 100 ML IV SCH ×3 (04:28→15:56)
[2017-08-26] MEDS: cefTRIAXone INJ 2,000 MG in SODIUM CHLORIDE 0.9% INJ 100 ML IV SCH (05:42)
[2017-08-26] MEDS: CYCLOBENZAPRINE HCL 10 MG TAB PO PRN (06:00)
[2017-08-26 08:12] VITALS: BP 144/93; PULSE 65; RESP 18; TEMP 97.8; O2SAT 65; O2SAT 99
[2017-08-26] MEDS: COLCHICINE 0.6 MG TAB PO SCH (09:00)
[2017-08-26] MEDS: SODIUM CHLORIDE 0.9% FLUSH 10 ML FLUSH SCH (09:00)
--- NOTE | 2017-08-26 09:10 | HHI.PR ---
Objective Vitals Vital Signs Date Time Temp Pulse Resp B/P (MAP) Pulse Ox O2 Delivery O2 Flow Rate FiO2 08/26/17 08:12 97.8 65 18 144/93 (110) 65 08/26/17 04:00 97.7 75 18 132/89 (103) 98 08/26/17 00:00 98.3 74 18 149/91 (110) 99 08/25/17 20:00 98.5 68 20 141/89 (106) 99 08/25/17 16:58 97.9 77 16 155/99 (117) 99 08/25/17 12:21 98.1 74 16 129/95 (106) 95 I/O 08/25/17 08/25/17 08/25/17 08/26/17 08/26/17 08/26/17 07:00 15:00 23:00 07:00 15:00 23:00 Intake Total 200 ml 162 ml 940 ml Output Total 20 ml 300 ml 20 ml Balance 180 ml 162 ml 640 ml -20 ml Intake Oral 640 ml IV Total 200 ml 162 ml 300 ml Output Urine Total 300 ml Drainage Total 20 ml 20 ml # Voids 3 2 # Bowel Movements 1 0 Result Diagram: 08/23/1727 08/23/17 0527 Procedures 08/06- CT guided aspiration of abdominal abscess with placement of 3 separate drains 1027- aspiration right knee A/P Problem List: (1) Diverticulitis of intestine with abscess ICD Code: K57.80 - Diverticulitis of intestine, part unspecified, with perforation and abscess without bleeding Status: Acute (2) Leukocytosis ICD Code: D72.829 - Elevated white blood cell count, unspecified Status: Acute (3) Acute kidney injury ICD Code: N17.9 - Acute kidney failure, unspecified Status: Acute Problem Qualifiers (1) Diverticulitis of intestine with abscess: Qualified Codes: K57.20 - Diverticulitis of large intestine with perforation and abscess without bleeding (2) Leukocytosis: Qualified Codes: D72.828 - Other elevated white blood cell count Christine Mariscal DO Aug 26, 2017 09:10
[2017-08-26] MEDS: SODIUM CHLORIDE 0.9% FLUSH 10 ML FLUSH IV FLUSH SCH (09:17)
[2017-08-26] MEDS: LACTIC ACID (AMMONIUM LACTATE) 12% LOTION 225 GM BTL TOPICAL SCH (09:18)
[2017-08-26] MEDS ORDERED: CYCL10TA PO (10:00)
[2017-08-26] MEDS ORDERED: OXYC-392 PO (10:00)
--- NOTE | 2017-08-26 10:03 | HHI.DS ---
Discharge Summary Admission Date Aug 04, 2017 at 17:44 Discharge Date: Aug 26, 2017 Admitting Diagnosis diverticulitis with abscesses (1) Diverticulitis of intestine with abscess ICD Code: K57.80 - Diverticulitis of intestine, part unspecified, with perforation and abscess without bleeding Status: Acute (2) Leukocytosis ICD Code: D72.829 - Elevated white blood cell count, unspecified Status: Acute (3) Acute kidney injury ICD Code: N17.9 - Acute kidney failure, unspecified Status: Acute Procedures 08/06- CT guided aspiration of abdominal abscess with placement of 3 separate drains 1026- aspiration right knee Brief History - From Admission 41-year-old male with a history of diverticula and gout presented to the ED with nausea, vomiting, abdominal pain, fever, and chills. Patient was just discharged on July [address]-guided drainage of an abdominal abscess. He stated since leaving the hospital he has not felt himself, he has been unable to eat, unable to have a bowel movement since , but was able to have one this morning. He states he's had constant fevers at home with chills in which he was taking ibuprofen for. He states he woke up today and after having the bowel movement he began to have blurry vision, nausea, vomiting , and abdominal pain. He states the abdominal pain is in his lower abdomen, tender to touch, intermittent 10 out of 10. He denies any red or black colored stools, no diarrhea. He states the pain medicine is helping but does not last very long, he is wondering if he can have something in between like tramadol. He does not want strong narcotics. He denies any chest pain or shortness of breath. CBC/BMP: 08/23/17 0527 08/23/17 0527 Significant Findings Laboratory Tests Test 08/24/17 19:37 Iron Level 29 MCG/DL (65-175) Percent Iron Saturation 11.5 % (20-50) Ferritin 528 NG/ML (26-388) Imaging Last Impressions Catheter Patency X-Ray 08/14/17 0000 Signed Impressions: Service Date/Time: August 10:28 - CONCLUSION: 1. 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 Plan: Changed drainage from suction to gravity drainage bag and will continue drainage. Reuben Barrios MD Abdomen/Pelvis CT 08/13/17 0000 Signed Impressions: Service Date/Time: Sunday, August 13, 2017 09:54 - CONCLUSION: 1. Inflammatory changes of diverticulitis but no evidence of residual abscess. Scooby Schroeder MD Lower Extremity Ultrasound 08/09/17 0000 Signed Impressions: Service Date/Time: Wednesday, August 09, 2017 14:15 - CONCLUSION: 1. No evidence of deep venous thrombosis. 2. Small to moderate-sized Warren's cyst in the popliteal fossa. David Lu MD Abdomen X-Ray 08/09/17 0000 Signed Impressions: Service Date/Time: Wednesday, August 09, 2017 17:30 - CONCLUSION: No dilated loops of small or large bowel. The Matias Ohara MD Pelvis CT 08/08/17 0000 Signed Impressions: Service Date/Time: Tuesday, August 08, 2017 11:44 - CONCLUSION: 1. 2 separate pericolonic abscess collections in the region of the sigmoid have resolved the percutaneous drainage. There is still some regional stranding in the pericolonic fatty tissues, however. 2. A 1.8 cm right inguinal hernia only contains fat. Jya Delacruz MD Knee MRI 08/07/17 0000 Signed Impressions: Service Date/Time: July 14:46 - CONCLUSION: 1. Large knee effusion and large Warren's cyst with probable rupture of the Warren's cyst. 2. No meniscal tear seen. Matias Ohara MD Abscess Drainage CT 08/05/17 1516 Signed Impressions: Service Date/Time: Saturday, August 05, 2017 14:14 - CONCLUSION: 1. Uncomplicated CT-guided placement of drainage catheter in 3 separate perisigmoid abscess collections, as above. Approximately 15 mL of purulent fluid was submitted for Gram stain and C&S per request. Reuben Barrios MD PE at Discharge GENERAL: No distress. SKIN: Warm and dry. HEAD: Normocephalic. EYES: No scleral icterus. No injection or drainage. NECK: Supple, trachea midline. No JVD or lymphadenopathy. CARDIOVASCULAR: Regular rate and rhythm without murmurs, gallops, or rubs. RESPIRATORY: Breath sounds equal bilaterally. No accessory muscle use. GASTROINTESTINAL: Abdominal incision clean. Nontender to palpation. MUSCULOSKELETAL: No cyanosis, or edema. NEURO: No gross deficits. PSYCH: Mood and affect appropriate. Pt update on day of discharge Patient is doing well. Pain is better. No fever, chills. Surgery cleared for discharge. Patient will follow up with Surgery after [facility]. Hospital Course 41-year-old male with a history of diverticula and gout presented to the ED with nausea, vomiting, abdominal pain, fever, and chills. This is a patient with recurrent diverticular abscesses, he is status post drainage by IR. The patient is status post colonoscopy. Sepsis secondary to Diverticular abscesses- recurrent episode of diverticulitis S/P CT guided drainage with drain- 08/05. See imaging above - Leukocytosis resolved. Blood cultures negative 5 days. Abscess culture on 08/05 significant for Escherichia coli and enterococcus. - Status post colonoscopy on 08/15 which showed diverticulum in the sigmoid colon, a few small scattered with mild peridiverticular erythema, otherwise normal colon to the cecum. - Per general surgery due to fistula into abdominal cavity with abscess plan to proceed with sigmoid resection. - IR drainage evaluation, continue with drain for now as they have seen fistula developing. - S/p lap-assisted sigmoid resection with Dr. Singleton 08/18. - ID consulted. ID recommended Cefpodoxime and Ampicillin upon discharge. - Discussed with Surgery on the day of discharge. Per surgery, Drain was discontinued and cleared for discharge. - Patient will follow up with surgery after Thanks[facility]. Acute gouty attack- -Resolved S/P arthrocentesis 08/08. Allopurinol 300 mg PO on hold s/t nausea. Warren's cyst, right- orthopedic surgery signed off. Acute kidney injury, improving creatinine, non oliguric - Resolved HTN Likely s/t pain. Stable. - Vasotec as needed. - pain control. Pt Condition on Discharge: Good Discharge Disposition: Discharge Home Discharge Time: > 30 minutes Discharge Instructions DIET: Follow Instructions for: Heart Healthy Diet Activities you can perform: Regular-No Restrictions Follow up Referrals: Surgical - 2 Weeks with Kenny Singleton MD New Medications: Cefpodoxime (Cefpodoxime) 200 Mg Tab 400 MG PO Q12H for Infection for 20 Days, #80 TAB 0 Refills Colchicine (Colchicine) 0.6 Mg Tab 0.6 MG PO BID PRN for gout attack, #14 TAB Cyclobenzaprine (Flexeril) 10 Mg Tab 10 MG PO Q8H PRN for muscle spasms, #15 TAB Oxycodone (Oxycodone) 5 Mg Tab 5 MG PO Q6H PRN for PAIN SCALE 5 TO 10, #20 TAB Continued Medications: Allopurinol (Zyloprim) 300 Mg Tab 300 MG PO DAILY for Gout, #30 TAB 0 Refills Christine Mariscal DO Aug 26, 2017 10:03 am
--- NOTE | 2017-08-26 12:57 | HHI.PR ---
cc: Kenny Singleton MD Subjective Subjective Notes DAILY PROGRESS NOTE FOR SURGICAL ATTENDING, DR. KENNY SINGLETON Resting in bed No issues overnight Objective Vitals/I&O Vital Signs Date Time Temp Pulse Resp B/P (MAP) Pulse Ox O2 Delivery O2 Flow Rate FiO2 08/26/17 08:12 97.8 65 18 144/93 (110) 99 Labs Date/Time Source Procedure Growth Status 08/05/17 17:30 Blood Other Aerobic Blood Culture - Final NO GROWTH IN 5 DAYS Complete 08/05/17 17:30 Blood Other Anaerobic Blood Culture - Final NO GROWTH IN 5 DAYS Complete 08/09/17 08:31 Fluid Synovial Fluid Gram Stain - Final Complete 08/09/17 08:31 Fluid Synovial Fluid Body Fluid Culture - Final NO GROWTH IN 72 HRS.--AEROBICALLY OR ... Complete 08/05/17 14:30 Abscess Abdomen Fungal Smear - Final NO FUNGAL ELEMENTS SEEN. Resulted 08/05/17 14:30 Abscess Abdomen Fungal Culture - Preliminary NO GROWTH IN 2 WEEKS Resulted Radiology Last Impressions Catheter Patency X-Ray 08/14/17 0000 Signed Impressions: Service Date/Time: August 10:28 - CONCLUSION: 1. 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 Plan: Changed drainage from suction to gravity drainage bag and will continue drainage. Reuben Barrios MD Abdomen/Pelvis CT 08/13/17 0000 Signed Impressions: Service Date/Time: Sunday, August 13, 2017 09:54 - CONCLUSION: 1. Inflammatory changes of diverticulitis but no evidence of residual abscess. Scooby Schroeder MD Lower Extremity Ultrasound 08/09/17 0000 Signed Impressions: Service Date/Time: Wednesday, August 09, 2017 14:15 - CONCLUSION: 1. No evidence of deep venous thrombosis. 2. Small to moderate-sized Warren's cyst in the popliteal fossa. David Lu MD Abdomen X-Ray 08/09/17 0000 Signed Impressions: Service Date/Time: Wednesday, August 09, 2017 17:30 - CONCLUSION: No dilated loops of small or large bowel. The Matias Ohara MD Pelvis CT 08/08/17 0000 Signed Impressions: Service Date/Time: Tuesday, August 08, 2017 11:44 - CONCLUSION: 1. 2 separate pericolonic abscess collections in the region of the sigmoid have resolved the percutaneous drainage. There is still some regional stranding in the pericolonic fatty tissues, however. 2. A 1.8 cm right inguinal hernia only contains fat. Jay Delacruz MD Knee MRI 08/07/17 0000 Signed Impressions: Service Date/Time: July 14:46 - CONCLUSION: 1. Large knee effusion and large Warren's cyst with probable rupture of the Warren's cyst. 2. No meniscal tear seen. Matias Ohara MD Abscess Drainage CT 08/05/17 1516 Signed Impressions: Service Date/Time: Saturday, August 05, 2017 14:14 - CONCLUSION: 1. Uncomplicated CT-guided placement of drainage catheter in 3 separate perisigmoid abscess collections, as above. Approximately 15 mL of purulent fluid was submitted for Gram stain and C&S per request. Reuben Barrios MD Cardiovascular: Regular Lungs: Clear Abdomen: Other (midline incisiion with alissa; abdomen soft; MICHEAL drain removed ) Extremities: No edema Wound Wound : Wound Location: Abdomen Appearance: Clean & Dry Dressing: Dry (MICHEAL removed) A/P Problem List: (1) Postop check ICD Codes: Z09 - Encounter for follow-up examination after completed treatment for conditions other than malignant neoplasm (2) History of open sigmoidectomy ICD Codes: Z98.890 - Other specified postprocedural states; Z90.49 - Acquired absence of other specified parts of digestive tract Status: Chronic (3) Right knee pain ICD Codes: M25.561 - Pain in right knee Status: Acute (4) Warren's cyst, ruptured ICD Codes: M66.0 - Rupture of popliteal cyst Status: Acute (5) Gout ICD Codes: M10.9 - Gout, unspecified Status: Chronic Assessment and Plan 42 year old male with recurrent diverticular abscesses; s/p IR drainage; s/p laparoscopic BOOM; laparoscopic takedown of splenic flexure; open sigmoid resection with primary anastomosis; appendectomy -Regular diet -DC MICHEAL at bedside -Spoke with Dr. Newman and CM---will arrange for PO antibiotics to get filled prior to DC -GS clear for DC; follow up with Dr. Singleton the week after -Spoke also with Dr. Mariscal Attending Statement NOTE FOR SURGICAL ATTENDING, DR. KENNY SINGLETON Doing well Tolerating diet Having bowel movements Decreasing MICHEAL output Getting antibiotic prescription filled by case management Okay to discharge Follow-up arrangements made I agree with above assessment and plan. The exam, history, and the medical decision-making described in the above note were completed with the assistance of the mid-level provider. I reviewed and agree with the findings presented. I attest that I had a [id number] encounter with the patient on the same day, and personally performed and documented my assessment and findings in the medical record. The following services were provided during this hospital visit: Chart data review, vital sign assessments/reviewing monitor data Review of consultations notes if present. Medication orders/review and/or management Ordering and/or reviewing lab tests Ordering and/or interpreting/reviewing x-rays and/or diagnostic studies Care of the patient and discussion of the patient with the care team Documentation time To help prompt me to consider important information that might be impacting today's encounter and assessment, information from prior notes written by myself or my colleagues may have been "brought forward/copy and pasted" into today's note. Problem Qualifiers (1) Right knee pain: Qualified Codes: M25.561 - Pain in right knee (2) Gout: Tressa Dacosta Aug 26, 2017 12:57 Kenny Singleton MD Aug 27, 2017 10:59
[2017-08-26] MEDS: FLUCONAZOLE 400 MG PREMIX BAG 200 ML IV SCH (13:00)
== END 2017-08-26 16:36 | disposition home or self-care (01) | DRG 329 ==
LOC: NEPD 12:01 → NEDH 17:44 → N05A 20:32
PROVIDERS: ADMIT Hospitalist; ATTEND Hospitalist
PROC: 0W9F30Z Drainage of Abdominal Wall with Drainage Device, Percutaneous Approach (ICD-10-PCS; 2017-08-05)
PROC: 0W9G30Z Drainage of Peritoneal Cavity with Drainage Device, Percutaneous Approach (ICD-10-PCS; 2017-08-05)
PROC: 0S9C3ZX Drainage of Right Knee Joint, Percutaneous Approach, Diagnostic (ICD-10-PCS; 2017-08-09)
PROC: 0DJD8ZZ Inspection of Lower Intestinal Tract, Via Natural or Artificial Opening Endoscopic (ICD-10-PCS; 2017-08-15)
PROC: 0DNL4ZZ Release Transverse Colon, Percutaneous Endoscopic Approach (ICD-10-PCS; 2017-08-18)
PROC: 0DTJ0ZZ Resection of Appendix, Open Approach (ICD-10-PCS; 2017-08-18)
PROC: 0D9W0ZX Drainage of Peritoneum, Open Approach, Diagnostic (ICD-10-PCS; 2017-08-18)
PROC: 0DJD8ZZ Inspection of Lower Intestinal Tract, Via Natural or Artificial Opening Endoscopic (ICD-10-PCS; 2017-08-18)
PROC: 0DTN0ZZ Resection of Sigmoid Colon, Open Approach (ICD-10-PCS; principal; 2017-08-18 10:03)
DX: K57.20 Diverticulitis of large intestine with perforation and abscess without bleeding (principal); K65.1 Peritoneal abscess; A41.9 Sepsis, unspecified organism; N17.9 Acute kidney failure, unspecified; K63.2 Fistula of intestine; K66.0 Peritoneal adhesions (postprocedural) (postinfection); F17.210 Nicotine dependence, cigarettes, uncomplicated; F12.90 Cannabis use, unspecified, uncomplicated; M10.9 Gout, unspecified; M25.461 Effusion, right knee; E86.0 Dehydration; B96.20 Unspecified Escherichia coli [E. coli] as the cause of diseases classified elsewhere; B95.2 Enterococcus as the cause of diseases classified elsewhere; Z16.11 Resistance to penicillins; I10 Essential (primary) hypertension; M71.21 Synovial cyst of popliteal space [Baker], right knee; M25.561 Pain in right knee; D64.9 Anemia, unspecified
CPT/HCPCS: 49424; 72192; 73721; 74020; 74176; 74177; 75989; 80048; 80053; 80076; 81001; 82607; 82728; 82746; 82948; 83540; 83550; 83605; 83690; 83735; 84550; 85025; 85027; 85048; 85610; 85652; 85730; 86140; 86850; 86900; 86901; 87015; 87040; 87070; 87077; 87102; 87116; 87186; 87205; 87206; 88302; 88304; 88305; 88307; 89060; 93971; 94150; 96361; 96374; J1170; C1769; C9113; J0131; J0295; J0696; J0780; J1100; J1200; J1450; J2020; J2185; J2248; J2250; J2370; J2405; J2543; J2710; J2765; J3010; J3370; J3480; J7030; J7042; J7050; Q0163; Q9963; Q9967